=== PATIENT | male | born 1940 | race Hispanic/Latino ===

== ENCOUNTER 2018-12-11 09:19 | Inpatient (IN) | payer OTHER ==
--- OUTSIDE RECORDS SUMMARY | 2018-12-11 09:21 | XMS REPORT ---
:1940 Author Organization [facility] Address [address] [place] [address] [address]. [address] [place] [address] Care Team Providers Name Role Phone Unavailable Unavailable Unavailable Problems This patient has no known problems. Allergies, Adverse Reactions, Alerts This patient has no known allergies or adverse reactions. Medications This patient has no known medications.
[2018-12-11 10:03] LABS: Urine Glucose NEGATIVE (NEG); Urine Specific Gravity 1.015 (1.005-1.030)
[2018-12-11] MEDS ORDERED: NA CHLORIDE 0.9% 500 ML ONE (10:03)
[2018-12-11 10:04] LABS: Urine Blood NEGATIVE (NEG); Urine Protein NEGATIVE (NEG)
[2018-12-11 10:11] LABS: Urine Bacteria <20 /HPF (NONE SEEN); Urine Culture Reflex Order NOT NEEDED; Urine RBC <5 /HPF (NONE SEEN)
[2018-12-11 10:25] LABS: Absolute Lymphocytes (CBC) 1.2 K/uL (0.7-4.9); Basophils % 0.7 % (0-1.3); Hematocrit 34.3 % (39.6-49.0); Lymphocytes % 27.8 % (15.3-44.8); MPV 8.8 fL (7.6-11.3); Monocytes % 9.2 % (3.3-12.3); RBC Red Blood Cell Count 4.01 M/uL (4.33-5.43)
[2018-12-11 10:36] LABS: BUN Blood Urea Nitrogen 10 mg/dL (7-18); Bicarbonate 27 mmol/L (21-32); Glucose Level 87 mg/dL (74-106); Sodium Level 124 mmol/L (136-145)
[2018-12-11] MEDS ORDERED: ONDANSETRON 4 MG/2 ML VIAL ONE (10:39)
--- NOTE | 2018-12-11 10:48 | RAD REPORT ---
EXAM DESCRIPTION: CT - Stone Protocol - 12/11/2018 10:12 am CLINICAL HISTORY: Abdominal pain. Dysuria COMPARISON: 2015 TECHNIQUE: Computed axial tomography of the abdomen pelvis was obtained without oral or IV contrast. Lack of IV and oral contrast limits evaluation of solid organs, bowel, and vessels. Coronal reformat madi images were obtained and reviewed. All CT scans are performed using dose optimization technique as appropriate and may include automated exposure control or mA/KV adjustment according to patient size. FINDINGS: Several small hepatic cysts Spleen, pancreas and adrenals appear grossly normal Multiple, bilateral cortical and parapelvic renal cysts. Hydronephrosis is not present. A renal calcu jacy is not seen. Moderate stranding within the left perirenal fat Large left inguinal hernia contains a significant portion of the bladder. Several bladder calculi are present. Bladder wall is thickened with stranding in the adjacent fat. Small to moderate right inguinal hernia contains fat No evidence of diverticulitis The prostate gland is moderately to markedly enlarged Complex ventral hernia within the mid abdomen contains portions of the transverse colon. Small umbili denzel hernia contains fat IMPRESSION: Moderate stranding within the left perirenal fat probably indicating renal infection or inflammation Left inguinal hernia containing large portion of the bladder. Thickening of the bladder wall with str anding in the adjacent fat probably indicating a combination of bladder outlet obstruction and inflam mation/infection Complex ventral hernia containing transverse colon Bladder calculi
[2018-12-11] MEDS ORDERED: CEFTRIAXONE/SWI 1gm 1 GM/10 ML SYR ONE (11:46)
--- NOTE | 2018-12-11 12:02 | ER ---
Nurse's Notes [facility] Name: Venu Coy Age: 78 yrs Sex: Male : 1940 Arrival Date: 12/11/2018 Time: 09:22 Bed 17 Private MD: Diagnosis: Urinary tract infection, site not specified;Pyelonephritis;Bilateral inguinal hernia, without obstruction or gangrene;Failure of outpatient therapy for UTI Presentation: 12/11 09:38 Presenting complaint: urinary frequency and fatigue x 3 weeks. Pt was seen at [facility] a week ago and diagnosed with UTI and dehydration and told to follow up. Pt has been unable to follow up as PCP is out of the office and symptoms have not improved. Transition of care: patient was not received from another setting of care. Onset of symptoms is unknown. Risk Assessment: Do you want to hurt yourself or someone else? Patient reports no desire to harm self or others. Initial Sepsis Screen: Does the patient meet any 2 criteria? No. Patient's initial sepsis screen is negative. Does the patient have a suspected source of infection? No. Patient's initial sepsis screen is negative. Care prior to arrival: None. 09:38 Method Of Arrival: Wheelchair 09:38 Acuity: PAIGE 3 Historical: - Allergies: 09:40 No Known Allergies; ss - Home Meds: 13:22 nitrofurantoin macrocrystal 100 mg Oral cap 1 cap twice a day [Active]; em - PMHx: 13:22 Asthma; em - PSHx: 13:22 Hernia repair; em - Immunization history:: Adult Immunizations up to date. - Social history:: Smoking status: Patient/guardian denies using tobacco. - Ebola Screening: : Patient denies exposure to infectious person Patient denies travel to an Ebola-affected area in the 21 days before illness onset. - Family history:: not pertinent. - Hospitalizations: : No recent hospitalization is reported. Screenin:00 Nutritional screening: No deficits noted. Tuberculosis screening: No symptoms or risk em factors identified. Fall Risk IV access (20 points). Ambulatory Aid- Crutches/Cane/Walker (15 pts). Gait- Total Carter Fall Scale indicates Low Risk Score (25-44 pts). 10:21 Abuse screen: Denies threats or abuse. Denies injuries from another. ss Assessment: 10:00 General: Appears in no apparent distress. uncomfortable, well groomed, well developed, em well nourished, Behavior is calm, cooperative, Denies fever. Pain: Complains of pain in pelvis. Neuro: Level of Consciousness is awake, alert, obeys commands, Oriented to person, place, time, situation, Reports weakness Denies dizziness. Cardiovascular: Capillary refill < 3 seconds is brisk Patient's skin is warm and dry. Respiratory: Airway is patent Respiratory effort is even, unlabored, Respiratory pattern is regular, symmetrical. GI: Reports nausea, vomiting, Patient currently denies abdominal pain, diarrhea. : Reports burning with urination, urinary frequency. Derm: Skin is intact, is thin, Skin is pink, warm \T\ dry. Musculoskeletal: Range of motion: intact in all extremities. 10:05 Reassessment: The previous assessment is accurate, call light remains within reach. ss 10:15 Reassessment: wheeled to CT via wheelchair. em 11:11 Reassessment: Patient appears in no apparent distress at this time. Patient and/or em family updated on plan of care and expected duration. Pain level reassessed. Patient is alert, oriented x 3, equal unlabored respirations, skin warm/dry/pink. 12:25 Reassessment: Patient appears in no apparent distress at this time. Patient and/or em family updated on plan of care and expected duration. Pain level reassessed. Patient is alert, oriented x 3, equal unlabored respirations, skin warm/dry/pink. Patient denies pain at this time. Patient states symptoms have improved. Vital Signs: 09:40 BP 134 / 86; Pulse 54; Resp 18; Temp 97.6(TE); Pulse Ox 99% on R/A; Weight 77.11 kg; ss Height 5 ft. 6 in. (167.64 cm); Pain 0/10; 10:47 BP 129 / 72; Pulse 51; Resp 18; Pulse Ox 97% on R/A; em 11:30 BP 110 / 70; Pulse 49; Resp 18; Pulse Ox 97% on R/A; em 12:46 BP 137 / 80; Pulse 54; Resp 16; Pulse Ox 98% on R/A; Pain 0/10; em 14:00 BP 131 / 82; Pulse 52; Resp 14; Pulse Ox 99% on R/A; em 15:00 BP 118 / 70; Pulse 53; Resp 18; Temp 98.0(O); Pulse Ox 99% on R/A; Pain 0/10; em 09:40 Body Mass Index 27.44 (77.11 kg, 167.64 cm) ED Course: 09:22 Patient arrived in ED. as 09:30 Osvaldo Palafox LVN is Primary Nurse. em 09:35 Solis Schulte MD is Attending Physician. rn 09:39 Triage completed. ss 09:40 Arm band placed on right wrist. ss 09:56 Urine collected: clean catch specimen, clear. ms 10:00 Patient has correct armband on for positive identification. Bed in low position. Call em light in reach. Side rails up X2. Adult w/ patient. Pulse ox on. NIBP on. 10:00 Inserted saline lock: 22 gauge in right forearm, using aseptic technique. Blood em collected. 10:00 Initial lab(s) drawn, by me, sent to lab. First set of blood cultures drawn by me. em 10:15 CT Stone Protocol In Process Unspecified. EDMS 12:01 Ilia Bruce DO is Hospitalizing Provider. rn 14:57 No provider procedures requiring assistance completed. Patient admitted, IV remains in em place. Administered Medications: 10:00 Drug: NS 0.9% 500 ml Route: IV; Rate: bolus; Site: right forearm; ss 10:50 Follow up: IV Status: Completed infusion; IV Intake: 500ml em 10:27 Drug: Zofran 4 mg Route: IVP; Site: right forearm; ss 10:50 Follow up: Response: No adverse reaction; Nausea is decreased em 12:35 Drug: Rocephin - (cefTRIAXone) 1 grams Route: IVPB; Infused Over: 30 mins; Site: right ss antecubital; 13:18 Follow up: Response: No adverse reaction; IV Status: Completed infusion; IV Intake: 10mlem Intake: 10:50 IV: 500ml; Total: 500ml. em 13:18 IV: 10ml; Total: 510ml. em Outcome: 12:01 Decision to Hospitalize by Provider. rn 14:57 Admitted to Med/surg accompanied by tech, family with patient, via wheelchair, room em 429, with chart, Report called to [facility] Dumont 14:57 Condition: good 14:57 Instructed on the need for admit, Demonstrated understanding of instructions. 15:01 Patient left the ED. em Signatures: Dispatcher [employer] Osvaldo Zheng, PASSENGER COACH DRIVER PASSENGER COACH DRIVER Sary Ríos Maria ms Nieto, Roman, MD MD rn Yanira Curry RN RN ss
--- NOTE | 2018-12-11 12:03 | EDPHYS ---
Physician Documentation [facility] Name: Venu Coy Age: 78 yrs Sex: Male : 1940 Arrival Date: 12/11/2018 Time: 09:22 Bed 17 Private MD: ED Physician Solis Schulte HPI: 12/11 11:16 This 78 yrs old Male presents to ER via Wheelchair with complaints of Urinary rn Frequency, Weakness. 11:16 The patient presents with urinary symptoms, urinary frequency. Onset: The rn symptoms/episode began/occurred 2 week(s) ago. Modifying factors: The symptoms are alleviated by nothing, the symptoms are aggravated by urinating. Associated signs and symptoms: Pertinent positives: dysuria, nausea, vomiting, Pertinent negatives: fever, hematuria. Severity of symptoms: At their worst the symptoms were moderate, in the emergency department the symptoms are unchanged. The patient has not experienced similar symptoms in the past. The patient has been recently seen by a physician:. Reports 2 weeks of increased urinary frequency, and dysuria, seen at [facility] 1 week ago and given abx for UTI, states not better. Also having nausea and vomiting. No fever. Taking macrobid.. Historical: - Allergies: 09:40 No Known Allergies; ss - Home Meds: 13:22 nitrofurantoin macrocrystal 100 mg Oral cap 1 cap twice a day [Active]; em - PMHx: 13:22 Asthma; em - PSHx: 13:22 Hernia repair; em - Immunization history:: Adult Immunizations up to date. - Social history:: Smoking status: Patient/guardian denies using tobacco. - Ebola Screening: : Patient denies exposure to infectious person Patient denies travel to an Ebola-affected area in the 21 days before illness onset. - Family history:: not pertinent. - Hospitalizations: : No recent hospitalization is reported. ROS: 11:40 Constitutional: Negative for fever, chills, and weight loss, Eyes: Negative for injury, rn pain, redness, and discharge, Neck: Negative for injury, pain, and swelling, Cardiovascular: Negative for chest pain, palpitations, and edema, Respiratory: Negative for shortness of breath, cough, wheezing, and pleuritic chest pain, Abdomen/GI: Negative for diarrhea, and constipation, : Negative for injury, bleeding, discharge, + left scrotal swelling MS/Extremity: Negative for injury and deformity, Skin: Negative for injury, rash, and discoloration, Neuro: Negative for headache, numbness, tingling, and seizure. Exam: 11:40 Constitutional: This is a well developed, well nourished patient who is awake, alert, rn and in no acute distress. Head/Face: Normocephalic, atraumatic. ENT: MMM Cardiovascular: Regular rate and rhythm, no murmur Respiratory: Lungs have equal breath sounds bilaterally, clear to auscultation Abdomen/GI: soft, + moderate ventral hernia that is reducible Male : + large left scrotal swelling MS/ Extremity: Pulses equal, no cyanosis. Neurovascular intact. Full, normal range of motion. Equal circumference. Neuro: Awake and alert, GCS 15, oriented to person, place, time, and situation. Cranial nerves II-XII grossly intact. Motor strength 5/5 in all extremities. Sensory grossly intact. Cerebellar exam normal. Normal gait. Vital Signs: 09:40 BP 134 / 86; Pulse 54; Resp 18; Temp 97.6(TE); Pulse Ox 99% on R/A; Weight 77.11 kg; ss Height 5 ft. 6 in. (167.64 cm); Pain 0/10; 10:47 BP 129 / 72; Pulse 51; Resp 18; Pulse Ox 97% on R/A; em 11:30 BP 110 / 70; Pulse 49; Resp 18; Pulse Ox 97% on R/A; em 12:46 BP 137 / 80; Pulse 54; Resp 16; Pulse Ox 98% on R/A; Pain 0/10; em 14:00 BP 131 / 82; Pulse 52; Resp 14; Pulse Ox 99% on R/A; em 15:00 BP 118 / 70; Pulse 53; Resp 18; Temp 98.0(O); Pulse Ox 99% on R/A; Pain 0/10; em 09:40 Body Mass Index 27.44 (77.11 kg, 167.64 cm) ss MDM: 09:36 Patient medically screened. rn 11:53 Differential diagnosis: UTI. Data reviewed: vital signs, nurses notes, lab test rn result(s), radiologic studies. Counseling: I had a detailed discussion with the patient and/or guardian regarding: the historical points, exam findings, and any diagnostic results supporting the discharge/admit diagnosis, lab results, radiology results, the need for further work-up and treatment in the hospital. ED course: Pt with failure of outpt therapy, worsening UTI with signs of early pyelo. + longstanding left scrotal hernia with portion of bladder. Hernia has not been reducible since mid 2015, denies pain or acute changes. Has urinated twice here in ER, so unlikely bladder outlet obstruction and no hydro. Will admit for IV abx and gen surg consult for hernia repair, which may be outpt. . 12:00 ED course: Attempted reduction of inguinal hernia, unsuccessful, tolerated well and no rn tenderness or complaint. Manipulation did not lead to urination.. 12:12 ED course: No change in hernia, and ct 3 years ago also shows portion of bladder in rn hernia without appreciable change. Contacted Dr. Bruce for admission.. 12/11 09:44 Order name: CBC with Diff; Complete Time: 10:40 12/11 09:44 Order name: Basic Metabolic Panel; Complete Time: 10:40 12/11 09:44 Order name: Urine Culture rn 12/11 09:44 Order name: Urine Microscopic Only; Complete Time: 10:40 12/11 09:44 Order name: Procalcitonin; Complete Time: 11:29 12/11 09:44 Order name: Lactate; Complete Time: 11:11 12/11 09:44 Order name: IV Start; Complete Time: 09:55 12/11 09:44 Order name: Urine Dipstick-Ancillary (obtain specimen); Complete Time: 09:54 12/11 09:44 Order name: Blood Culture Adult (2) rn 12/11 09:45 Order name: CT Stone Protocol; Complete Time: 11:11 12/11 09:55 Order name: Urine Dipstick--Ancillary (enter results); Complete Time: 10:40 ss Administered Medications: 10:00 Drug: NS 0.9% 500 ml Route: IV; Rate: bolus; Site: right forearm; ss 10:50 Follow up: IV Status: Completed infusion; IV Intake: 500ml em 10:27 Drug: Zofran 4 mg Route: IVP; Site: right forearm; ss 10:50 Follow up: Response: No adverse reaction; Nausea is decreased em 12:35 Drug: Rocephin - (cefTRIAXone) 1 grams Route: IVPB; Infused Over: 30 mins; Site: right ss antecubital; 13:18 Follow up: Response: No adverse reaction; IV Status: Completed infusion; IV Intake: 10mlem Disposition: 12/11/18 12:01 Hospitalization ordered by Ilia Bruce for Inpatient Admission. Preliminary diagnosis are Urinary tract infection, site not specified, Pyelonephritis, Bilateral inguinal hernia, without obstruction or gangrene, Failure of outpatient therapy for UTI. - Bed requested for Telemetry/MedSurg (Inpatient). - Status is Inpatient Admission. em - Condition is Stable. - Problem is an ongoing problem. - Symptoms are unchanged. UTI on Admission? Yes Signatures: Dispatcher [employer] EDOsvaldo Hutchison, BUSINESS SERVICES ANALYST BUSINESS SERVICES ANALYST Solis Armstrong MD MD rn Smirch, Shelby, RN RN ss Botello, Elizabeth eb Corrections: (The following items were deleted from the chart) 13:52 12:01 Hospitalization Ordered by Ilia Bruce DO for Inpatient Admission. Preliminary eb diagnosis is Urinary tract infection, site not specified; Pyelonephritis; Bilateral inguinal hernia, without obstruction or gangrene; Failure of outpatient therapy for UTI. Bed requested for Telemetry/MedSurg (Inpatient). Status is Inpatient Admission. Condition is Stable. Problem is an ongoing problem. Symptoms are unchanged. UTI on Admission? Yes. rn 15:01 13:52 12/11/2018 12:01 Hospitalization Ordered by Ilia Bruce DO for Inpatient em Admission. Preliminary diagnosis is Urinary tract infection, site not specified; Pyelonephritis; Bilateral inguinal hernia, without obstruction or gangrene; Failure of outpatient therapy for UTI. Bed requested for Telemetry/MedSurg (Inpatient). Status is Inpatient Admission. Condition is Stable. Problem is an ongoing problem. Symptoms are unchanged. UTI on Admission? Yes. eb
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
[2018-12-11] MEDS ORDERED: ACETAMINOPHEN 500 MG TAB PO PRN (15:05)
[2018-12-11] MEDS: IPRATROPIUM BROM 0.5MG/2.5ML NEB PRN (15:30)
[2018-12-11] MEDS: ALBUTEROL 2.5 MG/3 ML NEB SOL NEB PRN (15:30)
[2018-12-11] MEDS: NA CHLORIDE 0.9% 1,000 ML IV SCH (16:12)
[2018-12-11] MEDS: ENOXAPARIN 40 MG/0.4 ML SQ SCH (16:13)
[2018-12-11] MEDS ORDERED: PNEUMOCOCCAL VACCINE 0.5 ML IMVAC ONE (17:00)
[2018-12-11 18:10] LABS: Urine Appearance CLEAR; Urine Bilirubin NEGATIVE (NEG); Urine Blood NEGATIVE (NEG); Urine Color YELLOW; Urine Glucose NEGATIVE (NEG); Urine Protein NEGATIVE (NEG); Urine Urobilinogen 0.2 mg/dL (0.2-1.0)
[2018-12-11 19:12] LABS: Urine Microscopic Reflex ORDER UMIC
[2018-12-11 19:30] LABS: BUN Blood Urea Nitrogen 9 mg/dL (7-18); Bicarbonate 29 mmol/L (21-32); Glucose Level 116 mg/dL (74-106); Potassium 3.6 mmol/L (3.5-5.1); Sodium Level 123 mmol/L (136-145)
[2018-12-11 19:35] LABS: Urine Bacteria <20 /HPF (NONE SEEN); Urine Culture Reflex Order NOT NEEDED; Urine RBC NONE SEEN /HPF (NONE SEEN)
[2018-12-11] MEDS: TAMSULOSIN 0.4 MG SR CAP PO SCH (21:35)
[2018-12-12 05:54] LABS: Absolute Lymphocytes (CBC) 0.9 K/uL (0.7-4.9); Basophils % 0.9 % (0-1.3); Eosinophils % 4.1 % (0-4.4); Hematocrit 32.4 % (39.6-49.0); Lymphocytes % 26.9 % (15.3-44.8); MPV 8.2 fL (7.6-11.3); Monocytes % 9.2 % (3.3-12.3); RBC Red Blood Cell Count 3.79 M/uL (4.33-5.43)
[2018-12-12 06:06] LABS: BUN Blood Urea Nitrogen 8 mg/dL (7-18); Bicarbonate 28 mmol/L (21-32); Glucose Level 80 mg/dL (74-106); Magnesium 1.7 mg/dL (1.8-2.4); Potassium 3.9 mmol/L (3.5-5.1); Sodium Level 123 mmol/L (136-145)
[2018-12-12] MEDS ORDERED: MAGNESIUM SULFATE 1 gm IVPB 1 GM/100 ML BAG IV ONE (06:16)
[2018-12-12] MEDS ORDERED: POTASSIUM 25 MEQ EFFERV TAB PO ONE (06:17)
--- NOTE | 2018-12-12 08:27 | P.PN ---
Subjective Date of Service: 12/12/18 Primary Care Provider: Dr. Beth Chief Complaint: Fatigue, dysuria Subjective: Doing well (Do well at this time. No complaints noted.) Physical Examination - Vital Signs Temperature: 97.5 F Blood Pressure: 100/56 Pulse: 57 Respirations: 16 Pulse Ox (%): 97 - Physical Exam General: Alert, In no apparent distress, Oriented x3, Cooperative HEENT: Atraumatic Neck: Supple Respiratory: Clear to auscultation bilaterally, Normal air movement Cardiovascular: Normal pulses, Regular rate/rhythm Gastrointestinal: Normal bowel sounds, Soft and benign, Non-distended, No tenderness, No masses, No rebound, No guarding, Other (Ventral hernia soft. Left inguinal hernia noted. No pain noted.) Musculoskeletal: No erythema, No tenderness, No warmth Integumentary: No tenderness/swelling, No erythema, No warmth, No cyanosis Neurological: Normal speech, Normal strength at 5/5 x4 extr, Normal tone, Normal affect - Studies Laboratory Data (last 24 hrs) 12/11/18 10:00: Sodium 124 L, Potassium 4.0, BUN 10, Creatinine 0.78, Glucose 87 12/11/18 10:00: WBC 4.3, Hgb 11.8 L, Hct 34.3 L, Plt Count 263 Medications List Reviewed: Yes Assessment & Plan Discharge Plan: Home Plan to discharge in: 48 Hours Physician Review Additional Text: Impression: Failed outpatient UTI likely now with left pyelonephritis, bladder calculi Hyponatremia like dehydration 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 Will try to obtain urine culture results from [facility]. So far he urine culture shows no growth. Await blood culture results. Continue IV Rocephin. Case discussed with surgery yesterday concerning complex ventral hernia and chronic left inguinal hernia. No plan for intervention. Hernias will need to be addressed as an outpatient. Patient with hyponatremia. Will order serum/urine osmolalities and spot urine sodium. Will consult Nephrology to further evaluate and treat. Patient has been getting low-dose IV normal saline as dehydration was suspected. Await for further recommendation. Case discussed with Urology yesterday as well. Patient will need follow up with urology as outpatient to further address his condition. Likely discharge in the next 24-48 hr awaiting urine culture result and correction of sodium. I will turn the service over to Dr. Greenwood tomorrow. I will go over the plan of care with her. Hyponatremia likely dehydration: Continue IV fluids. Will check spot urine sodium and serum/urine osmolalities. Will consult Nephrology to further evaluate and treat. Chronic left inguinal hernia: Case discussed with surgery yesterday. No intervention needed at this time. No heavy lifting, pushing or pulling. Hernia will need to be further evaluated as an outpatient. Chronic ventral complex ventral hernia: As above. Follow up with surgery as an outpatient to consider surgery in the future BPH: Continue Flomax. Patient will need to see urology as an outpatient to further address. Time Spent Managing Pts Care (In Minutes): 55
[2018-12-12] MEDS: NA CHLORIDE 0.9% 1,000 ML IV SCH (10:48)
[2018-12-12] MEDS: CEFTRIAXONE/SWI 1gm 1 GM/10 ML SYR IV SCH (10:49)
[2018-12-12] MEDS: ENOXAPARIN 40 MG/0.4 ML SQ SCH (17:05)
[2018-12-12] MEDS: HYDROCODONE/APAP 7.5/325 MG TAB PO PRN (19:44)
[2018-12-12] MEDS: TAMSULOSIN 0.4 MG SR CAP PO SCH (22:10)
[2018-12-13 06:12] LABS: Absolute Lymphocytes (CBC) 1.1 K/uL (0.7-4.9); Basophils % 0.6 % (0-1.3); Eosinophils % 4.2 % (0-4.4); Hematocrit 29.6 % (39.6-49.0); Lymphocytes % 35.8 % (15.3-44.8); MPV 8.6 fL (7.6-11.3); Monocytes % 13.2 % (3.3-12.3); RBC Red Blood Cell Count 3.46 M/uL (4.33-5.43)
[2018-12-13] MEDS: NA CHLORIDE 0.9% 1,000 ML IV SCH ×2 (06:19→23:00)
[2018-12-13 06:20] LABS: BUN Blood Urea Nitrogen 9 mg/dL (7-18); Bicarbonate 26 mmol/L (21-32); Glucose Level 82 mg/dL (74-106); Magnesium 1.8 mg/dL (1.8-2.4); Sodium Level 123 mmol/L (136-145)
[2018-12-13] MEDS: ALBUTEROL 2.5 MG/3 ML NEB SOL NEB PRN (06:35)
[2018-12-13] MEDS: IPRATROPIUM BROM 0.5MG/2.5ML NEB PRN (06:35)
[2018-12-13] MEDS: ONDANSETRON 4 MG/2 ML VIAL IV PRN ×2 (07:47→12:02)
[2018-12-13] MEDS: HYDROCODONE/APAP 7.5/325 MG TAB PO PRN ×2 (07:51→16:55)
[2018-12-13] MEDS: CEFTRIAXONE/SWI 1gm 1 GM/10 ML SYR IV SCH (07:54)
[2018-12-13] MEDS ORDERED: MAGNESIUM SULFATE 1 gm IVPB 1 GM/100 ML BAG IV ONE (09:00)
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
--- NOTE | 2018-12-13 12:29 | P.PN ---
Subjective Date of Service: 12/13/18 Primary Care Provider: Dr. Beth Chief Complaint: Fatigue, dysuria Patient seen and evaluated at bedside with RN. Chart reviewed. Case discussed with nephrology. Patient this morning does complain of having some nausea and vomiting. No other complaints to offer overnight as well. Review of Systems 10-point ROS is otherwise unremarkable Physical Examination - Vital Signs Temperature: 96.9 F Blood Pressure: 111/59 Pulse: 59 Respirations: 16 Pulse Ox (%): 95 - Physical Exam General: Alert, In no apparent distress HEENT: Atraumatic, PERRLA, EOMI Neck: Supple, JVD not distended Respiratory: Clear to auscultation bilaterally, Normal air movement Cardiovascular: Regular rate/rhythm, Normal S1 S2 Gastrointestinal: Normal bowel sounds, No tenderness Musculoskeletal: No tenderness Integumentary: No rashes Neurological: Normal speech, Normal tone, Normal affect Lymphatics: No axilla or inguinal lymphadenopathy - Studies Microbiology Data (last 24 hrs): 12/11/18 09:50 Clean Catch Urine [place] Count - Final <10,000 CFU/ML. 12/11/18 09:50 Clean Catch Urine - Final No growth. Medications List Reviewed: Yes Assessment And Plan - Current Problems (Diagnosis) (1) UTI (urinary tract infection) Onset Date: 05/02/16 Current Visit: No Status: Acute Plan: Failed outpatient therapy UTI likely now with left pyelonephritis, bladder calculi -currently on IV Rocephin -urine culture negative thus far -blood culture pending at this time -will monitor closely and switched over to oral antibiotics once culture results -doing well overall at this time -outpatient follow up with urology for bladder calculi after discussing the case with urology Qualifiers: Urinary tract infection type: acute cystitis Hematuria presence: without hematuria Qualified Code(s): N30.00 - Acute cystitis without hematuria (2) Hyponatremia Current Visit: Yes Status: Acute Plan: Patient with sodium level 123 most likely secondary to dehydration -nephrology consulted. Appreciated recommendations at the -IV fluids along with sodium tablets ordered at this time (3) Ventral hernia Current Visit: Yes Status: Chronic Plan: Ventral hernia which is chronic in nature complex -general surgery consulted. Appreciated recommendations at this time -outpatient followup to address the complex ventral hernia Qualifiers: Obstruction and gangrene presence: without obstruction or gangrene Qualified Code(s): K43.9 - Ventral hernia without obstruction or gangrene (4) BPH (benign prostatic hyperplasia) Current Visit: Yes Status: Chronic Plan: Patient follow up with urology as recommended by urology Qualifiers: Lower urinary tract symptom presence: symptoms present Lower urinary tract symptom detail: urinary frequency Qualified Code(s): N40.1 - Benign prostatic hyperplasia with lower urinary tract symptoms; R35.0 - Frequency of micturition - Plan Pending clinical improvement at this time. Continue with sodium tabs and IV fluids. Will recheck sodium level tomorrow if improvement patient can be discharged at that time. Discharge Plan: Home Plan to discharge in: 48 Hours - Code Status/Comfort Care Code Status Assessed: Yes Critical Care: No
[2018-12-13] MEDS: ENOXAPARIN 40 MG/0.4 ML SQ SCH (16:56)
[2018-12-13] MEDS ORDERED: SODIUM CHLORIDE 1 GM TAB PO SCH (17:00)
[2018-12-13] MEDS: TRAMADOL HCL 50 MG TAB PO PRN (18:39)
[2018-12-13] MEDS: TAMSULOSIN 0.4 MG SR CAP PO SCH (20:17)
--- NOTE | 2018-12-13 21:15 | PN ---
Date of Progress Note: 12/13/2018 Diagnoses: Ventral hernia and also inguinal hernia. Subjective: The patient is doing well. No distress. Tolerating diet. Objective: Chest: Clear. Abdomen: Soft and depressible. No guarding or rebound. Plan: The patient was fully explained, also the fully explained yesterday the plan, today all t he family members are present, we explained to them that when this infection is resolved, since he is a patient of [facility] in [place], to return back to the [facility] to look for possibiliti es of fixing the hernia at least the inguinal region which will allow the bladder to come through. R ight now, he does not have peritonitis, and he does not have any bowel obstruction, but he does under stand he has part of the large bowel going through the ventral region. Apparently, he had his hernia looked at before by [place] and they even have done surgery on him, so the family wanted to taking back there to fix the hernia, and I agree with that. FABIOLA/BRANDON Voice ID: [id number] Report ID: [id number]
[2018-12-13 22:35] LABS: BUN Blood Urea Nitrogen 10 mg/dL (7-18); Bicarbonate 29 mmol/L (21-32); Glucose Level 95 mg/dL (74-106); Phosphorus 3.4 mg/dL (2.5-4.9); Potassium 3.9 mmol/L (3.5-5.1); Sodium Level 124 mmol/L (136-145); Uric Acid 2.9 mg/dL (3.5-7.2)
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
[2018-12-14] MEDS: TRAMADOL HCL 50 MG TAB PO PRN (03:27)
[2018-12-14 07:17] LABS: Absolute Lymphocytes (CBC) 0.8 K/uL (0.7-4.9); Basophils % 0.7 % (0-1.3); Eosinophils % 5.1 % (0-4.4); Hematocrit 33.5 % (39.6-49.0); Lymphocytes % 29.9 % (15.3-44.8); MPV 8.2 fL (7.6-11.3); Monocytes % 10.8 % (3.3-12.3); RBC Red Blood Cell Count 3.89 M/uL (4.33-5.43)
[2018-12-14 07:35] LABS: BUN Blood Urea Nitrogen 9 mg/dL (7-18); Bicarbonate 31 mmol/L (21-32); Glucose Level 85 mg/dL (74-106); Magnesium 2.1 mg/dL (1.8-2.4); Potassium 4.2 mmol/L (3.5-5.1); Sodium Level 126 mmol/L (136-145)
[2018-12-14] MEDS: SODIUM CHLORIDE 1 GM TAB PO SCH ×4 (08:32→20:02)
[2018-12-14] MEDS: CEFTRIAXONE/SWI 1gm 1 GM/10 ML SYR IV SCH (08:32)
[2018-12-14] MEDS: ONDANSETRON 4 MG/2 ML VIAL IV PRN ×2 (08:32→13:51)
[2018-12-14 08:40] LABS: Blood Morphology Comment NOT SEEN (NOT SEEN); Platelet Estimate ADEQ; Urine White Blood Cell Casts OK
--- NOTE | 2018-12-14 12:08 | RAD REPORT ---
EXAM DESCRIPTION: RAD - Abdomen W Erect - 12/14/2018 11:30 am CLINICAL HISTORY: Abdominal pain, nausea and vomiting COMPARISON: CT study December 11 TECHNIQUE: Supine and upright views of the abdomen were obtained. FINDINGS: Moderate stool volume is seen in a nondilated colon. No dilated small bowel loops. No free air or pneumatosis. Patient has a known supraumbilical ventral hernia containing transverse colon. N o evidence for an acute component based on plain film. Dense prostate calcifications are present. Pat ient has a known large left inguinal hernia containing much of the urinary bladder. Bladder stones ar e present within the herniated portion of the bladder based on the CT study. Lumbar spine degenerative changes are present. No new calcifications seen. IMPRESSION: No evidence for bowel obstruction. No free air, pneumatosis or other acute finding.
--- NOTE | 2018-12-14 12:19 | P.PN ---
Subjective Date of Service: 12/14/18 Primary Care Provider: Dr. Beth Chief Complaint: Fatigue, dysuria Patient seen and evaluated at bedside with RN. Chart reviewed. Case discussed with nephrology. Patient this morning still complains of having some nausea and vomiting unable to keep anything down. Has not been able to ambulate as well. Review of Systems 10-point ROS is otherwise unremarkable Physical Examination - Vital Signs Temperature: 97.2 F Blood Pressure: 110/65 Pulse: 54 Respirations: 18 Pulse Ox (%): 98 - Physical Exam General: Alert, In no apparent distress HEENT: Atraumatic, PERRLA, EOMI Neck: Supple, JVD not distended Respiratory: Clear to auscultation bilaterally, Normal air movement Cardiovascular: Regular rate/rhythm, Normal S1 S2 Gastrointestinal: Normal bowel sounds, No tenderness Musculoskeletal: No tenderness Integumentary: No rashes Neurological: Normal speech, Normal tone, Normal affect Lymphatics: No axilla or inguinal lymphadenopathy - Studies Microbiology Data (last 24 hrs): 12/11/18 09:50 Clean Catch Urine [place] Count - Final <10,000 CFU/ML. 12/11/18 09:50 Clean Catch Urine - Final No growth. Medications List Reviewed: Yes Assessment And Plan - Current Problems (Diagnosis) (1) Pyelonephritis Current Visit: Yes Status: Acute Plan: Possible pyelonephritis on abdominal CT initially now with nausea vomiting persistent -currently on IV antibiotics will continue that here in the hospital -will get urology consulted at this time. -continue to monitor patient closely (2) UTI (urinary tract infection) Onset Date: 05/02/16 Current Visit: No Status: Acute Plan: Failed outpatient therapy UTI likely now with left pyelonephritis, bladder calculi -currently on IV Rocephin -urine culture negative thus far -blood culture pending at this time -will monitor closely and switched over to oral antibiotics once culture results -outpatient follow up with urology for bladder calculi after discussing the case with urology Qualifiers: Urinary tract infection type: acute cystitis Hematuria presence: without hematuria Qualified Code(s): N30.00 - Acute cystitis without hematuria (3) Hyponatremia Current Visit: Yes Status: Acute Plan: Patient with sodium level 123 initially most likely secondary to dehydration -nephrology consulted. Appreciated recommendations -NA 126 today, improving slowly -IV fluids along with sodium tablets ordered at this time (4) Ventral hernia Current Visit: Yes Status: Chronic Plan: Ventral hernia which is chronic in nature complex -general surgery consulted. Appreciated recommendations at this time -outpatient followup to address the complex ventral hernia Qualifiers: Obstruction and gangrene presence: without obstruction or gangrene Qualified Code(s): K43.9 - Ventral hernia without obstruction or gangrene (5) BPH (benign prostatic hyperplasia) Current Visit: Yes Status: Chronic Plan: Stable -outpt f.u with Urology as reccs by urology Qualifiers: Lower urinary tract symptom presence: symptoms present Lower urinary tract symptom detail: urinary frequency Qualified Code(s): N40.1 - Benign prostatic hyperplasia with lower urinary tract symptoms; R35.0 - Frequency of micturition - Plan Pending clinical improvement at this time. Discharge Plan: Home Plan to discharge in: Greater than 2 days - Code Status/Comfort Care Code Status Assessed: Yes Critical Care: No
[2018-12-14] MEDS ORDERED: LACTULOSE 20 GM/30 ML UCUP PO ONE (13:37)
[2018-12-14] MEDS: NA CHLORIDE 0.9% 1,000 ML IV SCH (13:51)
[2018-12-14] MEDS: HYDROCODONE/APAP 7.5/325 MG TAB PO PRN (14:00)
[2018-12-14] MEDS: ENOXAPARIN 40 MG/0.4 ML SQ SCH (16:08)
[2018-12-14] MEDS: PANTOPRAZOLE 40MG TABLET PO SCH (16:08)
--- NOTE | 2018-12-14 16:39 | RAD REPORT ---
EXAM DESCRIPTION: CT - Abdomen Pelvis Wo Contrast - 12/14/2018 4:20 pm CLINICAL HISTORY: Abdominal pain, flank pain, left-sided pyelonephritis COMPARISON: December 11 CT imaging ; contrast CT imaging April 2016 TECHNIQUE: Axial [address] imaging of the abdomen and pelvis was performed without IV contrast. No IV contrast was given because of allergy, abnormal renal function, patient refusal or physician re quest. Oral contrast was given. All CT scans are performed using dose optimization technique as appropriate and may include automated exposure control or mA/KV adjustment according to patient size. FINDINGS: No suspicious findings in the lung bases. Several small round low-density areas are present in the liver most likely incidental cysts. These ar e similar to the contrast study from 2016. Spleen and pancreas show no suspicious findings. Gallbladd er is only partially filled. Gallstones can be occult on CT imaging. No biliary tree dilatation. Bilateral cortical cysts and parapelvic cysts are present. Function cannot be assessed in the absence of contrast. Pyelonephritis cannot be confirmed without contrast. However, the left perinephric stra nding would suggest acute left-sided pyelonephritis. Stranding pattern is similar to comparison. No a kenna in the kidney or perinephric soft tissues. No hydronephrosis. No obstructing or nonobstructing re nal or ureteral calculi. No significant adrenal finding. Isodense renal masses and pyelonephritis ca nnot be excluded in the absence of IV contrast. Bladder calculi are again identified. Patient has a large left inguinal hernia that contains approxim ately 50% of the urinary bladder. Prostate calcifications are also present. Bladder interiano are mildly prominent and a component of cystitis is not excluded. No gastric wall thickening or mass. No dilated small bowel loop or acute small bowel finding. Left-si ded diverticulosis is present. Patient's supraumbilical ventral hernia containing transverse colon carpenter s not change from comparison. No acute component the hernia. No free air or free fluid. No pneumatosi s. No mass or bulky lymphadenopathy. No suspicious bony findings. IMPRESSION: Left-sided perinephric stranding, presumably due to pyelonephritis, has not change from December 11. No abscess, free air or other complicating factor. Urinary bladder interiano are mildly prominent and a cystitis component is not excluded. The patient has a large left inguinal hernia is again noted containing approximately 50% of the urinary bladder. Large ventral hernia containing transverse colon has no acute component or significant change from co mparison. Full assessment is limited is the absence of IV contrast.
[2018-12-14] MEDS: TAMSULOSIN 0.4 MG SR CAP PO SCH (20:02)
[2018-12-14] MEDS ORDERED: BISACODYL E.C. 5 MG TAB PO ONE (20:29)
[2018-12-14 21:14] LABS: BUN Blood Urea Nitrogen 7 mg/dL (7-18); Bicarbonate 30 mmol/L (21-32); Glucose Level 94 mg/dL (74-106); Potassium 4.1 mmol/L (3.5-5.1); Sodium Level 128 mmol/L (136-145)
--- NOTE | 2018-12-15 01:04 | PN ---
Date of Progress Note: 12/14/2018 Chief Complaint: Hyponatremia. Hypo-osmolal, moderately hyponatremia was found when the patient came to the hospital. The patient w as started on IV normal saline and sodium level has not improved significantly. Since yesterday, sod ium chloride tablets were started and sodium level improved from 123 to 126 over last 24 hours. BUN is 10 and creatinine 0.78. The patient was found to have urinary tract infection and CT scan of the abdomen and pelvis without contrast showed moderate stranding as well as complex ventral hernia conta ining transverse colon without obstruction. The patient is consulted by urologist for urinary bladde r calculus. CT scan was done today. The patient was complaining of flank pain, left-sided pyelonephritis was vinh luated with CT scan and there is no abscess formation. Pyelonephritis cannot be confirmed without co ntrast. Although patient did not receive contrast, left perinephric stranding would be suggestive of left-sided pyelonephritis. There is no hydronephrosis. The bladder calculi again identified as wel l as prostate calcifications were present. Review of Systems: The patient is complaining of some nausea and vomiting, p.o. intake is improving somewhat. Physical Examination: Lungs: Clear to auscultation bilaterally. Heart: S1, S2. Abdomen: Soft, benign. Extremities: No edema. Laboratory Data: Sodium 126, potassium 4.2, chloride 92, CO2 of 31, BUN 9, creatinine 0.72, glucose 85, cortisol level 1.28, TSH 1.4, uric acid 2.9, calcium 8.6, phosphorus 3.4. Impression And Plan: 1.Hyponatremia, hypo-osmolal. The patient is started on sodium chloride tablets. Continue IV normal saline. Evaluate sodium level. A.m. cortisol level is below normal ranges. The plan is to start hy drocortisone tablet 30 mg per day and monitor electrolytes closely. 2.Urinary tract infection. Continue antibiotics. The patient is evaluated by urologist for bladder calculus. 3.Hypertension. Blood pressure is controlled. Monitor blood pressure closely. 4.The plan is to avoid diuretic in view of hyponatremia. The patient cannot take nonsteroidal anti- inflammatory medication. EB/MODL Voice ID: [id number] Report ID: [id number]
[2018-12-15] MEDS: NA CHLORIDE 0.9% 1,000 ML IV SCH ×3 (01:40→16:11)
[2018-12-15] MEDS: CEFTRIAXONE/SWI 1gm 1 GM/10 ML SYR IV SCH (07:57)
[2018-12-15] MEDS: HYDROCODONE/APAP 7.5/325 MG TAB PO PRN (08:05)
[2018-12-15] MEDS: PANTOPRAZOLE 40MG TABLET PO SCH ×2 (08:06→16:11)
[2018-12-15] MEDS: HYDROCORTISONE 10 MG TAB PO SCH (09:30)
--- NOTE | 2018-12-15 11:55 | RAD REPORT ---
EXAM DESCRIPTION: RAD - Esophagram Only - 12/15/2018 11:36 am CLINICAL HISTORY: Nausea, vomiting COMPARISON: None. FINDINGS: An esophagram was performed and shows normal bolus formation and normal initiation of swal lowing. Primary peristalsis is normal. There is minimal pooling in the valleculae and piriform sinuse s. No evidence for aspiration or laryngeal penetration. Patient had a moderately prominent cricophary ngeus muscle causing extrinsic impression on the cervical esophagus. There is minimal extrinsic compr ession from endplate spurring. No intrinsic esophageal mass or stricture. GE junction was unremarkabl e. Fluoro time was 48 seconds. There were 3 fluoroscopic screen shots retained. Patient underwent 7 cine loop acquisitions. IMPRESSION: Esophagram study shows no intrinsic stricture or mass. No suspicious esophageal finding noted.
--- NOTE | 2018-12-15 12:29 | P.PN ---
Subjective Date of Service: 12/15/18 Primary Care Provider: Dr. Beth Chief Complaint: Fatigue, dysuria Patient seen and evaluated at bedside with RN. Chart reviewed. Case discussed with nephrology. Patient this morning states his N/V is getting much better now. No more vomiting is AM. Now Ambulating Review of Systems 10-point ROS is otherwise unremarkable Physical Examination - Vital Signs Temperature: 98.0 F Blood Pressure: 126/66 Pulse: 69 Respirations: 18 Pulse Ox (%): 97 - Physical Exam General: Alert, In no apparent distress HEENT: Atraumatic, PERRLA, EOMI Neck: Supple, JVD not distended Respiratory: Clear to auscultation bilaterally, Normal air movement Cardiovascular: Regular rate/rhythm, Normal S1 S2 Gastrointestinal: Normal bowel sounds, No tenderness Musculoskeletal: No tenderness Integumentary: No rashes Neurological: Normal speech, Normal tone, Normal affect Lymphatics: No axilla or inguinal lymphadenopathy - Studies Medications List Reviewed: Yes Assessment And Plan - Current Problems (Diagnosis) (1) Pyelonephritis Current Visit: Yes Status: Acute Plan: Possible pyelonephritis on abdominal CT initially now with nausea vomiting persistent -currently on IV antibiotics will continue that here in the hospital -Urology is not available at this time -Urine culture with No growth, However ABD CT with Stranding still, pt may need Abx on dc even with Negative Culture (2) UTI (urinary tract infection) Onset Date: 05/02/16 Current Visit: No Status: Acute Plan: Failed outpatient therapy UTI likely now with left pyelonephritis, bladder calculi -currently on IV Rocephin -urine culture negative thus far -blood culture pending at this time -will monitor closely and switched over to oral antibiotics once culture results -Urology not available at this time, but will f.u with Pt outpt for Bladder Calculi and Inguinal Hernia with Bladder Qualifiers: Urinary tract infection type: acute cystitis Hematuria presence: without hematuria Qualified Code(s): N30.00 - Acute cystitis without hematuria (3) Hyponatremia Current Visit: Yes Status: Acute Plan: Patient with sodium level 123 initially most likely secondary to dehydration -nephrology consulted. Appreciated recommendations -NA 128 today, improving slowly -IV fluids along with sodium tablets ordered at this time (4) Ventral hernia Current Visit: Yes Status: Chronic Plan: Ventral hernia which is chronic in nature complex -general surgery consulted. Appreciated recommendations at this time -outpatient followup to address the complex ventral hernia Qualifiers: Obstruction and gangrene presence: without obstruction or gangrene Qualified Code(s): K43.9 - Ventral hernia without obstruction or gangrene (5) BPH (benign prostatic hyperplasia) Current Visit: Yes Status: Chronic Plan: Stable -outpt f.u with Urology Qualifiers: Lower urinary tract symptom presence: symptoms present Lower urinary tract symptom detail: urinary frequency Qualified Code(s): N40.1 - Benign prostatic hyperplasia with lower urinary tract symptoms; R35.0 - Frequency of micturition - Plan Pending clinical improvement at this time. Discharge Plan: Home Plan to discharge in: Greater than 2 days - Code Status/Comfort Care Code Status Assessed: Yes Critical Care: No
--- NOTE | 2018-12-15 13:05 | P.PN ---
Subjective Date of Service: 12/15/18 Primary Care Provider: Dr. Beth Chief Complaint: Fatigue, dysuria Subjective: Improving Today feels netter Na improved to 128 cont IVF and salt tablet Physical Examination - Vital Signs Temperature: 98.0 F Blood Pressure: 126/66 Pulse: 69 Respirations: 18 Pulse Ox (%): 97 - Physical Exam General: Alert, Oriented x3 HEENT: Atraumatic Neck: Supple, JVD not distended, No Thyromegaly Respiratory: Clear to auscultation bilaterally, Normal air movement Cardiovascular: No edema, Regular rate/rhythm, Normal S1 S2, No gallops, No rubs , No murmurs Gastrointestinal: Normal bowel sounds, Soft and benign, No ascites, Other (Abd hernia ) Musculoskeletal: No swelling - Studies Medications List Reviewed: Yes Assessment And Plan Physician Review Additional Text: Hypoosmolar-Hyponatremia, hypo-osmolal. improving depletional + hypocortisolism Cont IVF and hydrocortisone encourage po intake Urinary tract infection. Cont ABx HTN controlled
[2018-12-15] MEDS: ENOXAPARIN 40 MG/0.4 ML SQ SCH (16:11)
[2018-12-15 17:27] VITALS: BMI 29.1
[2018-12-15] MEDS: TAMSULOSIN 0.4 MG SR CAP PO SCH (20:11)
[2018-12-16] MEDS: NA CHLORIDE 0.9% 1,000 ML IV SCH (04:18)
[2018-12-16] MEDS: PANTOPRAZOLE 40MG TABLET PO SCH (08:12)
[2018-12-16] MEDS: CEFTRIAXONE/SWI 1gm 1 GM/10 ML SYR IV SCH (08:13)
[2018-12-16] MEDS: HYDROCORTISONE 10 MG TAB PO SCH (08:13)
[2018-12-16 09:19] VITALS: BP 123/63; TEMP 97.8
[2018-12-16 10:18] LABS: ALT/SGPT 39 U/L (12-78); AST/SGOT 42 U/L (15-37); Albumin 2.8 g/dL (3.4-5.0); Alkaline Phosphatase 54 U/L (45-117); BUN Blood Urea Nitrogen 7 mg/dL (7-18); Bicarbonate 29 mmol/L (21-32); Bilirubin Total 0.2 mg/dL (0.2-1.0); Glucose Level 114 mg/dL (74-106); Potassium 3.6 mmol/L (3.5-5.1); Protein, Total 6.1 g/dL (6.4-8.2); Sodium Level 140 mmol/L (136-145)
[2018-12-16 10:30] VITALS: O2SAT 93
[2018-12-16] MEDS ORDERED: PNEUMOCOCCAL VACCINE 0.5 ML IMVAC ONE (11:00)
--- NOTE | 2018-12-16 11:33 | P.DS ---
Admission Date: 12/11/18 Discharge Date: 12/16/18 Primary Care Provider: Dr. Beth Disposition: ROUTINE DISCHARGE Discharge Condition: GOOD Reason for Admission: Fatigue, dysuria Consultations: Urology, surgery, nephrology - Problems (1) Pyelonephritis Current Visit: Yes Status: Resolved (2) UTI (urinary tract infection) Onset Date: 05/02/16 Current Visit: No Status: Resolved Qualifiers: Urinary tract infection type: acute cystitis Hematuria presence: without hematuria Qualified Code(s): N30.00 - Acute cystitis without hematuria (3) Hyponatremia Current Visit: Yes Status: Resolved (4) Ventral hernia Current Visit: Yes Status: Chronic Qualifiers: Obstruction and gangrene presence: without obstruction or gangrene Qualified Code(s): K43.9 - Ventral hernia without obstruction or gangrene (5) BPH (benign prostatic hyperplasia) Current Visit: Yes Status: Chronic Qualifiers: Lower urinary tract symptom presence: symptoms present Lower urinary tract symptom detail: urinary frequency Qualified Code(s): N40.1 - Benign prostatic hyperplasia with lower urinary tract symptoms; R35.0 - Frequency of micturition Brief History of Present Illness: 78-year-old male with history of BPH presented to the emergency room with increased fatigue and dysuria. Family and patient report that the patient was seen last week at [facility] ER for dysuria and polyuria. Patient found to have UTI. Patient was sent home with Macrobid. Patient continued to have increasing dysuria, polyuria and weakness. Patient came to the ER for further evaluation. Patient reports fever , chills, nausea, vomiting, or severe abdominal pain. Patient with history of complex ventral hernia and left inguinal hernia. In the ER patient evaluated. Blood pressure stable. White count 4.3, hemoglobin 11.8. Lactic acid within normal range. Pro calcitonin negative. Urinalysis showed no bacteria. Sodium 124, potassium 4.0, BUN of 10, creatinine 0.78 with a GFR of greater than 90. Glucose 87. CT scan showed moderate stranding within the left cole renal fat likely indicating pyelonephritis. Left inguinal hernia containing large portion of bladder. Inflammation noted with bladder calculi present. Complex ventral hernia containing transverse colon without obstruction noted. Patient was stabilized in the emergency room. Patient was admitted for further treatment due to failed outpatient therapy. When I saw the patient ER, he appeared comfortable. No significant abdominal pain noted. Hospital Course: Overall during the hospital stay patient remained stable Patient was initially admitted to the hospital for a outpatient therapy urinary tract infection with possible pyelonephritis on abdominal CT. Patient was started on IV antibiotics. Blood culture and urine cultures were collected while here in the hospital. Patient's urine culture and blood cultures were negative for any growth thus hers antibiotics was switched over to oral and patient had marked improvement in his symptoms. While here in the hospital likely secondary to dehydration versus urinary tract infection. Patient was kept on IV fluids along with salt tablets that were started by nephrology. Patient's sodium level did improve while here in the hospital as well. Patient had no symptoms secondary to hyponatremia while here in the hospital. While here in the hospital patient also had abdominal CT of the abdomen done which revealed the patient having a ventral hernia which had well lobe indeed however was not obstructed for did not have any gangrene to it. Patient was also found to have a 1 all hernia with 50% bladder in our. General surgery was consulted who recommended no surgical procedure at this time as patient's bowels is not obstructed or there is no gangrene. Patient will be followed up outpatient with general surgery. Urology was also contacted regarding inguinal hernia with bladder content. Urology recommended the patient should be treated with antibiotics and can have outpatient followup for his inguinal hernia with bladder content. Once patient was able to ambulate was doing well overall here in the hospital he was then discharged home under stable condition. Patient was able to tolerate his diet as well. Patient was given a prescription of Levaquin to be taken for his urinary tract infection and was asked to follow up with primary care provider along with urology, surgery, nephrology. Patient's family mentioned that he has appointment at [facility] for all further needs. Vital Signs/Physical Exam: Temp Pulse Resp BP Pulse Ox 97.8 F 69 15 123/63 69 L 12/16/18 08:00 12/16/18 08:00 12/16/18 08:00 12/16/18 08:00 12/16/18 08:00 General: Alert, In no apparent distress HEENT: Atraumatic, PERRLA, EOMI Neck: Supple, JVD not distended Respiratory: Clear to auscultation bilaterally, Normal air movement Cardiovascular: Regular rate/rhythm, Normal S1 S2 Gastrointestinal: Normal bowel sounds, No tenderness Musculoskeletal: No tenderness Integumentary: No rashes Neurological: Normal speech, Normal tone, Normal affect Lymphatics: No axilla or inguinal lymphadenopathy Laboratory Data at Discharge: WBC 2.7 K/uL (4.3-10.9) L D 12/14/18 07:00 Hgb 11.6 g/dL (13.6-17.9) L 12/14/18 07:00 Hct 33.5 % (39.6-49.0) L 12/14/18 07:00 Plt Count 240 K/uL (152-406) 12/14/18 07:00 Sodium 140 mmol/L (136-145) 12/16/18 09:38 Potassium 3.6 mmol/L (3.5-5.1) 12/16/18 09:38 BUN 7 mg/dL (7-18) 12/16/18 09:38 Creatinine 0.80 mg/dL (0.55-1.3) 12/16/18 09:38 Glucose 114 mg/dL (74-106) H 12/16/18 09:38 Uric Acid Cancelled 12/13/18 Unknown Phosphorus 3.4 mg/dL (2.5-4.9) 12/13/18 21:52 Magnesium 2.1 mg/dL (1.8-2.4) 12/14/18 07:00 Total Bilirubin 0.2 mg/dL (0.2-1.0) 12/16/18 09:38 AST 42 U/L (15-37) H 12/16/18 09:38 ALT 39 U/L (12-78) 12/16/18 09:38 Alkaline Phosphatase 54 U/L (45-117) 12/16/18 09:38 Home Medications: Albuterol Sulfate [Proair Hfa] 1 inhaler IH DAILY 12/11/18 Lactobacillus Acidophilus [Acidophilus] 1 each PO BID 12/11/18 Tamsulosin [Flomax*] 1 cap PO DAILY 12/11/18 Zafirlukast 20 mg PO BID 6AM 6PM 12/11/18 levoFLOXacin [Levaquin] 500 mg PO DAILY #7 tab 12/16/18 New Medications: levoFLOXacin [Levaquin] 500 mg PO DAILY #7 tab Diet: Regular Activity: Ad brandee Followup: Balbir Young MD [ACTIVE - CAN ADMIT] - 1 Week (executive services administrator (kidney doctor) ) Alex Brian MD [ACTIVE - CAN ADMIT] - 1 Week (urologist (urinary tract doctor) ) Adelso Sarkar MD [ACTIVE - CAN ADMIT] - 1 Week (surgeon )
== END 2018-12-16 11:25 | disposition home or self-care (01) | DRG 690 ==
LOC: ER 09:19 → ERHOLD 12:48 → 4TH 14:50
PROVIDERS: ADMIT Family Medicine; ATTEND Family Medicine
DX: N12 Tubulo-interstitial nephritis, not specified as acute or chronic (principal); E87.1 Hypo-osmolality and hyponatremia; N30.00 Acute cystitis without hematuria; N21.0 Calculus in bladder; E86.0 Dehydration; K40.90 Unilateral inguinal hernia, without obstruction or gangrene, not specified as recurrent; K43.9 Ventral hernia without obstruction or gangrene; N40.1 Benign prostatic hyperplasia with lower urinary tract symptoms; R35.0 Frequency of micturition; I10 Essential (primary) hypertension; J45.20 Mild intermittent asthma, uncomplicated; Z23 Encounter for immunization
CPT/HCPCS: 36415; 74019; 74176; 74220; 76377; 80048; 80053; 81003; 81015; 82533; 83605; 83735; 83930; 83935; 84100; 84145; 84300; 84443; 84550; 85025; 87040; 87086; 87088; 90471; 90670; 94640; 96361; 96365; 96375; 99285; J0696; J1650; J2405; J3475; J7030

== ENCOUNTER 2019-03-07 20:21 | Emergency (ER) | payer OTHER ==
[2019-03-07 21:55] LABS: Urine Blood NEGATIVE (NEG); Urine Glucose NEGATIVE (NEG); Urine Protein NEGATIVE (NEG); Urine Specific Gravity 1.025 (1.005-1.030); Urine pH 5.5 (5.0-7.0)
[2019-03-07] MEDS ORDERED: MEPERIDINE HCL 25 MG/0.5 ML ONE (22:39)
[2019-03-07] MEDS ORDERED: CIPROFLOXACIN 400mg IV 400 MG/200 ML BAG IV ONE (22:40)
--- NOTE | 2019-03-07 22:46 | ER ---
Nurse's Notes [facility] Name: Venu Coy Age: 79 yrs Sex: Male : 1940 Arrival Date: 03/07/2019 Time: 20:25 Bed 28 Private MD: Diagnosis: Epididymo-orchitis Presentation: 03/07 20:32 Presenting complaint: Daughter reports. Pt has hernia on testicles couple months ago on ca1 the L side. Now the R testicle is swollen and painful. Pain started last night. Denies N/V/D and fever. Transition of care: patient was not received from another setting of care. Onset of symptoms was March 06, 2019. Risk Assessment: Do you want to hurt yourself or someone else? Patient reports no desire to harm self or others. Initial Sepsis Screen: Does the patient meet any 2 criteria? No. Patient's initial sepsis screen is negative. Does the patient have a suspected source of infection? No. Patient's initial sepsis screen is negative. Care prior to arrival: None. 20:32 Method Of Arrival: Wheelchair ca1 20:32 Acuity: PAIGE 3 ca1 Triage Assessment: 20:37 General: Appears in no apparent distress. uncomfortable, Behavior is calm, cooperative, ca1 appropriate for age. Pain:. Neuro: Level of Consciousness is awake, alert, obeys commands, Oriented to person, place, time, situation. Respiratory: Airway is patent Respiratory effort is even, unlabored, Respiratory pattern is regular, symmetrical. Historical: - Allergies: 20:35 No Known Allergies; ca1 - PMHx: 20:35 Asthma; Hernia; ca1 - PSHx: 20:35 Hernia repair; ca1 - Immunization history:: Adult Immunizations up to date. - Social history:: Smoking status: Patient/guardian denies using tobacco. - Ebola Screening: : Patient negative for fever greater than or equal to 101.5 degrees Fahrenheit, and additional compatible Ebola Virus Disease symptoms Patient denies exposure to infectious person Patient denies travel to an Ebola-affected area in the 21 days before illness onset No symptoms or risks identified at this time. - Family history:: not pertinent. - Hospitalizations: : No recent hospitalization is reported. Screenin:17 Abuse screen: Denies threats or abuse. Denies injuries from another. Nutritional wh screening: No deficits noted. Tuberculosis screening: No symptoms or risk factors identified. Fall Risk None identified. Assessment: 22:13 General: Appears in no apparent distress. Behavior is calm, cooperative, appropriate wh for age. Pain: Complains of pain in TEsticular Pain does not radiate. Pain currently is 5 out of 10 on a pain scale. Quality of pain is described as aching. Neuro: Level of Consciousness is awake, alert, obeys commands. Cardiovascular: Capillary refill < 3 seconds. Respiratory: Airway is patent Respiratory effort is even, unlabored, Respiratory pattern is regular, symmetrical. GI: Abdomen is flat, non-distended, Abd is soft and non tender X 4 quads. : Reports pain scrotum. EENT: No signs and/or symptoms were reported regarding the EENT system. Derm: No signs and/or symptoms reported regarding the dermatologic system. Musculoskeletal: Circulation, motion, and sensation intact. 23:35 Reassessment: Patient appears in no apparent distress at this time. No changes from ca1 previously documented assessment. Patient and/or family updated on plan of care and expected duration. Pain level reassessed. Patient is alert, oriented x 3, equal unlabored respirations, skin warm/dry/pink. Vital Signs: 20:35 BP 117 / 71; Pulse 60; Resp 18 S; Temp 98.5; Pulse Ox 100% on R/A; Weight 84.82 kg (R); ca1 Height 5 ft. 4 in. (162.56 cm) (R); Pain 7/10; 23:30 BP 112 / 60; Pulse 60; Resp 18; Pulse Ox 97% on R/A; ca1 20:35 Body Mass Index 32.10 (84.82 kg, 162.56 cm) ca1 ED Course: 20:25 Patient arrived in ED. cf2 20:34 Triage completed. ca1 20:35 Arm band placed on. ca1 21:10 Glenn Schmidt is Primary Nurse. wh 21:12 Solis Schulte MD is Attending Physician. rn 21:57 Scrotum Testicles In Process Unspecified. EDMS 22:17 Patient has correct armband on for positive identification. Placed in gown. Bed in low wh position. Call light in reach. Side rails up X 1. Pulse ox on. NIBP on. 22:45 Alex Brian MD is Referral Physician. rn 23:56 No provider procedures requiring assistance completed. IV discontinued, intact, ca1 bleeding controlled, No redness/swelling at site. Administered Medications: 22:50 Drug: Cipro 400 mg Volume: 200 ml; Route: IVPB; Infused Over: 60 mins; Site: left antecubital; 23:58 Follow up: Response: No adverse reaction; IV Status: Completed infusion ca1 22:50 Drug: Demerol 25 mg {Note: RASS 0.} Route: IVP; Site: left antecubital; 23:59 Follow up: Response: No adverse reaction; Pain is decreased ca1 Outcome: 22:45 Discharge ordered by MD. rn 23:56 Discharged to home ambulatory, with family. ca1 23:56 Condition: good 23:56 Discharge instructions given to patient, family, Instructed on discharge instructions, follow up and referral plans. no drinking with medication, no driving heavy equipment, medication usage, POC Epididymitis and Orchitis Demonstrated understanding of instructions, follow-up care, medications, POC Prescriptions given X 2. 23:59 Patient left the ED. ca1 Signatures: Dispatcher [employer] EDMS Solis Schulte MD MD rn [place], [facility] Josefina Tubbs RN RN ca1 Ursula Ybarra cf2 Corrections: (The following items were deleted from the chart) 22:57 22:50 Demerol 25 mg IVP in right antecubital [facility]
--- NOTE | 2019-03-07 22:47 | EDPHYS ---
Physician Documentation [facility] Name: Venu Coy Age: 79 yrs Sex: Male : 1940 Arrival Date: 03/07/2019 Time: 20:25 Bed 28 Private MD: ED Physician Solis Schulte HPI: 03/07 21:27 This 79 yrs old Male presents to ER via Wheelchair with complaints of rn Testicular Pain. 21:27 The patient presents with scrotal pain, of the right side, with swelling. Onset: The rn symptoms/episode began/occurred yesterday. Modifying factors: The symptoms are alleviated by nothing, the symptoms are aggravated by movement, pressure. Severity of symptoms: At their worst the symptoms were moderate, in the emergency department the symptoms are unchanged. The patient has not experienced similar symptoms in the past. The patient has not recently seen a physician. Reports has known left inguinal hernia, today came for right testicular pain and subjective swelling, began yesterday, able to urinate, no fever, no vomiting/diarrhea. Having bowel movements and passing gas. No abd pain. No flank pain. No hematuria. . Historical: - Allergies: 20:35 No Known Allergies; ca1 - PMHx: 20:35 Asthma; Hernia; ca1 - PSHx: 20:35 Hernia repair; ca1 - Immunization history:: Adult Immunizations up to date. - Social history:: Smoking status: Patient/guardian denies using tobacco. - Ebola Screening: : Patient negative for fever greater than or equal to 101.5 degrees Fahrenheit, and additional compatible Ebola Virus Disease symptoms Patient denies exposure to infectious person Patient denies travel to an Ebola-affected area in the 21 days before illness onset No symptoms or risks identified at this time. - Family history:: not pertinent. - Hospitalizations: : No recent hospitalization is reported. ROS: 21:27 Constitutional: Negative for fever, chills, and weight loss, Eyes: Negative for injury, rn pain, redness, and discharge, Neck: Negative for injury, pain, and swelling, Cardiovascular: Negative for chest pain, palpitations, and edema, Respiratory: Negative for shortness of breath, cough, wheezing, and pleuritic chest pain, Abdomen/GI: Negative for abdominal pain, nausea, vomiting, diarrhea, and constipation, Back: Negative for injury and pain, : + right testicular pain and swelling MS/Extremity: Negative for injury and deformity, Neuro: Negative for headache, weakness, numbness, tingling, and seizure. Exam: 21:27 Constitutional: This is a well developed, well nourished patient who is awake, alert, rn and in no acute distress. Head/Face: Normocephalic, atraumatic. ENT: MMM Cardiovascular: Regular rate and rhythm. No pulse deficits. Respiratory: No increased work of breathing, no retractions or nasal flaring. Abdomen/GI: soft, non-tender, no rebound Male : + left inguinal hernia that extends into scrotum, non-tender and no discoloration. + right testicular tenderness. MS/ Extremity: Pulses equal, no cyanosis. Neurovascular intact. Full, normal range of motion. Equal circumference. Vital Signs: 20:35 BP 117 / 71; Pulse 60; Resp 18 S; Temp 98.5; Pulse Ox 100% on R/A; Weight 84.82 kg (R); ca1 Height 5 ft. 4 in. (162.56 cm) (R); Pain 7/10; 23:30 BP 112 / 60; Pulse 60; Resp 18; Pulse Ox 97% on R/A; ca1 20:35 Body Mass Index 32.10 (84.82 kg, 162.56 cm) ca1 MDM: 21:12 Patient medically screened. rn 22:43 Differential diagnosis: UTI, epididymo-orchitis. Data reviewed: vital signs, nurses rn notes, lab test result(s), radiologic studies, ultrasound, and as a result, I will discharge patient. Counseling: I had a detailed discussion with the patient and/or guardian regarding: the historical points, exam findings, and any diagnostic results supporting the discharge/admit diagnosis, lab results, radiology results, the need for outpatient follow up, to return to the emergency department if symptoms worsen or persist or if there are any questions or concerns that arise at home. Special discussion: I discussed with the patient/guardian in detail that at this point there is no indication for admission to the hospital. It is understood, however, that if the symptoms persist or worsen the patient needs to return immediately for re-evaluation. Based on the history and exam findings, there is no indication for further emergent testing or inpatient evaluation. I discussed with the patient/guardian the need to see the primary care provider for further evaluation of the symptoms. I discussed with the patient/guardian the need to see the urologist for further evaluation of the symptoms. ED course: Pt with +UTI and likely epididymo-orchitis on U/S, good blood flow bilateral testicles. Will dc home with abx. IV abx given here, stable vitals. Pain improved. . 03/07 21:25 Order name: Urine Microscopic Only rn 03/07 21:44 Order name: Urine Dipstick--Ancillary (enter results); Complete Time: 22:21 em1 03/07 21:25 Order name: US Scrotum Testicles rn 03/07 23:05 Order name: Urine Culture EDMS 03/07 21:25 Order name: Urine Dipstick-Ancillary (obtain specimen); Complete Time: 21:41 rn Administered Medications: 22:50 Drug: Cipro 400 mg Volume: 200 ml; Route: IVPB; Infused Over: 60 mins; Site: left antecubital; 23:58 Follow up: Response: No adverse reaction; IV Status: Completed infusion ca1 22:50 Drug: Demerol 25 mg {Note: RASS 0.} Route: IVP; Site: left antecubital; 23:59 Follow up: Response: No adverse reaction; Pain is decreased ca1 Disposition: 03/07/19 22:45 Discharged to Home. Impression: Epididymo-orchitis. - Condition is Stable. - Discharge Instructions: Epididymitis, Orchitis. - Prescriptions for Cipro 500 mg Oral Tablet - take 1 tablet by ORAL route every 12 hours for 14 days; 28 tablet. Tylenol- Codeine #3 300-30 mg Oral Tablet - take 1 tablet by ORAL route every 6 hours As needed; 20 tablet. - Medication Reconciliation Form, Thank You Letter, Antibiotic Education, Prescription Opioid Use form. - Follow up: Alex Brian MD; When: 2 - 3 days; Reason: Recheck today's complaints, Re-evaluation by your physician. - Problem is new. - Symptoms have improved. Signatures: Dispatcher [employer] EDMS Solis Schulte MD MD rn [place], [place], Josefina RN RN ca1 Corrections: (The following items were deleted from the chart) 23:59 22:45 03/07/2019 22:45 Discharged to Home. Impression: Epididymo-orchitis. Condition is ca1 Stable. Forms are Medication Reconciliation Form, Thank You Letter, Antibiotic Education, Prescription Opioid Use. Follow up: Alex Brian; When: 2 - 3 days; Reason: Recheck today's complaints, Re-evaluation by your physician. Problem is new. Symptoms have improved. rn
[2019-03-07 23:02] LABS: Urine Bacteria 20-50 /HPF (NONE SEEN); Urine Culture Reflex Order REFLEXED; Urine RBC <5 /HPF (NONE SEEN)
[2019-03-08 01:42] VITALS: TEMP 98.5
[2019-03-08 01:43] VITALS: BP 112/60; O2SAT 97
--- NOTE | 2019-03-08 08:35 | RAD REPORT ---
EXAM DESCRIPTION: US - Scrotum Testicles - 03/07/2019 9:55 pm CLINICAL HISTORY: Right-sided scrotal pain. Preliminary findings provided at the time of the study. COMPARISON: None. FINDINGS: No intratesticular mass lesion identified. Bilateral testicular tissue is homogeneous in e chogenicity. Right-sided scrotal wall thickening is seen. Vascularity of the right testicle is increa sed slightly relative to the left. No suspicion for torsion. Right epididymis is slightly hyperemic a s well when compared to the left. Small epididymal cysts are present. Small to moderate right-sided h ydrocele present. IMPRESSION: Scrotal wall thickening is present consistent with the soft tissue infectious/ inflammat ory process. No testicular mass lesions seen. Doppler evaluation supports right-sided epididymo-orchitis
== END 2019-03-07 23:59 | disposition home or self-care (01) ==
LOC: ER 20:21
DX: N45.3 Epididymo-orchitis (principal)
CPT/HCPCS: 87088; 87086; 76870; J2175; J0744; 81003; 81015; 96365; 96375; 99284

== ENCOUNTER 2019-07-10 16:58 | Emergency (ER) | payer OTHER ==
--- OUTSIDE RECORDS SUMMARY | 2019-07-10 17:00 | XMS REPORT ---
:1940 [facility] Address [address] Barker [address] [place] [id number] Care Team Providers Name Role Phone Unavailable Unavailable Unavailable Problems This patient has no known problems. Allergies, Adverse Reactions, Alerts This patient has no known allergies or adverse reactions. Medications This patient has no known medications.
[2019-07-10] MEDS ORDERED: NA CHLORIDE 0.9% 500 ML ONE (18:25)
[2019-07-10] MEDS ORDERED: ALBUTEROL 2.5 MG/3 ML NEB SOL ONE (18:29)
[2019-07-10 18:58] LABS: Absolute Lymphocytes (CBC) 0.9 K/uL (0.7-4.9); Basophils % 0.8 % (0-1.3); Hematocrit 29.2 % (39.6-49.0); Lymphocytes % 21.2 % (15.3-44.8); MPV 8.7 fL (7.6-11.3); RBC Red Blood Cell Count 3.33 M/uL (4.33-5.43)
[2019-07-10 19:32] LABS: ALT/SGPT 44 U/L (12-78); AST/SGOT 57 U/L (15-37); Albumin 3.2 g/dL (3.4-5.0); Alkaline Phosphatase 61 U/L (45-117); BUN Blood Urea Nitrogen 10 mg/dL (7-18); Bicarbonate 26 mmol/L (21-32); Bilirubin Direct 0.1 mg/dL (0-0.2); Bilirubin Total 0.4 mg/dL (0.2-1.0); Glucose Level 90 mg/dL (74-106); Lipase 211 U/L (73-393); Potassium 3.8 mmol/L (3.5-5.1); Protein, Total 6.6 g/dL (6.4-8.2)
[2019-07-10 19:38] LABS: Sodium Level 118 mmol/L (136-145)
[2019-07-10] MEDS ORDERED: NA CHLORIDE 0.9% 1,000 ML ONE (20:18)
--- NOTE | 2019-07-10 20:31 | RAD REPORT ---
EXAM DESCRIPTION: CT - Abdomen Pelvis W Contrast - 07/10/2019 7:55 pm CLINICAL HISTORY: Abdominal pain vomiting COMPARISON: December 2018 TECHNIQUE: Computed axial tomography of the abdomen pelvis was obtained. 100 cc Isovue-300 was admin istered intravenously. Oral contrast was not requested which limits evaluation of bowel. All CT scans are performed using dose optimization technique as appropriate and may include automated exposure control or mA/KV adjustment according to patient size. FINDINGS: Small hepatic cysts. The spleen, pancreas and adrenals are unremarkable Parapelvic renal cysts and cortical renal cysts are seen. Postsurgical changes of a ventral/umbilical hernia repair. 7 centimeter fluid collection is present w ithin the anterior subcutaneous to the right of midline at the level of the ventral hernia repair. Bilateral inguinal hernias contain fat. Air is present within the anterior subcutaneous fat bilateral ly at the mid right pelvis and the level of the hips bilaterally extending inferiorly. A fluid contai emi abscess is not noted. Several bladder calculi are present. There is stranding within the fat anterior to the bladder. The p rostate gland is moderately to markedly enlarged. IMPRESSION: 7 centimeter fluid collection within the anterior subcutaneous fat to the right of midli ne within the mid to lower abdomen above the umbilicus may represent a hematoma. Air within the anterior subcutaneous fat of the pelvis extending below the hips presumably related to the recent inguinal hernia repair. If the patient's symptoms do not improve then followup CT would b e recommended Bladder calculi. Prostatic hypertrophy Stranding anterior to the bladder. Given that the left inguinal hernia containied bladder this could be the sequela of the surgery. Again, if the patient's symptoms do not improve then this can be monit ored on a CT scan with contrast administered into the bladder
--- NOTE | 2019-07-10 20:33 | RAD REPORT ---
EXAM DESCRIPTION: Kaleb Single View07/10/2019 6:24 pm CLINICAL HISTORY: sob COMPARISON: 2016 FINDINGS: The lungs appear clear of acute infiltrate. The heart is normal size IMPRESSION: No acute abnormalities displayed
--- NOTE | 2019-07-10 20:42 | ER ---
Nurse's Notes [facility] Name: Venu Coy Age: 79 yrs Sex: Male : 1940 Arrival Date: 07/10/2019 Time: 17:01 Bed 19 Private MD: Diagnosis: Hyponatremia;Nausea and vomiting;Diarrhea, unspecified;Urinary tract infection, site not specified Presentation: 07/10 17:35 Presenting complaint: daughter reports that on 06/29 he had a hernia repair surgery. ss After he went home he began having burning with urination, but was told that it was okay, just irritation from the catheter. Since then, he has been having N/V/D, decreased appetite and feeling very weak.". Transition of care: patient was not received from another setting of care. Onset of symptoms was July 05, 2019. Risk Assessment: Do you want to hurt yourself or someone else? Patient reports no desire to harm self or others. Initial Sepsis Screen: Does the patient meet any 2 criteria? No. Patient's initial sepsis screen is negative. Does the patient have a suspected source of infection? Yes: Dysuria/Frequency/Urgency/UTI. Care prior to arrival: None. 17:35 Method Of Arrival: Ambulatory ss 17:35 Acuity: PAIGE 3 ss Historical: - Allergies: 17:39 No Known Allergies; ss - PMHx: 17:39 Asthma; ss - PSHx: 17:39 Hernia repair; ss - Immunization history:: Adult Immunizations up to date. - Coronavirus screen:: The patient has NOT traveled to [place], [place], or [place] in the past 14 days. Proceed with normal triage process as indicated. - Social history:: Smoking status: Patient denies any tobacco usage or history of. - Ebola Screening: : Patient denies exposure to infectious person Patient denies travel to an Ebola-affected area in the 21 days before illness onset. Screenin:33 Abuse screen: Denies threats or abuse. Denies injuries from another. Nutritional ph screening: No deficits noted. Tuberculosis screening: No symptoms or risk factors identified. Fall Risk None identified. Assessment: 18:34 General: Appears in no apparent distress. comfortable, well groomed, Behavior is calm, ph cooperative, appropriate for age. Pain: Denies pain. Neuro: Level of Consciousness is awake, alert, obeys commands, Oriented to person, place, time, situation. Cardiovascular: Capillary refill < 3 seconds in bilateral fingers Patient's skin is warm and dry. Respiratory: Airway is patent Respiratory effort is even, unlabored, Respiratory pattern is regular, symmetrical. GI: Abdomen is round non-distended, Reports diarrhea, nausea, vomiting, Patient currently denies abdominal pain. : Reports burning with urination. Derm: Skin is intact, is healthy with good turgor, Skin is pink, warm \\T\\ dry. Musculoskeletal: Circulation, motion, and sensation intact. Range of motion: intact in all extremities. 19:22 Reassessment: Patient appears in no apparent distress at this time. Patient and/or family updated on plan of care and expected duration. Pain level reassessed. Patient is alert, oriented x 3, equal unlabored respirations, skin warm/dry/pink. 20:30 Reassessment: Patient appears in no apparent distress at this time. No changes from previously documented assessment. Patient and/or family updated on plan of care and expected duration. Pain level reassessed. Patient is alert, oriented x 3, equal unlabored respirations, skin warm/dry/pink. Provider at bedside explaining POC need for admission. 22:00 Reassessment: Patient appears in no apparent distress at this time. No changes from previously documented assessment. Patient and/or family updated on plan of care and expected duration. Pain level reassessed. Patient is alert, oriented x 3, equal unlabored respirations, skin warm/dry/pink. report given to Tosha Orr RN. 23:23 Reassessment: Patient appears in no apparent distress at this time. No changes from previously documented assessment. Patient and/or family updated on plan of care and expected duration. Pain level reassessed. Patient is alert, oriented x 3, equal unlabored respirations, skin warm/dry/pink. report given to [facility]. Vital Signs: 17:39 BP 120 / 74; Pulse 58; Resp 20; Temp 97.6(TE); Pulse Ox 98% on R/A; Weight 83.01 kg; ss Height 5 ft. 6 in. (167.64 cm); Pain 0/10; 19:22 BP 123 / 73; Pulse 58; Resp 18; Pulse Ox 98% on R/A; wh 20:44 BP 131 / 74; Pulse 56; Resp 18; Pulse Ox 99% on R/A; wh 22:15 BP 118 / 70; Pulse 59; Resp 18; Pulse Ox 100% on R/A; wh 23:22 BP 143 / 75; Pulse 58; Resp 18; Pulse Ox 99% on R/A; wh 17:39 Body Mass Index 29.54 (83.01 kg, 167.64 cm) ED Course: 17:01 Patient arrived in ED. as 17:38 Triage completed. ss 17:39 Arm band placed on left wrist. ss 17:43 Goldie Marte, RN is Primary Nurse. ph 17:44 Marcus Pacheco BLADE CHANGER is PHCP. pm1 17:44 Dagoberto Lazaro MD is Attending Physician. pm1 18:10 Radiology exam delayed due to lab results not completed at this time. (BUN/Creatinine). bq 18:24 Chest Single View XRAY In Process Unspecified. EDMS 18:33 Patient has correct armband on for positive identification. Placed in gown. Bed in low ph position. Call light in reach. Side rails up X 1. Pulse ox on. NIBP on. Door closed. Noise minimized. Warm blanket given. Pillow given. Head of bed elevated. 18:37 Missed attempt(s): 20 gauge in right antecubital area. Bleeding controlled, band aid ph applied, catheter tip intact. Missed attempt(s): 22 gauge in right forearm. Bleeding controlled, band aid applied, catheter tip intact. 18:38 No provider procedures requiring assistance completed. ph 18:52 Radiology exam delayed due to lab results not completed at this time. (BUN/Creatinine). mw3 19:56 CT Abd/Pelvis - IV Contrast Only In Process Unspecified. EDMS 20:40 Geri Cagle MD is Hospitalizing Provider. pm1 23:24 Patient transferred, IV remains in place. wh Administered Medications: 18:32 Drug: Albuterol 2.5 mg Route: Inhalation; ph 18:54 Drug: NS 0.9% 500 ml Route: IV; Rate: bolus; Site: right forearm; ph 20:55 Follow up: Response: No adverse reaction; IV Status: Completed infusion wh 19:49 CANCELLED (Duplicate Order): NS 0.9% 1000 ml IV at 125 ml/hr continuous pm1 20:18 Drug: NS 0.9% 1000 ml Route: IV; Rate: 125 ml/hr; Site: right forearm; 20:55 Follow up: Response: No adverse reaction; IV Status: Infusion continued upon admission 23:23 Follow up: Response: No adverse reaction; IV Status: IV converted to saline lock 20:59 Drug: Rocephin 1 grams Route: IV; Rate: calculated rate; Site: right forearm; 23:23 Follow up: Response: No adverse reaction; IV Status: Completed infusion Outcome: 20:41 Decision to Hospitalize by Provider. pm1 21:07 ER care complete, transfer ordered by MD. pm1 23:24 Transferred by ground EMS to [facility], Transfer form completed. X-rays sent w/ patient. Note: Report given to Tosha Orr RN and [facility] 23:24 Condition: stable 23:24 Instructed on the need for transfer. 23:25 Patient left the ED. Signatures: Dispatcher [employer] EDMS Lien Whittaker Amelia as Smirch, Shelby, RN RN Goldie Marte RN RN ph Marcus Pacheco, JOSE DAVID BLADE CHANGER pm1 Glenn Schmidt Tabitha Calvillo mw3
--- NOTE | 2019-07-10 20:42 | EDPHYS ---
Physician Documentation [facility] Name: Venu Coy Age: 79 yrs Sex: Male : 1940 Arrival Date: 07/10/2019 Time: 17:01 Bed 19 Private MD: ED Physician Dagoberto Lazaro HPI: 07/10 17:57 This 79 yrs old Male presents to ER via Ambulatory with complaints of pm1 Nausea/Vomiting/Diarrhea. 17:57 The patient presents to the emergency department with nausea, vomiting, with each meal pm1 for the past 5 days, diarrhea, 4-5 times per day for the last 5 days. Onset: The symptoms/episode began/occurred 5 day(s) ago. Possible causes: unknown. The symptoms are aggravated by food , The symptoms are alleviated by nothing. Associated signs and symptoms: Pertinent positives: burning with urination that has improved, told that it was irritation from the sanchez catheter that was in place, Pertinent negatives: abdominal pain. Severity of symptoms: in the emergency department the symptoms are unchanged. Patient with ventral hernia and left inguinal hernia repair on 06/29/2019 followed up three days later and had drain from right side removed and Sanchez removed. Had some burning at tip of penis that has improved. For the past 5 days nausea and vomiting with each meal and 4-5 times of diarrhea daily. Patient without any abdominal pain or fevers. Patient with history of asthma. Reports mild asthma at the moment. Historical: - Allergies: 17:39 No Known Allergies; ss - PMHx: 17:39 Asthma; ss - PSHx: 17:39 Hernia repair; ss - Immunization history:: Adult Immunizations up to date. - Coronavirus screen:: The patient has NOT traveled to [place], [place], or [place] in the past 14 days. Proceed with normal triage process as indicated. - Social history:: Smoking status: Patient denies any tobacco usage or history of. - Ebola Screening: : Patient denies exposure to infectious person Patient denies travel to an Ebola-affected area in the 21 days before illness onset. ROS: 17:59 Constitutional: Negative for fever, chills, and weight loss, Eyes: Negative for injury, pm1 pain, redness, and discharge, ENT: Negative for injury, pain, and discharge, Neck: Negative for injury, pain, and swelling, Cardiovascular: Negative for chest pain, palpitations, and edema. 17:59 Back: Negative for injury and pain. 17:59 MS/Extremity: Negative for injury and deformity, Skin: Negative for injury, rash, and discoloration. 17:59 Respiratory: Positive for shortness of breath, wheezing, Negative for cough, sputum production. 17:59 Abdomen/GI: Positive for nausea, vomiting, and diarrhea, Negative for abdominal pain, constipation. 17:59 : Positive for burning with urination, Negative for testicular pain 17:59 Neuro: Positive for weakness, Negative for altered mental status, numbness, tingling. Exam: 17:59 Constitutional: This is a well developed, well nourished patient who is awake, alert, pm1 and in no acute distress. Head/Face: Normocephalic, atraumatic. Neck: Trachea midline, no thyromegaly or masses palpated, and no cervical lymphadenopathy. Supple, full range of motion without nuchal rigidity, or vertebral point tenderness. No Meningismus. Chest/axilla: Normal chest wall appearance and motion. Nontender with no deformity. No lesions are appreciated. Cardiovascular: Regular rate and rhythm with a normal S1 and S2. No gallops, murmurs, or rubs. Normal PMI, no JVD. No pulse deficits. 17:59 Back: No spinal tenderness. No costovertebral tenderness. Full range of motion. Skin: Warm, dry with normal turgor. Normal color with no rashes, no lesions, and no evidence of cellulitis. MS/ Extremity: Pulses equal, no cyanosis. Neurovascular intact. Full, normal range of motion. 17:59 Respiratory: the patient does not display signs of respiratory distress, Respirations: normal, Breath sounds: wheezing: expiratory is heard diffusely. 17:59 Abdomen/GI: Inspection: obese incisional sites without dehiscence, surrounding cellulitis or discharge, Bowel sounds: normal, Palpation: abdomen is soft and non-tender. 17:59 Neuro: Orientation: is normal, Motor: is normal, moves all fours, Sensation: is normal, no obvious gross deficits. Vital Signs: 17:39 BP 120 / 74; Pulse 58; Resp 20; Temp 97.6(TE); Pulse Ox 98% on R/A; Weight 83.01 kg; ss Height 5 ft. 6 in. (167.64 cm); Pain 0/10; 19:22 BP 123 / 73; Pulse 58; Resp 18; Pulse Ox 98% on R/A; wh 20:44 BP 131 / 74; Pulse 56; Resp 18; Pulse Ox 99% on R/A; wh 22:15 BP 118 / 70; Pulse 59; Resp 18; Pulse Ox 100% on R/A; wh 23:22 BP 143 / 75; Pulse 58; Resp 18; Pulse Ox 99% on R/A; wh 17:39 Body Mass Index 29.54 (83.01 kg, 167.64 cm) ss MDM: 17:52 Patient medically screened. pm1 20:39 Data reviewed: vital signs. Data interpreted: Pulse oximetry: on room air is 98 %. pm1 Interpretation: normal. Counseling: I had a detailed discussion with the patient and/or guardian regarding: the historical points, exam findings, and any diagnostic results supporting the discharge/admit diagnosis, lab results, radiology results, the need for further work-up and treatment in the hospital. 20:50 Physician consultation: Geri Cagle MD regarding admission, patient's condition, after pm1 a discussion of the case, a recommendation for transfer for higher level of care is made, [facility] is uncomfortable with recent surgery and CT result showing 7 centimeter fluid collection within the anterior subcutaneous to the right of midline at the level of the ventral hernia repair. 22:24 Physician consultation: Hospitalist [facility] Dr. Caputo was contacted at 10:04, regarding pm1 regarding transfer, patient's condition, and will see patient. 07/10 17:57 Order name: Basic Metabolic Panel pm1 07/10 17:57 Order name: CBC with Diff; Complete Time: 19:36 pm07/10 17:57 Order name: Creatinine for Radiology; Complete Time: 19:36 pm1 07/10 17:57 Order name: Hepatic Function; Complete Time: 19:46 pm07/10 17:57 Order name: Lipase; Complete Time: 19:46 pm1 07/10 17:57 Order name: Urine Microscopic Only; Complete Time: 21:08 pm1 07/10 17:57 Order name: CT Abd/Pelvis - IV Contrast Only; Complete Time: 20:34 pm1 07/10 17:57 Order name: Chest Single View XRAY; Complete Time: 20:36 pm1 07/10 17:58 Order name: Basic Metabolic Panel; Complete Time: 19:46 EDAZ 07/10 20:31 Order name: Urine Dipstick--Ancillary (enter results); Complete Time: 20:48 em1 07/10 17:57 Order name: IV Saline Lock; Complete Time: 18:39 pm1 07/10 17:57 Order name: Labs collected and sent; Complete Time: 18:39 pm1 07/10 17:57 Order name: Urine Dipstick-Ancillary (obtain specimen); Complete Time: 20:19 pm1 Administered Medications: 18:32 Drug: Albuterol 2.5 mg Route: Inhalation; ph 18:54 Drug: NS 0.9% 500 ml Route: IV; Rate: bolus; Site: right forearm; ph 20:55 Follow up: Response: No adverse reaction; IV Status: Completed infusion 19:49 CANCELLED (Duplicate Order): NS 0.9% 1000 ml IV at 125 ml/hr continuous pm1 20:18 Drug: NS 0.9% 1000 ml Route: IV; Rate: 125 ml/hr; Site: right forearm; wh 20:55 Follow up: Response: No adverse reaction; IV Status: Infusion continued upon admission 23:23 Follow up: Response: No adverse reaction; IV Status: IV converted to saline lock 20:59 Drug: Rocephin 1 grams Route: IV; Rate: calculated rate; Site: right forearm; 23:23 Follow up: Response: No adverse reaction; IV Status: Completed infusion Disposition: 07/11 09:59 Co-signature as Attending Physician, Dagoberto Lazaro MD I agree with the assessment and [facility] plan of care. Disposition: 07/10/19 21:07 Transfer ordered to [facility]-System. Diagnosis are Hyponatremia, Nausea and vomiting, Diarrhea, unspecified, Urinary tract infection, site not specified. - Reason for transfer: Higher level of care. - Accepting physician is [facility]. Dr. Caputo. - Condition is Stable. - Problem is new. - Symptoms have improved. Signatures: Dispatcher [employer] [facility] Dagoberto Lazaro MD MD [facility] Yanira Curry RN RN Goldie Marte RN RN Marcus Pacheco, [employer] pm1 Glenn Schmidt Corrections: (The following items were deleted from the chart) 07/10 19:49 19:49 NS 0.9% 1000 ml IV at 125 ml/hr continuous ordered. pm1 pm1 20:41 20:41 Hospitalization Ordered by Geri Cagle MD for Inpatient Admission. Preliminary pm1 diagnosis is Hyponatremia; Nausea and vomiting; Diarrhea, unspecified. Bed requested for Telemetry/MedSurg (Inpatient). Status is Inpatient Admission. Condition is Stable. Problem is new. Symptoms have improved. UTI on Admission? No. pm1 20:41 20:41 07/10/2019 20:41 Hospitalization Ordered by Geri Cagle MD for Inpatient pm1 Admission. Preliminary diagnosis is Hyponatremia; Nausea and vomiting; Diarrhea, unspecified. Bed requested for Telemetry/MedSurg (Inpatient). Status is Inpatient Admission. Condition is Stable. Problem is new. Symptoms have improved. UTI on Admission? Yes. pm1 21:05 20:41 07/10/2019 20:41 Hospitalization Ordered by Geri Cagle MD for Inpatient pm1 Admission. Preliminary diagnosis is Hyponatremia; Nausea and vomiting; Diarrhea, unspecified; Urinary tract infection, site not specified. Bed requested for Telemetry/MedSurg (Inpatient). Status is Inpatient Admission. Condition is Stable. Problem is new. Symptoms have improved. UTI on Admission? Yes. pm1 22:24 21:07 07/10/2019 21:07 Transfer ordered to [facility]. Diagnosis is Hyponatremia; pm1 Nausea and vomiting; Diarrhea, unspecified; Urinary tract infection, site not specified. Reason for transfer: Higher level of care. Accepting physician is [facility]. Condition is Stable. Problem is new. Symptoms have improved. pm1 23:25 22:24 07/10/2019 21:07 Transfer ordered to [facility]System. Diagnosis is Hyponatremia; wh Nausea and vomiting; Diarrhea, unspecified; Urinary tract infection, site not specified. Reason for transfer: Higher level of care. Accepting physician is [facility]. Dr. Caputo. Condition is Stable. Problem is new. Symptoms have improved. pm1
[2019-07-10 20:47] LABS: Urine Blood NEGATIVE (NEG); Urine Glucose NEGATIVE (NEG); Urine Protein NEGATIVE (NEG); Urine Specific Gravity 1.015 (1.005-1.030)
[2019-07-10 20:53] LABS: Urine Bacteria NONE SEEN /HPF (NONE SEEN); Urine Culture Reflex Order NOT NEEDED; Urine RBC NONE SEEN /HPF (NONE SEEN)
[2019-07-10] MEDS ORDERED: CEFTRIAXONE/SWI 1gm 1 GM/10 ML SYR ONE (21:00)
[2019-07-10 23:30] VITALS: TEMP 97.6
[2019-07-10 23:35] VITALS: BP 143/75; O2SAT 99
== END 2019-07-10 23:25 | disposition short-term general hospital (02) ==
LOC: ER 16:58
DX: E87.1 Hypo-osmolality and hyponatremia (principal); N39.0 Urinary tract infection, site not specified; R19.7 Diarrhea, unspecified
CPT/HCPCS: 96365; 96361; 85025; 80048; 36415; 80076; 83690; 74177; 71045; 99285; 96366; Q9967; J0696; J7040; J7030; 81003; 81015

== ENCOUNTER 2019-07-25 11:38 | Inpatient (IN) | payer OTHER ==
--- OUTSIDE RECORDS SUMMARY | 2019-07-25 11:41 | XMS REPORT ---
:1940 [facility] Address [address] [place] [id number] Care Team Providers Name Role Phone Unavailable Unavailable Unavailable Problems This patient has no known problems. Allergies, Adverse Reactions, Alerts This patient has no known allergies or adverse reactions. Medications This patient has no known medications.
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
[2019-07-25] MEDS ORDERED: NA CHLORIDE 0.9% 0 ML ONE (12:26)
[2019-07-25] MEDS ORDERED: CEFTRIAXONE/SWI 1gm 0 GM/0 ML SYR ONE (12:26)
[2019-07-25] MEDS ORDERED: CEFTRIAXONE/SWI 1gm 1 GM/10 ML SYR ONE (12:38)
[2019-07-25] MEDS ORDERED: NA CHLORIDE 0.9% 2,000 ML ONE (12:38)
[2019-07-25 13:08] LABS: Basophils % 0.7 % (0-1.3); Hematocrit 30.1 % (39.6-49.0); Lymphocytes % 15.8 % (15.3-44.8); MPV 8.7 fL (7.6-11.3); RBC Red Blood Cell Count 3.53 M/uL (4.33-5.43)
[2019-07-25 13:11] LABS: Protime INR 1.04
[2019-07-25 13:23] LABS: ALT/SGPT 16 U/L (12-78); AST/SGOT 22 U/L (15-37); Albumin 3.6 g/dL (3.4-5.0); Alkaline Phosphatase 68 U/L (45-117); Amylase Level 58 U/L (25-115); BUN Blood Urea Nitrogen 13 mg/dL (7-18); Bicarbonate 25 mmol/L (21-32); Bilirubin Direct 0.2 mg/dL (0-0.2); Bilirubin Total 0.6 mg/dL (0.2-1.0); CKMB Creatine Kinase MB < 1.0 ng/mL (0.3-3.6); Creatine Phosphokinase 77 U/L (39-308); Glucose Level 80 mg/dL (74-106); Lipase 186 U/L (73-393); Potassium 4.6 mmol/L (3.5-5.1); Protein, Total 7.4 g/dL (6.4-8.2); Troponin (Emerg Dept Use Only) < 0.02 ng/mL (0.0-0.045)
[2019-07-25 13:25] LABS: Sodium Level 116 mmol/L (136-145)
--- NOTE | 2019-07-25 14:00 | RAD REPORT ---
EXAM DESCRIPTION: Kaleb Single View07/25/2019 1:52 pm CLINICAL HISTORY: Congestion COMPARISON: June 2019 and 2013 FINDINGS: Small nodule left upper lobe unchanged likely a granuloma The lungs appear clear of acute infiltrate. The heart is normal size IMPRESSION: No acute abnormalities displayed
--- NOTE | 2019-07-25 14:21 | RAD REPORT ---
EXAM DESCRIPTION: CT - Abdomen Pelvis W Contrast - 07/25/2019 2:00 pm CLINICAL HISTORY: Abdominal pain COMPARISON: June 2019 TECHNIQUE: Computed axial tomography of the abdomen pelvis was obtained. 100 cc Isovue-300 was admin istered intravenously. Oral contrast was not requested which limits evaluation of bowel. All CT scans are performed using dose optimization technique as appropriate and may include automated exposure control or mA/KV adjustment according to patient size. FINDINGS: A small hiatal hernia Small hepatic cysts Parapelvic renal cysts and cortical cysts The spleen, pancreas and adrenals appear unremarkable There is no evidence of diverticulitis. 5.5 centimeter fluid collection within the anterior subcutaneous fat to the right of midline in the p eriumbilical region has decreased in size Bilateral inguinal hernias contain fat Prostate gland is moderately enlarged. Bladder calculi are seen IMPRESSION: A 5.5 centimeter fluid collection within the anterior subcutaneous fat to the right of m idline periumbilical region has decreased in size presumably represents a hematoma.
[2019-07-25] MEDS ORDERED: NA CHLORIDE 0.9% 1,000 ML ONE ×2 (14:41→17:23)
[2019-07-25 15:05] LABS: Urine Blood NEGATIVE (NEG); Urine Glucose NEGATIVE (NEG); Urine Protein NEGATIVE (NEG); Urine Specific Gravity 1.015 (1.005-1.030)
--- NOTE | 2019-07-25 15:17 | ER ---
Nurse's Notes [facility] Name: Venu Coy Age: 79 yrs Sex: Male : 1940 Arrival Date: 07/25/2019 Time: 11:40 Bed 5 Private MD: Diagnosis: Dehydration;Hypo-osmolality and hyponatremia Presentation: 07/25 12:12 Presenting complaint: Child states: has been feeling very weak since having hernia iw surgery a month ago, also has been c/o bad pain in right shoulder/arm and has swelling in left hand since this morning, has not been sleeping or eating normally. Transition of care: patient was not received from another setting of care. Onset of symptoms was June 2019. Risk Assessment: Do you want to hurt yourself or someone else? Patient reports no desire to harm self or others. Initial Sepsis Screen: Does the patient meet any 2 criteria? Systolic BP < 90 mmHg. Does the patient have a suspected source of infection? No. Patient's initial sepsis screen is negative. Care prior to arrival: None. 12:12 Method Of Arrival: Wheelchair iw 12:12 Acuity: PAIGE 2 iw 12:28 Initial Sepsis Screen: Does the patient meet any 2 criteria? Does the patient have a sg suspected source of infection? Yes: Other: currently on abx treatment. Historical: - Allergies: 12:13 No Known Allergies; iw - Home Meds: 18:11 Flomax Oral [Active]; em 18:12 zafirlukast oral oral [Active]; Zofran Oral [Active]; Macrobid Oral [Active]; em - PMHx: 12:13 Asthma; Hernia; iw - PSHx: 12:13 Hernia repair; iw - Immunization history:: Adult Immunizations unknown. - Social history:: Patient/guardian denies using alcohol, street drugs, The patient lives with family, Smoking status: unknown. - Coronavirus screen:: The patient has NOT traveled to [place], [place], or [place] in the past 14 days. The patient has NOT had contact with known/suspected case of Coronavirus? Proceed with normal triage procedures. - Family history:: not pertinent. - Ebola Screening: : Patient negative for fever greater than or equal to 101.5 degrees Fahrenheit, and additional compatible Ebola Virus Disease symptoms Patient denies exposure to infectious person Patient denies travel to an Ebola-affected area in the 21 days before illness onset No symptoms or risks identified at this time. Screenin:20 Abuse screen: Denies threats or abuse. Nutritional screening: No deficits noted. em Tuberculosis screening: No symptoms or risk factors identified. Fall Risk None identified. Fall in past 12 months (25 points). Assessment: 12:20 General: Appears in no apparent distress. uncomfortable, ill, Behavior is cooperative, em drowsy, Reports chills for 2-3 days, fatigue for 2-3 days. Pain: Complains of pain in right arm Pain currently is 9 out of 10 on a pain scale. Pain began 1 day ago. Neuro: Level of Consciousness is awake, alert, obeys commands, Oriented to person, place, time, situation, Appropriate for age. Cardiovascular: Denies shortness of breath, Capillary refill < 3 seconds Patient's skin is warm and dry. Rhythm is sinus rhythm. Respiratory: Airway is patent Respiratory effort is even, unlabored, Respiratory pattern is regular, symmetrical. GI: Patient currently denies nausea, vomiting. Derm: Skin is intact, is healthy with good turgor, Skin is pink, warm \\T\\ dry. Musculoskeletal: Capillary refill < 3 seconds, Range of motion: intact in all extremities. 13:30 Reassessment: Patient appears in no apparent distress at this time. Patient and/or em family updated on plan of care and expected duration. Pain level reassessed. Patient is alert, oriented x 3, equal unlabored respirations, skin warm/dry/pink. 14:37 Reassessment: Critical value for sodium-116 and Chloride of [address] saha,. mg2 15:01 Reassessment: Patient appears in no apparent distress at this time. reports pain in em right shoulder, provider notified. 16:16 Reassessment: Patient appears in no apparent distress at this time. Patient and/or em family updated on plan of care and expected duration. Pain level reassessed. Patient is alert, oriented x 3, equal unlabored respirations, skin warm/dry/pink. rates pain "little bit better," Dr. Yoon at bedside Patient states feeling better. 17:15 Reassessment: BP 97/60, HR 54, provider notified of BP, received verbal order to em administer 1 L NS. 17:58 Reassessment: dinner tray delivered. em 18:18 Reassessment: report given to PARISH Mccoy, request head CT prior to coming to ER, em provider notified. 18:30 Reassessment: pt soiled brief, applied new brief, changed linen. em 19:39 Reassessment: Patient appears in no apparent distress at this time. No changes from jd3 previously documented assessment. Patient and/or family updated on plan of care and expected duration. Pain level reassessed. Patient states feeling better. Vital Signs: 12:13 BP 83 / 52; Pulse 57; Resp 20 S; Temp 97.9; Pulse Ox 98% on R/A; Weight 78.93 kg; iw Height 5 ft. 6 in. (167.64 cm); Pain 9/10; 12:21 BP 115 / 60; Pulse 61; Resp 18; Pulse Ox 99% on R/A; em 13:00 BP 114 / 70; Pulse 65; Resp 18; Pulse Ox 99% on R/A; em 14:00 BP 118 / 66; Pulse 55; Resp 16 S; Pulse Ox 100% on R/A; jl7 15:03 BP 103 / 82; Pulse 73; Resp 17 S; Pulse Ox 100% on R/A; jl7 16:18 BP 106 / 71; Pulse 65; Resp 18; Pulse Ox 97% on R/A; em 17:15 BP 97 / 60; Pulse 54; Resp 18; Pulse Ox 99% on R/A; em 17:30 BP 100 / 61; Pulse 53; Resp 18; Pulse Ox 99% on R/A; em 18:00 BP 98 / 78; Pulse 58; Resp 16; Pulse Ox 99% on R/A; em 19:37 BP 101 / 50; Pulse 55; Resp 17 S; Pulse Ox 100% on R/A; jd3 12:13 Body Mass Index 28.08 (78.93 kg, 167.64 cm) iw ED Course: 11:40 Patient arrived in ED. rg4 12:13 Triage completed. iw 12:13 Arm band placed on. iw 12:16 Libertad Saha MD is Attending Physician. ma2 12:20 Eyad Martinez RN is Primary Nurse. jl7 12:20 Patient has correct armband on for positive identification. Placed in gown. Bed in low em position. Call light in reach. Side rails up X2. Adult w/ patient. liaison planner on. Pulse ox on. NIBP on. 12:23 Osvaldo Palafox, RN is Primary Nurse. em 12:40 Accessed midline Clean \\T\\ dry. Good blood return. Flushes easily. 18 G 10 CM POWER GLIDE.rv 15:08 Maria L Yoon MD is Hospitalizing Provider. ma2 19:39 No provider procedures requiring assistance completed. Patient admitted, IV remains in jd3 place. 19:57 EKG done, by ED staff, reviewed by Libertad Saha MD. mt Administered Medications: 12:55 Drug: NS 0.9% (30 ml/kg) 30 ml/kg Route: IV; Rate: bolus; Site: right upper arm; em 17:30 Follow up: IV Status: Completed infusion; IV Intake: 3000ml ; administered 3,000 mL per em MD order 12:57 Drug: Rocephin 1 grams Route: IV; Rate: calculated rate; Site: right upper arm; em 13:00 Follow up: Response: No adverse reaction; IV Status: Completed infusion; IV Intake: 10mlem 15:20 Drug: Tylenol 500 mg Route: PO; em 16:18 Follow up: Response: No adverse reaction; Marked relief of symptoms; Pain is decreased em 17:25 Drug: NS 0.9% 1000 ml Route: IV; Rate: 1 bolus; Site: right upper arm; em 18:29 Follow up: IV Status: Completed infusion; IV Intake: 1000ml em Point of Care Testing: Blood Glucose: 12:50 Blood Glucose: 90 mg/dL; em Ranges: Intake: 13:00 IV: 10ml; Total: 10ml. em 17:30 IV: 3000ml; Total: 3010ml. em 18:29 IV: 1000ml; Total: 4010ml. em Outcome: 15:11 Decision to Hospitalize by Provider. ma2 19:39 Admitted to ICU accompanied by nurse, via stretcher, room 6, on monitor, with chart, jd3 Report called to bedside report to be given. 19:39 Condition: stable 19:39 Instructed on the need for admit. 20:04 Patient left the ED. jd3 Signatures: Bhargav Baron RN RN Osvaldo Palafox, RN PARISH Francoise Velásquez RN RN Rhonda Gonzalez rg4 Eyad Martinez, RN RN jl7 Regina Romero mt, Jonathon RN RN jd3 Libertad Saha MD MD ma2 Alberto Cordon, RN RN mg2 Jarrod Ralph RN RN rv Corrections: (The following items were deleted from the chart) 12:25 12:12 Initial Sepsis Screen: Does the patient meet any 2 criteria? Systolic BP < 90 iw mmHg. Does the patient have a suspected source of infection? No. Patient's initial sepsis screen is negative. iw 17:31 15:32 IV Status: Completed infusion; IV Intake: 3000ml em em
--- NOTE | 2019-07-25 15:17 | EDPHYS ---
Physician Documentation [facility] Name: Venu Coy Age: 79 yrs Sex: Male : 1940 Arrival Date: 07/25/2019 Time: 11:40 Bed 5 Private MD: ED Physician Libertad Saha HPI: 07/25 14:52 This 79 yrs old Male presents to ER via Wheelchair with complaints of Weakness.ma2 14:52 Onset: The symptoms/episode began/occurred gradually, 4 day(s) ago. Associated signs ma2 and symptoms: Pertinent positives: Pertinent negatives: dizziness, headache, paresthesias, seizure, double vision, loss of vision. Severity of symptoms: At their worst the symptoms were moderate in the emergency department the symptoms are unchanged. Current symptoms: Currently, the patient is not experiencing any symptoms. The patient has not experienced similar symptoms in the past. s/p hernia repair and discharged home last week, has poor po intake . Historical: - Allergies: 12:13 No Known Allergies; iw - Home Meds: 18:11 Flomax Oral [Active]; em 18:12 zafirlukast oral oral [Active]; Zofran Oral [Active]; Macrobid Oral [Active]; em - PMHx: 12:13 Asthma; Hernia; iw - PSHx: 12:13 Hernia repair; iw - Immunization history:: Adult Immunizations unknown. - Social history:: Patient/guardian denies using alcohol, street drugs, The patient lives with family, Smoking status: unknown. - Coronavirus screen:: The patient has NOT traveled to [place], [place], or [place] in the past 14 days. The patient has NOT had contact with known/suspected case of Coronavirus? Proceed with normal triage procedures. - Family history:: not pertinent. - Ebola Screening: : Patient negative for fever greater than or equal to 101.5 degrees Fahrenheit, and additional compatible Ebola Virus Disease symptoms Patient denies exposure to infectious person Patient denies travel to an Ebola-affected area in the 21 days before illness onset No symptoms or risks identified at this time. ROS: 14:52 Constitutional: Negative for fever, chills, and weight loss. ma2 14:52 All other systems are negative. Exam: 14:52 Constitutional: This is a well developed, well nourished patient who is awake, alert, ma2 and in no acute distress. Head/Face: Normocephalic, atraumatic. Eyes: Pupils equal round and reactive to light, extra-ocular motions intact. Lids and lashes normal. Conjunctiva and sclera are non-icteric and not injected. Cornea within normal limits. Periorbital areas with no swelling, redness, or edema. ENT: Nares patent. No nasal discharge, no septal abnormalities noted. Tympanic membranes are normal and external auditory canals are clear. Oropharynx with no redness, swelling, or masses, exudates, or evidence of obstruction, uvula midline. Mucous membranes moist. Neck: Trachea midline, no thyromegaly or masses palpated, and no cervical lymphadenopathy. Supple, full range of motion without nuchal rigidity, or vertebral point tenderness. No Meningismus. Chest/axilla: Normal chest wall appearance and motion. Nontender with no deformity. No lesions are appreciated. Cardiovascular: Regular rate and rhythm with a normal S1 and S2. No gallops, murmurs, or rubs. Normal PMI, no JVD. No pulse deficits. Respiratory: Lungs have equal breath sounds bilaterally, clear to auscultation and percussion. No rales, rhonchi or wheezes noted. No increased work of breathing, no retractions or nasal flaring. Abdomen/GI: Soft, non-tender, with normal bowel sounds. No distension or tympany. No guarding or rebound. No evidence of tenderness throughout. MS/ Extremity: Pulses equal, no cyanosis. Neurovascular intact. Full, normal range of motion. Neuro: Awake and alert, GCS 15, oriented to person, place, time, and situation. Cranial nerves II-XII grossly intact. Motor strength 5/5 in all extremities. Sensory grossly intact. Cerebellar exam normal. Normal gait. Vital Signs: 12:13 BP 83 / 52; Pulse 57; Resp 20 S; Temp 97.9; Pulse Ox 98% on R/A; Weight 78.93 kg; iw Height 5 ft. 6 in. (167.64 cm); Pain 9/10; 12:21 BP 115 / 60; Pulse 61; Resp 18; Pulse Ox 99% on R/A; em 13:00 BP 114 / 70; Pulse 65; Resp 18; Pulse Ox 99% on R/A; em 14:00 BP 118 / 66; Pulse 55; Resp 16 S; Pulse Ox 100% on R/A; jl7 15:03 BP 103 / 82; Pulse 73; Resp 17 S; Pulse Ox 100% on R/A; jl7 16:18 BP 106 / 71; Pulse 65; Resp 18; Pulse Ox 97% on R/A; em 17:15 BP 97 / 60; Pulse 54; Resp 18; Pulse Ox 99% on R/A; em 17:30 BP 100 / 61; Pulse 53; Resp 18; Pulse Ox 99% on R/A; em 18:00 BP 98 / 78; Pulse 58; Resp 16; Pulse Ox 99% on R/A; em 19:37 BP 101 / 50; Pulse 55; Resp 17 S; Pulse Ox 100% on R/A; jd3 12:13 Body Mass Index 28.08 (78.93 kg, 167.64 cm) iw MDM: 12:16 Patient medically screened. de2 15:11 Data reviewed: vital signs, nurses notes, EMS record. Counseling: I had a detailed [facility] discussion with the patient and/or guardian regarding: the historical points, exam findings, and any diagnostic results supporting the discharge/admit diagnosis, the presence of at least one elevated blood pressure reading (>120/80) during this emergency department visit, the need for further work-up and treatment in the hospital. Response to treatment: the patient's symptoms have markedly improved after treatment. 07/25 12:17 Order name: Amylase, Serum de2 07/25 12:17 Order name: Basic Metabolic Panel de2 07/25 12:17 Order name: Blood Culture Adult (2) de2 07/25 12:17 Order name: CBC with Diff de2 07/25 12:17 Order name: Ckmb de2 07/25 12:17 Order name: CPK de2 07/25 12:17 Order name: Lactate de2 07/25 12:17 Order name: LFT's de2 07/25 12:17 Order name: Lipase de2 07/25 12:17 Order name: Procalcitonin de2 07/25 12:17 Order name: Protime (+inr) de2 07/25 12:17 Order name: Ptt, Activated de2 07/25 12:17 Order name: Troponin (emerg Dept Use Only) de2 07/25 12:17 Order name: Urine Microscopic Only de2 07/25 12:17 Order name: Flu de2 07/25 13:12 Order name: Glucose, Ancillary Testing; Complete Time: 13:19 EDMS 07/25 13:13 Order name: CBC with Automated Diff; Complete Time: 13:19 EDMS 07/25 13:13 Order name: Protime (+INR); Complete Time: 13:19 EDMS 07/25 13:13 Order name: PTT, Activated Partial Thromb; Complete Time: 13:19 EDMS 07/25 13:18 Order name: Lactate; Complete Time: 13:19 EDMS 07/25 13:29 Order name: Basic Metabolic Panel; Complete Time: 14:11 EDMS 07/25 13:29 Order name: Liver (Hepatic) Function; Complete Time: 14:11 EDMS 07/25 13:29 Order name: Creatine Phosphokinase; Complete Time: 14:11 EDMS 07/25 13:29 Order name: CKMB Creatine Kinase MB; Complete Time: 14:11 EDMS 07/25 13:29 Order name: Troponin (Emerg Dept Use Only); Complete Time: 14:11 EDMS 07/25 13:29 Order name: Amylase Level; Complete Time: 14:11 EDMS 07/25 13:29 Order name: Lipase; Complete Time: 14:11 EDMS 07/25 13:31 Order name: Procalcitonin; Complete Time: 14:11 EDMS 07/25 13:57 Order name: Influenza Screen (A ; Complete Time: 14:11 EDMS 07/25 14:16 Order name: Urine Dipstick--Ancillary (enter results) 07/25 12:17 Order name: Chest Single View XRAY [facility] 07/25 12:17 Order name: Accucheck; Complete Time: 13:08 de2 07/25 12:17 Order name: Cardiac monitoring; Complete Time: 12:29 de2 07/25 12:17 Order name: EKG - Nurse/Tech; Complete Time: 13:08 de2 07/25 12:17 Order name: IV Saline Lock - Large Bore; Complete Time: 12:29 de2 07/25 12:17 Order name: Labs collected and sent; Complete Time: 12:29 de2 07/25 12:17 Order name: O2 Per Protocol; Complete Time: 12:29 [facility] 07/25 12:17 Order name: O2 Sat Monitoring; Complete Time: 12:29 de2 07/25 13:20 Order name: CT Abd/Pelvis - IV Contrast Only de2 07/25 14:14 Order name: RAD; Complete Time: 14:20 EDMS 07/25 14:20 Order name: Shoulder Right (2 View) XRAY de2 07/25 14:45 Order name: CT; Complete Time: 14:46 EDMS 07/25 15:07 Order name: Urine Dipstick-Ancillary; Complete Time: 18:21 EDMS 07/25 15:45 Order name: Blood Culture EDMS 07/25 15:45 Order name: Influenza Screen (A EDMS 07/25 15:54 Order name: RAD; Complete Time: 18:21 EDMS 07/25 16:02 Order name: Urine Microscopic Only; Complete Time: 18:21 EDMS 07/25 18:22 Order name: CT Head Brain wo Cont de2 07/25 19:39 Order name: Thyroid Stimulating Hormone EDNY 07/25 19:45 Order name: CT EDMS Administered Medications: 12:55 Drug: NS 0.9% (30 ml/kg) 30 ml/kg Route: IV; Rate: bolus; Site: right upper arm; em 17:30 Follow up: IV Status: Completed infusion; IV Intake: 3000ml ; administered 3,000 mL per em MD order 12:57 Drug: Rocephin 1 grams Route: IV; Rate: calculated rate; Site: right upper arm; em 13:00 Follow up: Response: No adverse reaction; IV Status: Completed infusion; IV Intake: 10mlem 15:20 Drug: Tylenol 500 mg Route: PO; em 16:18 Follow up: Response: No adverse reaction; Marked relief of symptoms; Pain is decreased em 17:25 Drug: NS 0.9% 1000 ml Route: IV; Rate: 1 bolus; Site: right upper arm; em 18:29 Follow up: IV Status: Completed infusion; IV Intake: 1000ml em Point of Care Testing: Blood Glucose: 12:50 Blood Glucose: 90 mg/dL; em Ranges: Critical Glucose Levels:Adult <50 mg/dl or >400 mg/dl <40 mg/dl or >180 mg/dl Disposition: 07/25/19 15:11 Hospitalization ordered by Maria L Yoon for Inpatient Admission. Preliminary diagnosis are Dehydration, Hypo-osmolality and hyponatremia. - Bed requested for Intensive Care Unit. - Status is Inpatient Admission. jd3 - Condition is Stable. - Problem is new. - Symptoms are unchanged. Signatures: Dispatcher [employer] EDMS Sadie Krueger Osvaldo Arevalo, RN RN Francoise Torres RN RN iw Roszak, Josh, STEPHON PA jr8 Sami Sarmiento RN RN jd3 Libertad Saha MD MD ma2 Corrections: (The following items were deleted from the chart) 18:01 15:11 Hospitalization Ordered by Maria L Yoon MD for Inpatient Admission. Preliminary bd diagnosis is Dehydration; Hypo-osmolality and hyponatremia. Bed requested for Intensive Care Unit. Status is Inpatient Admission. Condition is Stable. Problem is new. Symptoms are unchanged. ma2 20:04 18:01 07/25/2019 15:11 Hospitalization Ordered by Maria L Yoon MD for Inpatient Admission. jd3 Preliminary diagnosis is Dehydration; Hypo-osmolality and hyponatremia. Bed requested for Intensive Care Unit. Status is Inpatient Admission. Condition is Stable. Problem is new. Symptoms are unchanged. bd
[2019-07-25] MEDS ORDERED: ACETAMINOPHEN 500 MG TAB ONE (15:21)
--- NOTE | 2019-07-25 15:44 | RAD REPORT ---
EXAM DESCRIPTION: Shoulder Right 2 View - 07/25/2019 3:11 pm CLINICAL HISTORY: PAIN COMPARISON: No comparisons TECHNIQUE: Internal and external rotation views of the right shoulder were obtained. FINDINGS: There is no fracture or dislocation. No AC joint separation or spurring. Acromial humeral joint space is narrowed slightly. No abnormal soft tissue calcifications. No acute or suspicious fin dings. IMPRESSION: Minimal degenerative change at the shoulder joint. No acute findings seen.
[2019-07-25 16:01] LABS: Urine Bacteria <20 /HPF (NONE SEEN); Urine Culture Reflex Order NOT NEEDED; Urine RBC NONE SEEN /HPF (NONE SEEN)
[2019-07-25] MEDS ORDERED: ALPRAZOLAM 0.25 MG TABLET PO PRN (17:11)
[2019-07-25] MEDS ORDERED: MAGNESIUM HYDROXIDE 8% 30 ML PO PRN (17:11)
[2019-07-25] MEDS ORDERED: ONDANSETRON 4 MG/2 ML VIAL IV PRN (17:11)
--- NOTE | 2019-07-25 19:36 | RAD REPORT ---
EXAM DESCRIPTION: CT - Head Brain Wo Cont - 07/25/2019 7:11 pm CLINICAL HISTORY: weakness COMPARISON: No comparisonsChest Single View dated 07/25/2019none TECHNIQUE: Axial 5 mm thick images of the head were obtained without IV contrast. All CT scans are performed using dose optimization technique as appropriate and may include automated exposure control or mA/KV adjustment according to patient size. FINDINGS: No intracranial hemorrhage, edema or shift of midline structures. No acute cortical based infarction. Patient has a mild symmetric bifrontal atrophy pattern. Mild chronic ischemic changes are present. Ventricles are normal. Patient has an enlarged sella turcica with increased soft tissue michelle ng the superior margin extending into the [place]. No comparison available. Ventricle s are normal. Mastoid air cells and visualized portions of the paranasal sinuses are clear. No acute bony findings. IMPRESSION: No acute intracranial finding. Patient has asymmetric mild bifrontal atrophy pattern. Suspected sella mass. This is not acutely significant but warrants follow-up outpatient contrast MRI pituitary protocol study.
[2019-07-25] MEDS: ALBUTEROL 2.5 MG/3 ML NEB SOL NEB PRN (20:35)
[2019-07-25 21:02] VITALS: BMI 31.8
[2019-07-25] MEDS: NA CHLORIDE 0.9% 1,000 ML IV SCH (21:14)
[2019-07-25] MEDS ORDERED: CLINDAMYCIN 600MG/D5W 1,200 MG/100 ML BAG IV ONE (21:19)
[2019-07-25] MEDS: CLINDAMYCIN INJ 600 MG in NA CHLORIDE 0.9% 50 ML IV SCH (21:21)
[2019-07-25 22:18] LABS: BUN Blood Urea Nitrogen 9 mg/dL (7-18); Bicarbonate 23 mmol/L (21-32); Glucose Level 95 mg/dL (74-106); Potassium 4.4 mmol/L (3.5-5.1); Sodium Level 124 mmol/L (136-145)
[2019-07-25] MEDS: ACETAMINOPHEN 500 MG TAB PO PRN (23:55)
[2019-07-26] MEDS: CLINDAMYCIN INJ 600 MG in NA CHLORIDE 0.9% 50 ML IV SCH ×3 (00:57→16:05)
[2019-07-26] MEDS: ALBUTEROL 2.5 MG/3 ML NEB SOL NEB PRN ×4 (02:08→18:55)
--- NOTE | 2019-07-26 02:23 | HP ---
Date of Admission: 07/25/2019 Chief Complaint: Generalized weakness. History Of Present Illness: This patient is a 79-year-old gentleman who presented for generalized weakness. He is a poor historian and thus the information is from the ED physician and his daughter. This patient has a history of BPH, abdominal hernia, hyponatremia, and UTI. This patient underwent abdominal hernia 1 month ago at [facility]. He was sent to the rehab after that. However, there was some drainage from surgical wound and he was admitted to [facility] for wound infection. Wound was drained. He was treated with IV antibiotics. He was then discharged. This patient has been feeling weak since the last week. He also experienced lethargy. Daughter reported patient fell twice at home without loss of consciousness. He did not eat and sleep well. Patient had some mild nausea and vomiting. No reported fever. No shortness of breath or chest pain. This daughter brought him to the emergency room due to worsening weakness. In the ED, vitals are stable. WBC 6.1, hemoglobin 10.6. He was noted to have hyponatremia with sodium 116, chloride 83 , creatinine 0.74. Liver enzymes within normal range. Chest x-ray unremarkable. Abdomen CT was ordered, which demonstrated 5.5 cm fluid collection suggesting hematoma. He was admitted for further management. Past Medical History: 1. BPH. 2. Abdominal hernia, status post repair. 3. Surgical wound infection. 4. Hyponatremia. 5. UTI. Home Medications: Please see home medication list. Review of Systems: Patient experienced weakness, fall, nausea, vomiting. Otherwise, 11-point system review unremarkable. Allergies: NO KNOWN ALLERGIES. Social History: No alcohol abuse. Patient has been living at home with family. Family History: Noncontributory. Physical Examination: General: Patient appears to be tired and weak. He is awake and alert and oriented. HEENT: PERRLA. EOMI. Normocephalic, atraumatic. Neck: Supple. No JVD. Chest: Clear to auscultation. No respiratory distress. No wheezing. Heart: Normal S1, S2. Regular rhythm and rate. Abdomen: Soft. Mild tenderness. Surgical wound and dressing. There is one mass palpable around the surgical wound. No redness. Lower Extremities: No edema. No cyanosis. Neuro: Patient awake, alert, oriented x3. Nonfocal. Skin: No rashes or eczema. Laboratory Data: WBC 6.1, hemoglobin 10.6, platelet 252. Sodium 116, potassium 4.6, chloride 83, BUN 13, creatinine 0.74. Liver enzyme within normal range. Procalcitonin 0.09. Urine unremarkable. Assessment/plan: This patient is 79-year-old male who presented for weakness. He was admitted to the hospital recently for hernia repair and subsequently wound infection. He did not eat well. His sodium 116, likely due to poor oral intake. We started IV normal saline. We will closely monitor sodium level. 1. Hyponatremia. Sodium 116. This is due to poor oral intake. We started the normal saline 100 cc/hour. There is no mental status change. 2. Generalized weakness. This is likely multifactorial including hyponatremia , recent surgery and surgical infection. PT was ordered. We will consult case briefer for possible placement vs. home health. 3. Possible abdominal wall hematoma. Patient underwent surgical hernia recently. Abdominal CT suggesting hematoma. His WBC normal. There is no fever. Procalcitonin normal. We will closely monitor. I started IV clindamycin empirically 4. Frequent fall. This is likely due to weakness. CT head was ordered. 5. Asthma. This is stable. No wheezing. We will monitor. QT/MODL Voice ID: [id number] MTDD
[2019-07-26] MEDS: NA CHLORIDE 0.9% 1,000 ML IV SCH ×3 (04:00→15:50)
[2019-07-26 05:36] LABS: Absolute Lymphocytes (CBC) 0.7 K/uL (0.7-4.9); Basophils % 1.2 % (0-1.3); Hematocrit 29.9 % (39.6-49.0); Lymphocytes % 23.2 % (15.3-44.8); MPV 9.4 fL (7.6-11.3); RBC Red Blood Cell Count 3.47 M/uL (4.33-5.43)
[2019-07-26 05:45] LABS: ALT/SGPT 16 U/L (12-78); AST/SGOT 21 U/L (15-37); Albumin 2.8 g/dL (3.4-5.0); Alkaline Phosphatase 53 U/L (45-117); BUN Blood Urea Nitrogen 8 mg/dL (7-18); Bicarbonate 23 mmol/L (21-32); Bilirubin Total 0.4 mg/dL (0.2-1.0); Glucose Level 71 mg/dL (74-106); Magnesium 1.7 mg/dL (1.8-2.4); Phosphorus 2.8 mg/dL (2.5-4.9); Potassium 4.2 mmol/L (3.5-5.1); Protein, Total 6.1 g/dL (6.4-8.2); Sodium Level 125 mmol/L (136-145)
[2019-07-26] MEDS ORDERED: MAGNESIUM SULFATE 1 gm IVPB 1 GM/100 ML BAG IV ONE (05:58)
--- NOTE | 2019-07-26 08:47 | EKG ---
Test Date: 2019-07-25 Test Time: 19:53:33 Freight Coordinator: JOSE MEASUREMENT RESULTS: Intervals: Rate: 56 IA: 224 QRSD: 108 QT: 418 QTc: 403 [place]: P: 61 IA: 224 QRS: -62 T: 41 INTERPRETIVE STATEMENTS: Sinus bradycardia with 1st degree AV block Left anterior fascicular block Abnormal ECG Compared to ECG 05/01/2016 10:02:24 First degree AV block now present Left anterior fascicular block now present Sinus rhythm no longer present Left posterior fascicular block no longer present Electronically Signed On 07-26-19 08:46:21 [employer]OND BUTLER by Shalom Cox
[2019-07-26] MEDS: MONTELUKAST 10 MG TAB PO SCH (09:22)
[2019-07-26] MEDS: TAMSULOSIN 0.4 MG SR CAP PO SCH (09:22)
--- NOTE | 2019-07-26 14:01 | P.PN ---
Subjective Date of Service: 07/26/19 Subjective: No new changes, Doing well Review of Systems General: Weakness Eyes: Unremarkable ENT: Unremarkable Respiratory: Unremarkable Cardiovascular: Unremarkable Gastrointestinal: Unremarkable Musculoskeletal: Unremarkable Integumentary: Unremarkable Physical Examination - Vital Signs Temperature: 97 F Blood Pressure: 134/60 Pulse: 61 Respirations: 15 Pulse Ox (%): 98 - Physical Exam General: Alert, In no apparent distress, Oriented x3 HEENT: Atraumatic, Normocephalic, PERRLA, Mucous membr. moist/pink, EOMI Neck: Supple, 2+ carotid pulse no bruit, JVD not distended, No Thyromegaly Respiratory: Clear to auscultation bilaterally, Normal air movement Cardiovascular: No edema, Normal pulses, Regular rate/rhythm, Normal S1 S2, No rubs, No murmurs Gastrointestinal: Normal bowel sounds, Soft and benign, Non-distended Musculoskeletal: No clubbing, No swelling, No contractures, No erythema, No tenderness, No warmth Integumentary: No rashes, No breakdown, No significant lesion Neurological: Normal speech, Normal strength at 5/5 x4 extr, Normal tone, Sensation intact, Cranial nerves 3-12 intact - Studies Laboratory Data (last 24 hrs) 07/25/19 12:17: PT Cancelled, INR Cancelled, APTT Cancelled 07/25/19 12:17: WBC Cancelled, Hgb Cancelled, Hct Cancelled, Plt Count Cancelled 07/25/19 12:17: Sodium Cancelled, Potassium Cancelled, BUN Cancelled, Creatinine Cancelled, Glucose Cancelled, Total Bilirubin Cancelled, AST Cancelled, ALT Cancelled, Alkaline Phosphatase Cancelled, Amylase Cancelled, Lipase Cancelled Microbiology Data (last 24 hrs): 07/25/19 12:53 Nasopharnyx Influenza Type A Antigen Screen - Final 07/25/19 12:53 Nasopharnyx Influenza Type B Antigen Screen - Final Assessment And Plan - Current Problems (Diagnosis) (1) Weakness Current Visit: Yes Status: Acute (2) BPH (benign prostatic hyperplasia) Current Visit: No Status: Chronic Qualifiers: Lower urinary tract symptom presence: symptoms present Lower urinary tract symptom detail: urinary frequency Qualified Code(s): N40.1 - Benign prostatic hyperplasia with lower urinary tract symptoms; R35.0 - Frequency of micturition (3) Hyponatremia Current Visit: No Status: Resolved - Plan Assessment/plan: This patient is 79-year-old male who presented for weakness. He was admitted to the hospital recently for hernia repair and subsequently wound infection. He did not eat well. His sodium 116, likely due to poor oral intake. We started IV normal saline. His sodium level is 125 mL. He is feeling much better. 1. Hyponatremia. Sodium 116. This is due to poor oral intake. We started the normal saline 100 cc/hour. Now Na 125. No mental status change. 2. Generalized weakness. This is likely multifactorial including hyponatremia , recent surgery and surgical infection. PT was ordered. This is improving. We will consult gearcase assembler for possible placement vs. home health. 3. Possible abdominal wall hematoma. Patient underwent surgical hernia recently. Abdominal CT suggesting hematoma. His WBC normal. There is no fever. Procalcitonin normal. On IV clindamycin empirically 4. Frequent fall. This is likely due to weakness. CT head was ordered. 5. Asthma. This is stable. No wheezing. We will monitor. 6. Abnormal CT head finding. CT head demonstrated possible sellar mass vs. soft tissue. No headache. No vision change. Per MRI was ordered for details. Discharge Plan: Home Plan to discharge in: 48 Hours Critical Care: No
[2019-07-26] MEDS: ACETAMINOPHEN 500 MG TAB PO PRN (17:14)
[2019-07-27] MEDS: NA CHLORIDE 0.9% 1,000 ML IV SCH ×2 (00:11→10:00)
[2019-07-27] MEDS: CLINDAMYCIN INJ 600 MG in NA CHLORIDE 0.9% 50 ML IV SCH ×2 (00:26→08:09)
[2019-07-27 04:23] LABS: Magnesium 1.8 mg/dL (1.8-2.4)
[2019-07-27] MEDS ORDERED: MAGNESIUM SULFATE 1 gm IVPB 1 GM/100 ML BAG IV ONE (04:38)
[2019-07-27 06:12] LABS: BUN Blood Urea Nitrogen 8 mg/dL (7-18); Bicarbonate 25 mmol/L (21-32); Glucose Level 90 mg/dL (74-106); Potassium 4.1 mmol/L (3.5-5.1); Sodium Level 133 mmol/L (136-145)
[2019-07-27 07:38] VITALS: O2SAT 94
[2019-07-27] MEDS: MONTELUKAST 10 MG TAB PO SCH (08:09)
[2019-07-27] MEDS: TAMSULOSIN 0.4 MG SR CAP PO SCH (08:09)
--- NOTE | 2019-07-27 08:54 | RAD REPORT ---
EXAM DESCRIPTION: MRI - Brain Wo Cont - 07/26/2019 9:34 pm CLINICAL HISTORY: possible sella mass per CT COMPARISON: Head Brain Wo Cont dated 07/25/2019 TECHNIQUE: Sagittal T1-weighted images were obtained along with axial PD, heavily T2-weighted and T2 -FLAIR images. Axial DWI and ADC mapping sequences were also obtained along with coronal heavily T2-w eighted images. FINDINGS: A 2.2 centimeter rounded mass is present filling and enlarging the sella turcica. The mass extends into the supra sella space elevating the optic chiasm. The mass shows homogeneous hyperinten se signal on T1 weighted imaging with homogeneous hyperintense T2/IR signal. The mass shows decreasin g signal on diffusion-weighted imaging with the final sequence hypointense to brain parenchyma. Xavi s hyperintense on ADC mapping. Pituitary stalk is not clearly identified but may be deviated to the r ight. There does appear to be pituitary tissue along the floor of the sella turcica. Enhancement of t he mass or surrounding tissue cannot be assessed on this noncontrast study. Normal flow voids are see n in the vasculature adjacent to the mass. Calcifications along the lateral margins of the mass are b elieved to be vascular calcifications. There are no brain parenchymal infarction changes. No hemorrhage, mass or edema involving the brain p arenchyma. Ventricles are normal. Patient has little if any atrophy for age and no chronic ischemic c hange. [place]-matter/white matter junction is preserved. Signal voids are seen as a normal finding in t he major intracranial vessels. No globe or orbital content abnormality. Mastoid air cells and paranasal sinuses are clear. IMPRESSION: A 2.2 centimeter rounded mass shows hyperintense T1/T2/IR signal filling and enlarging t he sella turcica and extending into the supra sella space displacing the optic chiasm superiorly. No infarction changes are present. No other acute or significant intracranial finding. 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 Cystic craniopharyngioma would b e a differential consideration. Arachnoid cyst is a lesser consideration. An atypical epidermoid cyst is possible but unlikely. If the patient has any remote CT or MR studies of the brain, those could be submitted for comparison. If tolerable by the patient, having contrast MRI images may help exclude any enhancing solid mass com ponent along the periphery. Long-term significance is doubtful. This can be monitored for enlargement with follow-up imaging in 6 -12 months.
[2019-07-27] MEDS: ALBUTEROL 2.5 MG/3 ML NEB SOL NEB PRN ×2 (09:55)
[2019-07-27 12:15] VITALS: BP 95/57; TEMP 97.5
--- NOTE | 2019-07-28 01:34 | DS ---
Date of Discharge: 07/27/2019 Hospital Course: This patient is a 79-year-old gentleman who presented for generalized weakness. He has a history of BPH, hyponatremia, and abdominal hernia. The patient was admitted to [facility] for hernia repair 1 month ago. He experienced drainage from surgical wound and readmitted to [facility] for surgical infection. He was treated with IV antibiotics. The patient has been feeling weak since discharge. This was associated with some lethargy. He fell twice at home. In the ED, WBC 6.1, hemoglobin 10.6. The patient was noted to have severe hyponatremia with sodium 116, chloride 83. Abdomen CT demonstrated 5.5 cm fluid collection suggesting hematoma. There is no redness or swelling around the surgical wound. The patient was admitted and treated with IV normal saline. We gave IV clindamycin for possible surgical infection. His sodium has been greatly improved, now it is 133. Patient is feeling much better. He can ambulate and he is eating very well. There is no redness or fever suggesting infection. IV clindamycin was discontinued. CT head was performed, suspecting mass at the sellar area. Brain MRI was then ordered. MRI demonstrated 2.2 cm round mass at sellar area, showing hypertense and enlarged sella turcica. The patient does not have headache or vision change. This is accidental finding. It has a cystic character. I discussed the situation in details with the family. There is urgent need to be transferred. He can follow up with neurosurgeon at outpatient for treatment opinions. His daughter and other family members understood very well and agreed with our plans. He will see his PCP for referring to neurosurgeon. Instructed him to call ED if having headache or vision changes. Physical Examination: General: Patient is awake and alert, in no acute distress. HEENT: PERRLA. EOMI. Atraumatic. Neck: Supple. No JVD. Chest: Clear to auscultation. No respiratory distress. Abdomen: Soft, nontender. Surgical wound appears to be healing well. Bowel sounds present. Extremities: No edema. No cyanosis. Neuro: Patient is awake, alert, in no acute distress. Nonfocal. There is no sign of intracranial high-pressure. Skin: No rashes or eczema. Laboratory Data: WBC 3, hemoglobin 10.3, platelet 193. Sodium 133, potassium 4.1, creatinine 0.55, magnesium 1.8. Admit Diagnoses: 1. Hyponatremia. 2. Generalized weakness. 3. Abdominal wall hematoma. 4. Asthma. 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 Discharge Instructions: 1. Please follow PCP in 1 week. Need to be referred to the neurosurgeon for sellar mass. 2. Please follow general surgeon at [facility]. 3. Please call emergency room if having headache or other concerns. Discharge Medications: Please see home medication list. Discharge Activity: As tolerated. Discharge Diet: Regular diet. I spent at least 30 minutes to discharge patient including reviewing the chart, explanation, prescription, and discharge summary. QT/MODL Voice ID: [id number] Report ID: [id number] KARLA
== END 2019-07-27 12:36 | disposition home health service (06) | DRG 920 ==
LOC: ER 11:38 → ERHOLD 17:12 → 3RD-ICU 19:40 → 4TH 07-26 15:00
PROVIDERS: ADMIT Internal Medicine; ATTEND Internal Medicine
DX: L76.32 Postprocedural hematoma of skin and subcutaneous tissue following other procedure (principal); E87.1 Hypo-osmolality and hyponatremia; J45.909 Unspecified asthma, uncomplicated; N40.1 Benign prostatic hyperplasia with lower urinary tract symptoms; R35.0 Frequency of micturition; R22.0 Localized swelling, mass and lump, head; Z91.81 History of falling
CPT/HCPCS: 36415; 70450; 70551; 71045; 74177; 80048; 80053; 80076; 81003; 81015; 82150; 82550; 82553; 82947; 83605; 83690; 83735; 84100; 84145; 84443; 84484; 85025; 85610; 85730; 87040; 87804; 93005; 96361; 96365; 96366; 96375; 97116; 97161; 97530; 99285; J0696; J3475; J7030; Q9967

== ENCOUNTER 2019-08-31 15:32 | Inpatient (IN) | payer OTHER ==
--- OUTSIDE RECORDS SUMMARY | 2019-08-31 15:34 | XMS REPORT ---
:1940 [facility] Address [address] [place] [address] Care Team Providers Name Role Phone Unavailable Unavailable Unavailable Problems This patient has no known problems. Allergies, Adverse Reactions, Alerts This patient has no known allergies or adverse reactions. Medications This patient has no known medications.
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
--- OUTSIDE RECORDS SUMMARY | 2019-08-31 15:39 | XMS REPORT | Summary of Care ---
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 Organization Address City/State/Zipcode Phone Number [facility] CLIA: [id number], [address] [place], [place] [address] [phone] [facility] CBC WITH DIFFERENTIAL (07/01/2019 5:49 AM HYDRO ELECTRIC STATION OPERATOR) WBC 4.01 (L) 4.20 - 10.70 [facility] 10*3/L SERVICES RBC 3.24 (L) 4.26 - 5.52 [facility] 10*6/L SERVICES HGB 9.9 (L) 12.2 - 16.4 [facility] g/dL SERVICES HCT 29.8 (L) 38.4 - 49.3 % [facility] MCV 92.0 81.7 - 95.6 fL [facility] MCH 30.6 26.1 - 32.7 pg [facility] MCHC 33.2 31.2 - 35.0 [facility] g/dL SERVICES RDW-SD 46.7 38.5 - 51.6 fL [facility] RDW-CV 13.9 12.1 - 15.4 % [facility] PLT 144 (L) 150 - 328 [facility] 10*3/L SERVICES MPV 12.3 9.8 - 13.0 fL [facility] NRBC/100 WBC 0.0 0.0 - 10.0 /100 [facility] WBCs SERVICES NRBC x10^3 <0.01 10*3/L [facility] GRAN MAT (NEUT) % 72.9 % [facility] IMM GRAN % 0.20 % [facility] LYMPH % 17.0 % [facility] MONO % 7.5 % [facility] EOS % 2.2 % [facility] BASO % 0.2 % [facility] GRAN MAT x10^3(ANC) 2.92 1.99 - 6.95 [facility] 10*3/uL SERVICES IMM GRAN x10^3 <0.03 0.00 - 0.06 [facility] 10*3/uL SERVICES LYMPH x10^3 0.68 (L) 1.09 - 3.23 [facility] 10*3/uL SERVICES MONO x10^3 0.30 (L) 0.36 - 1.02 [facility] 10*3/uL SERVICES EOS x10^3 0.09 0.06 - 0.53 [facility] 10*3/uL SERVICES BASO x10^3 <0.03 0.01 - 0.09 [facility] 10*3/uL SERVICES Specimen Blood - VENOUS Performing Organization Address City/[facility]/Zipcode Phone Number [facility] CLIA: [id number], [address] [place] [address] [phone] [facility] AC PANEL 20 + LACTIC ACID (06/30/2019 10:18 AM HYDRO ELECTRIC STATION OPERATOR) PH 7.39 7.35 - 7.45 [facility] PCO2 37 35 - 45 mmHg [facility] PO2 83 80 - 100 mmHg [facility] HCO3 22 22 - 26 mEq/L [facility] SERVICES BE -2.4 -3.0 - 3.0 mEq/L [facility] SERVICES THB 15.0 13.5 - 18.0 g/dL [facility] %O2HB 95.6 94.0 - 99.0 % [facility] SERVICES %COHB ART 0.5 0.0 - 1.5 % [facility] %METHB ART 0.1 (L) 0.4 - 1.5 % [facility] SERVICES VOL%O2 ART 20.2 15.0 - 23.0 % [facility] SERVICES NA 136 135 - 145 mmol/L [facility] SERVICES K+ 3.9 3.5 - 5.0 mmol/L [facility] AC CA IONZ 4.80 4.50 - 5.30 mg/dL [facility] SERVICES GLUCOSE 85 70 - 110 mg/dL [facility] SERVICES LACTIC ACID 1.01 0.50 - 2.20 mmol/L [facility] Specimen Blood - ARTERIAL Performing Organization Address City/[facility]/Zipcode Phone Number [facility] CLIA: [id number], [address] [place] [address] [phone] [facility] XR CHEST 1 VW (06/30/2019 7:03 AM HYDRO ELECTRIC STATION OPERATOR) Specimen Impressions Performed At PACS/VR/DOSE Interval improvement of subcutaneous emphysema of the left neck base and bilateral axilla. Suspected minimal pneumomediastinum versus artifact, recommend follow-up. Left mid/lower lung ill-defined horizontal opacity, may represent atelectasis, given patient's history of recent surgery. Preliminary Report Dictated by Resident: Lesley Biggs MD., have reviewed this study and agree with the above report. Narrative Performed At PROCEDURE: XR CHEST 1 VW PACS/VR/DOSE CLINICAL INDICATION: hx asthma, intra-op ventilation issues COMPARISON: Chest x-ray 06/29/2019 FINDINGS: Interval improvement of extensive subcutaneous emphysema in the left neck base and bilateral axilla. Subtle linear lucencies outlining the aortic knob. There is an ill-defined horizontal opacity in the left mid/lower lung may represent subsegmental atelectasis. No pleural effusion or pneumothorax is seen. The heart is normal in size. No acute bony abnormality. Procedure Note [facility], Radiant Results Inft User - 06/30/2019 9:27 AM HYDRO ELECTRIC STATION OPERATOR PROCEDURE: XR CHEST 1 VW CLINICAL INDICATION: hx asthma, intra-op ventilation issues COMPARISON: Chest x-ray 06/29/2019 FINDINGS: Interval improvement of extensive subcutaneous emphysema in the left neck base and bilateral axilla. Subtle linear lucencies outlining the aortic knob. There is an ill-defined horizontal opacity in the left mid/lower lung may represent subsegmental atelectasis. No pleural effusion or pneumothorax is seen. The heart is normal in size. No acute bony abnormality. IMPRESSION Interval improvement of subcutaneous emphysema of the left neck base and bilateral axilla. Suspected minimal pneumomediastinum versus artifact, recommend follow-up. Left mid/lower lung ill-defined horizontal opacity, may represent atelectasis, given patient's history of recent surgery. Preliminary Report Dictated by Resident: Lesley Biggs MD., have reviewed this study and agree with the above report. Performing Organization Address City/State/Zipcode Phone Number PACS/VR/DOSE CBC WITH DIFFERENTIAL (06/30/2019 4:10 AM HYDRO ELECTRIC STATION OPERATOR) WBC 3.63 (L) 4.20 - 10.70 [facility] 10*3/L SERVICES RBC 3.18 (L) 4.26 - 5.52 [facility] 10*6/L SERVICES HGB 9.5 (L) 12.2 - 16.4 [facility] g/dL SERVICES HCT 29.8 (L) 38.4 - 49.3 % [facility] MCV 93.7 81.7 - 95.6 fL [facility] MCH 29.9 26.1 - 32.7 pg [facility] MCHC 31.9 31.2 - 35.0 [facility] g/dL SERVICES RDW-SD 46.6 38.5 - 51.6 fL [facility] SERVICES RDW-CV 13.5 12.1 - 15.4 % [facility] SERVICES PLT 120 (L) 150 - 328 [facility] 10*3/L SERVICES MPV 11.5 9.8 - 13.0 fL [facility] SERVICES NRBC/100 WBC 0.0 0.0 - 10.0 /100 [facility] WBCs SERVICES NRBC x10^3 <0.01 10*3/L [facility] GRAN MAT (NEUT) % 71.2 % [facility] IMM GRAN % 0.30 % [facility] LYMPH % 17.1 % [facility] MONO % 8.0 % [facility] EOS % 2.8 % [facility] BASO % 0.6 % [facility] GRAN MAT x10^3(ANC) 2.59 1.99 - 6.95 [facility] 10*3/uL SERVICES IMM GRAN x10^3 <0.03 0.00 - 0.06 [facility] 10*3/uL SERVICES LYMPH x10^3 0.62 (L) 1.09 - 3.23 [facility] 10*3/uL SERVICES MONO x10^3 0.29 (L) 0.36 - 1.02 [facility] 10*3/uL SERVICES EOS x10^3 0.10 0.06 - 0.53 [facility] 10*3/uL SERVICES BASO x10^3 <0.03 0.01 - 0.09 [facility] 10*3/uL SERVICES Specimen Blood - ARTERIAL Performing Organization Address City/State/Zipcode Phone Number [facility] CLIA: [id number], [address] [place] [phone] [facility] Basic Metabolic Panel (NA, K, CL, CO2, GLUCOSE, BUN, CREATININE, CA) (2019 4:10 AM HYDRO ELECTRIC STATION OPERATOR) NA 139 135 - 145 mmol/L [facility] K 4.0 3.5 - 5.0 mmol/L [facility] CL 107 98 - 108 mmol/L [facility] SERVICES CO2 TOTAL 24 23 - 31 mmol/L [facility] SERVICES AGAP 8 2 - 16 [facility] BUN 9 7 - 23 mg/dL [facility] SERVICES GLUCOSE 100 70 - 110 mg/dL [facility] SERVICES CREATININE 0.69 0.60 - 1.25 [facility] mg/dL SERVICES CALCIUM 8.6 8.6 - 10.6 mg/dL [facility] SERVICES eGFR Calculation 110.6 mL/min/1.73m2 [facility] (Non-) SERVICES eGFR Calculation 134.1 mL/min/1.73m2 [facility] () SERVICES Specimen Blood - ARTERIAL Narrative Performed At Association of Glomerular Filtration Rate (GFR) and Staging [facility] of Kidney Disease* + [...] tests). Performing Organization Address City/State/Zipcode Phone Number [facility] CLIA: [id number], [address] [place] [address] [phone] [facility] AC PANEL 20 + LACTIC ACID (06/29/2019 10:55 PM HYDRO ELECTRIC STATION OPERATOR) [facility] Signature PH 7.37 7.35 - 7.45 [facility] PCO2 40 35 - 45 mmHg [facility] PO2 136 (H) 80 - 100 mmHg [facility] HCO3 23 22 - 26 mEq/L [facility] BE -2.3 -3.0 - 3.0 mEq/L [facility] THB 9.9 (L) 13.5 - 18.0 g/dL [facility] SERVICES %O2HB 97.8 94.0 - 99.0 % [facility] %COHB ART 0.2 0.0 - 1.5 % [facility] %METHB ART 0.1 (L) 0.4 - 1.5 % [facility] SERVICES VOL%O2 ART 13.9 (L) 15.0 - 23.0 % [facility] NA 137 135 - 145 mmol/L [facility] K+ 3.8 3.5 - 5.0 mmol/L [facility] AC CA IONZ 4.70 4.50 - 5.30 mg/dL [facility] SERVICES GLUCOSE 95 70 - 110 mg/dL [facility] SERVICES LACTIC ACID 1.69 0.50 - 2.20 mmol/L [facility] SERVICES Specimen Blood - ARTERIAL Performing Organization Address City/State/Zipcode Phone Number [facility] CLIA: [id number], [address] [place] [address] [facility] CBC WITH DIFFERENTIAL (06/29/2019 6:37 PM HYDRO ELECTRIC STATION OPERATOR) WBC 7.97 4.20 - 10.70 [facility] 10*3/L SERVICES RBC 3.06 (L) 4.26 - 5.52 [facility] 10*6/L SERVICES HGB 9.1 (L) 12.2 - 16.4 [facility] g/dL SERVICES HCT 28.8 (L) 38.4 - 49.3 % [facility] SERVICES MCV 94.1 81.7 - 95.6 fL [facility] SERVICES MCH 29.7 26.1 - 32.7 pg [facility] SERVICES MCHC 31.6 31.2 - 35.0 [facility] g/dL SERVICES RDW-SD 47.5 38.5 - 51.6 fL [facility] SERVICES RDW-CV 13.8 12.1 - 15.4 % [facility] SERVICES PLT 132 (L) 150 - 328 [facility] 10*3/L SERVICES MPV 11.4 9.8 - 13.0 fL [facility] SERVICES NRBC/100 WBC 0.0 0.0 - 10.0 /100 [facility] WBCs SERVICES NRBC x10^3 <0.01 10*3/L [facility] SERVICES GRAN MAT (NEUT) % 85.6 % [facility] SERVICES IMM GRAN % 0.30 % [facility] LYMPH % 7.7 % [facility] MONO % 5.3 % [facility] EOS % 0.8 % [facility] BASO % 0.3 % [facility] SERVICES GRAN MAT x10^3(ANC) 6.84 1.99 - 6.95 [facility] 10*3/uL SERVICES IMM GRAN x10^3 <0.03 0.00 - 0.06 [facility] 10*3/uL SERVICES LYMPH x10^3 0.61 (L) 1.09 - 3.23 [facility] 10*3/uL SERVICES MONO x10^3 0.42 0.36 - 1.02 [facility] 10*3/uL SERVICES EOS x10^3 0.06 0.06 - 0.53 [facility] 10*3/uL SERVICES BASO x10^3 <0.03 0.01 - 0.09 [facility] 10*3/uL SERVICES Specimen Blood - LINE, ARTERIAL Performing Organization Address City/State/Zipcode Phone Number [facility] CLIA: [id number], [address] [place] [address] [phone] [facility] BASIC METABOLIC PANEL (NA, K, CL, CO2, GLUCOSE, BUN, CREATININE, CA) (2019 6:37 PM HYDRO ELECTRIC STATION OPERATOR) NA 139 135 - 145 [facility] mmol/L SERVICES K 4.0 3.5 - 5.0 [facility] mmol/L SERVICES CL 109 (H) 98 - 108 mmol/L [facility] SERVICES CO2 TOTAL 22 (L) 23 - 31 mmol/L [facility] SERVICES AGAP 8 2 - 16 [facility] SERVICES BUN 10 7 - 23 mg/dL [facility] SERVICES GLUCOSE 109 70 - 110 mg/dL [facility] SERVICES CREATININE 0.80 0.60 - 1.25 [facility] mg/dL SERVICES CALCIUM 8.4 (L) 8.6 - 10.6 [facility] mg/dL SERVICES eGFR Calculation 93.3 mL/min/1.73m2 [facility] (Non- SERVICES Albanian) eGFR Calculation 113.0 mL/min/1.73m2 [facility] () SERVICES Specimen Blood - LINE, ARTERIAL Narrative Performed At [facility] of Glomerular Filtration Rate (GFR) and Staging [facility] SERVICES of Kidney Disease* + [...] tests). Performing Organization Address City/State/Zipcode Phone Number [facility] CLIA: [id number], [address] [place] [address] [facility] MRSA / MSSA Screen by PCR, Nares (06/29/2019 6:37 PM HYDRO ELECTRIC STATION OPERATOR) MRSA Screen by PCR, Negative Negative [facility] Nares SERVICES MSSA Screen by PCR, Negative Negative [facility] Nares SERVICES MRSA/MSSA Positive? No No [facility] SERVICES Specimen Swab - NARES, BOTH SIDES Performing Organization Address [facility] Phone Number [facility] CLIA: [id number], [address] [place] [phone] [facility] AC PANEL 20 + LACTIC ACID (06/29/2019 6:08 PM HYDRO ELECTRIC STATION OPERATOR) PH 7.33 (L) 7.35 - 7.45 [facility] PCO2 42 35 - 45 mmHg [facility] PO2 113 (H) 80 - 100 mmHg [facility] HCO3 22 22 - 26 mEq/L [facility] BE -4.2 (L) -3.0 - 3.0 mEq/L [facility] THB 10.3 (L) 13.5 - 18.0 g/dL [facility] %O2HB 97.1 94.0 - 99.0 % [facility] %COHB ART 0.2 0.0 - 1.5 % [facility] %METHB ART 0.2 (L) 0.4 - 1.5 % [facility] SERVICES VOL%O2 ART 14.3 (L) 15.0 - 23.0 % [facility] NA 137 135 - 145 mmol/L [facility] K+ 3.9 3.5 - 5.0 mmol/L [facility] AC CA IONZ 4.70 4.50 - 5.30 mg/dL [facility] SERVICES GLUCOSE 95 70 - 110 mg/dL [facility] SERVICES LACTIC ACID 1.51 0.50 - 2.20 mmol/L [facility] SERVICES Specimen Blood - ARTERIAL Performing Organization Address City/State/Zipcode Phone Number [facility] CLIA: [id number], [address] [place] [address] [facility] Chest 1 view (06/29/2019 6:06 PM HYDRO ELECTRIC STATION OPERATOR) Specimen Impressions Performed At PACS/VR/DOSE Interval development of soft tissue air in the chest and lower neck, mostly on the left. Findings are suspicious for barotrauma. Narrative Performed At EXAM: XR CHEST 1 VW PACS/VR/DOSE COMPARISON: 12/08/2018 chest radiograph HISTORY: Difficult ventilation during surgery FINDINGS: Lines/Tubes: Cardiac leads overlie the chest. Lungs/pleura: The lungs are clear. No pleural effusion identified. No pneumothorax is seen on the right. The left lung is somewhat obscured by striated lucent and opaque lines related to gas along the pectoralis musculature. Heart/Mediastinum: The cardiac silhouette is normal in size. Atherosclerotic calcification is noted in the aortic arch. Marked subcutaneous/soft tissue air is present, greater in the left body wall. A significant amount of air is also seen in the soft tissues of the lower neck and left axilla. Procedure Note [facility], Radiant Results Inft User - 06/30/2019 12:10 AM HYDRO ELECTRIC STATION OPERATOR EXAM: XR CHEST 1 VW COMPARISON: 12/08/2018 chest radiograph HISTORY: Difficult ventilation during surgery FINDINGS: Lines/Tubes: Cardiac leads overlie the chest. Lungs/pleura: The lungs are clear. No pleural effusion identified. No pneumothorax is seen on the right. The left lung is somewhat obscured by striated lucent and opaque lines related to gas along the pectoralis musculature. Heart/Mediastinum: The cardiac silhouette is normal in size. Atherosclerotic calcification is noted in the aortic arch. Marked subcutaneous/soft tissue air is present, greater in the left body wall. A significant amount of air is also seen in the soft tissues of the lower neck and left axilla. IMPRESSION Interval development of soft tissue air in the chest and lower neck, mostly on the left. Findings are suspicious for barotrauma. Performing Organization Address City/State/[facility] Phone Number PACS/VR/DOSE ABORH CONFIRMATION (06/29/2019 7:58 AM HYDRO ELECTRIC STATION OPERATOR) ABO & RH O Positive LAB Comment: Performed at [facility] Laboratory Services - [facility] Blood [place] [address] Toll Free: [phone] CLIA No. [id number] Specimen Performing Organization Address [facility] [place] BLD LAB Type and Screen - ONCE Routine (06/29/2019 6:40 AM HYDRO ELECTRIC STATION OPERATOR) IAT Negative LAB Comment: Performed at [facility] Laboratory Services - [facility] Blood [place] [address] Toll Free: [phone] CLIA No. [id number] ABO & RH O POSITIVE LAB Comment: Performed at [facility] Laboratory Services - [facility] Blood [place] [address] Toll Free: [phone] CLIA No. [id number] Specimen VENOUS Performing Organization Address [facility] [place] Phone Number D LAB documented in this encounter Visit Diagnoses Diagnosis Incisional hernia, incarcerated - Primary Incisional hernia with obstruction Incarcerated inguinal hernia Inguinal hernia with obstruction, without mention of gangrene, unilateral or unspecified, (not specified as recurrent) Moderate persistent asthma without complication Unspecified asthma Incisional hernia Incisional hernia without mention of obstruction or gangrene documented in this encounter Administered Medications Medication Order MAR Action Action Date Dose Rate Site acetaminophen (TYLENOL) tablet Given 07/01/2019 11:58 AM HYDRO ELECTRIC STATION OPERATOR 650 mg 650 mg 650 mg, Oral, Q6H, First dose on Thu07/01/19 at 1200, Until Discontinued, Routine albuterol (VENTOLIN) inhaler 2 Puff 2 Puff, Inhalation, Q4HPRN, Starting Thu06/29/19 at 1923, Until Discontinued, Routine, Wheezing, Shortness of Breath bupivacaine (preserv free) (SENSORCAINE MPF) Given 06/29/2019 5:30 PM HYDRO ELECTRIC STATION OPERATOR 10 mL 0.25 % (2.5 mg/mL) injection PRN, Starting Thu06/29/19 at 1730, Until Discontinued, Routine, Intra-op heparin (porcine) Given 07/02/2019 6:25 AM 5,000 Units Abdominal Tissue injection 5,000 Units HYDRO ELECTRIC STATION OPERATOR 5,000 Units, Subcutaneous, Q8H, First dose on Thu06/29/19 at 2200, Until Discontinued, Routine Given 07/01/2019 9:10 PM HYDRO ELECTRIC STATION OPERATOR 5,000 Units Abdominal Tissue Given 07/01/2019 2:03 PM HYDRO ELECTRIC STATION OPERATOR 5,000 Units Abdomen-SC ibuprofen (IBU) tablet 600 mg 600 mg, Oral, Q6H, First dose on Thu07/01/19 at 1500, Until Discontinued, Routine ipratropium-albuterol (DUONEB) 0.5 mg-3 mg(2.5 Given 07/02/2019 11:16 AM HYDRO ELECTRIC STATION OPERATOR 3 mL mg base)/3 mL nebulizer solution 3 mL 3 mL, Inhalation, QID, First dose on Thu06/30/19 at 1200, Until Discontinued, Routine Given 07/02/2019 7:24 AM HYDRO ELECTRIC STATION OPERATOR 3 mL Given 07/01/2019 7:47 PM HYDRO ELECTRIC STATION OPERATOR 3 mL lactated ringers IV infusion 1,000 Rate Change 07/02/2019 8:30 AM HYDRO ELECTRIC STATION OPERATOR 20 mL/hr mL at 20 mL/hr, 1,000 mL, Intravenous, CONTINUOUS, Starting 07/02/19 at 0830, Until Discontinued, Routine methocarbamol (ROBAXIN) tablet 500 mg Given 07/02/2019 7:42 AM HYDRO ELECTRIC STATION OPERATOR 500 mg 500 mg, Oral, QID, First dose on Thu06/29/19 at 2000, Until Discontinued, Routine Given 07/01/2019 7:39 PM HYDRO ELECTRIC STATION OPERATOR 500 mg Given 07/01/2019 4:48 PM HYDRO ELECTRIC STATION OPERATOR 500 mg ondansetron (ZOFRAN (PF)) injection 4 mg Given 06/29/2019 5:35 PM HYDRO ELECTRIC STATION OPERATOR 4 mg 4 mg, Slow IV Push, Q6HPRN, Starting Thu06/29/19 at 1734, Until Discontinued, Routine, Nausea and Vomiting (N/V) pantoprazole (PROTONIX) EC tablet 40 mg Given 07/02/2019 7:42 AM HYDRO ELECTRIC STATION OPERATOR 40 mg 40 mg, Oral, DAILY, First dose on Thu06/30/19 at 0900, Until Discontinued, Routine, Indication for use: None of the above Given 07/01/2019 7:50 AM HYDRO ELECTRIC STATION OPERATOR 40 mg Given 06/30/2019 8:57 AM HYDRO ELECTRIC STATION OPERATOR 40 mg tamsulosin (FLOMAX) capsule 0.4 mg Given 07/02/2019 7:42 AM HYDRO ELECTRIC STATION OPERATOR 0.4 mg 0.4 mg, Oral, DAILY, First dose on Thu06/30/19 at 0900, Until Discontinued, Routine Given 07/01/2019 7:50 AM HYDRO ELECTRIC STATION OPERATOR 0.4 mg Given 06/30/2019 8:57 AM HYDRO ELECTRIC STATION OPERATOR 0.4 mg Medication Order MAR Action Action Date Dose Rate Site acetaminophen ADULT (OFIRMEV) Given 06/30/2019 3:06 PM HYDRO ELECTRIC STATION OPERATOR 1,000 mg injection 1,000 mg 1,000 mg, IV Infusion, Administer over 15 Minutes, Q8H, 3 doses, First dose on Thu06/29/19 at 2200, Last dose on Thu06/30/19 at 1400, Routine, Indication: Perioperative Patient Given 06/30/2019 6:09 AM HYDRO ELECTRIC STATION OPERATOR 1,000 mg Given 06/29/2019 10:29 PM HYDRO ELECTRIC STATION OPERATOR 1,000 mg ertapenem (INVANZ) 1,000 mg in NaCl 0.9% Given 06/30/2019 8:56 AM HYDRO ELECTRIC STATION OPERATOR 1, 000 mg (NS) 50 mL MINI-BAG 1,000 mg, IV Piggyback, Q24H ABX, 1 dose, First dose on Thu06/30/19 at 0900, 50 mL, Reason for Anti-Infective: Surgical Prophylaxis, Surgical Prophylaxis: Genitourinary, Duration of therapy: within 24 hours of surgery, Restricted use approved by: KAYDEN LOWRY, [id number], ADULT ID ibuprofen (IBU) tablet 600 mg Given 07/01/2019 11:58 AM HYDRO ELECTRIC STATION OPERATOR 600 mg 600 mg, Oral, Q6H, First dose on Thu07/01/19 at 1200, Until Discontinued, Routine lactated ringers IV infusion New Bag 06/29/2019 5:59 PM HYDRO ELECTRIC STATION OPERATOR 1,000 mL 42 mL /hr 1,000 mL at 42 mL/hr, 1,000 mL, IV Infusion, CONTINUOUS, Starting Thu06/29/19 at 1745, Until Thu06/29/19 at 2102, Routine lactated ringers IV infusion New Bag 06/30/2019 2:59 PM HYDRO ELECTRIC STATION OPERATOR 1,000 mL 100 mL/hr 1,000 mL at 100 mL/hr, 1,000 mL, IV Infusion, CONTINUOUS, Starting Thu06/29/19 at 2115, Until Thu07/01/19 at 0750, Routine New Bag 06/29/2019 9:15 PM HYDRO ELECTRIC STATION OPERATOR 1,000 mL 100 mL/hr lactated ringers IV infusion New Bag 07/01/2019 3:17 PM HYDRO ELECTRIC STATION OPERATOR 1,000 mL 75 mL /hr 1,000 mL at 75 mL/hr, 1,000 mL, Intravenous, CONTINUOUS, Starting Thu07/01/19 at 1615, Until Thu07/01/19 at 1722, Routine lactated ringers IV infusion New Bag 07/02/2019 2:00 AM HYDRO ELECTRIC STATION OPERATOR 1,000 mL 100 mL/hr 1,000 mL at 100 mL/hr, 1,000 mL, Intravenous, CONTINUOUS, Starting Thu07/01/19 at 1730, Until 07/02/19 at 0816, Routine Rate Change 07/01/2019 5:35 PM HYDRO ELECTRIC STATION OPERATOR 100 mL/hr lactated ringers IV infusion 500 New Bag 07/01/2019 2:06 PM HYDRO ELECTRIC STATION OPERATOR 500 mL 999 mL/hr mL at 999 mL/hr, 500 mL, Intravenous, ONCE, 1 dose, Thu07/01/19 at 1345, Routine lactated ringers IV infusion 500 New Bag 07/01/2019 7:40 PM HYDRO ELECTRIC STATION OPERATOR 500 mL 999 mL/hr mL at 999 mL/hr, 500 mL, Intravenous, ONCE, 1 dose, Thu07/01/19 at 2015, Routine morpHINE 30 mg/30 mL (fixed dose) DIVER'S TENDER New Bag 06/29/2019 6:05 PM HYDRO ELECTRIC STATION OPERATOR 30 mg injection documented in this encounter Additional Health Concerns Infection Noted Time Resolved Time Contact - ESBL 02/07/2019 11:58 AM CDT documented as of this encounter Insurance Payer Benefit Plan / Subscriber ID Effective Dates Phone Address Type Group MEDICARE MEDICARE PART xxxxxxxxxxx 2005-Torie [phone] [address] Medicare A & B t 2 [id number] [place] [phone] [facility] MEDICAID OF xxxxxxxxx 2016-Prese [phone] [address] Medicaid [place] nt [address] [id number] [place] [address] documented as of this encounter
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
--- OUTSIDE RECORDS SUMMARY | 2019-08-31 15:45 | XMS REPORT | Summary of Care ---
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 [id number] Ethicon Ref#[id number] - Sna MESH Abdomen Ethicon 04/14/2024 [id number] / Implanted: Qty: 1 on 06/29/2019 by Silverio Collier MD at [facility] NA / [id number] Description:Ventral hernia repair Progrip Laparoscopic Self-Fixating Mesh, 15cm X 10cm, Covidien - Sna MESH Abdomen COVIDIEN 12/12/2021 [id number] / Implanted: Qty: 1 on 06/29/2019 by Silverio Collier MD at [facility] NA / [id number] Description:Inguinal hernia mesh documented as of this encounter Procedures Procedure Name Priority Date/Time Associated Comments Diagnosis BASIC METABOLIC PANEL MARI 08/25/2019 7:23 Results for (NA, K, CL, CO2, PM CDT this procedure GLUCOSE, BUN, are in the CREATININE, [place]) results section. CYSTOLITHOTRIPSY Level 5 08/25/2019 12:34 Bladder stones (greater than 5 PM CDT BPH with days) obstruction/lowe r urinary tract symptoms TRANSURETHRAL PROSTATE Level 5 08/25/2019 12:34 Bladder stones RESECTION (greater than 5 PM CDT BPH with days) obstruction/lowe r urinary tract symptoms HB ABO GROUPING Routine 08/25/2019 9:35 Results for AM CDT this procedure are in the results section. CONSENT/REFUSAL FOR Routine 08/25/2019 8:26 DIAGNOSIS AND TREATMENT AM CDT ASSIGNMENT OF BENEFITS Routine 08/25/2019 8:25 AM CDT DISCLOSURE AND CONSENT, Routine 08/12/2019 12:01 MEDICAL AND SURGICAL AM ACCOUNT SERVICES COORDINATOR PROCEDURES DISCLOSURE AND CONSENT, Routine 08/12/2019 12:01 MEDICAL AND SURGICAL AM ACCOUNT SERVICES COORDINATOR PROCEDURES documented in this encounter Results BASIC METABOLIC PANEL (NA, K, CL, CO2, GLUCOSE, BUN, CREATININE, CA) (2019 7:23 PM CDT) NA 136 135 - 145 [facility] mmol/L SERVICES K 3.9 3.5 - 5.0 [facility] mmol/L SERVICES CL 103 98 - 108 mmol/L [facility] SERVICES CO2 TOTAL 25 23 - 31 mmol/L [facility] SERVICES AGAP 8 2 - 16 [facility] BUN 13 7 - 23 mg/dL [facility] GLUCOSE 119 (H) 70 - 110 mg/dL [facility] CREATININE 0.86 0.60 - 1.25 [facility] mg/dL SERVICES CALCIUM 9.2 8.6 - 10.6 [facility] mg/dL SERVICES eGFR Calculation 85.8 mL/min/1.73m2 [facility] (Non- SERVICES Mauritian) eGFR Calculation 104.0 mL/min/1.73m2 [facility] () SERVICES Specimen Blood - ARM, LEFT Narrative Performed At Association of Glomerular Filtration Rate (GFR) and Staging [facility] of Kidney Disease* [...] tests). Performing Organization Address City/State/Zipcode Phone Number [facility] CLIA: [id number], [address] [place] [address] [facility] Type and Screen - ONCE Routine (08/25/2019 9:35 AM CDT) ABO & RH O POSITIVE LAB Comment: Performed at [facility] Services - [facility] Blood [place] [address] Toll Free: [phone] CLIA No. [id number] IAT Negative LAB Comment: Performed at [facility] Services - [facility] Blood [place] [address] Toll Free: [phone] CLIA No. [id number] Specimen VENOUS Performing Organization Address City/State/Zipcode Phone Number D LAB documented in this encounter Visit Diagnoses Diagnosis BPH with obstruction/lower urinary tract symptoms - Primary Hypertrophy of prostate with urinary obstruction and other lower urinary tract symptoms (LUTS) Incisional hernia, incarcerated Incisional hernia with obstruction Bladder stones Other calculus in bladder documented in this encounter Administered Medications Medication Order MAR Action Action Date Dose Rate Site acetaminophen (TYLENOL) tablet Given 08/26/2019 11:48 PM CDT 650 mg 650 mg 650 mg, Oral, Q6H ABX, First dose on Alisha 08/25/19 at 1745, Until Discontinued, Routine Given 08/26/2019 6:34 PM CDT 650 mg Given 08/26/2019 1:09 PM CDT 650 mg alum-mag hydroxide-simeth (MAALOX PLUS / Given 08/27/2019 9:36 AM CDT 30 mL MAG-AL PLUS) 200-200-20 mg/5 mL suspension 30 mL 30 mL, Oral, Q6HPRN, Starting 08/27/19 at 0748, Until Discontinued, Routine, Indigestion docusate (COLACE) capsule 100 mg Given 08/27/2019 9:30 AM CDT 100 mg 100 mg, Oral, Q12H, First dose on Alisha 08/25/19 at 2000, Until Discontinued, Routine Given 08/26/2019 9:59 AM CDT 100 mg Given 08/25/2019 7:58 PM CDT 100 mg ibuprofen (IBU) tablet 600 mg Given 08/26/2019 4:25 AM CDT 600 mg 600 mg, Oral, Q8HPRN, Starting Alisha 08/25/19 at 1521, Until Discontinued, Routine, Pain (scale 4-6) piperacillin-tazobactam (ZOSYN) 3.375 g in Given 08/26/2019 9:00 PM CDT 3.375 g NaCl 0.9% (NS) 100 mL MINI-BAG 3.375 g, IV Piggyback, Q6H ABX, First dose on Thu08/25/19 at 1730, Until Discontinued, 100 mL, Reason for Anti-Infective: Surgical Prophylaxis, Surgical Prophylaxis: Other (see Comments), Duration of therapy: within 24 hours of surgery Given 08/26/2019 1:10 PM CDT 3.375 g Given 08/26/2019 4:17 AM CDT 3.375 g sennosides (SENOKOT) tablet 8.6 mg Given 08/27/2019 9:30 AM CDT 8.6 mg 8.6 mg, Oral, DAILY, First dose on Thu08/26/19 at 0900, Until Discontinued, Routine Given 08/26/2019 9:59 AM CDT 8.6 mg tamsulosin (FLOMAX) capsule 0.4 mg Given 08/27/2019 9:30 AM CDT 0.4 mg 0.4 mg, Oral, DAILY, First dose on Thu08/26/19 at 0900, Until Discontinued, Routine Given 08/26/2019 9:59 AM CDT 0.4 mg Medication Order MAR Action Action Date Dose Rate Site ondansetron (ZOFRAN (PF)) injection Given 08/27/2019 1:45 AM CDT 4 mg 4 mg 4 mg, Slow IV Push, PRN, 1 dose, Starting Alisha 08/25/19 at 1516, Until 08/27/19 at 0145, Routine, Nausea and Vomiting (N/V), PACU documented in this encounter Additional Health Concerns Infection Noted Time Resolved Time Contact - ESBL 02/07/2019 11:58 AM CDT documented as of this encounter Insurance Payer Benefit Plan / Subscriber ID Effective Dates Phone Address Type Group MEDICARE MEDICARE PART xxxxxxxxxxx 2005-Presjustin [phone] [address] Medicare A & B t 2 [id number] [place] [id number] [facility] MEDICAID OF xxxxxxxxx 2016-Presdebbie [phone] [facility] 0 [id number] [place] [address] documented as of this encounter
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
[2019-08-31] MEDS ORDERED: ONDANSETRON 4 MG/2 ML VIAL ONE (16:04)
[2019-08-31] MEDS ORDERED: NA CHLORIDE 0.9% 500 ML ONE ×2 (16:04→16:51)
[2019-08-31 16:35] LABS: Absolute Lymphocytes (CBC) 1.1 K/uL (0.7-4.9); Basophils % 0.5 % (0-1.3); Hematocrit 30.3 % (39.6-49.0); Lymphocytes % 29.6 % (15.3-44.8); MPV 10.1 fL (7.6-11.3); RBC Red Blood Cell Count 3.56 M/uL (4.33-5.43)
[2019-08-31 16:36] LABS: Albumin 3.4 g/dL (3.4-5.0); Bilirubin Direct 0.1 mg/dL (0-0.2); Bilirubin Total 0.3 mg/dL (0.2-1.0); Magnesium 1.8 mg/dL (1.8-2.4); Potassium 3.6 mmol/L (3.5-5.1); Protein, Total 7.2 g/dL (6.4-8.2); Troponin (Emerg Dept Use Only) 0.03 ng/mL (0.0-0.045)
[2019-08-31] MEDS ORDERED: ACETAMINOPHEN 325 MG TABLET ONE (16:41)
--- NOTE | 2019-08-31 16:43 | RAD REPORT ---
EXAM DESCRIPTION: RAD - Chest Single View - 08/31/2019 4:08 pm CLINICAL HISTORY: MALAISE, fatigue, asthma, shortness of breath COMPARISON: AP chest July 25 TECHNIQUE: AP portable chest image was obtained 08/31/2019 4:08 pm . FINDINGS: Lungs are clear. Heart and vasculature are normal. No measurable pleural effusion and no p neumothorax. No acute bony abnormality seen. No acute aortic findings suspected. Lung markings match comparison. Left hemidiaphragm elevation again noted. IMPRESSION: No acute cardiopulmonary process. No significant change from comparison.
[2019-08-31 17:41] LABS: Urine Bacteria <20 /HPF (NONE SEEN); Urine Culture Reflex Order REFLEXED; Urine Mucus 1+ /HPF (NONE SEEN); Urine RBC >50 /HPF (NONE SEEN)
[2019-08-31 17:47] LABS: Urine Blood 3+ (NEG); Urine Glucose NEGATIVE (NEG); Urine Protein 2+ (NEG); Urine Specific Gravity 1.015 (1.005-1.030)
--- NOTE | 2019-08-31 19:04 | RAD REPORT ---
EXAM DESCRIPTION: CT - Stone Protocol - 08/31/2019 6:33 pm CLINICAL HISTORY: HEMATURIA COMPARISON: Abdomen Pelvis W Contrast dated 07/25/2019; Abdomen Pelvis W Contrast dated 07/10/2019 ; Abdomen Pelvis Wo Contrast dated 12/14/2018; Stone Protocol dated 12/11/2018Abdomen Pelvis W Contr ast dated 07/25/2019; Abdomen Pelvis W Contrast dated 07/10/2019; Abdomen Pelvis Wo Contrast dated 12/14/2018; Stone Protocol dated 12/11/2018; Abdomen Pelvis W Contrast dated 04/20/2016 TECHNIQUE: Axial 5 mm thick images were obtained without oral or IV contrast. The [id number] span s the entirety of the system including uppermost abdomen and lung bases. All CT scans are performed using dose optimization technique as appropriate and may include automated exposure control or mA/KV adjustment according to patient size. FINDINGS: No hydroureter is present. Patient has large cystic masses filling the each renal hilum. T hese have been present on numerous prior examinations are not clearly different. These are suspected to be large parapelvic cysts with no hydronephrosis present. Renal function cannot be assessed. Prior studies did not extend into a delay phase which would allow distinguishing parapelvic cysts from dil ated collecting system. Exophytic cyst lateral right mid kidney has not changed. No obstructing calcu li. No suspicious renal masses. Isodense masses and pyelonephritis are not excluded on a stone protoc ol CT scan. Urinary bladder wall is thickened with stranding in the adjacent fat. A few small adjacen t lymph nodes are present. This is similar to the July 25 study. Air is present within the lumen. This is probably from catheterization rather than gas-forming organism. Enterovesical fistula not miller spected. No significant adrenal finding. Imaged portions of the liver, spleen and pancreas show no suspicious findings on non-contrast imaging . No gallbladder or biliary tree abnormality identified. No suspicious bowel findings. Mild diverticulosis without diverticulitis. No mass or bulky lymphadenopathy. Fat filled bilateral inguinal hernias are present similar to compar jose c. No free air, free fluid or inflammatory stranding. Disc and bony degenerative changes are present. Vascular calcifications are present. Lung base imaging shows no acute infiltrate. Small subpleural nodules 7 mm on the right and 5 mm on t he left are present. Prior imaging does not clearly imaged the same region to establish stability. IMPRESSION: No obstructing calculus identified. Cystic masses filling each renal hilum believed to b e parapelvic cysts in a pattern matching prior imaging studies. Abnormal urinary bladder. Wall is thickened and irregular. Air is present in the lumen. The air is pr obably from catheterization but needs correlation with any procedure. Cystitis is a primary considera tion. Isodense masses and pyelonephritis are not excluded on stone protocol technique.
[2019-08-31 20:09] LABS: BUN Blood Urea Nitrogen 9 mg/dL (7-18); Bicarbonate 25 mmol/L (21-32); Glucose Level 87 mg/dL (74-106); Potassium 3.9 mmol/L (3.5-5.1)
[2019-08-31 20:10] LABS: Sodium Level 118 mmol/L (136-145)
--- NOTE | 2019-08-31 20:14 | EDPHYS ---
Physician Documentation [facility] Name: Venu Coy Age: 79 yrs Sex: Male : 1940 Arrival Date: 08/31/2019 Time: 15:34 Bed 28 Private MD: ED Physician Dagoberto Lazaro HPI: 08/30 15:57 This 79 yrs old Male presents to ER via Ambulatory with complaints of Blood la1 Pressure Problem. 15:57 The patient presents to the emergency department with nausea, that is moderate. Onset: la1 The symptoms/episode began/occurred today. Possible causes: unknown. The symptoms are aggravated by nothing. The symptoms are alleviated by nothing. Associated signs and symptoms: The patient has no apparent associated signs or symptoms. Severity of symptoms: At their worst the symptoms were moderate. The patient has not experienced similar symptoms in the past. pt reports that he has had recent sx for kidney stones, reports today he is feeling malaise, nausea, vomiting.. Historical: - Allergies: 15:51 No Known Allergies; ss - PMHx: 16:39 Asthma; Hernia; ll1 - PSHx: 16:39 Hernia repair; ll1 - Immunization history:: Adult Immunizations up to date. - Social history:: Smoking status: Patient denies any tobacco usage or history of. ROS: 15:58 Constitutional: Negative for fever, chills, and weight loss, + for malaise la1 15:58 ENT: Negative for injury, pain, and discharge, Neck: Negative for injury, pain, and swelling, Cardiovascular: Negative for chest pain, palpitations, and edema, Respiratory: Negative for shortness of breath, cough, wheezing, and pleuritic chest pain. 15:58 Back: Negative for injury and pain, : Negative for injury, bleeding, discharge, and swelling, MS/Extremity: Negative for injury and deformity, Skin: Negative for injury, rash, and discoloration, Neuro: Negative for headache, weakness, numbness, tingling, and seizure. 15:58 Abdomen/GI: Positive for nausea, vomiting. Exam: 16:21 Constitutional: This is a well developed, well nourished patient who is awake, alert, la1 and in no acute distress. Head/Face: Normocephalic, atraumatic. Eyes: Pupils equal round and reactive to light, extra-ocular motions intact. ENT: Mucous membranes moist. Neck: Trachea midline,Supple, full range of motion without nuchal rigidity, or vertebral point tenderness. No Meningismus. Chest/axilla: Normal chest wall appearance and motion. Cardiovascular: Regular rate and rhythm with a normal S1 and S2. No gallops, murmurs, or rubs. Normal PMI, no JVD. No pulse deficits. Respiratory: Lungs have equal breath sounds bilaterally, clear to auscultation Abdomen/GI: Soft, non-tender, with normal bowel sounds. No distension or tympany. No guarding or rebound. No evidence of tenderness throughout. Skin: Warm, dry with normal turgor. Normal color with no rashes, no lesions, and no evidence of cellulitis. MS/ Extremity: Pulses equal, no cyanosis. Neurovascular intact. Vital Signs: 15:48 BP 114 / 76; Pulse 51; Resp 16; Temp 97.4(TE); Pulse Ox 99% on R/A; Weight 80.74 kg; ss Height 5 ft. 3 in. (160.02 cm); Pain 5/10; 16:10 BP 124 / 66; Pulse 53; Resp 18; Pulse Ox 100% ; ll1 16:40 BP 120 / 72; Pulse 50; Resp 18; Pulse Ox 100% ; Pain 4/10; ll1 17:11 BP 125 / 72; Pulse 54; Resp 18; Temp 99; ll1 18:11 BP 137 / 71; Pulse 50; Resp 18; Pulse Ox 100% ; ll1 19:48 BP 132 / 75; Pulse 50; Resp 18; Pulse Ox 98% ; ll1 21:24 BP 121 / 68; Pulse 53; Resp 18; Temp 98.2; Pulse Ox 100% ; Pain 4/10; ll1 15:48 Body Mass Index 31.53 (80.74 kg, 160.02 cm) ss MDM: 15:42 Patient medically screened. la1 19:19 Physician consultation: Balbir Young MD was called at 19:20, was contacted at 19:20, la1 regarding consult, would like further tests performed. 19:20 Physician consultation: Favian Berkowitz MD was called at 19:20, was contacted at 19:20, la1 regarding admission, to the telemetry unit. would like further tests performed, basic blood tests. 19:20 ED course: discussed case with Dr. Montoya and Dr. Preciado. Both would like repeat la1 BMP after the fluids. will call them back after results are back.. 20:11 Data reviewed: vital signs, nurses notes, lab test result(s), EKG, radiologic studies, la1 I have discussed the patient's presentation/case with the attending Emergency Department Physician; and as a result, I will admit patient. Data interpreted: Pulse oximetry: on room air is 98 %. Counseling: I had a detailed discussion with the patient and/or guardian regarding: the historical points, exam findings, and any diagnostic results supporting the discharge/admit diagnosis, lab results, the need for further work-up and treatment in the hospital. 08/30 15:56 Order name: Basic Metabolic Panel; Complete Time: 16:44 la08/30 15:56 Order name: CBC with Diff; Complete Time: 16:48 la08/30 15:56 Order name: LFT's; Complete Time: 16:44 08/30 15:56 Order name: Magnesium; Complete Time: 16:44 08/30 15:56 Order name: NT PRO-BNP; Complete Time: 16:44 la08/30 15:56 Order name: PT-INR; Complete Time: 16:46 08/30 15:56 Order name: Troponin (emerg Dept Use Only); Complete Time: 16:44 08/30 15:56 Order name: Blood Culture Adult (2) la08/30 15:56 Order name: Lactate; Complete Time: 16:44 08/30 15:56 Order name: Procalcitonin; Complete Time: 17:19 la08/30 17:20 Order name: UA MICROSCOPIC; Complete Time: 17:43 la08/30 17:43 Order name: Urine Culture EDIL 08/30 17:47 Order name: Urine Dipstick-Ancillary; Complete Time: 17:58 EDIL 08/30 15:56 Order name: XRAY Chest (1 view); Complete Time: 16:48 la08/30 18:00 Order name: CT Stone Protocol; Complete Time: 19:12 la08/30 18:33 Order name: Urine Sodium Random; Complete Time: 19:15 la08/30 18:33 Order name: Urine Potassium Random; Complete Time: 19:15 la1 08/30 18:33 Order name: Uric Acid; Complete Time: 18:57 la08/30 19:16 Order name: BMP la 08/30 20:39 Order name: Sodium Level EDIL 08/30 20:39 Order name: Osmolality, Serum EDIL 08/30 20:39 Order name: Osmolality, Urine EDIL 08/30 20:39 Order name: Thyroid Stimulating Hormone EDIL 08/30 20:39 Order name: CBC with Automated Diff EDMS 08/30 20:39 Order name: CBC with Automated Diff EDMS 08/30 20:39 Order name: Comprehensive Metabolic Panel EDIL 08/30 20:39 Order name: Comprehensive Metabolic Panel [facility] 08/30 20:39 Order name: Sodium Level [facility] 08/30 15:56 Order name: EKG; Complete Time: 15:57 de08/30 15:56 Order name: Cardiac monitoring; Complete Time: 15:58 [facility] 08/30 15:56 Order name: EKG - Nurse/Tech; Complete Time: 15:58 de08/30 15:56 Order name: IV Saline Lock; Complete Time: 15:57 la08/30 15:56 Order name: Labs collected and sent; Complete Time: 15:58 de08/30 15:56 Order name: O2 Per Protocol; Complete Time: 15:57 08/30 15:56 Order name: O2 Sat Monitoring; Complete Time: 15:57 de08/30 20:39 Order name: CONS Pharmacy Consult [facility] 08/30 20:39 Order name: CONS Physician Consult [facility] 08/30 20:39 Order name: Regular [facility] 08/30 21:03 Order name: Physical Therapy Consult [facility] Administered Medications: 16:09 Drug: Zofran (Ondansetron) 4 mg Route: IVP; Site: left antecubital; 1 16:29 Follow up: Response: No adverse reaction; Nausea is decreased; RASS: Alert and Calm (0) ll1 16:10 Drug: NS 0.9% 500 ml Route: IV; Rate: bolus; Site: left antecubital; 1 16:42 Follow up: IV Status: Completed infusion; IV Intake: 500ml 1 16:42 Drug: Tylenol 650 mg Route: PO; ll1 19:50 Follow up: Response: No adverse reaction ll1 16:50 Drug: NS 0.9% 1000 ml Route: IV; Rate: 125 ml/hr; Site: left antecubital; ll1 21:34 Follow up: Response: No adverse reaction; RASS: Alert and Calm (0); IV Status: Infusion ll1 continued upon admission Disposition: 08/31 07:23 Co-signature as Attending Physician, Dagoberto Lazaro MD I agree with the assessment and kdr plan of care. Disposition: 08/31/19 20:13 Hospitalization ordered by Favian Berkowitz for Observation. Preliminary diagnosis are Volume depletion, Hypo-osmolality and hyponatremia. - Bed requested for Telemetry/MedSurg (observation). - Status is Observation. ll1 - Condition is Stable. - Problem is new. - Symptoms have improved. Signatures: Dispatcher [employer] EDIL Dagoberto Lazaro MD MD [facility] Yanira Curry RN RN ss David Funes, AVAYA ENGINEER-C AVAYA ENGINEER-Cla1 Mike Sierra RN RN jaAllie Mooney RN RN ll1 Corrections: (The following items were deleted from the chart) 08/30 16:39 15:51 PMHx: Asthma; ll1 16:39 15:51 PMHx: Hernia; ll1 16:39 15:51 PSHx: Hernia repair; ll1 17:22 17:19 UA MICROSCOPIC+U.LAB.BRZ ordered. [facility] EDIL 17:25 15:56 Urine Dipstick-Ancillary ordered. la1 ll1 20:47 20:13 Hospitalization Ordered by Favian Berkowitz MD for Observation. Preliminary ja1 diagnosis is Volume depletion; Hypo-osmolality and hyponatremia. Bed requested for Telemetry/MedSurg (observation). Status is Observation. Condition is Stable. Problem is new. Symptoms have improved. la1 21:49 20:47 08/31/2019 20:13 Hospitalization Ordered by Favian Berkowitz MD for Observation. ll1 Preliminary diagnosis is Volume depletion; Hypo-osmolality and hyponatremia. Bed requested for Telemetry/MedSurg (observation). Status is Observation. Condition is Stable. Problem is new. Symptoms have improved. ja1
--- NOTE | 2019-08-31 20:14 | ER ---
Nurse's Notes [facility] Name: Venu Coy Age: 79 yrs Sex: Male : 1940 Arrival Date: 08/31/2019 Time: 15:34 Bed 28 Private MD: Diagnosis: Volume depletion;Hypo-osmolality and hyponatremia Presentation: 08/30 15:48 Chief complaint: Patient's son or daughter states: fatigue, N/V and headache x 3 days. ss Daughter states that patient recently had kidney stones removed and every time he leaves the hospital this happens and it's his sodium that is low. Coronavirus screen: The patient has NOT traveled to a country currently being monitored by the CDC within the last 14 days. Proceed with normal triage procedures. Ebola Screen: Patient denies exposure to infectious person. Patient denies travel to an Ebola-affected area in the 21 days before illness onset. Initial Sepsis Screen: Does the patient meet any 2 criteria? No. Patient's initial sepsis screen is negative. Does the patient have a suspected source of infection? No. Patient's initial sepsis screen is negative. Risk Assessment: Do you want to hurt yourself or someone else? Patient reports no desire to harm self or others. 15:48 Method Of Arrival: Ambulatory ss 15:48 Acuity: PAIGE 3 ss 16:11 Onset of symptoms was August 28, 2019. ll1 Historical: - Allergies: 15:51 No Known Allergies; ss - PMHx: 16:39 Asthma; Hernia; ll1 - PSHx: 16:39 Hernia repair; ll1 - Immunization history:: Adult Immunizations up to date. - Social history:: Smoking status: Patient denies any tobacco usage or history of. Screenin:11 Abuse screen: Denies threats or abuse. Nutritional screening: No deficits noted. ll1 Tuberculosis screening: No symptoms or risk factors identified. Fall Risk IV access (20 points). Ambulatory Aid- None/Bed Rest/Nurse Assist (0 pts). Gait- Weak (10 pts.). Mental Status- Overestimates/Forgets Limitations (15 pts.). Total Carter Fall Scale indicates High Risk Score (45 or more points). Fall prevention measures have been instituted. Side Rails Up X 2 Placed Close to Nursing Station Frequent Obs/Assessments Occuring Family Present and informed to notify staff if the need to leave the bedside As available patient and family educated on Fall Prevention Program and Strategies. Assessment: 16:12 General: Appears in no apparent distress. Behavior is calm, cooperative. Pain: Denies ll1 pain. Neuro: No deficits noted. Cardiovascular: No deficits noted. Respiratory: No deficits noted. GI: Abdomen is flat, Bowel sounds present X 4 quads. Abd is soft and non tender X 4 quads. Parent/caregiver reports the patient having intolerance of food, intolerance of fluids, nausea, vomiting. : No deficits noted. Parent/caregiver report the patient having recent surgery for bladder stones 1.5 months ago. 17:11 Reassessment: No changes from previously documented assessment. Patient and/or family ll1 updated on plan of care and expected duration. Pain level reassessed. Patient is alert, oriented x 3, equal unlabored respirations, skin warm/dry/pink. Vital Signs: 15:48 BP 114 / 76; Pulse 51; Resp 16; Temp 97.4(TE); Pulse Ox 99% on R/A; Weight 80.74 kg; ss Height 5 ft. 3 in. (160.02 cm); Pain 5/10; 16:10 BP 124 / 66; Pulse 53; Resp 18; Pulse Ox 100% ; ll1 16:40 BP 120 / 72; Pulse 50; Resp 18; Pulse Ox 100% ; Pain 4/10; ll1 17:11 BP 125 / 72; Pulse 54; Resp 18; Temp 99; ll1 18:11 BP 137 / 71; Pulse 50; Resp 18; Pulse Ox 100% ; ll1 19:48 BP 132 / 75; Pulse 50; Resp 18; Pulse Ox 98% ; ll1 21:24 BP 121 / 68; Pulse 53; Resp 18; Temp 98.2; Pulse Ox 100% ; Pain 4/10; ll1 15:48 Body Mass Index 31.53 (80.74 kg, 160.02 cm) ED Course: 15:34 Patient arrived in ED. mr 15:42 David [facility]unes [facility]-C [facility]. la1 15:42 Dagoberto Lazaro MD is Attending Physician. la1 15:44 Allie Pérez RN is Primary Nurse. ll1 15:50 Triage completed. ss 15:51 Arm band placed on right wrist. ss 16:00 Inserted saline lock: 20 gauge in left antecubital area, using aseptic technique. Blood ll1 collected. 16:03 EKG done, by ED staff, reviewed by David JOHNSON. ca1 16:07 XRAY Chest (1 view) In Process Unspecified. EDMS 16:11 Patient has correct armband on for positive identification. Bed in low position. Call ll1 light in reach. Side rails up X2. Adult w/ patient. cardiac monitor on. Pulse ox on. NIBP on. 18:34 CT Stone Protocol In Process Unspecified. EDMS 20:13 Favian Berkowitz MD is Hospitalizing Provider. la1 21:33 Patient admitted, IV remains in place. intact. ll1 21:33 No provider procedures requiring assistance completed. ll1 Administered Medications: 16:09 Drug: Zofran (Ondansetron) 4 mg Route: IVP; Site: left antecubital; ll1 16:29 Follow up: Response: No adverse reaction; Nausea is decreased; RASS: Alert and Calm (0) ll1 16:10 Drug: NS 0.9% 500 ml Route: IV; Rate: bolus; Site: left antecubital; ll1 16:42 Follow up: IV Status: Completed infusion; IV Intake: 500ml ll1 16:42 Drug: Tylenol 650 mg Route: PO; ll1 19:50 Follow up: Response: No adverse reaction ll1 16:50 Drug: NS 0.9% 1000 ml Route: IV; Rate: 125 ml/hr; Site: left antecubital; ll1 21:34 Follow up: Response: No adverse reaction; RASS: Alert and Calm (0); IV Status: Infusion ll1 continued upon admission Intake: 16:42 IV: 500ml; Total: 500ml. ll1 Outcome: 20:13 Decision to Hospitalize by Provider. la1 21:25 Admitted to Med/surg accompanied by tech, via stretcher, room 213. ll1 21:25 Condition: stable 21:25 Instructed on the need for admit. 21:49 Patient left the ED. ll1 Signatures: Dispatcher [employer] EDGA Lindsey ShahidYanira RN RN ss Attema, Lee, FNP-C WHIPPER BEATER-Cla1 Josefina Tubbs RN RN ca1 Allie Pérez RN RN ll1 Corrections: (The following items were deleted from the chart) 16:39 15:51 PMHx: Asthma; ll1 16:39 15:51 PMHx: Hernia; ll1 16: 15:51 PSHx: Hernia repair; ll1
[2019-08-31] MEDS ORDERED: ONDANSETRON 4 MG/2 ML VIAL IV PRN (20:35)
[2019-08-31] MEDS ORDERED: MORPHINE 2 MG/ML SYR IV PRN (20:35)
[2019-08-31] MEDS ORDERED: HYDRALAZINE HCL 20 MG/ML VIAL IV PRN (20:38)
[2019-08-31] MEDS ORDERED: LORAZEPAM 0.5 MG TABLET PO PRN (20:38)
[2019-08-31] MEDS ORDERED: CEFTRIAXONE 1 GM/NS 50 ML 1 GM/50 ML BAG IV SCH (20:38)
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
[2019-08-31] MEDS: SODIUM CHLORIDE 1 GM TAB PO SCH (22:45)
[2019-08-31] MEDS: FAMOTIDINE 20 MG/2 ML VIAL IV SCH (22:46)
[2019-08-31] MEDS: NA CHLORIDE 0.9% 1,000 ML IV SCH (22:46)
[2019-08-31] MEDS: CEFTRIAXONE/SWI 1gm 1 GM/10 ML SYR IV SCH (22:56)
[2019-08-31 23:22] LABS: Thyroid Stimulating Hormone 1.45 uIU/mL (0.360-3.740)
[2019-09-01 01:19] VITALS: BMI 30.9
[2019-09-01 06:05] LABS: Absolute Lymphocytes (CBC) 0.9 K/uL (0.7-4.9); Basophils % 0.7 % (0-1.3); Hematocrit 26.8 % (39.6-49.0); Lymphocytes % 30.6 % (15.3-44.8); MPV 9.8 fL (7.6-11.3); RBC Red Blood Cell Count 3.19 M/uL (4.33-5.43)
[2019-09-01 06:16] LABS: ALT/SGPT 11 U/L (12-78); AST/SGOT 16 U/L (15-37); Albumin 3.1 g/dL (3.4-5.0); Alkaline Phosphatase 57 U/L (45-117); BUN Blood Urea Nitrogen 7 mg/dL (7-18); Bicarbonate 24 mmol/L (21-32); Bilirubin Total 0.3 mg/dL (0.2-1.0); Glucose Level 76 mg/dL (74-106); Potassium 3.7 mmol/L (3.5-5.1); Protein, Total 6.6 g/dL (6.4-8.2); Sodium Level 120 mmol/L (136-145)
--- NOTE | 2019-09-01 06:27 | EKG ---
Test Date: 2019-08-31 Test Time: 15:58:05 Automatic Grinding Machine Operator: MANUEL MEASUREMENT RESULTS: Intervals: Rate: 53 HI: 230 QRSD: 104 QT: 448 QTc: 420 [place]: P: 48 HI: 230 QRS: -68 T: 2 INTERPRETIVE STATEMENTS: Sinus bradycardia with 1st degree AV block Incomplete right bundle branch block Left anterior fascicular block Nonspecific ST abnormality Abnormal ECG Compared to ECG 07/25/2019 19:53:33 Incomplete right bundle-branch block now present ST (T wave) deviation now present Electronically Signed On 09-01-19 06:26:36 CDT by Angel Blanca
[2019-09-01] MEDS: NA CHLORIDE 0.9% 1,000 ML IV SCH (06:55)
[2019-09-01] MEDS: FAMOTIDINE 20 MG/2 ML VIAL IV SCH ×2 (08:33→20:41)
[2019-09-01] MEDS: SODIUM CHLORIDE 1 GM TAB PO SCH ×3 (08:33→16:00)
[2019-09-01] MEDS ORDERED: POTASSIUM 25 MEQ EFFERV TAB PO ONE (11:53)
--- NOTE | 2019-09-01 13:09 | CON ---
Date of Consultation: 09/01/2019 Reason For Consultation: Hyponatremia. History Of Present Illness: This is a pleasant 79-year-old gentleman, all the information has been o btained with the help of a support technician, Ms Garza. Patient has significant past medical history of tianna gn prostate hypertrophy, bronchial asthma, recurrent hyponatremia. Patient was in his regular state of health because of altered mental status. Primary workup show hyponatremia with sodium down to 117 . The patient apparently been taking ibuprofen as outpatient 2 to 3 tablets a day for the last 1 wee k. Patient denied taking any diuretic even though that he is not remembering his medication. Upon p resentation as I mentioned, sodium was 127. Patient was given IV fluids. Sodium gradually raised to 120 over 10 hour period. Primary workup show uric acid is 2.2 and urine electrolytes, sodium of 45. The patient mentions that he has some nausea and vomiting. Past Medical History: 1.Hypertension. 2.Benign prostate hypertrophy. 3.Bronchial asthma. Home Medications: Include albuterol, Flomax, and Advair. Past Surgical History: Abdominal surgery, hernia repair. Family History: Positive for cancer. Social History: Denies smoking, denies drinking, denies drugs abuse. Review of Systems: Head and Neck: No red eye. No ear pain. GI: Has nausea and vomiting. Has diarrhea. : No polyuria. No dysuria. No hematuria. Stereo Equipment Installer: Not applicable. Respiratory: No shortness of breath. Cardiovascular: No chest pain. Endocrine: No polydipsia. Skin: No rash. Neuro: Has altered mental status. Musculoskeletal: Generalized fatigue. Physical Examination: Vital Signs: When I saw the patient, patient lying in bed. Blood pressure 132/58, pulse of 55, afeb rile. Patient had good urine output. Chest: Clear to auscultation. Heart: S1, S2. Regular. Abdomen: Soft nontender. Extremities: No edema. Neuro: No focal. Laboratory Data: Urinalysis, specific gravity of 1.015. Rbc more than 50, wbc 20. Chemistry: Sodi um 120, potassium 3.7, bicarb 24, BUN 7, creatinine 0.7, uric acid 2.2. Cortisol level of 3. TSH 1. 4. WBC 2.8, H and H 9.2/26.8, platelets of 157. Current Medications: The patient on salt tablets 2 g b.i.d., IV fluids. Flomax and ceftriaxone. Assessment And Plan: 1.Hyponatremia secondary to SIADH. Supportive with urine electrolytes and superimposed with nonster oidal use, still low. I going to go ahead and discontinue IV fluids. Continue on the salt tablet an d start the patient on the Lasix and we will monitor the patient closely. Given the presence of low cortisol, adrenal insufficiency needs to be ruled out. I am going to go ahead and send for cortisol stimulation test. 2.Hypokalemia. We will supplement. 3.Benign prostate hypertrophy. Continue current treatment. 4.Urinary tract infection. Continue ceftriaxone. We will follow up cultures. SOFI Voice ID: [id number] Report ID: [id number]
--- NOTE | 2019-09-01 15:04 | PN ---
Date of Progress Note: 09/01/2019 Subjective: Patient is seen and examined. Chart reviewed and case discussed with RN and Dr. Tali corrales. Patient denies any fever, cough, shortness of breath, and feeling okay. Medications: List reviewed. Physical Examination: Vital Signs: Temperature 97.6, heart rate 55, blood pressure 132/58, respirations 15, O2 of 97% on r oom air. General: Awake, alert, oriented x3. Elderly male, obese, BMI 31. CV: S1, S2. Regular rate and rhythm. Peripheral pulses present. Respiratory: Moving air well bilaterally. No wheezing. Gastrointestinal: Abdomen is soft, nontender, nondistended. Positive bowel sounds. Extremities: No clubbing, cyanosis, or edema. Neurologic: Nonfocal. Code Status: Full. Laboratory Data: Sodium 120, potassium 3.7, chloride 89, CO2 of 24, BUN 7, creatinine 0.79, calcium 8.3, albumin 3.1. WBC 2.8, H and H 9.2 and 26.8, platelets 157. Urine culture, no growth to date. Blood cultures still pending. CT scan of the abdomen shows no obstructing calculus identified. Cyst ic mass is filling each renal hilum believed to be parapelvic cyst in a pattern mention prior imaging . Abnormal urinary bladder wall is thickened and irregular. Air is present in the lumen. Probably from catheterization, cystitis is primary consideration. Isodense masses and pyelonephritis not excl uded. He does have some subpleural nodule 7 mm on the right and 5 mm on the left. Unable to establi sh stability from prior imaging as it is not clearly imaged. Assessment And Plan: A 79-year-old male with: 1.Generalized weakness secondary to hyponatremia. 2.Hyponatremia likely secondary to SIADH, low uric acid, urine sodium is high. Appreciate Nephrolog y input. We will continue with IV fluids and salt tablets. We will replace slowly as to avoid centr al pontine myelinolysis. 3.Pyelonephritis, resolved. CT scan reviewed. Patient has multiple cysts which are stable from pre vious. 4.Benign prostatic hypertrophy. We will continue with home medications. 5.Obesity, BMI 31. 6.Acute cystitis with hematuria. Patient had recent transurethral resection of the prostate. Add R ocephin. We will avoid nitrofurantoin, which is his home dose. 7.Intermittent asthma, stable. Continue albuterol as needed. Continue his home allergy medication. 8.Deep venous thrombosis prophylaxis with Lovenox. 9.Disposition. Likely discharge home in the next 24 to 48 hours depending on clinical improvement a nd sodium levels. /BRANDON Voice ID: [id number] Report ID: [id number]
[2019-09-01 22:08] LABS: BUN Blood Urea Nitrogen 8 mg/dL (7-18); Bicarbonate 23 mmol/L (21-32); Glucose Level 109 mg/dL (74-106); Potassium 3.8 mmol/L (3.5-5.1); Sodium Level 123 mmol/L (136-145)
[2019-09-01 22:47] LABS: Urine Appearance CLOUDY; Urine Bilirubin NEGATIVE (NEG); Urine Blood 3+ (NEG); Urine Color RED; Urine Glucose NEGATIVE (NEG); Urine Protein 1+ (NEG); Urine Urobilinogen 0.2 mg/dL (0.2-1.0)
[2019-09-01 22:59] LABS: Urine Microscopic Reflex ORDER UMIC
[2019-09-01] MEDS: CEFTRIAXONE/SWI 1gm 1 GM/10 ML SYR IV SCH (23:26)
[2019-09-01 23:33] LABS: Urine Bacteria <20 /HPF (NONE SEEN); Urine Culture Reflex Order NOT NEEDED; Urine RBC >50 /HPF (NONE SEEN)
[2019-09-02 06:28] LABS: Absolute Lymphocytes (CBC) 1.1 K/uL (0.7-4.9); Basophils % 1.1 % (0-1.3); Hematocrit 29.7 % (39.6-49.0); Lymphocytes % 35.1 % (15.3-44.8); MPV 9.6 fL (7.6-11.3)
[2019-09-02 06:57] LABS: Albumin 3.3 g/dL (3.4-5.0); Phosphorus 3.4 mg/dL (2.5-4.9); Potassium 4.1 mmol/L (3.5-5.1)
[2019-09-02] MEDS ORDERED: COSYNTROPIN 0.25 MG VIAL IV ONE (08:00)
[2019-09-02] MEDS ORDERED: SODIUM CHLORIDE 0.9% 10ML INJ IV ONE (08:00)
[2019-09-02] MEDS: FAMOTIDINE 20 MG/2 ML VIAL IV SCH ×2 (09:00→21:00)
[2019-09-02] MEDS ORDERED: TRAMADOL HCL 50 MG TAB PO PRN (09:21)
[2019-09-02] MEDS: SODIUM CHLORIDE 1 GM TAB PO SCH ×3 (09:40→16:45)
[2019-09-02] MEDS: TAMSULOSIN 0.4 MG SR CAP PO SCH (09:40)
[2019-09-02] MEDS: MONTELUKAST 10 MG TAB PO SCH (09:40)
[2019-09-02] MEDS: FUROSEMIDE 20 MG TABLET PO SCH (09:40)
--- NOTE | 2019-09-02 11:34 | P.PN ---
Subjective Date of Service: 09/02/19 Chief Complaint: Nausea, vomiting and low sodium pt admitted with nausea , vomiting , and AMS sodium 118 on admission improved on salt tablets low uric acid and cortisol level Today no change in clinical status will increase salt tablet will add ensure F/U cosyntropin test results Physical exam general: Awake and alert , NAD ,obese Neck; Supple, No elevated JVD hear: RRR, normal S1,2 no murmur or rub Chest: CTAB, no rlaes or wheezes Abdomen: Soft , Nt Extremities No edema or ulcer Assessment And Plan: hypoosmolar Hyponatremia due to SIADH vs adrenal insufficiemncy low uric acid , high urine osmol and sodium will increase salt tabelts fluid restriction f/u cosyntropin BPH cont home meds UTI cont abx COPD cont inhalers Physical Examination - Vital Signs Temperature: 97.2 F Blood Pressure: 128/64 Pulse: 58 Respirations: 18 Pulse Ox (%): 99 - Studies Microbiology Data (last 24 hrs): 08/31/19 17:20 Clean Catch Urine Leonore Count - Final 08/31/19 17:20 Clean Catch Urine - Final No growth. Assessment And Plan Physician Review: Patient Assessed, Agree with Above Assessment and Plan
--- NOTE | 2019-09-02 12:26 | PN ---
Date of Progress Note: 09/02/2019 Subjective: Patient seen and examined. Chart reviewed and case discussed with Dr. Morales. Arnold laurent is somewhat more confused today. at the bedside. No acute events overnight. Medications: List reviewed. Physical Examination: Vital Signs: Temperature 97.2, heart rate 58, blood pressure 128/64, respirations 18, O2 99% on room air. General: Awake, alert, confused, elderly male, ill-appearing, obese. CV: S1, S2. Regular rate and rhythm. Peripheral pulses present. Respiratory: Moving air well bilaterally. No wheezing or stridor. No use of accessory muscles. Gastrointestinal: Abdomen is soft, nontender, nondistended. Positive bowel sounds. Extremities: No clubbing, cyanosis, or edema. Laboratory Data: WBC 3, H and H 10.1 and 29.7, platelets 187, neutrophils 45%. Sodium 125, potassiu m 4.1, chloride 93, CO2 of 25, BUN 8, creatinine 0.84, glucose 78, calcium 8.9, phosphorus 3.4, album in 3.3. Cortisol from yesterday was 3. Cosyntropin test is pending. Blood cultures and urine cultu res show no growth to date. Assessment: A 79-year-old male with: 1.Generalized weakness secondary to hyponatremia. 2.Acute hyponatremia secondary to SIADH or possible adrenal insufficiency. Continue with salt table ts. Sodium is improved, currently at 125; however, patient is somewhat more confused, could be relat ed to . We will continue to monitor. Appreciate Nephrology input. Cortisol stim test is pending. 3.Pyelonephritis, resolved. Patient has multiple cysts, stable from previous imaging. 4.Benign prostatic hypertrophy. Continue home medications. 5.Obesity, body mass index 31. 6.Acute cystitis with hematuria, recent transurethral resection of the prostate. We will continue w ith Rocephin. Cultures show no growth to date. We will finish off minimal 3 days of IV antibiotics. 7.Intermittent asthma, stable. Continue albuterol as needed. 8.Deep venous thrombosis prophylaxis with Lovenox. Plan: Likely discharge in the 24 hours depending on clinical response and improvement in his sodium levels. SA/MODL Voice ID: [id number] Report ID: [id number]
[2019-09-02] MEDS: ENSURE ENLIVE 237 ML CAN PO SCH (21:00)
[2019-09-02] MEDS: CEFTRIAXONE/SWI 1gm 1 GM/10 ML SYR IV SCH (22:18)
[2019-09-03 02:48] VITALS: O2SAT 96
[2019-09-03 06:29] LABS: Basophils % 0.9 % (0-1.3); Hematocrit 27.6 % (39.6-49.0); Lymphocytes % 30.7 % (15.3-44.8); MPV 9.8 fL (7.6-11.3); RBC Red Blood Cell Count 3.24 M/uL (4.33-5.43)
[2019-09-03 06:33] LABS: Albumin 3.1 g/dL (3.4-5.0); Phosphorus 3.9 mg/dL (2.5-4.9); Potassium 4.1 mmol/L (3.5-5.1)
[2019-09-03 08:08] LABS: Blood Morphology Comment NOT SEEN (NOT SEEN); Platelet Estimate ADEQ
[2019-09-03] MEDS: ENSURE ENLIVE 237 ML CAN PO SCH ×2 (09:00→20:39)
[2019-09-03] MEDS: FAMOTIDINE 20 MG/2 ML VIAL IV SCH ×2 (09:00→20:39)
[2019-09-03] MEDS: FUROSEMIDE 20 MG TABLET PO SCH (09:13)
[2019-09-03] MEDS: TAMSULOSIN 0.4 MG SR CAP PO SCH (09:14)
[2019-09-03] MEDS: SODIUM CHLORIDE 1 GM TAB PO SCH ×3 (09:14→17:10)
[2019-09-03] MEDS: MONTELUKAST 10 MG TAB PO SCH (09:15)
[2019-09-03] MEDS: HYDROCORTISONE 10 MG TAB PO SCH (15:51)
--- NOTE | 2019-09-03 17:15 | PN ---
Date of Progress Note: 09/03/2019 Subjective: Patient seen and examined. Chart reviewed and case discussed with RN and Dr. Barker. The patient is doing better. Confusion is resolved. at the bedside. Treatment plan explained. All questions answered. Medications: List reviewed. Physical Examination: Vital Signs: Temperature 98.3, heart rate 61, blood pressure 101/56, respirations 18, O2 96% on room air. General: Awake, alert, oriented x3, not in any acute distress. CV: S1, S2. No murmurs. Respiratory: Moving air well bilaterally. Abdomen: Soft, nontender, nondistended. Positive bowel sounds. Extremities: No clubbing, cyanosis, or edema. Neuro: Nonfocal. Laboratory Data: Sodium 128, potassium 4.1, chloride 97, CO2 24, BUN 10, creatinine 0.86, glucose 89, calcium 8.8, phosphorus 3.9, albumin 3.1. WBC 3.3 , H and H 9.5 and 27.6, platelets 202, neutrophils 47.5. Blood cultures and urine cultures show no growth. Assessment: 79-year-old male with: 1. Hyponatremia secondary to syndrome of inappropriate antidiuretic hormone secretion and possible adrenal insufficiency. Cosyntropin test did come back positive. We will start on hydrocortisone [address] Rosado's input. We will continue salt tablets. Continue to monitor levels. 2. Generalized weakness secondary to hyponatremia, improving. We will continue with physical therapy. 3. Acute cystitis with hematuria, with recent transurethral resection of prostate. We will continue with intravenous antibiotics. Cultures are negative. We will discontinue antibiotics treatment after completion and cultures negative. 4. Renal cyst, stable from previous imaging. 5. BPH. Start on Flomax. 6. Obesity, BMI 31. 7. Deep venous thrombosis prophylaxis with Lovenox. Plan: We will start on hydrocortisone and likely DC in the 24 hours depending on clinical response. SA/MODL Voice ID: [id number] Report ID: [id number] KARLA
[2019-09-03] MEDS: CEFTRIAXONE/SWI 1gm 1 GM/10 ML SYR IV SCH (23:08)
--- NOTE | 2019-09-04 01:09 | PN ---
Date of Progress Note: 09/03/2019 Chief Complaint: Hyponatremia, hypo-osmolar. History Of Present Illness: Patient presented to the hospital because of nausea , vomiting, and altered mental status. On admission, sodium level was 118. Sodium level gradually improved on salt tablets. Low uric acid, low cortisol level was found and patient underwent cortisol stimulation test, which showed low baseline cortisol level, improving with cosyntropin administration. Review of Systems: Denies PND and orthopnea. Physical Examination: Lungs: Clear to auscultation bilaterally. Heart: S1, S2. Abdomen: Soft, benign. Extremities: No edema. Laboratory Data: Hemoglobin 9.5, WBC 3.3, platelet count 202,000. Chemistry showed sodium 125, potassium 4.1, chloride 93, CO2 of 25, BUN 10, creatinine 0.86, calcium 8.8, phosphorus 3.9. Impression And Plan: 1. Hyponatremia hypo-osmolar. Patient was found to have low cortisol level and he was started on hydrocortisone. Plan is to monitor electrolytes and adjust treatment accordingly. Patient was started on sodium chloride tablets to treat hyponatremia. 2. Low uric acid was found and may have SIADH, although the cortisol level indicated that there is some element of adrenal insufficiency. Plan is to continue p.o. fluid restriction. 3. Urinary tract infection. Continue antibiotics. 4. Chronic obstructive pulmonary disease. Continue inhalers. JOSE/BRANDON Voice ID: [id number] Report ID: [id number] MTDPhil
[2019-09-04 05:58] LABS: Basophils % 0.7 % (0-1.3); Hematocrit 28.7 % (39.6-49.0); Lymphocytes % 27.2 % (15.3-44.8); MPV 9.5 fL (7.6-11.3); RBC Red Blood Cell Count 3.33 M/uL (4.33-5.43)
[2019-09-04 06:14] LABS: Albumin 3.1 g/dL (3.4-5.0); Phosphorus 3.6 mg/dL (2.5-4.9); Potassium 4.1 mmol/L (3.5-5.1)
[2019-09-04] MEDS: ENSURE ENLIVE 237 ML CAN PO SCH (09:31)
[2019-09-04] MEDS: HYDROCORTISONE 10 MG TAB PO SCH (09:33)
[2019-09-04] MEDS: MONTELUKAST 10 MG TAB PO SCH (09:33)
[2019-09-04] MEDS: TAMSULOSIN 0.4 MG SR CAP PO SCH (09:35)
[2019-09-04] MEDS: FUROSEMIDE 20 MG TABLET PO SCH (09:35)
[2019-09-04] MEDS: FAMOTIDINE 20 MG/2 ML VIAL IV SCH (09:36)
[2019-09-04 09:38] VITALS: BP 119/56
[2019-09-04 10:18] VITALS: TEMP 97.3
--- NOTE | 2019-09-04 12:19 | DS ---
Consultants: 1. Dr. Morales. 2. Dr. Rosado, Nephrology. Admitting Diagnoses: 1. Recurrent hyponatremia. 2. Generalized weakness. 3. Pyelonephritis. 4. BPH. Discharge Diagnoses: 1. Generalized weakness secondary to hyponatremia, resolved. 2. Hyponatremia, recurrent, likely due to adrenal insufficiency, improved. Continue on hydrocortisone and salt tablet. 3. Pyelonephritis, resolved. 4. Renal cyst, stable from previous imaging. Patient's parapelvic cyst are similar to prior imaging studies. 5. BPH. Continue Flomax. 6. Obesity, BMI 31. 7. Acute cystitis with hematuria with recent transurethral resection of the prostate. 8. Cultures negative. Hospital Course: Patient is a 79-year-old male with past medical history of asthma, chronic hyponatremia who was recently hospitalized for low sodium, BPH, comes in with recent TURP, was on chronic antibiotics for the last 2 weeks on nitrofurantoin, developed nausea, vomiting, and comes in with low sodium. Patient's sodium was 117. He was started on IV fluids. He was also having weakness. This was thought to be secondary to SIADH versus possibly renal insufficiency. CT scan of the abdomen was done, which showed possible cystitis , thickened irregular wall. Also showed nonobstructing calculus. Cystic mass is filling each renal hilum, believed to be parapelvic cyst in a pattern matching previous imaging. Patient's overall did well, did have some confusion. Nephrology was consulted. Patient was started on salt tablets. His sodium was gradually corrected to avoid central pontine myelinolysis. Patient does have some leukopenia. He likely need to follow up with Hematology as an outpatient for that workup; however, he was not neutropenic at any time. Patient's cultures did not show any growth. He was put on empiric antibiotics for his UTI. Repeat culture did not show any white blood cells <20 bacteria. Did have some bleeding, which is due to his recent TURP. Blood cultures were also negative. Patient's cosyntropin test was positive and patient likely has renal insufficiency, therefore he was started on Solu-Cortef and then switched over to hydrocortisone. He will need to be on hydrocortisone and to have repeat BMP in 2 to 3 days. Follow up with primary care physician in 1 week. Follow up with division toll wire chief, Dr. Rosado in 1 week. Return to ER for worsening condition. Diet: Heart healthy. Activity: As tolerated. Medications: As per medication reconciliation list. Patient can continue his nitrofurantoin. Physical Examination: General: Awake, alert, oriented x3. No acute distress. CV: S1, S2. Respiratory: Moving air well bilaterally. Abdomen: Soft, nontender, nondistended. Positive bowel sounds. Extremities: No clubbing, cyanosis, or edema. Neurologic: Nonfocal. SA/MODL Voice ID: [id number] Report ID: [id number] MTDD
--- NOTE | 2019-09-04 22:37 | PN ---
Date of Progress Note: 09/04/2019 Chief Complaint: Hyponatremia, hypo-osmolar. History Of Present Illness: Patient presented to the hospital because of nausea , vomiting, altered mental status. On admission, sodium level was 118 and was started on sodium chloride tablets. Patient had low uric acid, low cortisol level was found and patient underwent cortisol stimulation test, which showed baseline cortisol level improving with cosyntropin administration. Patient is started on hydrocortisone in view of adrenal insufficiency and is on hydrocortisone 30 mg daily. Hyponatremia hypo-osmolar state is improving and sodium level has stabilized. Patient was taken off sodium chloride tablets. Review of Systems: Denies chest pain, palpitation. Physical Examination: Lungs: Clear to auscultation bilaterally. Heart: S1, S2. Abdomen: Soft, benign. Extremities: Minimal edema. Assessment And Plan: 1. Hyponatremia hypo-osmolar and sodium level is improving gradually. Monitor renal function. Patient will have electrolyte panel and renal function panel done outpatient and he will follow up with Nephrology. 2. Patient was taken off sodium chloride tablet. Patient currently is on hydrocortisone for adrenal insufficiency. Hypotensive episode has resolved. 3. Obstructive pulmonary disease. Continue inhaler. I spent total 36 min incluidng 25 min to coordinate care plan. JOSE/BRANDON Voice ID: [id number] Report ID: [id number] KARLA
== END 2019-09-04 12:07 | disposition home or self-care (01) | DRG 644 ==
LOC: ER 15:32 → 2ND 21:34
PROVIDERS: ADMIT Internal Medicine; ATTEND Family Medicine
DX: E22.2 Syndrome of inappropriate secretion of antidiuretic hormone (principal); E27.40 Unspecified adrenocortical insufficiency; N12 Tubulo-interstitial nephritis, not specified as acute or chronic; N30.01 Acute cystitis with hematuria; N99.820 Postprocedural hemorrhage of a genitourinary system organ or structure following a genitourinary system procedure; N40.1 Benign prostatic hyperplasia with lower urinary tract symptoms; E86.9 Volume depletion, unspecified; Z90.79 Acquired absence of other genital organ(s); Z03.818 Encounter for observation for suspected exposure to other biological agents ruled out; E66.9 Obesity, unspecified; Z68.31 Body mass index [BMI] 31.0-31.9, adult; Z79.899 Other long term (current) drug therapy; I10 Essential (primary) hypertension; N20.0 Calculus of kidney; E87.6 Hypokalemia; J45.20 Mild intermittent asthma, uncomplicated; J44.9 Chronic obstructive pulmonary disease, unspecified; N28.1 Cyst of kidney, acquired; D72.819 Decreased white blood cell count, unspecified; Y84.8 Other medical procedures as the cause of abnormal reaction of the patient, or of later complication, without mention of misadventure at the time of the procedure; N28.9 Disorder of kidney and ureter, unspecified; R41.0 Disorientation, unspecified
CPT/HCPCS: 36415; 71045; 74176; 76377; 80048; 80053; 80069; 80076; 81003; 81015; 82024; 82533; 83605; 83735; 83880; 83930; 83935; 84132; 84145; 84295; 84300; 84443; 84484; 84550; 85025; 85610; 87040; 87086; 87088; 93005; 96361; 96374; 97116; 97161; 97530; 99285; J0696; J0834; J2405; J7030; J7040

== ENCOUNTER 2020-04-28 13:40 | Emergency (ER) | payer OTHER ==
--- OUTSIDE RECORDS SUMMARY | 2020-04-28 13:46 | XMS REPORT | Continuity of Care Document ---
:1940 Author Organization [facility] t Address [address] [address] Care Team Providers Name Role Phone Mami Shani DO Attending Clinician Doctor Unassigned, Name Attending Clinician Unavailable Stanley Beth MD Attending Clinician Dayne JAMES Attending Clinician Problems This patient has no known problems. Allergies, Adverse Reactions, Alerts This patient has no known allergies or adverse reactions. Medications This patient has no known medications. Procedures This patient has no known procedures. Encounters Start End Encounter Admission Attending Care Care Encounter Source Date/Time Date/Time Type Type Clinicians Facility Department ID 2020-04-23 2020-04-23 [facility] [id number] 11:00:00 23:59:00 Encounter Mami Vaughn [id number] [place] [id number] [place] [id number] 2020-04-23 2020-04-23 Orders Doctor MCKEON [id number] 00:00:00 00:00:00 Only Unassigned, RAMON [id number] [place] [id number] 2020-04-21 2020-04-21 [facility] [id number] 00:00:00 00:00:00 [facility] [id number] [place] [id number] [facility] [phone] [place] [address] [address] 2020-04-20 2020-04-20 [facility] [id number] 00:00:00 00:00:00 [facility] [id number] [place] [id number] Profess[facility] [phone] [place] [address] [address] 2020-04-19 2020-04-19 Telephone [facility] [id number] 00:00:00 00:00:00 [facility] [id number] CLINICS [id number] 2020-04-16 2020-04-16 Telephone [facility] [id number] 00:00:00 00:00:00 [facility] [id number] [place] [id number] Profess[facility] [phone] [place] [address] [address] 2020-04-11 2020-04-13 Office DayneSHIVA [id number] 13:44:32 13:44:54 Visit [facility] [id number] CLINICS [id number] Results This patient has no known results.
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
[2020-04-28] MEDS ORDERED: NA CHLORIDE 0.9% 500 ML ONE (14:43)
--- NOTE | 2020-04-28 14:45 | RAD REPORT ---
EXAM DESCRIPTION: Kaleb Single View04/28/2020 2:35 pm CLINICAL HISTORY: Chest pain/weakness COMPARISON: August 2019 FINDINGS: The lungs appear clear of acute infiltrate. The heart is normal size IMPRESSION: No acute abnormalities displayed
[2020-04-28 14:53] LABS: Basophils % 1.5 % (0-1.3); Hematocrit 31.2 % (39.6-49.0); Lymphocytes % 23.1 % (15.3-44.8); Protime INR 1.07; RBC Red Blood Cell Count 3.66 M/uL (4.33-5.43)
[2020-04-28 15:09] LABS: Bilirubin Direct 0.1 mg/dL (0-0.2); Bilirubin Total 0.4 mg/dL (0.2-1.0); Magnesium 1.7 mg/dL (1.8-2.4); Potassium 3.8 mmol/L (3.5-5.1); Protein, Total 6.5 g/dL (6.4-8.2); Troponin (Emerg Dept Use Only) 0.02 ng/mL (0.0-0.045)
[2020-04-28] MEDS ORDERED: IPRATROPIUM BROM 0.5MG/2.5ML ONE (15:18)
[2020-04-28] MEDS ORDERED: ALBUTEROL 2.5 MG/3 ML NEB SOL ONE (15:19)
[2020-04-28] MEDS ORDERED: predniSONE 20 MG TAB ONE (15:19)
[2020-04-28] MEDS ORDERED: MAGNESIUM SULFATE 1 gm IVPB 1 GM/100 ML BAG IV ONE (16:04)
[2020-04-28 16:11] LABS: Urine Blood NEGATIVE (NEG); Urine Glucose NEGATIVE (NEG); Urine Protein NEGATIVE (NEG); Urine pH 7.5 (5.0-7.0)
[2020-04-28 16:39] LABS: Urine Bacteria <20 /HPF (NONE SEEN); Urine Culture Reflex Order NOT NEEDED; Urine RBC <5 /HPF (NONE SEEN)
--- NOTE | 2020-04-28 16:51 | ER ---
Nurse's Notes [facility] Name: Venu Coy Age: 80 yrs Sex: Male : 1940 Arrival Date: 04/28/2020 Time: 13:41 Bed 20 Private MD: Diagnosis: Insomnia, unspecified;Asthma;Strain of muscle, fascia and tendon at neck level Presentation: 04/28 13:45 Chief complaint: Patient's son or daughter states: pt started throwing up last week, ah hes having neck pain x2 years, and hes using his asthma medications more often. Ebola Screen: No symptoms or risks identified at this time. 13:45 Method Of Arrival: Wheelchair 14:20 Risk Assessment: Do you want to hurt yourself or someone else? Patient reports no ah desire to harm self or others. Onset of symptoms is unknown. 14:20 Acuity: PAIGE 3 14:20 Coronavirus screen: At this time, the client does not indicate any symptoms associated ah with coronavirus-19. Initial Sepsis Screen: Does the patient meet any 2 criteria? No. Patient's initial sepsis screen is negative. Does the patient have a suspected source of infection? No. Patient's initial sepsis screen is negative. Historical: - Allergies: 15:28 No Known Allergies; - PMHx: 15:28 Asthma; Hernia; - PSHx: 15:28 Hernia repair; - Immunization history:: Pneumococcal vaccine is not up to date, Flu vaccine is not up to date. - Social history:: Smoking status: Patient denies any tobacco usage or history of. Screenin:00 Abuse screen: Denies threats or abuse. Nutritional screening: No deficits noted. Tuberculosis screening: No symptoms or risk factors identified. Fall Risk None identified. Assessment: 15:24 General: Appears uncomfortable, Behavior is calm, cooperative, appropriate for age. Pain: Denies pain. Neuro: Level of Consciousness is awake, alert, obeys commands, Oriented to person, place, time, situation, Appropriate for age Medical Biller Coder are. Cardiovascular: Heart tones S1 S2 present. Respiratory: Airway is patent Respiratory effort is even, unlabored, Respiratory pattern is regular, Breath sounds are coarse Breath sounds with rhonchi bilaterally. GI: No signs and/or symptoms were reported involving the gastrointestinal system. GI: No signs and/or symptoms were reported involving the gastrointestinal system. Parent/caregiver reports the patient having vomiting, since a week or more. : No signs and/or symptoms were reported regarding the genitourinary system. Derm: No signs and/or symptoms reported regarding the dermatologic system. Skin is intact, is healthy with good turgor, Skin is dry. 15:45 Reassessment: Patient is alert, oriented x 3, equal unlabored respirations, skin ah warm/dry/pink. Pt tolerated medications well. neb treatment currently going. 16:45 Reassessment: Patient and/or family updated on plan of care and expected duration. Pain ah level reassessed. Patient is alert, oriented x 3, equal unlabored respirations, skin warm/dry/pink. No distress noted at this time. Family at bedside. 17:20 Reassessment: Discharge instructions given. Educated on prescriptions. Pt and family ah voiced understanding. Vital Signs: 14:20 BP 129 / 73; Pulse 67; Resp 19; Pulse Ox 98% ; Weight 83.01 kg; Pain 0/10; ah 16:12 BP 115 / 51; Pulse 91; Resp 17; Pulse Ox 100% ; ah 17:00 BP 105 / 58; Pulse 93; Resp 17; Pulse Ox 96% ; ah ED Course: 13:41 Patient arrived in ED. as 14:04 Marcus Pacheco NP is PHCP. pm1 14:04 Solis Schulte MD is Attending Physician. pm1 14:13 Julia Cox, RN is Primary Nurse. ah 14:35 XRAY Chest (1 view) In Process Unspecified. EDMS 14:40 Inserted saline lock: 20 gauge in right antecubital area, using aseptic technique. dh4 Blood collected. 15:24 Triage completed. ah 16:00 Patient has correct armband on for positive identification. Placed in gown. Bed in low ah position. Call light in reach. Side rails up X2. Adult w/ patient. panel monitor on. Pulse ox on. NIBP on. 17:20 No provider procedures requiring assistance completed. IV discontinued, intact, ah bleeding controlled, No redness/swelling at site. Pressure dressing applied. Administered Medications: 14:20 Drug: NS 0.9% 500 ml Route: IV; Rate: bolus; Site: right antecubital; ah 15:13 Drug: Albuterol 2.5 mg Route: Inhalation; 15:13 Drug: AtroVENT Aerosol 0.5 mg Route: Inhalation; 15:13 Drug: predniSONE 60 mg Route: PO; 15:55 Drug: Magnesium Sulfate 1 grams Route: IVPB; Infused Over: 1 hrs; Site: right antecubital; Outcome: 16:50 Discharge ordered by . pm1 17:30 Discharged to home ambulatory. 17:30 Condition: good 17:30 Discharge instructions given to patient, Instructed on discharge instructions, follow up and referral plans. medication usage, Demonstrated understanding of instructions, follow-up care, medications, Prescriptions given X 2. 17:33 Patient left the ED. Signatures: Dispatcher [employer] Sary Sheridan Patrick, NP ROOFING TECHNICIAN pm1 Julia Cox RN RN Terrence Ward 4
--- NOTE | 2020-04-28 16:51 | EDPHYS ---
Physician Documentation [facility] Name: Venu Coy Age: 80 yrs Sex: Male : 1940 Arrival Date: 04/28/2020 Time: 13:41 Bed 20 Private MD: ED Physician Solis Schulte HPI: 04/28 14:16 This 80 yrs old Male presents to ER via Wheelchair with complaints of Neck pm1 Pain, >24Hrs Old, Decreased Appetite, Nausea. 14:16 The patient or guardian complains of pain, that is chronic. The symptoms are located on pm1 the left trapezius and right trapezius. Onset: The symptoms/episode began/occurred many months. Context: The neck injury/problem resulted from from unknown cause. 14:16 Associated signs and symptoms: Pertinent positives: occasional nausea. No current pm1 nausea. Insomnia. Increased use of his inhaler for the past 3 days, Pertinent negatives: numbness, tingling. The pain does not radiate. Modifying factors: The symptoms are alleviated by nothing. the symptoms are aggravated by nothing. The patient has experienced a previous episode, approximately 1 months ago, and the symptoms today are exactly the same, dehydration and was admitted for 4 days. Historical: - Allergies: 15:28 No Known Allergies; ah - PMHx: 15:28 Asthma; Hernia; ah - PSHx: 15:28 Hernia repair; ah - Immunization history:: Pneumococcal vaccine is not up to date, Flu vaccine is not up to date. - Social history:: Smoking status: Patient denies any tobacco usage or history of. ROS: 14:16 Cardiovascular: Negative for chest pain, palpitations, and edema, Respiratory: Negative pm1 for shortness of breath, cough, wheezing, and pleuritic chest pain. 14:16 Back: Negative for injury and pain, MS/Extremity: Negative for injury and deformity, Skin: Negative for injury, rash, and discoloration. 14:16 : Negative for injury, bleeding, discharge, and swelling. 14:16 Constitutional: Positive for poor PO intake, Negative for body aches, fever. 14:16 Neck: Positive for pain with movement, pain at rest, of the right trapezius and left trapezius. 14:16 Abdomen/GI: Positive for nausea, Negative for abdominal pain, vomiting, diarrhea. 14:16 Psych: Positive for insomnia. 14:16 All other systems are negative. Exam: 14:16 Constitutional: This is a well developed, well nourished patient who is awake, alert, pm1 and in no acute distress. Head/Face: Normocephalic, atraumatic. 14:16 Back: No spinal tenderness. No costovertebral tenderness. Full range of motion. Skin: Warm, dry with normal turgor. Normal color with no rashes, no lesions, and no evidence of cellulitis. MS/ Extremity: Pulses equal, no cyanosis. Neurovascular intact. Full, normal range of motion. 14:16 Neck: External neck: tenderness, that is mild, of the left trapezius and right trapezius, C-spine: vertebral tenderness, is not appreciated. 14:16 Cardiovascular: Exam negative for acute changes, Rate: normal, Rhythm: regular, Pulses: no pulse deficits are appreciated. 14:16 Respiratory: Exam negative for acute changes, respiratory distress, Breath sounds: wheezing: expiratory is heard diffusely. 14:16 Neuro: Exam negative for acute changes, Orientation: is normal, Mentation: is normal, Motor: is normal, moves all fours. Vital Signs: 14:20 BP 129 / 73; Pulse 67; Resp 19; Pulse Ox 98% ; Weight 83.01 kg; Pain 0/10; ah 16:12 BP 115 / 51; Pulse 91; Resp 17; Pulse Ox 100% ; ah 17:00 BP 105 / 58; Pulse 93; Resp 17; Pulse Ox 96% ; ah MDM: 14:04 Patient medically screened. pm1 16:48 Data reviewed: vital signs. Data interpreted: Pulse oximetry: on room air is 98 %. pm1 Interpretation: normal. Counseling: I had a detailed discussion with the patient and/or guardian regarding: the historical points, exam findings, and any diagnostic results supporting the discharge/admit diagnosis, lab results, radiology results, the need for outpatient follow up, a family practitioner, to return to the emergency department if symptoms worsen or persist or if there are any questions or concerns that arise at home. 04/28 14:13 Order name: Basic Metabolic Panel; Complete Time: 15:40 pm1 04/28 14:13 Order name: CBC with Diff; Complete Time: 14:55 pm1 04/28 14: Order name: LFT's; Complete Time: 15:40 pm1 04/28 14:13 Order name: Magnesium; Complete Time: 15:40 pm1 04/28 14:13 Order name: NT PRO-BNP; Complete Time: 15:40 pm1 04/28 14:13 Order name: PT-INR; Complete Time: 14:55 pm1 04/28 14:13 Order name: Troponin (emerg Dept Use Only); Complete Time: 15:40 pm1 04/28 14:13 Order name: XRAY Chest (1 view); Complete Time: 14:55 pm1 04/28 14:13 Order name: Urine Microscopic Only; Complete Time: 16:48 pm1 04/28 16:05 Order name: Urine Dipstick--Ancillary (enter results); Complete Time: 16:48 mt 04/28 14:13 Order name: EKG; Complete Time: 14:14 pm1 04/28 14:13 Order name: Cardiac monitoring; Complete Time: 14:32 pm1 04/28 14:13 Order name: EKG - Nurse/Tech; Complete Time: 14:29 pm1 04/28 14:13 Order name: IV Saline Lock; Complete Time: 14:41 pm1 04/28 14:13 Order name: Labs collected and sent; Complete Time: 14:41 pm1 04/28 14:13 Order name: O2 Per Protocol; Complete Time: 15:03 pm1 04/28 14:13 Order name: O2 Sat Monitoring; Complete Time: 15:03 pm1 04/28 14:13 Order name: Urine Dipstick-Ancillary (obtain specimen); Complete Time: 16:03 pm1 Administered Medications: 14:20 Drug: NS 0.9% 500 ml Route: IV; Rate: bolus; Site: right antecubital; 15:13 Drug: Albuterol 2.5 mg Route: Inhalation; 15:13 Drug: AtroVENT Aerosol 0.5 mg Route: Inhalation; 15:13 Drug: predniSONE 60 mg Route: PO; 15:55 Drug: Magnesium Sulfate 1 grams Route: IVPB; Infused Over: 1 hrs; Site: right ah antecubital; Disposition: 17:35 Co-signature as Attending Physician, Solis Schulte MD. rn Disposition: 04/28/20 16:50 Discharged to Home. Impression: Asthma, Insomnia, unspecified, Strain of muscle, fascia and tendon at neck level. - Condition is Stable. - Discharge Instructions: Asthma, Adult, Insomnia, Muscle Strain. - Prescriptions for Medrol (Ko) 4 mg Oral Tablets, Dose Pack - take 1 tablet by ORAL route as directed - follow package instructions; 1 packet. Zofran ODT 4 mg Oral tablet,disintegrating - place 1 tablet by TRANSLINGUAL route every 8 hours As needed; 12 tablet. - Medication Reconciliation Form, Thank You Letter, Antibiotic Education, Prescription Opioid Use form. - Follow up: Emergency Department; When: As needed; Reason: Worsening of condition. Follow up: Private Physician; When: 2 - 3 days; Reason: Recheck today's complaints, Continuance of care, Re-evaluation by your physician. - Problem is new. - Symptoms have improved. Signatures: Dispatcher [employer] EDMS Solis Schulte MD MD rn Marinas, Patrick, POWER AND RECOVERY SUPERINTENDENT POWER AND RECOVERY SUPERINTENDENT pm1 Julia Cox RN RN ah Corrections: (The following items were deleted from the chart) 17:33 16:50 04/28/2020 16:50 Discharged to Home. Impression: AsthmaInsomnia, unspecified; ah Strain of muscle, fascia and tendon at neck level. Condition is Stable. Forms are Medication Reconciliation Form, Thank You Letter, Antibiotic Education, Prescription Opioid Use. Follow up: Emergency Department; When: As needed; Reason: Worsening of condition. Follow up: Private Physician; When: 2 - 3 days; Reason: Recheck today's complaints, Continuance of care, Re-evaluation by your physician. Problem is new. Symptoms have improved. pm1
[2020-04-28 18:52] VITALS: BP 105/58; O2SAT 96
--- NOTE | 2020-04-29 07:42 | EKG ---
Test Date: 2020-04-28 Test Time: 14:24:12 Spinner Operator: ZUNILDA MEASUREMENT RESULTS: Intervals: Rate: 67 MS: 194 QRSD: 98 QT: 404 QTc: 426 [place]: P: 61 MS: 194 QRS: -59 T: 35 INTERPRETIVE STATEMENTS: Normal sinus rhythm Left anterior fascicular block Abnormal ECG Compared to ECG 08/31/2019 15:58:05 Sinus bradycardia no longer present First degree AV block no longer present Incomplete right bundle-branch block no longer present ST (T wave) deviation no longer present Electronically Signed On 04-29-20 07:40:35 BREAKER UNIT ASSEMBLER by Angel Blanca
== END 2020-04-28 17:33 | disposition home or self-care (01) ==
LOC: ER 13:40
DX: S16.1XXA Strain of muscle, fascia and tendon at neck level, initial encounter (principal); G47.00 Insomnia, unspecified; J45.909 Unspecified asthma, uncomplicated
CPT/HCPCS: 93005; 85025; 80048; 36415; 83735; 85610; 80076; 84484; 83880; 71045; 96374; 99285; J3475; J7040; 81003; 81015; J7512

== ENCOUNTER 2020-07-12 09:18 | Observation (INO) | payer OTHER ==
--- OUTSIDE RECORDS SUMMARY | 2020-07-12 09:28 | XMS REPORT | Continuity of Care Document ---
:1940 Author Organization [facility] t Address [address] [place] [address] Care Team Providers Name Role Phone Adi Beth MD Attending Clinician Problems This patient has no known problems. Allergies, Adverse Reactions, Alerts This patient has no known allergies or adverse reactions. Medications This patient has no known medications. Procedures This patient has no known procedures. Encounters Start End Encounter Admission Attending Care Care Encounter Source Date/Time Date/Time Type Type Clinicians Facility Department ID 2020-07-03 2020-07-03 Telephone MATT Beth [id number] 00:00:00 00:00:00 [facility] [id number] [facility] [id number] Professio [phone] [address] [address] 2020-06-29 2020-06-29 Refill Kirit PAKEON [id number] 00:00:00 00:00:00 [facility] [id number] [facility] [id number] Professio [phone] [address] [phone] 2020-06-04 2020-06-04 Office Kirit [facility] [id number] 13:05:36 13:20:36 Visit [facility] [id number] Stanley Kendall [id number] Professio [phone] [place] [address] [address] Results This patient has no known results.
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
--- OUTSIDE RECORDS SUMMARY | 2020-07-12 09:32 | XMS REPORT | Summary of Care ---
:1940 Author Organization [facility] Address [address] [place] [address] Care Team Providers Name Role Phone Stanley Beth MD Primary Care Provider Rody Pritchard DO Rac Specialist Reason for Visit Reason Comments Rx Concern/Question Encounter Details Date Type Department Care Team Description 05/28/2020 Telephone [facility] Abdulaziz Jose Concern/Question [facility] [address] [place] [address], Suite [facility] 100 100 [place], [place] [address] [place] [phone] Allergies No Known Allergiesdocumented as [...] Added automatically from request for fercho danette [id number] Bladder stones 07/14/2019 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 Diarrhea, unspecified type 06/17/2018 Overview: Added automatically from request for fercho danette [id number] Change in bowel habits 06/17/2018 Overview: Added automatically from request for fercho danette [id number] Loss of weight 06/17/2018 Overview: Added automatically from request for fercho danette [id number] Asthma 08/26/2017 Urinary frequency 03/02/2013 Urinary incontinence 03/02/2013 Overview: ICD10 Diagnosis Term Press Pipe Inspector Utility BPH (benign prostatic hyperplasia) 03/02/2013 Atopic dermatitis and related condition 03/01/2013 Overview: ICD10 Diagnosis Term Press Pipe Inspector Utility Hx of hernia repair 03/01/2013 [...] Added automatically from request for fercho samaniego [id number] Incarcerated inguinal hernia 04/26/2019 08/01/2019 Overview: Added automatically from request for fercho samaniego [id number] Irreducible left inguinal hernia 03/29/2019 020 Recurrent [...] with No / Unsure 05/21/2020 12:38 PM IMPROVEMENT DIRECTOR someone who was confirmed or suspected to have Coronavirus / COVID-19? documented as of this encounter Last Filed Vital Signs Not on filedocumented in this encounter Miscellaneous Notes Telephone Encounter - Abdulaziz Griffin II, MD - 05/29/2020 10:48 AM IMPROVEMENT DIRECTOR Please verify quantity elephone Encounter - Tavo Parker LVN - 05/29/2020 8:43 AM CSTRouting to provider elephone Encounter - Grace Vitale - 05/28/2020 10:26 AM CSTVenu Coy is a 80 year old male [facility] calling requesting verification on quantity for ipratropium albuterol, and sodium chloride. Patient seen in hospital. [facility] [address] [place] [address] [address] [address] documented in this encounter Plan of Treatment Date Type Specialty Care Team Description 06/04/2020 Office Visit Family Medicine Adi Beth MD [address] [place] [address] [phone] 10/03/2020 Production Recorder Visit Phlebotomy Rosa, Ralf Lab Main 10/10/2020 Office Visit Nephrology Acosta Oscar MD [address] [place] [address] [phone] Health Maintenance Due Date Last [...] of this encounter Implants Implanted Type Area Information Strategist Device Shelf Model / Identifier Expiration Date Ser ial / Lot Prolene Soft Polypylene Mesh [id number] Ethicon Ref#[id number] - Sna MESH Abdomen Ethicon 04/14/2024 [id number] / Implanted: Qty: 1 on 06/29/2019 by Silverio Collier MD at [facility] NA / [id number] Description:Ventral hernia repair Progrip Laparoscopic Self-Fixating Mesh, 15cm X 10cm, Covidi en - Sna MESH Abdomen COVIDIEN 12/12/2021 [id number] / Implanted: Qty: 1 on 06/29/2019 by Silverio Collier MD at [facility] NA / [id number] Description:Inguinal hernia mesh documented as of this encounter Results Not on filedocumented in this encounter Additional Health Concerns Infection Onset Date Last Indicated Resolved Time Contact - ESBL 02/07/2019 02/07/2019 documented as of this encounter Insurance Payer Benefit Plan / Subscriber ID Effective Phone Address T ype Group Dates [facility] [id number] 2019-Pres Medica re HEALTHCARE - HEALTHCARE ent Adv HM O MANAGED DUAL COMPLETE MEDICARE HMO [facility] MEDICAID OF [id number] 2016-Pre [phone] [address] Medi caid [place] sent [phone] [place] [address] documented as of this encounter
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
--- OUTSIDE RECORDS SUMMARY | 2020-07-12 09:33 | XMS REPORT | Summary of Care ---
:1940 Author Organization [facility] Address [address] [place] [address] Care Team Providers Name Role Phone Stanley Beth MD Primary Care Provider Rody Pritchard DO Women'S Ministry Director Reason for Visit Reason Comments Rx Concern/Question Encounter Details Date Type Department Care Team Description 05/28/2020 Telephone [facility] Abdulaziz Jose Con[facility] [address] [place] [address], Suite [facility] 100 100 [place], [place] [id number] [place] [phone] Allergies No Known Allergiesdocumented as [...] Added automatically from request for fercho danette [id number] Bladder stones 07/14/2019 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 Diarrhea, unspecified type 06/17/2018 Overview: Added automatically from request for fercho danette [id number] Change in bowel habits 06/17/2018 Overview: Added automatically from request for fercho danette [id number] Loss of weight 06/17/2018 Overview: Added automatically from request for fercho danette [id number] Asthma 08/26/2017 Urinary frequency 03/02/2013 Urinary incontinence 03/02/2013 Overview: ICD10 Diagnosis Term Automobile Body Repair Supervisor Utility BPH (benign prostatic hyperplasia) 03/02/2013 Atopic dermatitis and related condition 03/01/2013 Overview: ICD10 Diagnosis Term Automobile Body Repair Supervisor Utility Hx of hernia repair 03/01/2013 [...] Added automatically from request for fercho samaniego [id number] Incarcerated inguinal hernia 04/26/2019 08/01/2019 Overview: Added automatically from request for fercho samaniego [id number] Irreducible left inguinal hernia 03/29/2019 020 Recurrent [...] with No / Unsure 05/21/2020 12:38 PM NAPHTHALENE OPERATOR someone who was confirmed or suspected to have Coronavirus / COVID-19? documented as of this encounter Last Filed Vital Signs Not on filedocumented in this encounter Miscellaneous Notes Telephone Encounter - Tavo Parker LVN - 05/29/2020 11:41 AM NAPHTHALENE OPERATOR Clarification given to NILO Chavis. THALENE OPERATOR Telephone Encounter - Manasa Finley MD - 05/29/2020 10:52 AM CST10 vials ipratropium nebulizer solution 10 vials hypersal nebulizer solution Please notify pharmacy Manasa Finley MD Department Of Family Medicine, PGY-2 elephone Encounter - Abdulaziz Griffin II, MD - 05/29/2020 10:48 AM CSTPlease verify quantity elephone Encounter - Tavo Parker LVN - 05/29/2020 8:43 AM NAPHTHALENE OPERATOR Routing to provider elephone Encounter - Grace Vitale - 05/28/2020 10:26 AM CSTSixtjosy Coy is a 80 year old male [facility] pharmacy calling requesting verification on quantity for ipratropium albuterol, and sodium chloride. Patient seen in hospital. [facility] [address] [place] [address] documented in this encounter Plan of Treatment Date Type Specialty Care Team Description 06/04/2020 Office Visit Family Medicine Adi Beth MD [address] [place] [address] [phone] 10/03/2020 Professor Of Apologetics Visit Phlebotomy [facility] Main 10/10/2020 Office Visit Nephrology Acosta Oscar MD [address] [place] [address] [phone] Health Maintenance Due Date Last [...] of this encounter Implants Implanted Type Area Brake Machine Operator Device Shelf Model / Identifier Expiration Date Ser ial / Lot Prolene Soft Polypylene Mesh [id number] Ethicon Ref#[id number] - Sna MESH Abdomen Ethicon 04/14/2024 [id number] / Implanted: Qty: 1 on 06/29/2019 by Silverio Collier MD at [facility] NA / [id number] Description:Ventral hernia repair Progrip Laparoscopic Self-Fixating Mesh, 15cm X 10cm, Covidi en - Sna MESH Abdomen COVIDIEN 12/12/2021 [id number] / Implanted: Qty: 1 on 06/29/2019 by Silverio Collier MD at [facility] NA / [id number] Description:Inguinal hernia mesh documented as of this encounter Results Not on filedocumented in this encounter Additional Health Concerns Infection Onset Date Last Indicated Resolved Time Contact - ESBL 02/07/2019 02/07/2019 documented as of this encounter Insurance Payer Benefit Plan / Subscriber ID Effective Phone Address T e Group Dates [facility] [id number] 2019-Pres Medica re HEALTHCARE - HEALTHCARE ent Adv HM O MANAGED DUAL COMPLETE MEDICARE HMO [facility] MEDICAID OF [id number] 2016-Pre [phone] [address] Medi caid [place] sent [phone] [place] [address] documented as of this encounter
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
--- OUTSIDE RECORDS SUMMARY | 2020-07-12 09:35 | XMS REPORT | Summary of Care ---
:1940 Author Organization [facility] Address [address] [place] [address] Care Team Providers Name Role Phone Stanley Beth MD Primary Care Provider Rody Pritcahrd DO Viner Operator Reason for Visit Reason Comments Follow-up Hospital follow up (Routine) Status Reason Specialty Diagnoses / Referred By Referred To Procedures Contact Contact Closed Family Medicine Diagnoses Sepsis secondary to UTI Abdulaziz Griffin James Procedures Discharge Follow-up: PCP BRODERICK BETH; 3-5 Days MD Stanley Joshi II, MD [address] [place] [phone] Phone: Encounter Details Date Type Department Care Team Description 06/04/2020 Office Visit [facility] Family Broderick Beth Acute c ystitis without hematuria (Primary Dx); Medicine - Johana Angel MD Sepsis secondary to UTI; [address] [place] [address] Moderate persistent asthma without [place] [phone] Allergies No Known Allergiesdocumented as of this encounter (statuses as of 06/04/2020) Medications Medication Sig Dispensed Refills Start Date End Date Status VENTOLIN HFA 90 INHALE 2 PUFFS 18 g 0 12/14/2019 Active mcg/actuation BY MOUTH EVERY inhalerIndication 6 HOURS s: Moderate NEEDED FOR persistent asthma WHEEZING OR without SHORTNESS OF complication BREATH TAMSULOSIN 0.4 mg Take 1 capsule 90 capsule 0 03/19/2020 Active 24 hr by mouth once capsuleIndication daily s: Benign prostatic hyperplasia, unspecified whether lower urinary tract symptoms present albuterol 2.5 mg Inhale 3 mL 300 mL 0 05/28/2020 Active /3 mL (0.083 %) every 4 (four) nebulizer hours as solutionIndicatio needed for ns: Mild Wheezing or intermittent Shortness of asthma without Breath. complication ipratropium 0.02 Inhale 2.5 mL 10 Vial 1 05/28/2020 Active % nebulizer every 4 (four) solutionIndicatio hours as ns: Sepsis needed for secondary to UTI Wheezing or Shortness of Breath. sodium chloride Inhale 4 mL 10 Vial 1 05/29/2020 A ctive 7% nebulizer daily. solutionIndicatio ns: Sepsis secondary to UTI zafirlukast 20 mg TAKE 1 TABLET 180 tablet 3 06/04/2020 Active tabletIndications BY MOUTH TWICE : Moderate DAILY BEFORE persistent asthma BREAKFAST AND without BEFORE SUPPER complication ZAFIRLUKAST 20 mg TAKE 1 TABLET 180 tablet 0 04/06/2020 Discontinued tabletIndications BY MOUTH TWICE 0 (Reorder) : Moderate DAILY BEFORE persistent asthma BREAKFAST AND without BEFORE SUPPER complication documented as of this encounter (statuses as of 06/04/2020) Active Problems Problem Noted Date Sepsis secondary to UTI 05/28/2020 Chronic anemia 05/28/2020 Acute cystitis without hematuria 05/22/2020 BPH with obstruction/lower urinary tract symptoms 07/17 Overview: Added automatically from request for fercho samaniego [id number] Bladder stones 07/14/2019 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 Diarrhea, unspecified type 06/17/2018 Overview: Added automatically from request for fercho samaniego [id number] Change in bowel habits 06/17/2018 Overview: Added automatically from request for fercho samaniego [id number] Loss of weight 06/17/2018 Overview: Added automatically from request for fercho samaniego [id number] Asthma 08/26/2017 Urinary frequency 03/02/2013 Urinary incontinence 03/02/2013 Overview: ICD10 Diagnosis Term Betting Clerk Utility BPH (benign prostatic hyperplasia) 03/02/2013 Atopic dermatitis and related condition 03/01/2013 Overview: ICD10 Diagnosis Term Betting Clerk Utility Hx of hernia repair 03/01/2013 [...] Added automatically from request for fercho samaniego [id number] Incarcerated inguinal hernia 04/26/2019 08/01/2019 Overview: Added automatically from request for fercho samaniego [id number] Irreducible left inguinal hernia 03/29/2019 020 Recurrent [...] with No / Unsure 05/21/2020 12:38 PM MILLROOM SUPERVISOR someone who was confirmed or suspected to have Coronavirus / COVID-19? documented as of this encounter Last Filed Vital Signs Vital Sign Reading Time Taken Comments Blood Pressure 122/67 06/04/2020 1:20 PM MILLROOM SUPERVISOR Pulse 58 06/04/2020 1:20 PM MILLROOM SUPERVISOR Temperature - - Respiratory Rate - - Oxygen Saturation - - Inhaled Oxygen Concentration - - Weight 77.6 kg (171 lb) 06/04/2020 1:20 PM MILLROOM SUPERVISOR Height - - Body Mass Index 31.28 05/21/2020 9:45 PM MILLROOM SUPERVISOR documented in this encounter Progress Notes Broderick Beth MD - 06/04/2020 1:15 PM CST Transitional Care Management: [id number] Visit 06/04/2020 Venu Coy is a 80 year old male that was admitted on 05/21/[address] He was discharged on 05/30/20 with [...] N/A 06/24/2018 Surgeon: Moe Salazar DO; Location: [facility] OR Location CYSTOLITHOTRIPSY N/A 08/25/2019 Surgeon: Brennan Medina MD; Location: [facility] OR Location EXPLORATORY LAPAROTOMY HERNIA REPAIR LAPAROSCOPIC ROBOTIC ASSISTED INGUINAL HERNIORRHAPHY Left 06/29/2019 Surgeon: Silverio Collier MD; Location: [facility] LAPAROSCOPIC ROBOTIC ASSISTED VENTRAL HERNIORRHAPHY N/A 06/29/2019 Surgeon: Silverio Collier MD; Location: [facility] Location TRANSURETHRAL PROSTATE RESECTION N/A 08/25/2019 Surgeon: Brennan Medina MD; Location: [facility] OR [facility] Social History Socioeconomic History Marital [...] file Gets together: Not on file Attends nondenominational service: Not on file Active member of [...] Last update: Updated by: TRANSITION OF CARE TCM Active 05/31/2020 06/01/2020 3:07 PM Amada Marie RN Comments: ROOM SUPERVISOR documented in this encounter Miscellaneous Notes Addendum Note - Broderick Beth MD - 06/04/2020 1:15 PM MILLROOM SUPERVISOR Addended by: BRODERICK BETH MD on: 06/04/2020 01:40 PM Modules accepted: Orders ROOM SUPERVISOR documented in this encounter Plan of Treatment Date Type Specialty Care Team Description 10/03/2020 Creative Specialist Visit Phlebotomy [facility] Main 10/10/2020 Office Visit Nephrology Acosta Oscar MD [address] [place] [address] [phone] Health Maintenance Due Date Last Done [...] of this encounter Implants Implanted Type Area Chief Cruiser Device Shelf Model / Identifier Expiration Date Ser ial / Lot Prolene Soft Polypylene Mesh [id number] Ethicon Ref#[id number] - Sna MESH Abdomen Ethicon 04/14/2024 [id number] / Implanted: Qty: 1 on 06/29/2019 by Silverio Collier MD at [facility] NA / [id number] Description:Ventral hernia repair Progrip Laparoscopic Self-Fixating Mesh, 15cm X 10cm, Covidi en - Sna MESH Abdomen COVIDIEN 12/12/2021 [id number] / Implanted: Qty: 1 on 06/29/2019 by Silverio Collier MD at [facility] / [id number] Description:Inguinal hernia mesh documented as of this encounter Results Not on filedocumented in this encounter Visit Diagnoses Diagnosis Acute cystitis without hematuria - Prima ry Acute cystitis Sepsis secondary to UTI Urinary tract infection, site not specif ied Moderate persistent asthma without compl ication Unspecified asthma documented in this encounter Additional Health Concerns Infection Onset Date Last Indicated Resolved Time Contact - ESBL 02/07/2019 02/07/2019 documented as of this encounter Insurance Payer Benefit Plan / Subscriber ID Effective Phone Address T e Group [facility] [id number] 2019-Pres Medica re HEALTHCARE - HEALTHCARE ent Adv HM O MANAGED DUAL COMPLETE MEDICARE HMO [facility] MEDICAID OF [id number] 2016-Pre [phone] [address] [facility] sent [phone] [place] [address] (Home) [place] [address] documented as of this encounter
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
--- OUTSIDE RECORDS SUMMARY | 2020-07-12 09:35 | XMS REPORT | Summary of Care ---
:1940 Author Organization [facility] Address [address] [place] [id number] Care Team Providers Name Role Phone Stanley Mills MD Primary Care Provider Rody Pritchard DO Beef Splitter Reason for Referral (Routine) Status Reason Specialty Diagnoses / Referred By Referred To Procedures Contact Contact Closed Family Medicine Diagnoses Hypotension, unspecified hypotension type Sepsis secondary to UTI Abdulaziz Griffin James Procedures Discharge Follow-up: PCP BRODERICK MILLS; 1 Week MD Stanley Joshi II, MD [address] [phone] Phone: Radiology Services (Routine) Status Reason Specialty Diagnoses / Referred By Referred To Procedures Contact Contact New Request Diagnostic Diagnoses Colonization with drug-resistant bacteria Abdulaziz Griffin Radiology Procedures XR CHEST 1 VW MD Adele Joshi II [address] [address] (Routine) Status Reason Specialty Diagnoses / Referred By Referred To Procedures Contact Contact New Request Family Medicine Diagnoses Sepsis secondary to UTI Abdulaziz Griffin James Procedures Discharge Follow-up: PCP BRODERICK MILLS; 3-5 Days MD Stanley Joshi II, MD [address] [facility] [address] [place], [place] Mena MCCRACKEN X [phone] Phone: Fax: Radiology Services (Routine) Status Reason Specialty Diagnoses / Referred By Referred To Procedures Contact Contact New Request Diagnostic Diagnoses Hypotension, unspecified hypotension type Dyan Nolasco MD Radiology Procedures US RETROPERITONEAL LIMITED US RENAL WITH DOPPLER [address] [place] [address] MRI/CAT Scan (STAT) Status Reason Specialty Diagnoses / Referred By Referred To Procedures Contact Contact New Request Diagnostic Diagnoses Other specified hypotension Ibikunle, Radiology Procedures CT CHEST PULMONARY ANGIOGRAM Folusho F, PARKING LOT ATTENDANT [address] [place] [place] [phone] Radiology Services (STAT) Status Reason Specialty Diagnoses / Referred By Referred To Procedures Contact Contact New Request Diagnostic Diagnoses Fever in adult Ibikunle, Radiology Procedures XR SHOULDER 2+ VW RIGHT Folusho F, PARKING LOT ATTENDANT [address] [place] [address] Radiology Services (STAT) Status Reason Specialty Diagnoses / Referred By Referred To Procedures Contact Contact New Request Diagnostic Diagnoses Fever in adult Ibikunle, Radiology Procedures XR CHEST 1 VW Folusho F, PARKING LOT ATTENDANT [address] [place] [phone] Reason for Visit Reason Comments Shoulder Pain Auth/Cert Status Reason Specialty Diagnoses / Referred By Referred To Procedures Contact Contact Emergency Medicine Diagnoses SHOULDER PAIN [facility] Emergency Dept [address] [place] [address] Fax: Encounter Details Date Type Department Care Team Description 05/21/2020 - Hospital Medicine (TONIA 10A) IbCristy perales, PARKING LOT ATTENDANT [address] [place] [phone] Sepsis secondary to 05/30/2020 Encounter [facility] Bryce Dodge MD [address] [id number] [place], [place] [address] UTI [place], [place] Jules Rodriguez MD [address] [place] [address] [place], [place] [id number] Abdulaziz Griffin II, MD 6710 [facility] 100 [place], [place] [id number] [phone] Allergies No Known Allergiesdocumented as of this encounter (statuses as of 05/30/2020) Medications Medication Sig Dispensed Refills Start End Date Status Date VENTOLIN HFA 90 INHALE 2 PUFFS 18 g 0 Active mcg/actuation BY MOUTH EVERY 0 inhalerIndications: 6 HOURS Moderate persistent NEEDED FOR asthma without WHEEZING OR complication SHORTNESS OF BREATH TAMSULOSIN 0.4 mg Take 1 capsule 90 capsule 0 Active 24 hr by mouth once 0 capsuleIndications: daily Benign prostatic hyperplasia, unspecified whether lower urinary tract symptoms present ZAFIRLUKAST 20 mg TAKE 1 TABLET 180 tablet 0 Active tabletIndications: BY MOUTH TWICE 0 Moderate persistent DAILY BEFORE asthma without BREAKFAST AND complication BEFORE SUPPER albuterol 2.5 mg /3 Inhale 3 mL 300 mL 0 Active mL (0.083 %) every 4 (four) 0 nebulizer hours as solutionIndications needed for : Mild intermittent Wheezing or asthma without Shortness of complication Breath. ipratropium 0.02 % Inhale 2.5 mL 10 Vial 1 Active nebulizer every 4 (four) 0 solutionIndications hours as : Sepsis secondary needed for to UTI Wheezing or Shortness of Breath. sodium chloride 7% Inhale 4 mL 10 Vial 1 Active nebulizer daily. 0 solutionIndications : Sepsis secondary to UTI traZODone 100 mg Take 1 tablet 30 tablet 5 05/21/20 Discontinued tabletIndications: by mouth at 9 20 Other insomnia bedtime as needed for Insomnia. methocarbamol 500 Take 1 tablet 30 tablet 0 05/21/20 Discontinued mg by mouth every 0 20 tabletIndications: 6 (six) hours Incisional hernia, as needed incarcerated (Muscle pain). ondansetron 4 mg Take 1 tablet 45 tablet 0 05/21/20 Discontinued tabletIndications: by mouth every 0 20 Complicated UTI 8 (eight) (urinary tract hours as infection) needed for Nausea and Vomiting (N/V). acetaminophen 325 Take 2 tablets 30 tablet 0 0 Discontinued mg by mouth every 0 20 tabletIndications: 6 (six) hours. Incisional hernia, incarcerated Nitrofurantoin&Nit. Take 1 capsule 10 capsule 0 01/01 Discontinued Macrocryst 100 mg by mouth 2 0 20 capsuleIndications: (two) times BPH with daily. obstruction/lower urinary tract symptoms ibuprofen 600 mg Take 1 tablet 30 tablet 0 05/21/20 Discontinued tabletIndications: by mouth every 0 20 Incisional hernia, 8 (eight) incarcerated hours as needed for Pain (scale 4-6). docusate 100 mg Take 1 capsule 30 capsule 0 05/21/20 Discontinued capsuleIndications: by mouth 0 20 Incisional hernia, daily. incarcerated ondansetron (ZOFRAN Take 1 tablet 20 tablet 0 Discontinued ODT) 4 mg by mouth every 0 20 disintegrating 8 (eight) tabletIndications: hours as Nausea needed for Nausea and Vomiting (N/V). doxycycline 100 mg Take 1 tablet 14 tablet 0 0 Discontinued EC by mouth 2 0 20 tabletIndications: (two) times Dysuria daily. gabapentin 300 mg Take 1 capsule 30 capsule 5 Discontinued capsuleIndications: by mouth at 0 20 Neuropathy bedtime. amoxicillin-pot Take 1 tablet 14 tablet 0 05/21/20 Discontinued clavulanate 500 mg by mouth 2 0 20 (AUGMENTIN) 500-125 (two) times mg tablet daily. ALBUTEROL 2.5 mg /3 USE 3 ML IN 300 mL 0 05/28/20 Discontinued mL (0.083 %) NEBULIZER 0 20 (Reorde r) nebulizer EVERY 4 HOURS solutionIndications NEEDED FOR : Mild intermittent WHEEZING OR asthma without SHORTNESS OF complication BREATH cefdinir 300 mg Take 1 capsule 14 capsule 0 05/28/20 Discontinued capsuleIndications: by mouth 2 0 20 Acute UTI (two) times daily for 7 days. traMADoL 50 mg Take 1 tablet 20 tablet 0 05/28/20 D iscontinued tabletIndications: by mouth every 0 20 acute pain 6 (six) hours as needed for Pain (scale 7-10). Indications: acute pain documented as of this encounter (statuses as of 05/30/2020) Active Problems Problem Noted Date Sepsis secondary to UTI 05/28/2020 Chronic anemia 05/28/2020 Acute cystitis without hematuria 05/22/2020 BPH with obstruction/lower urinary tract symptoms 07/17 Overview: Added automatically from request for fercho danette [id number] Bladder stones 07/14/2019 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 Diarrhea, unspecified type 06/17/2018 Overview: Added automatically from request for fercho danette [id number] Change in bowel habits 06/17/2018 Overview: Added automatically from request for fercho danette [id number] Loss of weight 06/17/2018 Overview: Added automatically from request for fercho danette [id number] Asthma 08/26/2017 Urinary frequency 03/02/2013 Urinary incontinence 03/02/2013 Overview: ICD10 Diagnosis Term Dental [employer] Technology Teacher Utility BPH (benign prostatic hyperplasia) 03/02/2013 Atopic dermatitis and related condition 03/01/2013 Overview: ICD10 Diagnosis Term Dental Laboratory Technology Teacher Utility Hx of hernia repair 03/01/2013 [...] Added automatically from request for fercho danette [id number] Incarcerated inguinal hernia 04/26/2019 08/01/2019 Overview: Added automatically from request for fercho samaniego [id number] Irreducible left inguinal hernia 03/29/2019 020 Recurrent [...] with No / Unsure 05/21/2020 12:38 PM BILL COLLECTOR someone who was confirmed or suspected to have Coronavirus / COVID-19? documented as of this encounter Last Filed Vital Signs Vital Sign Reading Time Taken Comments Blood Pressure 93/55 05/30/2020 11:00 AM BILL COLLECTOR Pulse 71 05/30/2020 11:48 AM BILL COLLECTOR Temperature 37.1 C (98.7 F) 05/30/2020 11:00 AM BILL COLLECTOR Respiratory Rate 18 05/30/2020 11:48 AM BILL COLLECTOR Oxygen Saturation 100% 05/30/2020 11:48 AM BILL COLLECTOR Inhaled Oxygen Concentration - - Weight 81.8 kg (180 lb 6.4 oz) 05/30/2020 4:38 AM BILL COLLECTOR bedscale Height 157.5 cm (5' 2") 05/21/2020 9:45 PM BILL COLLECTOR Body Mass Index 33 05/21/2020 9:45 PM BILL COLLECTOR documented in this encounter Discharge Instructions AttachmentsThe following attachments cannot be sent through Care Everywhere. Urinary Tract Infections (UTIs), Understanding (Thai)Urinary Tract Infections in Men (Thai)Albuterol; Ipratropium inhalation aerosol (Thai)documented in this encounter Progress Notes Bill Wisdom MSW - 05/30/2020 10:08 AM BILL COLLECTOR Care Management Discharge Disposition Note (DCDN) -2-1 Interventions: Disease specific education;Intensive medication reconciliation/management;Teachback;Clear discharge plan;Follow-up phone calls -2-1 Providers: Legal Manager/Art Professor;Nurse -2-1 Patient Capacity Improvements: Avoidance of adverse events/readmission Discharge Plan for ongoing care and services: IV Infusion Therapy;Home Health () Patient Choice completed for referred services: Yes Discussed with patient/patients family involved in decision making: Patient or family caregiver understands, and agrees with discharge plan Patient's family or support contact: Lillian Coles [phone] Discharge Plan: IV Infusion Therapy;Home Health () Receiving facility was provided the following clinical documentation at discharge- CM Facesheet, Consult notes, Labs, Progress Notes, MAR: Home Health location: [facility], [address] [place], [place] () [phone] (F) [phone] Discharge location(s): Home [facility] location: [facility], [address] [place], [place] () [phone] (F) [phone] Infusion Therapy location: [facility], [address], [address] (Ph) [phone] (F) [phone] Infusion Therapy Medication ordered by Physician: Ertapenem Community resources/referrals made or provided to patient: No Resources/Referrals: Mental Status: Alert & Oriented to Person,Place & Time Psychosocial issues and/or concerns resulting in patient being a high risk for re-admission: Manage ADL indepentdly: Yes Living Arrangement: Home Other living arrangement: Address of living arrangement: [address] [place] [address] Funding Resources: Medicare Replacement Has patient been referred to [facility]? Nursing informed of discharge plan: No CHP referral sent? No CM medication request completed (if appropriate): N/A PCP: Yes Broderick Mills Transportation: Private Vehicle Prior authorization obtained for ambulance: Authorization number: CPT code: Discharge Medications Will the patient be able to obtain his medications? Yes Does the patient have transportation to to obtain the prescription medications? Yes CM Medication Request completed (if appropriate): Yes Name of RN informed: Expected discharge date: 05/30/2020 Time: after IV dose. Likely between 1400 and 1500. Additional Information: Avoidable days entered due to miscommunication between infusion company [facility] agencies. DAMIAN/AGUSTINA Name & Contact number: RICCO Carvalho Ph. [phone] The following information has been provided to the facility noted above: reason for the patient discharge or transfer; patients physical and psychosocial status; summary of care, treatment, servicesprovided to patient; and the patient progress toward goals. Nadine Lincoln OT - 05/30/2020 8:53 AM CSTOccupational Therapy Note: 05/30/2020 Per conversation with KAVITA Albarran who has been working with this patient: Mr. Lange has met all OT goals and no longer needs skilled occupational therapy services. OT signing off. Thank you, IMELDA Dumont, MOT Bill Gillis MSW - 05/30/2020 8:41 AM CSTUpdates on setting up patient with home health: 0830: Myrna Everett texted and informed Agustina that [facility] declined due to staffing. [facility] who states their auth dept has not yet reviewed the referral. Agustina sent out mass referral to [facility], [facility], [facility], [facility], and [facility]. Awaiting responses. 0940: Demetra from [facility] called and states Pt is accepted. They will admit Pt at his home tomorrow when he gets his dose. Pt will get his first dose today prior to discharge per FamilyMedicine team. Agustina informed Myrna with [facility] that Pt is accepted by [facility]. Agustina called Pt's daughter Lillian and left a voicemail detailing discharge info. Lillian Coles: [phone] Myrna with [facility]: [phone] [facility]: [phone] contact is Demetra Wisdom LCSW Art Professor [facility] [phone] signed by Bill Wisdom MSW at 05/30/2020 10:06 AM Vic Yang MD - 05/30/2020 7:00 AM CST FAMILY MEDICINE NIGHT FLOAT NOTE Date and Time: 05/30/2020 10:06 Patient ID: Venu Lange is a 80 year old male admitted on 05/21/2020 Primary Problem: Sepsis secondary to UTI Subjective: Pt has no complaints overnight. Denies fever, chills, chest pain, palpitation, n/v/d, abdominal pain Overnight Events: - NAEO - VSS Objective: Temp: [35.9 C (96.6 F)-37.4 C (99.3 F)] Pulse: [60-79] Resp: [16-20] BP: (102-129)/(51-70) MAP (mmHg): [65-82] Intake/Output Summary (Last 24 hours) at 05/30/2020 1006 Last data filed at 05/30/2020 0700 Gross per 24 hour Intake 200 ml Output 850 ml Net -650 ml Assessment and Plan for the Next 12 Hours: - F/u on outpatient home health service for finalization of antibiotics prior to discharge - Monitor vitals - Continue management per day team. - All else: continue management per day team. Disposition: pending home health finalization Vic Horton MD (PGY-2) Family Medicine COLLECTOR Bill Wisdom MSW - 05/29/2020 4:55 PM CSTSocial Work Note Sw contacted Myrna with [facility] who states she is still trying to find a home health agency to accept Pt today. She states she is working on [facility], [facility], and [facility]. Sw spoke with family in room to provide update stating we have not yet found a home health agency. Pt's daughter reports she is reluctant to take Pt home at night due to driving safety. Agustina apologized for the delay and offered services of a wheelchair van in the event that Pt is accepted later this evening. After discussion, Pt's daughter is agreeable to this. Agustina placed wheelchair van on standby with [facility] [phone] and provided Maura LUGO with voucher. Agustina contacted all three home health agencies, [facility], [facility], and [facility]. Of the three, allof them report they have not received a referral and only [facility] says they serve [place]. Sw sent order and referral to [facility]. Awaiting acceptance, though likely not today. Agustina informed Myrna who states that referrals were sent to those agencies and that she received 8 denials so far today and yesterday. Marcin Wisdom LCSW Art Professor [facility] [phone] signed by Bill Wisdom MSW at 05/29/2020 5:08 PM CSTDaManasa quarles MD - 05/29/2020 4:48 PM CST Family Medicine Progress Note Date of service: 05/29/2020 Date of admission: 05/21/2020 12:38 PM Reason for admission: Hypotension Subjective: Venu Lange is a 80 year old male with PMHx ofhas a past medical history ofasthma,BPH, hx of ESBL e coli UTI, and tobacco use who presented withurosepsis. Overnight no acute events. Denies cp, dyspnea, dysuria, hematuria, abdominal pain, n/v. Important events in past 24 hours include: PICC line placed Medications: Current Facility-Administered Medications Medication Dose Route Frequency Last Rate Last Admin KCL (KLOR-CON M20) tablet 40 mEq 40 mEq Oral DAILY 40 mEq at 05/29/20 0846 NaCl 0.9% (NS) injection 10 mL 10 mL Slow IV Push PRN guaiFENesin 100 mg/5 mL solution 100 mg 100 mg Oral Q4H 100 mg at 05/29/20 0846 ipratropium-albuteroL (DUONEB) 0.5 mg-3 mg(2.5 mg base)/3 mL nebulizer solution 3 mL 3 mL Inhalation QID 3 mL at 05/29/20 1544 sodium chloride 7% (HYPER-LILA) nebulizer solution 4 mL 4 mL Inhalation DAILY 4 mL at acetaminophen (TYLENOL) tablet 650 mg 650 mg Oral Q6HPRN 650 mg at 05/24/20 1525 heparin (porcine) injection 5,000 Units 5,000 Units Subcutaneous Q12H 5,000 Units at 05/29/200847 meropenem (MERREM) 500 mg in NaCl 0.9% (NS) 100 mL MINI-BAG 500 mg IV Piggyback Q6H ABX 500 mg at 05/29/20 1357 tamsulosin (FLOMAX) capsule 0.4 mg 0.4 mg Oral DAILY 0.4 mg at 05/29/20 0846 zafirlukast (ACCOLATE) tablet 20 mg 20 mg Oral BIDAC 20 mg at 05/29/20 0846 Allergies: No Known Allergies ROS: General: (-) fever, (-) chills Head: (-) RAE Cardiac: (-) CP Respiratory: (-) SOB, (-) cough GI: (-) nausea, (-) vomiting, (-) diarrhea, (-) constipation, (-) abdm pain Vitals: Temp: [36.7 C (98.1 F)-36.9 C (98.5 F)] Pulse: [50-68] Resp: [16-18] BP: (108-175)/(58-76) MAP (mmHg): [70-100] BP 118/70 (BP Location: Left arm, Patient Position: Supine) | Pulse 62 | Temp 36.9 C (98.5 F) (Oral) | Resp 18 | Ht 1.575 m (5' 2") | Wt 81.4 kg (179 lb 8 oz) | SpO2 92% | BMI 32.83 kg/m Intake/Output Summary (Last 24 hours) at 05/29/2020 1648 Last data filed at 05/29/2020 0813 Gross per 24 hour Intake Output 1265 ml Net -1265 ml Physical Exam Constitutional: He is oriented to person, place, and time. He appears well- developed and well-nourished. No distress. HENT: Head: Normocephalic and atraumatic. Eyes: Pupils are equal, round, and reactive to light. Conjunctivae and EOM are normal. Neck: Normal range of motion. Neck supple. Cardiovascular: Normal rate, regular rhythm and normal heart sounds. Pulmonary/Chest: Effort normal and breath sounds normal. No respiratory distress. He has no wheezes. Abdominal: Soft. Bowel sounds are normal. He exhibits no distension. There is no abdominal tenderness. Musculoskeletal: Normal range of motion. General: No edema. Neurological: He is alert and oriented to person, place, and time. Skin: Skin is warm and dry. He is not diaphoretic. Labs and Radiology: Reviewed. Pertinent labs: CBC Recent Labs 05/23/2044405/24/20 0513 05/27/20 0536 WBC 4.92 4.44 3.91* RBC 3.51* 3.13* 3.43* PLT 189 206 279 HGB 10.0* 8.9* 10.0* HCT 30.3* 27.2* 29.3* BMP Recent Labs 05/23/2044405/24/2013 05/27/20 0536 NA 135 139 139 K 4.1 3.7 3.1* CA 8.8 8.6 8.4* CL 106 109* 106 BUN 10 11 15 CREAT 0.77 0.70 0.58* GLU 129* 116* 114* TCO2 22* 24 28 Radiology Xr Chest 1 Vw Result Date: 05/28/2020 Impression: The tip of the right upper extremity PICC line is at the cavoatrial junction. Assessment and Plan Venu Lange is a 80 year old male, admitted for: Sepsis with SOFA 2/2 UTI, OTHER-E. 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 Discussed case with ID, given less likely prostate involvement but with poor susceptibility options for po abx, recommend 14 day total therapy of carbapenem (EOT 06/04/20), recommend PICC and ertapenem. Pending home IV therapy setup. - continue meropenem - c/w home tamsulosin -F/u care mgmtprior auth foroutpatient IV therapy- ertapenem 1g daily, EOT 06/04/20 - SQH - Flomax 0.4mg daily - Cardiac diet - likely discharge today if able to set up home IV Mild Intermittent Asthma exacerbation Acute Hypoxic respiratory failure requiring supplemental O2 Stable pulmonary nodules on CTPE Stable, on room air - duonebs QIDPRN - IS - c/w home zafirlukast - guafenesin 100mg q4h - hyper-lila daily Hypotension from sepsis, resolved Hypertensive - d/c fluids Hyponatremia Adrenal insufficiency? hyponatremia resolved, stable and low concern for adrenal crisis; able to follow-up with PCP to discuss possible endocrine referral. - can consider abdominal imaging and follow-up with Endocrinology on discharge Hypokalemia Stable - KCL 40 mEq daily Chronic anemia, other type-with unspecified etiology Stable. - outpatient workup, suggest f/u Urology and consider colonoscopy Disposition: Pending home health setup Lines:PICC Fluids:None Antibiotics:meropenem DVT prophylaxis:SQH Stress ulcer prophylaxis:not indicated Diet:Cardiac Prior Living:Home Prior Mobility:Full Code Status:Full Patient case was reviewed and discussed with Abdulaziz Griffin MD. Manasa Finley MD Department Of Family Medicine, PGY-2 HOSPITAL COURSE: Patient is an 80 year-old male admitted to the MICU initially for acute hypoxic respiratory failure and acute cystitis 2/2 ESBL with hemodynamic instability. He was stabilized with aggressive fluid resuscitation and NC supplemental O2 and started on empiric Merrem for ESBL. He was transferred to the floor where he was weaned from NC O2 and continued on Merrem treatments for duration of hospital stay with repeat blood and urine cultures negative for growth.Patient will require 14 days total IV abx,pending home health for discharge. COLLECTOR Associated attestation - Abdulaziz Griffin II, MD - 05/29/2020 5:17 PM CSTI personally examined the patient on 05/29/2020 and agree with 's resident note as written. I actively participated in the decision-making process. Please see the resident's note for additional details. Abdulaziz Griffin MD; Translator [facility] MedicineAbe, Chuck San, PT - 05/29/2020 4:02 PM BILL COLLECTOR 05/29/2020 4:03 PM Physical therapy note: Attempted to see the patient however patient declined PT stating that he is going home. Patient and family with no concerns. PT signing off at this time. Patient with no stairs per family and has walker at home. Thank you. Chuck Nick,PT, DPT uVerna rojo OTA - 05/29/2020 12:30 PM CSTOCCUPATIONAL THERAPY NOTE: Discharge Recommendations: Therapy Needs and Potential:- Patient would benefit from continued skilled occupational therapy services to address:Decline in basic activities of daily living and Decline in instrumental activities of daily living - Patient demonstrates good potential to improve and meet therapy goals with further skilled occupational therapy services. - Patient appears motivated to improve their B/IADLs and return to their previous level of function. - Patient demonstrates ability to tolerate at least 30-60 minutes of active participation in occupational therapy. - Patient able to follow commands: 1-stepYes, Multi-stepYes, InconsistenciesYes Challenges to Home Transition:- Requires physical assistance for BADLS - Requires physical assistance for IADLS Equipment Recommendations:Bedside commode and Shower chair Precautions: WB: NA General: PPE Utilized: Gloves, Gown and Surgical mask, Contact and Fall Bracing: N/A S: Patient agreeable to participate in occupational therapy. PAIN Patient did not report pain this session. O: Patient found semireclining in bed. Patient seen this date for the following: ADL Training Grooming: Modified independent standing at sink with RW UB Dressing: Modified independent LB Dressing: Modified independent Toilet Transfer: Modified independent using RW to ambulate into and out bathroom Toileting Hygiene: Modified independent. Patient educated about the following adaptive equipment: Bedside commode, Shower chair . Patient educated about fall prevention and safety awareness. Patient educated about the following: Adaptive equipment , ADL training, Fall prevention, Generalstrengthening and Safety awareness. KAVITA observed and analyzed patient's body mechanics thru out session, especially during transitional movements and ADL mobility and offered recommendations to improve techniques to reduce patient's fall risk and increase patient's overall safety during ADLs. Therapeutic Exercise/Procedure Patient seen for Towel/dowel and General strengthening : Patient performed Trunk flexion/extension/rotation, Shoulder flexion/extension, Shoulder abduction/adduction and Elbow flexion/extension, Patient completed 2 sets of 10 reps, Patient required tactile and/or verbal cueing to perform exercises with correct technique Patient/caregiver returns demonstration x 10 repetitions as follows: Tactile and verbal cues provided for correct technique. Patient/caregiver verbalized understanding to all discussed. Patient left sitting upright in bedside chair with call wade in reach. Resting comfortably with all needs met. A: Patient exhibited Good participation in therapy and responded well to treatment this session. Patient has made good progress in all areas of skilled OT and has met and/or exceeded all OT goals as established on eval. P: WALLS will consult with supervising OTR and recommend discharging patient from OT services due to meeting and/or exceeding all goals. KAVITA Thacker Supervising OTR: Nadine Patel Total Timed Treatment Codes: 40 Min Total Treatment Time: 40 Min Bill Gillis MSW - 05/29/2020 8:19 AM CSTSw sent documentation and x-ray for PICC line to [facility] and yuryd Myrna for confirmation. Pt ready to discharge home with family after IV Abx and home health is setup. Marcin Wisdmo LCSW Art Professor [facility] [phone] signed by Bill Wisdom MSW at 05/29/2020 8:21 AM Vic Yang MD - 05/29/2020 4:30 AM CST FAMILY MEDICINE NIGHT FLOAT NOTE Date and Time: 05/29/2020 04:30 Patient ID: Venu Lange is a 80 year old male admitted on 05/21/2020 Primary Problem: Sepsis secondary to UTI Subjective: Pt has no complaints overnight. Denies fever, chills, chest pain, palpitation, n/v/d, abdominal pain Overnight Events: -S/P PICC line placement. Chest X-RAY done - NAEO - VSS Objective: Temp: [36.4 C (97.6 F)-37 C (98.6 F)] Pulse: [44-64] Resp: [18-20] BP: (106-147)/(53-69) MAP (mmHg): [65-85] Intake/Output Summary (Last 24 hours) at 05/29/2020 0430 Last data filed at 05/28/20202005 Gross per 24 hour Intake 200 ml Output 930 ml Net -730 ml Assessment and Plan for the Next 12 Hours: - F/u on outpatient home health service for finalization of antibiotics prior to discharge - f/u on X-RAY final read for PICC line access - Monitor vitals - Continue management per day team. - All else: continue management per day team. Disposition: pending home health finalization Vic Horton MD (PGY-2) Family Medicine COLLECTOR Abdulaziz Toro MD - 05/28/2020 6:08 PM CSTThough PICC line was able to be placed tonight, outpatient home health service will need finalization of antibiotics prior to discharge. Will plan for discharge in AM. Confirmatory CXR placed. Abdulaziz Toro MD 05/28/2020 6:23 PM Chuck Kaufman PT - 05/28/2020 4:05 PM BILL COLLECTOR Physical Therapy Progress Note: Discharge Recommendations: Therapy Needs and Potential: Patient would benefit from continued physical therapy services to address: decreased endurance Patient demonstrates good potential to improve and meet therapy goals with further physical therapy services. Patient appears motivated to improve their functional mobility and return to their previous levelof function. Challenges to Home Transition: increased risk of falls Equipment recommendations: rolling walker Rolling Walker or Rollator: I certify that Venu Lange is under my care and that I had a [id number] encounter with this patient on: 05/28/20 . The primary reason for the durable medical equipment: weakness. I am recommending and certify that, based on my findings, the following is medically necessary durable medical equipment: Rolling walker . Patient has a mobility limitation that significantly impairs his/her ability to participate in one or more mobility-related activities of daily living (MRADL) in the home and the patient is able to safely use the walker and the functional mobility deficit can be sufficiently resolved with use of a walker. Height: Ht Readings from Last 1 Encounters: 05/21/20 5' 2" (1.575 m) Weight: Wt Readings from Last 1 Encounters: 05/25/20 179 lb 8 oz (81.4 kg) Duration of need: Other: weakness resolves. PAIN: denies pain PRECAUTIONS: Weight Bearing Precaution: NA General Precautions: PPE used:Gloves, Gown and Surgical mask, General, Fall, Contact isolation, IV Bracing/Cast present or required:N/A S: Patient agreeable to working with PT. O: Patient met Semi reclined in bed. Patient seen for the following: Bed mobility: Supine-sit: Modified independent with head of the bed elevated. Patient needed extra time to complete task Transfers: Sit to stand: CGA using Rolling Walker Stand to sit: CGA using Rolling Walker Gait: Assisted patient with ambulation as follows: 200 feet using Rolling Walker and CGA. Patient withflexed posture. Step through gait pattern need verbal cues to keep the walker close by. Therapeutic exercise: instructed patient in the following: ankle pumps, long arc quads, seated marching 10 x each After session, patient Up in chair and call wade provided. A: Patient tolerated session well. Patient progressing toward goals #1, #2, #3, #4. P: PT will - progress with therapy to increase strength, endurance and balance . Total Timed Tx Codes in Minutes: 23 Min Total Treatment Time in Minutes: 23 Min Chuck Nick PT, DPT Bill Gillis MSW - 05/28/2020 11:16 AM CSTSocial Work Note Agustina spoke with Pt's daughter about Pt's need for home IV Abx. Explained referral and setup process with daughter who is in agreement with any infusion and Home health agency that can take them. Agustina sent order to [facility] and confirmed receipt with Myrna [phone]. Authorization is required for Pt's insurance. Unknown how long this process will take. Agustina will update Family Medicine team and Pt's daughter upon acceptance. Pt's daughter states she or her sister can transport Pt home when this is finalized. Lillian Coles: [phone] Marcin Wisdom LCSW Art Professor [facility] [phone] Venu Lange [id number] RE: Care Management Patient Choice Notification Your doctor has recommended that you have post-hospital care services at discharge. You can choose the provider you want, regardless of its relationship with [facility]. We will contact any of the agencieswithin the [facility] network, or any other agency upon your request. Based on where you live and agency service areas, a list was generated from: Your insurance company's in-network provider list Disclosure: [facility] owns or is affiliated with the following facilities/agencies: [facility] (penitentiary and rehabilitation) If you are being referred to a home health agency or penitentiary facility, you will also be given a [facility] Beneficiary Notification Letter ([id number] Profile Supplement) informing you about [facility]'s preferred partners. 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 [facility] has given me a list of providers in the area available to me and/or my authorized construction representative. My choice(s) are listed below: ? HH: Any in network provider that serves [place] Your signature on this form indicates that you have been given the following information: ? I have been advised of my right to choose the providers I wish ? If penitentiary facilities, long-term acute care hospitals, personal care homes, or home healthagencies were recommended, I was given a list of facilities/agencies in my geographic area that deliver these services or ? I have pre-selected or am an established client with a facility/agency and choose to initiate/continue services verbal from daughter 05/28/20 Patient/Guardian/Responsible Republican Signature Date Manasa Lizama MD - 05/28/2020 6:40 AM CST Family Medicine Progress Note Date of service: 05/28/2020 Date of admission: 05/21/2020 12:38 PM Reason for admission: Hypotension Subjective: Venu Lange is a 80 year old male with PMHx ofhas a past medical history ofasthma,BPH, hx of ESBL e coli UTI, and tobacco use who presented withurosepsis. Overnight no acute events. Reports poor sleep due to increased urination. Denies cp, dyspnea, abdominal pain, dysuria, hematuria. Patient requests home IV therapy plan be discussed with his daughter, Lillian at [phone]. Medications: Current Facility-Administered Medications Medication Dose Route Frequency Last Rate Last Admin KCL (POTASSIUM CHLORIDE) 40 mEq in NaCl 0.9% (NS) piggyback 40 mEq IV Piggyback ONCE KCL (KLOR-CON M20) tablet 40 mEq 40 mEq Oral DAILY 40 mEq at 05/27/20 0813 NaCl 0.9% (NS) injection 10 mL 10 mL Slow IV Push PRN guaiFENesin 100 mg/5 mL solution 100 mg 100 mg Oral Q4H 100 mg at 05/28/20 0619 ipratropium-albuteroL (DUONEB) 0.5 mg-3 mg(2.5 mg base)/3 mL nebulizer solution 3 mL 3 mL Inhalation QID 3 mL at 05/28/20 0742 sodium chloride 7% (HYPER-LILA) nebulizer solution 4 mL 4 mL Inhalation DAILY 4 mL at 05/28/200802 acetaminophen (TYLENOL) tablet 650 mg 650 mg Oral Q6HPRN 650 mg at 05/24/20 1525 heparin (porcine) injection 5,000 Units 5,000 Units Subcutaneous Q12H 5,000 Units at 05/27/202043 meropenem (MERREM) 500 mg in NaCl 0.9% (NS) 100 mL MINI-BAG 500 mg IV Piggyback Q6H ABX 500 mg at 05/28/20 0619 tamsulosin (FLOMAX) capsule 0.4 mg 0.4 mg Oral DAILY 0.4 mg at 05/27/20 0813 zafirlukast (ACCOLATE) tablet 20 mg 20 mg Oral BIDAC 20 mg at 05/27/20 1710 Allergies: No Known Allergies ROS: General: (-) fever, (-) chills Head: (-) RAE Cardiac: (-) CP Respiratory: (-) SOB, (-) cough GI: (-) nausea, (-) vomiting, (-) diarrhea, (-) constipation, (-) abdm pain Vitals: Temp: [36.4 C (97.5 F)-36.8 C (98.3 F)] Pulse: [50-82] Resp: [18] BP: (143-158)/(66-83) MAP (mmHg): [79-102] BP (!) 158/83 (BP Location: Right arm) | Pulse 82 | Temp 36.4 C (97.5 F) (Oral) | Resp 18 | Ht 1.575 m (5' 2") | Wt 81.4 kg (179 lb 8 oz) | SpO2 97% | BMI 32.83 kg/m Intake/Output Summary (Last 24 hours) at 05/28/2020 0833 Last data filed at 05/27/2020 1100 Gross per 24 hour Intake Output 200 ml Net -200 ml Physical Exam Constitutional: He is oriented to person, place, and time. He appears well- developed and well-nourished. No distress. HENT: Head: Normocephalic and atraumatic. Eyes: Pupils are equal, round, and reactive to light. Conjunctivae and EOM are normal. Neck: Normal range of motion. Neck supple. Cardiovascular: Normal rate, regular rhythm and normal heart sounds. Pulmonary/Chest: Effort normal and breath sounds normal. No respiratory distress. He has no wheezes. Abdominal: Soft. Bowel sounds are normal. He exhibits no distension. There is no abdominal tenderness. Musculoskeletal: Normal range of motion. General: No edema. Neurological: He is alert and oriented to person, place, and time. Skin: Skin is warm and dry. He is not diaphoretic. Labs and Radiology: Reviewed. Pertinent labs: CBC Recent Labs 05/23/2044405/24/2051205/27/20 0536 WBC 4.92 4.44 3.91* RBC 3.51* 3.13* 3.43* PLT 189 206 279 HGB 10.0* 8.9* 10.0* HCT 30.3* 27.2* 29.3* BMP Recent Labs 05/23/2044405/24/2013 05/27/20 0536 NA 135 139 139 K 4.1 3.7 3.1* CA 8.8 8.6 8.4* CL 106 109* 106 BUN 10 11 15 CREAT 0.77 0.70 0.58* GLU 129* 116* 114* TCO2 22* 24 28 Assessment and Plan Venu Lange is a 80 year old male, admitted for: Sepsis with SOFA 2/2 UTI, OTHER-E. 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 Discussed case with ID, given less likely prostate involvement but with poor susceptibility options for po abx, recommend 14 day total therapy of carbapenem (EOT 06/04/20), recommend PICC and ertapenem. - continue meropenem - c/w home tamsulosin - PICC line - F/u care mgmt prior auth for outpatient IV therapy- ertapenem 1g daily, EOT 06/04/20 - SQH - Flomax 0.4mg daily - Cardiac diet - likely discharge today if able to set up home IV Mild Intermittent Asthma exacerbation Acute Hypoxic respiratory failure requiring supplemental O2 Stable pulmonary nodules on CTPE Stable, on room air - duonebs QIDPRN - IS - c/w home zafirlukast - guafenesin 100mg q4h - hyper-lila daily Hypotension from sepsis, resolved Hypertensive - d/c fluids Hyponatremia Adrenal insufficiency? hyponatremia resolved, stable and low concern for adrenal crisis; able to follow-up with PCP to discuss possible endocrine referral. - can consider abdominal imaging and follow-up with Endocrinology on discharge Hypokalemia Stable - KCL 40 mEq daily Chronic anemia, other type-with unspecified etiology Stable. - outpatient workup, suggest f/u Urology and consider colonoscopy Disposition: Pending prior auth for outpatient abx Lines: PIV Fluids: None Antibiotics: meropenem DVT prophylaxis: SQH Stress ulcer prophylaxis: not indicated Diet: Cardiac Prior Living: Home Prior Mobility: Full Code Status: Full Patient case was reviewed and discussed with Abdulaziz Griffin MD. Manasa Finley MD Department Of Family Medicine, PGY-2 HOSPITAL COURSE: Patient is an 80 year-old male admitted to the MICU initially for acute hypoxic respiratory failure and acute cystitis 2/2 ESBL with hemodynamic instability. He was stabilized with aggressive fluid resuscitation and NC supplemental O2 and started on empiric Merrem for ESBL. He was transferred to the floor where he was weaned from NC O2 and continued on Merrem treatments for duration of hospital stay with repeat blood and urine cultures negative for growth.Patient will require 14 days total IV abx,pending prior auth approval prior to discharge. COLLECTOR Associated attestation - Abdulaziz Griffin II, MD - 05/29/2020 4:10 PM CSTI personally examined the patient on 05/28/2020 and agree with 's resident note as written. I actively participated in the decision-making process. Please see the resident's note for additional details. Abdulaziz Griffin MD; Translator [facility] Hospital[facility] MD - 05/28/2020 6:32 AM CST FAMILY MEDICINE NIGHT FLOAT NOTE Date and Time: 05/28/2020 06:32 Patient ID: Venu Lange is a 80 year old male admitted on 05/21/2020 Primary Problem: Acute cystitis without hematuria Subjective: Pt has no complaints overnight. Denies fever, chills, chest pain, palpitation, n/v/d, abdominal pain Overnight Events: - NAEO - VSS Objective: Temp: [36.4 C (97.5 F)-36.8 C (98.3 F)] Pulse: [50-52] Resp: [18-19] BP: (143-158)/(66-83) MAP (mmHg): [79-102] Intake/Output Summary (Last 24 hours) at 05/28/2020 0632 Last data filed at 05/27/2020 1100 Gross per 24 hour Intake Output 600 ml Net -600 ml Assessment and Plan for the Next 12 Hours: -f/u CM for prior auth -f/u ID rec: Carbapenem IV for 14 days - Monitor vitals - Continue management per day team. - All else: continue management per day team. Disposition: Pending case management Vic Horton MD (PGY-2) Family Medicine COLLECTOR Vic Horton MD - 05/27/2020 6:31 AM CST FAMILY MEDICINE NIGHT FLOAT NOTE Date and Time: 05/27/2020 06:31 Patient ID: Venu Lange is a 80 year old male admitted on 05/21/2020 Primary Problem: Acute cystitis without hematuria Subjective: Pt has no complaints overnight. Overnight Events: - Ferritin 125 and B12 711 - CM pending prior auth for patient home infusion Objective: Temp: [36.8 C (98.2 F)-37.1 C (98.7 F)] Pulse: [50-93] Resp: [12-20] BP: (134-155)/(60-78) MAP (mmHg): [82-93] Intake/Output Summary (Last 24 hours) at 05/27/2020 0631 Last data filed at 05/27/2020 0515 Gross per 24 hour Intake 1000 ml Output 2530 ml Net -1530 ml Assessment and Plan for the Next 12 Hours: - f/u PICC line - IV abx per ID rec: Carbapenem for 14 days - last dose of cortef today - CM : f/u on prior auth on Thursday for home infusion - Monitor vitals - Continue management per day team. - All else: continue management per day team. Disposition: pending PICC line and home infusion for IV abx Vic Horton MD (PGY-2) Family Medicine COLLECTOR Manasa Finley MD - 05/27/2020 6:30 AM CST Family Medicine Progress Note Date of service: 05/27/2020 Date of admission: 05/21/2020 12:38 PM Reason for admission: Hypotension Subjective: Venu Lange is a 80 year old male with PMHx ofhas a past medical history of asthma, BPH, hx of ESBL e coli UTI, and tobacco use who presented with urosepsis. Overnight no acute events. Patient is comfortable. Denies cp, dyspnea, abdominal pain, dysuria, hematuria, fever, chills. Medications: Current Facility-Administered Medications Medication Dose Route Frequency Last Rate Last Admin KCL (KLOR-CON M20) tablet 40 mEq 40 mEq Oral DAILY KCL (POTASSIUM CHLORIDE) 40 mEq in NaCl 0.9% (NS) piggyback 40 mEq IV Piggyback ONCE NaCl 0.9% (NS) injection 10 mL 10 mL Slow IV Push PRN guaiFENesin 100 mg/5 mL solution 100 mg 100 mg Oral Q4H 100 mg at 05/27/20 0553 ipratropium-albuteroL (DUONEB) 0.5 mg-3 mg(2.5 mg base)/3 mL nebulizer solution 3 mL 3 mL Inhalation QID 3 mL at 05/27/20 0652 sodium chloride 7% (HYPER-LILA) nebulizer solution 4 mL 4 mL Inhalation DAILY Stopped at 05/27/20 0900 hydrocortisone sod succ (CORTEF) 50 mg in NaCl 0.9% (NS) piggyback 50 mg IV Piggyback Q8H 50 mg at 05/27/20 0553 NaCl 0.9% (NS) IV infusion 1,000 mL 1,000 mL IV Infusion CONTINUOUS 100 mL/hr at 05/26/20 1815 1,000 mL at 05/26/20 1815 acetaminophen (TYLENOL) tablet 650 mg 650 mg Oral Q6HPRN 650 mg at 05/24/20 1525 heparin (porcine) injection 5,000 Units 5,000 Units Subcutaneous Q12H 5,000 Units at 214 meropenem (MERREM) 500 mg in NaCl 0.9% (NS) 100 mL MINI-BAG 500 mg IV Piggyback Q6H ABX 500 mg at 05/27/20 0554 tamsulosin (FLOMAX) capsule 0.4 mg 0.4 mg Oral DAILY 0.4 mg at 05/26/20 0803 zafirlukast (ACCOLATE) tablet 20 mg 20 mg Oral BIDAC 20 mg at 05/26/20 1605 Allergies: No Known Allergies ROS: Review of Systems General: (-) fever, (-) chills Head: (-) RAE Cardiac: (-) CP Respiratory: (-) SOB, (-) cough GI: (-) nausea, (-) vomiting, (-) diarrhea, (-) constipation, (-) abdm pain Vitals: Temp: [36.8 C (98.2 F)-37.1 C (98.7 F)] Pulse: [50-93] Resp: [12-20] BP: (134-155)/(60-78) MAP (mmHg): [82-93] BP (!) 140/78 (BP Location: Left arm, Patient Position: Supine) | Pulse 50 | Temp 37 C (98.6 F) (Oral) | Resp 18 | Ht 1.575 m (5' 2") | Wt 81.4 kg (179 lb 8 oz) | SpO2 97% | BMI 32.83 kg/m Intake/Output Summary (Last 24 hours) at 05/27/2020 0732 Last data filed at 05/27/2020 0515 Gross per 24 hour Intake 1000 ml Output 2530 ml Net -1530 ml Physical Exam Constitutional: He is oriented to person, place, and time. He appears well- developed and well-nourished. No distress. HENT: Head: Normocephalic and atraumatic. Eyes: Pupils are equal, round, and reactive to light. Conjunctivae and EOM are normal. Neck: Normal range of motion. Neck supple. Cardiovascular: Normal rate, regular rhythm and normal heart sounds. Pulmonary/Chest: Effort normal and breath sounds normal. No respiratory distress. He has no wheezes. Abdominal: Soft. Bowel sounds are normal. He exhibits no distension. There is no abdominal tenderness. Musculoskeletal: Normal range of motion. General: No edema. Neurological: He is alert and oriented to person, place, and time. Skin: Skin is warm and dry. He is not diaphoretic. Labs and Radiology: Reviewed. Pertinent labs: CBC Recent Labs 05/23/2044405/24/2051205/27/20535 WBC 4.92 4.44 3.91* RBC 3.51* 3.13* 3.43* PLT 189 206 279 HGB 10.0* 8.9* 10.0* HCT 30.3* 27.2* 29.3* BMP Recent Labs 05/23/2044405/24/2051205/27/20535 NA 135 139 139 K 4.1 3.7 3.1* CA 8.8 8.6 8.4* CL 106 109* 106 BUN 10 11 15 CREAT 0.77 0.70 0.58* GLU 129* 116* 114* TCO2 22* 24 28 05/24/2020 05:13 FOLATE SER 8.1 VIT B12 711 FERRITIN 125.0 05/24/2020 05:13 IRON 94 Assessment and Plan Venu Lange is a 80 year old male, admitted for: Sepsis with SOFA 2/2 UTI, OTHER-E. 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 Patient currently hemodynamically stable. Will advise patient to follow-up with urology outpatient to discuss possible reevaluation of BPH and possible reasons for recurrent UTI. Discussed case with ID, given less likely prostate involvement but with poor susceptibility options for po abx, recommend 14 day total therapy of carbapenem (EOT 06/04/20), recommend PICC and ertapenem. - continue meropenem - c/w home tamsulosin - PICC line - F/u care mgmt prior auth for outpatient IV therapy - likely discharge tomorrow Mild Intermittent Asthma exacerbation Acute Hypoxic respiratory failure requiring supplemental O2 Stable pulmonary nodules on CTPE Respiratory exambenigntoday,now stable on room air, will continue prednisone burst - duonebs QIDPRN - IS Q30min -Discontinue stress dose steroids - c/w home zafirlukast Hypotension from sepsis, resolved Hemodynamically stable as of right now, will continue to monitor. - follow-up VS Hyponatremia Adrenal insufficiency? hyponatremia resolved, hypotension resolved; currently stable and low concern for adrenal crisis; able to follow-up with PCP to discuss possible endocrine referral. - Discontinuecortef 50 - can consider abdominal imaging and follow-up with Endocrinology on discharge - BMP Chronic anemia, other type-with unspecified etiology His Hgb have gently downtrended since admission given copious lab draws during initial few hospital days, but looking back this has been a chronic issue. He has denied GI or urologic blood loss. MCV WNL which suggests this is not due to Iron deficiency. Will recommend follow-up with PCP for discussionof colonoscopy and work-up out patient. Iron studies wnl. Disposition: Discharge tomorrow pending prior auth for outpatient abx Lines: PIV Fluids: NS 100cc/hr Antibiotics: meropenem DVT prophylaxis: SQH Stress ulcer prophylaxis: not indicated Diet: Cardiac Prior Living: Home Prior Mobility: Full Code Status: Full Patient case was reviewed and discussed with Scar Cyr MD. Manasa Finley MD Department Of Family Medicine, PGY-2 HOSPITAL COURSE: Patient is an 80 year-old male admitted to the MICU initially for acute hypoxic respiratory failure and acute cystitis 2/2 ESBL with hemodynamic instability. He was stabilized with aggressive fluid resuscitation and NC supplemental O2 and started on empiric Merrem for ESBL. He was transferred to the floor where he was weaned from NC O2 and continued on Merrem treatments for duration of hospital stay with repeat blood and urine cultures negative for growth. Patient will require 14 days total IV abx, pending prior auth approval prior to discharge. COLLECTOR Associated attestation - Scar Cyr MD - 05/29/2020 8:12 AM CSTI personally examined the patient on 05/27/[address] Frost's resident note as written. I actively participated in the decision-making process. Please see the resident's note for additional details.Lenny Vaughn, RN - 05/26/2020 2:26 PM CSTWeekend Nuclear Plant Instrument Technician's note: 05/26/2020 2:27 PM Call received from team requesting we look into home infusion for the patient, ID recs obtained. Call placed to [facility] ( , ) went unanswered. Call to [facility], [facility] ph [phone] f [phone] made, spoke with Myrna who stated they would need prior auth which could be obtained on Thursday . STACIA Sharma, RN Weekend Nuclear Plant Instrument Technician Available only on Thursday, Thursday and Thursday. [facility] Care Management [email or web address]) [email or web address]) COLLECTOR Vic Horton MD - 05/26/2020 7:07 AM CST FAMILY MEDICINE NIGHT FLOAT NOTE Date and Time: 05/26/2020 07:07 Patient ID: Venu Lange is a 80 year old male admitted on 05/21/2020 Primary Problem: Acute cystitis without hematuria Subjective: Pt has no complaints overnight. Overnight Events: - Bradycardic to 50s . Asymptomatic - NAEO Objective: Temp: [36.4 C (97.6 F)-36.9 C (98.5 F)] Pulse: [50-61] Resp: [18] BP: (127-189)/(59-81) MAP (mmHg): [80-109] Intake/Output Summary (Last 24 hours) at 05/26/2020 0707 Last data filed at 05/26/2020 0525 Gross per 24 hour Intake 300 ml Output 2350 ml Net -2050 ml Assessment and Plan for the Next 12 Hours: - Consider switch to PO antibiotics today - Monitor vitals - All else: continue management per day team. Disposition: Likely today Vic Horton MD (PGY-2) Family Medicine Manasa Milner MD - 05/26/2020 6:25 AM CST Family Medicine Progress Note Date of service: 05/26/2020 Date of admission: 05/21/2020 12:38 PM Reason for admission: hypotension Subjective: Venu Lange is a 80 year old male with PMHx of has a past medical history of asthma, BPH, hx of ESBL e coli UTI, and tobacco use who presented with urosepsis. Overnight no acute concerns, patient would like to go home. Denies fever, chills, cp, dyspnea, abdominal pain, hematuria, dysuria. Important events in past 24 hours include: - bradycardia, stable, aysmptomatic Medications: Current Facility-Administered Medications Medication Dose Route Frequency Last Rate Last Admin guaiFENesin 100 mg/5 mL solution 100 mg 100 mg Oral Q4H 100 mg at 05/26/20 0520 ipratropium-albuteroL (DUONEB) 0.5 mg-3 mg(2.5 mg base)/3 mL nebulizer solution 3 mL 3 mL Inhalation QID 3 mL at 05/25/20 1931 sodium chloride 7% (HYPER-LILA) nebulizer solution 4 mL 4 mL Inhalation DAILY 4 mL at 05/25/200732 hydrocortisone sod succ (CORTEF) 50 mg in NaCl 0.9% (NS) piggyback 50 mg IV Piggyback Q8H 50 mg at 05/26/20 0520 NaCl 0.9% (NS) IV infusion 1,000 mL 1,000 mL IV Infusion CONTINUOUS 100 mL/hr at 05/25/201 1,000 mL at 05/25/20 2121 acetaminophen (TYLENOL) tablet 650 mg 650 mg Oral Q6HPRN 650 mg at 05/24/20 1525 heparin (porcine) injection 5,000 Units 5,000 Units Subcutaneous Q12H 5,000 Units at 05/25/202014 meropenem (MERREM) 500 mg in NaCl 0.9% (NS) 100 mL MINI-BAG 500 mg IV Piggyback Q6H ABX 500 mg at 05/26/20 0120 tamsulosin (FLOMAX) capsule 0.4 mg 0.4 mg Oral DAILY 0.4 mg at 05/25/20 1020 zafirlukast (ACCOLATE) tablet 20 mg 20 mg Oral BIDAC 20 mg at 05/25/20 1653 Allergies: No Known Allergies ROS: Review of Systems General: (-) fever, (-) chills Head: (-) RAE Cardiac: (-) CP Respiratory: (-) SOB, (-) cough GI: (-) nausea, (-) vomiting, (-) diarrhea, (-) constipation, (-) abdm pain Vitals: Temp: [36.4 C (97.6 F)-36.9 C (98.5 F)] Pulse: [50-61] Resp: [18] BP: (127-189)/(59-81) MAP (mmHg): [80-109] BP (!) 148/75 | Pulse 50 | Temp 36.9 C (98.5 F) (Oral) | Resp 18 | Ht 1.575 m (5' 2") | Wt 81.4 kg (179 lb 8 oz) | SpO2 97% | BMI 32.83 kg/m Intake/Output Summary (Last 24 hours) at 05/26/2020 0626 Last data filed at 05/26/2020 0525 Gross per 24 hour Intake 200 ml Output 2350 ml Net -2150 ml Physical Exam Constitutional: He is oriented to person, place, and time. He appears well- developed and well-nourished. No distress. HENT: Head: Normocephalic and atraumatic. Eyes: Pupils are equal, round, and reactive to light. Conjunctivae and EOM are normal. Neck: Normal range of motion. Neck supple. Cardiovascular: Normal rate, regular rhythm and normal heart sounds. Pulmonary/Chest: Effort normal and breath sounds normal. No respiratory distress. He has no wheezes. Abdominal: Soft. Bowel sounds are normal. He exhibits no distension. There is no abdominal tenderness. Genitourinary: Genitourinary Comments: No prostatic tenderness Musculoskeletal: Normal range of motion. General: No edema. Neurological: He is alert and oriented to person, place, and time. Skin: Skin is warm and dry. He is not diaphoretic. Labs and Radiology: Reviewed. Pertinent labs: CBC Recent Labs 05/22/20 0503 05/23/205 05/24/20 0513 WBC 3.96* 4.92 4.44 RBC 3.34* 3.51* 3.13* PLT 162 189 206 HGB 9.5* 10.0* 8.9* HCT 29.3* 30.3* 27.2* BMP Recent Labs 05/22/20 0503 05/23/20 0445 05/24/20 0513 NA 133* 135 139 K 4.0 4.1 3.7 CA 8.2* 8.8 8.6 CL 105 106 109* BUN 8 10 11 CREAT 0.84 0.77 0.70 GLU 92 129* 116* TCO2 22* 22* 24 Assessment and Plan Venu Lange is a 80 year old male, admitted for: Sepsis with SOFA 2/2 UTI, OTHER- E. 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 Patient currently hemodynamically stable. Will advise patient to follow-up with urology outpatient to discuss possible reevaluation of BPH and possible reasons for recurrent UTI. Discussed case with ID, given less likely prostate involvement but with poor susceptibility options for po abx, recommend 14 day total therapy of carbapenem (EOT 06/04/20), recommend PICC and ertapenem. - continue meropenem - c/w home tamsulosin - PICC line - Care mgmt: outpatient IV therapy - CBC Mild Intermittent Asthma exacerbation Acute Hypoxic respiratory failure requiring supplemental O2 Stable pulmonary nodules on CTPE Respiratory exam benign today, now stable on room air, will continue prednisone burst - duonebs QIDPRN - IS Q30min -Stress dose steroids, continue Cortef TID (day 10/17 of steroid burst), discontinue in am - c/w home zafirlukast Hypotension from sepsis, resolved Hemodynamically stable as of right now, will continue to monitor. - follow-up VS Hyponatremia Adrenal insufficiency? hyponatremia resolved, hypotension resolved; currently stable and low concern for adrenal crisis; able to follow-up with PCP to discuss possible endocrine referral. -cortef 50 Q8H daily for mineralocorticoid activity (Day (09/17) of steroid burst), discontinue in am - can consider abdominal imaging and follow-up with Endocrinology on discharge - BMP Chronic anemia, other type- with unspecified etiology His Hgb have gently downtrended since admission given copious lab draws during initial few hospital days, but looking back this has been a chronic issue. He has denied GI or urologic blood loss. MCV WNL which suggests this is not due to Iron deficiency. Will recommend follow-up with PCP for discussionof colonoscopy and work-up out patient. - CBC am Disposition: Pending prior authorization approval for IV abx outpatient Lines: PIV Fluids: NS 100cc/hr Antibiotics: meropenem DVT prophylaxis: SQH Stress ulcer prophylaxis: not indicated Diet: cardiac Prior Living: home Prior Mobility: full Code Status: Full Patient case was reviewed and discussed with Scar Cyr MD. Manasa Finley MD Department Of Family Medicine, PGY-2 HOSPITAL COURSE: Patient is an 80 year-old male admitted to the MICU initially for acute hypoxic respiratory failure and acute cystitis 2/2 ESBL with hemodynamic instability. He was stabilized with aggressive fluid resuscitation and NC supplemental O2 and started on empiric Merrem for ESBL. He was transferred to the floor where he was weaned from NC O2 and continued on Merrem treatments for duration of hospital stay with repeat blood and urine cultures negative for growth. Patient will require 14 days total IV abx, pending prior auth approval prior to discharge. COLLECTOR Associated attestation - Scar Cyr MD - 05/26/2020 9:33 PM CSTI personally examined the patient on 05/26/[address] Finley's resident note as written . I actively participated in the decision-making process. Please see the resident's note for additional details.Sia Gonzalez, RD - 05/25/2020 3:24 PM CST MEDICAL NUTRITION THERAPY-Progress Note Present on Admission: Hypotension Acute cystitis without hematuria Asthma Hyponatremia Colonization with drug-resistant bacteria BPH with obstruction/lower urinary tract symptoms Medications: Current Facility-Administered Medications: guaiFENesin 100 mg/5 mL solution 100 mg, 100 mg, Oral, Q4H, Abdulaziz Toro MD, 100 mg at 05/25/20 1020 ipratropium-albuteroL (DUONEB) 0.5 mg-3 mg(2.5 mg base)/3 mL nebulizer solution 3 mL, 3 mL, Inhalation, QID, Abdulaziz Toro MD, 3 mL at 05/25/20 1112 sodium chloride 7% (HYPER-LILA) nebulizer solution 4 mL, 4 mL, Inhalation, DAILY, Abdulaziz Toro MD, 4 mL at 05/25/20 0732 hydrocortisone sod succ (CORTEF) 50 mg in NaCl 0.9% (NS) piggyback, 50 mg, IV Piggyback, Q8H, Bharat Schaffer MD, 50 mg at 05/25/20 1403 NaCl 0.9% (NS) IV infusion 1,000 mL, 1,000 mL, IV Infusion, CONTINUOUS, Abdulaziz Toro MD, Last Rate: 100 mL/hr at 05/24/202043, 1,000 mL at 05/24/202043 acetaminophen (TYLENOL) tablet 650 mg, 650 mg, Oral, Q6HPRN, Dyan Nolasco MD, 650 mg at 05/24/201525 heparin (porcine) injection 5,000 Units, 5,000 Units, Subcutaneous, Q12H, Dyan Nolasco MD, 5,000Units at 05/25/20 1020 meropenem (MERREM) 500 mg in NaCl 0.9% (NS) 100 mL MINI-BAG, 500 mg, IV Piggyback, Q6H ABX, Dyan Nolasco MD, 500 mg at 05/25/20 1020 tamsulosin (FLOMAX) capsule 0.4 mg, 0.4 mg, Oral, DAILY, Dyan Nolasco MD, 0.4 mg at 05/25/20 1020 zafirlukast (ACCOLATE) tablet 20 mg, 20 mg, Oral, BIDAC, Dyan Nolasco MD, 20 mg at 05/25/20 1020 Lab and Medical Test Results: No results found for this or any previous visit (from the past 24 hour(s)). Intake/Output Summary (Last 24 hours) at 05/25/2020 1524 Last data filed at 05/25/2020 0517 Gross per 24 hour Intake 200 ml Output 1275 ml Net -1075 ml Weight History: Wt Readings from Last 10 Encounters: 05/25/20 81.4 kg (179 lb 8 oz) 05/14/20 78.4 kg (172 lb 14.4 oz) 04/11/20 79.5 kg (175 lb 3.2 oz) 08/30/19 76.5 kg (168 lb 11.2 oz) 08/25/19 76.6 kg (168 lb 14 oz) 08/12/19 79.1 kg (174 lb 6.4 oz) 08/03/19 78.5 kg (173 lb) 08/01/19 77.7 kg (171 lb 3.2 oz) 07/21/19 79.9 kg (176 lb 3.2 oz) 07/11/19 80.5 kg (177 lb 6.4 oz) Current Wt: 81.4 kg/ 179 lb 8 oz. BMI: Body mass index is 32.83 kg/m. (Overweight) IBW for Ht: 57 kg +/- 5.7 kg %IBW: 142% Current Dietary Order(s): Cardiac (2 gm Sodium, Low Fat, Low Cholesterol) Diet; Texture: Regular Nutrition/Additional History: 80 year-old male seen for nutrition follow up. Patient endorses his appetite has improved and is eating better. He states he is eating more than 50%. Denies N/V/D. He states he is a little constipated and last BM was a little hard in consistency. Patient and RD discussed drinking adequate amount of water as patient mentioned he does not drink much water. Will continue to follow. Estimated Daily Nutritional Needs: Calories: 5620-6751 kcal/day = 22-25 kcal/kg current wt = 30-35 kcal/kg IBW Protein: 20 % of kcal need/day = 85-100 g/day = 1-1.2 g/kg current wt = 1.4-1.7 g/kg IBW Fluid: 1 mL/kcal/day or per MD; adjust per acute needs Nutrition Interventions: 1.Recommend to continue with current diet 2. Monitor PO intake and appetite 3. Monitor weight 4. Monitor lab values Goal(s): 1. Patient will complete 50-75 % of provided nutrition 2. Patient will remain at stable weight during this admission Nutrition Monitoring and Evaluation: A registered dietitian will f/u as indicated to report nutrition related information and to revise the recommended nutrition intervention(s). Please call with questions or concerns, thank-you. Anticipated d/c needs: Continue as recommended Sia Gonzalez MS,RDN,LD Clinical Dietitian Office: [phone] Chuck Kaufman PT - 05/25/2020 3:12 PM CST05/25/2020 3:12 PM Physical therapy note: Attempted to see the patient however other services in the room at this time. Will follow up at a later time as schedule permits. Thank you. Chuck Nick PT, DPT Verna Jean Baptiste OTA - 05/25/2020 11:03 AM CSTOCCUPATIONAL THERAPY NOTE: Discharge Recommendations: Therapy Needs and Potential:- Patient would benefit from continued skilled occupational therapy services to address: Decline in basic activities of daily living and Decline in instrumental activities of daily living - Patient demonstrates good potential to improve and meet therapy goals with further skilled occupational therapy services. - Patient appears motivated to improve their B/IADLs and return to their previous level of function. - Patient demonstrates ability to tolerate at least 30-60 minutes of active participation in occupational therapy. - Patient able to follow commands: 1-step Yes, Multi-step Yes, Inconsistencies Yes Challenges to Home Transition:- Requires physical assistance for BADLS - Requires physical assistance for IADLS Equipment Recommendations:Bedside commode and Shower chair Precautions: WB: NA General: PPE Utilized: Gloves, Gown and Surgical mask, Contact and Fall Bracing: N/A S: Patient agreeable to participate in occupational therapy. Patient eager to get out of bed and walk. PAIN Patient did not report pain this session. O: Patient found semireclining in bed. Patient seen this date for the following: ADL Training Grooming: Modified independent standing at sink with RW UB Dressing: Modified independent LB Dressing: SBA/Setup Toilet Transfer: Modified independent Toileting Hygiene: SBA/Setup. Cues to ensure thorough hygiene Patient educated about the following adaptive equipment: Bedside commode, Shower chair . Educated patient that he may need BSC for nighttime use at home to reduce fall risk. Patient educated about fall prevention and safety awareness. Patient educated about the following: Adaptive equipment , ADL training, Fall prevention, Generalstrengthening and Safety awareness. Handout issued, No. WALLS observed and analyzed patient's body mechanics thru out session, especially during transitional movements and ADL mobility and offered recommendations to improve techniques to reduce patient's fall risk and increase patient's overall safety during ADLs. Therapeutic Exercise/Procedure Patient seen for Towel/dowel and General strengthening : Patient performed Trunk flexion/extension/rotation, Shoulder flexion/extension, Shoulder abduction/adduction and Elbow flexion/extension, Patient completed 2 sets of 12 reps, Patient required tactile and/or verbal cueing to perform exercises with correct technique Patient/caregiver returns demonstration x 12 repetitions as follows: Tactile and verbal cues provided for correct technique. Patient/caregiver verbalized understanding to all discussed. Patient left sitting upright in bedside chair with call wade in reach. Resting comfortably with all needs met. A: Patient exhibited Good participation in therapy and responded well to treatment this session. Patient is progressing toward goal(s) 1, 2, 3 and 4. Poor endurance remain(s) a limiting factor. P: Daily living activities and Therapeutic exercises to maximize patient's safety and independence with BADLs. KAVITA Thacker Supervising OTR: Nadine Patel Total Timed Treatment Codes: 46 Min Total Treatment Time: 46 Min bdulaziz Toro MD - 05/25/2020 6:58 AM CST FAMILY MEDICINE Progress Note Date of Service: 05/25/2020 Admission Date & Time: 05/21/2020 12:38 PM Admitting Provider: Dr Griffin PCP: Broderick Mills Chief Complaint: Shoulder Pain, admitted for uroseptic symptoms HPI Venu Lange is a 80 year old male with PMHx of has a past medical history of Asthma, BPH (benign prostatic hyperplasia), Complicated UTI (urinary tract infection) (12/02/2018), and Foot pain, left (03/07/2015). Patient is doing well this AM without complaints. ROS negative for nausea, vomiting, fevers, chills.Denies hematuria or dysuria. Denies cough or congestion, using IS. NC at 1L. No complaints this AM. REVIEW OF SYSTEMS: General: (-) change in weight, (-) fevers Cardiac: (-) CP, (-) palpitations Respiratory: (-) SOB, (-)cough GI: (-) nausea, (-) vomiting : (-) dysuria, (-) hematuria Musculoskeletal: (-) weakness PHYSICAL EXAMINATION BP 132/61 (BP Location: Left arm, Patient Position: Supine) | Pulse 53 | Temp 36.6 C (97.9 F) (Oral) | Resp 18 | Ht 1.575 m (5' 2") | Wt 81.4 kg (179 lb 8 oz) | SpO2 95% | BMI 32.83 kg/m General: NAD Neuro: A&O x 3 (person, place, time) HEENT: EOMI, MMM, no pharyngeal edema Cardiac: RRR, normal S1 and S2, 2+ radial pulses Respiratory: LCTAB, no wheezing or crackles this AM Gastrointestinal: +BS x 4, NT/ND, Extremities: no pedal edema Skin: no rashes LABS: No new labs today. Blood Culture 05/22: negative for growth at 24h Urine Culture 05/22: Negative for growth Urine Culture 05/21: Urine Culture >100,000 CFU/mL Escherichia coli Resulting Agency: Susceptibility Escherichia coli SUSCEPTIBILITY TESTING (Preliminary) Amoxacillin/Clavulanic acid 16 Intermediate Ampicillin >=32 Resistant Ampicillin/Sulbactam >=32 Resistant Cefazolin >=64 Resistant Ceftriaxone >=64 Resistant Ciprofloxacin >=4 Resistant Ertapenem <=0.5 Susceptible Gentamicin <=1 Susceptible Imipenem <=0.25 Susceptible Levofloxacin >=8 Resistant Nitrofurantoin 64 Intermediate Trimethoprim/Sulfamethoxazole >=320 Resistant ASSESSMENT/PLAN Sepsis with SOFA 2/2 UTI, OTHER- E. 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 Patient currently hemodynamically stable. Will advise patient to follow-up with urology outpatient to discuss possible reevaluation of BPH and possible reasons for recurrent UTI. - continue meropenem (day 4/5 of complete therapy) - c/w home tamsulosin Mild Intermittent Asthma exacerbation Acute Hypoxic respiratory failure requiring supplemental O2 Stable pulmonary nodules on CTPE Respiratory exam benign today, now stable on room air, will continue prednisone burst - duonebs QIDPRN - IS Q30min - Stress dose steroids, continue Cortef TID (day 4/5 of steroid burst) - c/w home zafirlukast Hypotension from sepsis, resolved Hemodynamically stable as of right now, will continue to monitor. - follow-up VS Hyponatremia Adrenal insufficiency? hyponatremia resolved, hypotension resolved; currently stable and low concern for adrenal crisis; able to follow-up with PCP to discuss possible endocrine referral. - cortef 50 Q8H daily for mineralocorticoid activity (Day (09/17) of steroid burst) - can consider abdominal imaging and follow-up with Endocrinology on discharge Chronic anemia, other type- with unspecified etiology His Hgb have gently downtrended since admission given copious lab draws during initial few hospital days, but looking back this has been a chronic issue. He has denied GI or urologic blood loss. MCV WNL which suggests this is not due to Iron deficiency. Will recommend follow-up with PCP for discussionof colonoscopy and work-up out patient. Prophylaxis: DVT: heparin Stress Ulcer: no indication for prophylaxis/famotidine/pantoprazole Dispo: Pending Improvement clinically and culture results, possible discharge to home on Thursday Code Status: CPR Discussed with Dr Elias Toro MD COLLECTOR Associated attestation - Abdulaziz Griffin II, MD - 05/26/2020 1:57 AM CSTI personally examined the patient on 05/25/2020 and agree with 's resident note as written. I actively participated in the decision-making process. Please see the resident's note for additional details. Abdulaziz Griffin MD; Translator [facility] Hospital[facility] Finley MD - 05/25/2020 4:15 AM BILL COLLECTOR FAMILY MEDICINE NIGHT FLOAT NOTE Date and Time: 05/25/2020 04:15 Patient ID: Venu Lange is a 80 year old male admitted on 05/21/2020 Primary Problem: Acute cystitis without hematuria Subjective: Pt has no complaints overnight. Overnight Events: - None Objective: Temp: [35.6 C (96 F)-36.8 C (98.2 F)] Pulse: [51-84] Resp: [16-20] BP: (108-147)/(48-72) MAP (mmHg): [64-89] Intake/Output Summary (Last 24 hours) at 05/25/2020 0415 Last data filed at 05/25/2020 0405 Gross per 24 hour Intake 1823 ml Output 2400 ml Net -577 ml BLOOD CULTURE SCREEN Collected 05/22/2020 @2228 Blood Culture-Aerobic No growth No growth at 48 hours P Blood Culture-Anaerobic No growth No growth at 48 hours P Assessment and Plan for the Next 12 Hours: - Possible discharge - Monitor vitals - Continue management per day team. - All else: continue management per day team. Disposition: possible discharge Manasa Finley MD Department Of Family Medicine, PGY-2 be, Chuck T, PT - 05/24/2020 12:53 PM BILL COLLECTOR Physical Therapy Progress Note: Discharge Recommendations: Therapy Needs and Potential: Patient would benefit from continued physical therapy services to address: decline in bed mobility decline in transfers decline in gait and/or balance Patient demonstrates good potential to improve and meet therapy goals with further physical therapy services. Patient appears motivated to improve their functional mobility and return to their previous levelof function. Challenges to Home Transition: increased risk of falls Equipment recommendations: rolling walker PAIN: denies pain PRECAUTIONS: Weight Bearing Precaution: NA General Precautions: PPE used:Gloves, Gown and Surgical mask, General, Fall, IV, contact isolation Bracing/Cast present or required:N/A S: Patient agreeable to working with PT. O: Patient met Semi reclined in bed. Patient seen for the following: patient is on room air checkedspo2: 95% Bed mobility: Supine-sit: patient provided with min assist with verbal cues. scooting in sitting: patient is mod independent with verbal cues. Transfers: Sit to stand: CGA using Rolling Walker with verbal cues for hand placement and technique Stand to sit: CGA using Rolling Walker Gait: Assisted patient with ambulation as follows: ~50 feet using Rolling Walker and CGA. With verbal cues for postural correction and gait pattern. Patient provided with verbal cues to keep the walker close by Patient presents with shortness of breath. Checked spo2: 95% on room air, Patient presents with decreased estelita Therapeutic exercise: instructed patient in the following: ankle pumps, heel slides After session, patient Up in chair and call wade provided. RN notified of patient status A: Patient tolerated session well. Patient progressing toward goals #1, #2, #3. P: PT will - progress with therapy to increase strenght, endurance and balance . Total Timed Tx Codes in Minutes: 15 Min Total Treatment Time in Minutes: 15 Min Chuck San. ESTELLE Nick, DPT Abdulaziz Wong MD - 05/24/2020 6:58 AM CST FAMILY MEDICINE Progress Note Date of Service: 05/24/2020 Admission Date & Time: 05/21/2020 12:38 PM Admitting Provider: Dr Griffin PCP: Broderick Mills Chief Complaint: Shoulder Pain, admitted for uroseptic symptoms HPI Venu Lange is a 80 year old male with PMHx of has a past medical history of Asthma, BPH (benign prostatic hyperplasia), Complicated UTI (urinary tract infection) (12/02/2018), and Foot pain, left (03/07/2015). Patient is doing well this AM without complaints. ROS negative for nausea, vomiting, fevers, chills.Denies hematuria or dysuria. Denies cough or congestion, using IS. NC at 1L. No complaints this AM. PAST MEDICAL HISTORY Past Medical History: Diagnosis Date Asthma BPH (benign prostatic hyperplasia) Complicated UTI (urinary tract infection) 12/02/2018 Foot pain, left 03/07/2015 FAMILY MEDICAL HISTORY: Family History Problem Relation Age of Onset Cancer Father lung SURGICAL HISTORY Past Surgical History: Procedure Laterality Date COLONOSCOPY N/A 06/24/2018 Surgeon: Moe Salazar DO; Location: [facility] Location CYSTOLITHOTRIPSY N/A 08/25/2019 Surgeon: Brennan [...] Medina MD; Location: [facility] [place] SOCIAL HISTORY Social History Socioeconomic History Marital [...] file Gets together: Not on file Attends congregation service: Not on file Active member of [...] file Social History Narrative Not on file ALLERGIES No Known Allergies CURRENT MEDICATIONS: Current Facility-Administered Medications Medication Dose Route Frequency Last Rate Last Admin hydrocortisone sod succ (CORTEF) 50 mg in NaCl 0.9% (NS) piggyback 50 mg IV Piggyback Q8H 50 mg at 05/24/20 0513 NaCl 0.9% (NS) IV infusion 1,000 mL 1,000 mL IV Infusion CONTINUOUS 100 mL/hr at 05/23/202113 1,000 mL at 05/23/202113 acetaminophen (TYLENOL) tablet 650 mg 650 mg Oral Q6HPRN 650 mg at 05/23/20 0431 heparin (porcine) injection 5,000 Units 5,000 Units Subcutaneous Q12H 5,000 Units at 113 ipratropium-albuteroL (DUONEB) 0.5 mg-3 mg(2.5 mg base)/3 mL nebulizer solution 3 mL 3 mL Inhalation QID 3 mL at 05/23/20 1955 ipratropium-albuteroL (DUONEB) 0.5 mg-3 mg(2.5 mg base)/3 mL nebulizer solution 3 mL 3 mL Inhalation QIDPRN 3 mL at 05/23/20 0501 meropenem (MERREM) 500 mg in NaCl 0.9% (NS) 100 mL MINI-BAG 500 mg IV Piggyback Q6H ABX 500 mg at 05/24/20 0548 tamsulosin (FLOMAX) capsule 0.4 mg 0.4 mg Oral DAILY 0.4 mg at 05/23/20 0849 zafirlukast (ACCOLATE) tablet 20 mg 20 mg Oral BIDAC 20 mg at 05/23/20 1734 REVIEW OF SYSTEMS: General: (-) change in weight, (-) fevers, (-) fatigue Cardiac: (-) CP, (-) palpitations Respiratory: (-) SOB, (-)cough GI: (-) nausea, (-) vomiting, (-) diarrhea, (-) constipation : (-) dysuria, (-) hematuria Musculoskeletal: (-) weakness PHYSICAL EXAMINATION BP (!) 141/69 (BP Location: Left arm, Patient Position: Supine) | Pulse 58 | Temp 36.4 C (97.6 F) (Oral) | Resp 18 | Ht 1.575 m (5' 2") | Wt 81.5 kg (179 lb 9.6 oz) | SpO2 98% | BMI 32.85 kg/m General: NAD Neuro: A&O x 3 (person, place, time) HEENT: EOMI, MMM, no pharyngeal edema Cardiac: RRR, normal S1 and S2, 2+ radial pulses Respiratory: LCTAB, no wheezing or crackles Gastrointestinal: +BS x 4, NT/ND, Extremities: no pedal edema Skin: no rashes LABS: 05/24/2020 05:13 WBC x10^3 4.44 RBC x10^6 3.13 (L) HGB 8.9 (L) HCT 27.2 (L) MCV 86.9 MCH 28.4 MCHC 32.7 RDW-SD 46.0 RDW-CV 14.5 PLT x10^3 206 MPV 11.5 NRBC /100 WBC 0.0 NRBC x10^3 <0.01 GRAN MAT (NEUT) % 84.2 IMM GRAN % 0.50 LYMPH% 11.0 MONO % 4.3 EOS % 0.0 BASO % 0.0 GRAN MAT x10^3(ANC) 3.74 IMM GRAN x10^3 <0.03 LYMPH x10^3 0.49 (L) MONO x10^3 0.19 (L) EOS x10^3 <0.03 (L) BASO x10^3 <0.03 NA 139 K 3.7 CL 109 (H) CO2 TOTAL 24 AGAP 6 BUN 11 GLUCOSE 116 (H) CREATININE 0.70 eGFR CALCULATION (non ) 108.5 eGFR CALCULATION () 131.5 TOTAL BILI 0.3 CALCIUM 8.6 T PROTEIN 5.9 (L) ALBUMIN 3.1 (L) ALK PHOS 48 ALTv 8 AST(SGOT) 21 Blood Culture: negative for growth at 24h Urine Culture: Ecoli pending sensitivities ASSESSMENT/PLAN Acute UTI - unknown pathogen Hemodynamic instability 2/2 to UTI- resolved 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 Will follow-up urine culture results for susceptibility. - continue meropenem (day 3 of complete therapy, he received on dose near midnight on 05/21) - de-escalate once culture susceptibilities result; or can de-escalate to zosyn based on prior susceptibilities - c/w home tamsulosin Mild Intermittent Asthma exacerbation Acute Hypoxic respiratory failure requiring supplemental O2 Stable pulmonary nodules on CTPE Respiratory exam stable today, on 1L NC, will discontinue pending VS and clinical stability. - duonebs QIDPRN - IS Q30min - Stress dose steroids, continue Cortef TID (day 09/17 of steroid burst) - c/w home zafirlukast Hypotension from sepsis, resolved Hemodynamically stable as of right now, will continue to monitor. - follow-up VS Hyponatremia Adrenal insufficiency? hyponatremia resolved, hypotension resolved; currently stable and low concern for adrenal crisis; able to follow-up with PCP to discuss possible endocrine referral. - cortef 50 Q8H daily for mineralocorticoid activity (Day (09/17) of steroid burst) - can consider abdominal imaging and follow-up with Endocrinology on discharge Prophylaxis: DVT: heparin Stress Ulcer: no indication for prophylaxis/famotidine/pantoprazole Dispo: Pending Improvement clinically and culture results, possible discharge to home on Thursday Code Status: CPR Discussed with Dr Elias Toro MD COLLECTOR Associated attestation - Abdulaziz Griffin II, MD - 05/24/2020 9:45 PM CSTI personally examined the patient on 05/24/2020 and agree with 's resident note as written. I actively participated in the decision-making process. Please see the resident's note for additional details. Abdulaziz Griffin MD; Translator [facility] Finley MD - 05/24/2020 4:24 AM BILL COLLECTOR FAMILY MEDICINE NIGHT FLOAT NOTE Date and Time: 05/24/2020 04:24 Patient ID: Venu Lange is a 80 year old male admitted on 05/21/2020 Primary Problem: Acute cystitis without hematuria Subjective: Pt has difficulty falling asleep. Overnight Events: - None Objective: Temp: [36.2 C (97.2 F)-36.9 C (98.4 F)] Pulse: [64-96] Resp: [18-20] BP: (109-150)/(65-76) MAP (mmHg): [86-88] Intake/Output Summary (Last 24 hours) at 05/24/2020 0424 Last data filed at 05/24/2020 0008 Gross per 24 hour Intake 100 ml Output 1500 ml Net -1400 ml Assessment and Plan for the Next 12 Hours: - F/u UCx - Monitor vitals - Continue management per day team. - All else: continue management per day team. Disposition: pending clinical improvement Manasa Finley MD Department Of Family Medicine, PGY-2 bdulaziz Toro MD - 05/23/2020 5:44 PM CST Urine Culture >100,000 CFU/mL Escherichia coli Susceptibility to follow. Will await susceptibilities. Abdulaziz Toro MD 05/23/2020 5:44 PM bdulaziz Toro MD - 05/23/2020 9:36 AM BILL COLLECTOR FAMILY MEDICINE Progress Note Date of Service: 05/23/2020 Admission Date & Time: 05/21/2020 12:38 PM Admitting Provider: Dr Griffin PCP: Broderick Mills Chief Complaint: Shoulder Pain, admitted for uroseptic symptoms HPI Venu Lange is a 80 year old male with PMHx of has a past medical history of Asthma, BPH (benign prostatic hyperplasia), Complicated UTI (urinary tract infection) (12/02/2018), and Foot pain, left (03/07/2015). Patient is doing well this AM without complaints. ROS negative for nausea, vomiting, fevers, chills.Denies hematuria or dysuria. Denies cough or congestion, using IS. NC at 1L. No complaints this AM. PAST MEDICAL HISTORY Past Medical History: Diagnosis Date Asthma BPH (benign prostatic hyperplasia) Complicated UTI (urinary tract infection) 12/02/2018 Foot pain, left 03/07/2015 FAMILY MEDICAL HISTORY: Family History Problem Relation Age of Onset Cancer Father lung SURGICAL HISTORY Past Surgical History: Procedure Laterality Date COLONOSCOPY N/A 06/24/2018 Surgeon: Moe Salazar DO; Location: [facility] Location CYSTOLITHOTRIPSY N/A 08/25/2019 Surgeon: Brennan [...] Medina MD; Location: [facility] [place] SOCIAL HISTORY Social History Socioeconomic History Marital [...] file Gets together: Not on file Attends congregation service: Not on file Active member of [...] file Social History Narrative Not on file ALLERGIES No Known Allergies CURRENT MEDICATIONS: Current Facility-Administered Medications Medication Dose Route Frequency Last Rate Last Admin hydrocortisone sod succ (CORTEF) 50 mg in NaCl 0.9% (NS) piggyback 50 mg IV Piggyback Q8H 50 mg at 05/23/20 0529 NaCl 0.9% (NS) IV infusion 1,000 mL 1,000 mL IV Infusion CONTINUOUS 100 mL/hr at 05/23/20 0849 1,000 mL at 05/23/20 0849 acetaminophen (TYLENOL) tablet 650 mg 650 mg Oral Q6HPRN 650 mg at 05/23/20 0431 heparin (porcine) injection 5,000 Units 5,000 Units Subcutaneous Q12H 5,000 Units at 05/23/200849 ipratropium-albuteroL (DUONEB) 0.5 mg-3 mg(2.5 mg base)/3 mL nebulizer solution 3 mL 3 mL Inhalation QID 3 mL at 05/23/20 0819 ipratropium-albuteroL (DUONEB) 0.5 mg-3 mg(2.5 mg base)/3 mL nebulizer solution 3 mL 3 mL Inhalation QIDPRN 3 mL at 05/23/20 0501 meropenem (MERREM) 500 mg in NaCl 0.9% (NS) 100 mL MINI-BAG 500 mg IV Piggyback Q6H ABX 500 mg at 05/23/20 0846 tamsulosin (FLOMAX) capsule 0.4 mg 0.4 mg Oral DAILY 0.4 mg at 05/23/20 0849 zafirlukast (ACCOLATE) tablet 20 mg 20 mg Oral BIDAC 20 mg at 05/23/20 0849 REVIEW OF SYSTEMS: General: (-) change in weight, (-) fevers, (-) fatigue Cardiac: (-) CP, (-) palpitations Respiratory: (-) SOB, (-)cough GI: (-) nausea, (-) vomiting, (-) diarrhea, (-) constipation : (-) dysuria, (-) hematuria Musculoskeletal: (-) weakness PHYSICAL EXAMINATION BP 109/66 | Pulse 77 | Temp 36.7 C (98.1 F) (Oral) | Resp 20 | Ht 1.575 m (5' 2") | Wt 79.5kg (175 lb 4.3 oz) | SpO2 100% | BMI 32.06 kg/m General: NAD Neuro: A&O x 3 (person, place, time) HEENT: EOMI, MMM, no pharyngeal edema Cardiac: RRR, normal S1 and S2, 2+ radial pulses Respiratory: LCTAB, no wheezing or crackles Gastrointestinal: +BS x 4, NT/ND, Extremities: no pedal edema Skin: no rashes LABS: Results for MARCELLO LANGEDANII BIRCH ( ) as of 05/23/2020 09:32 05/22/2020 22:41 05/23/2020 04:45 WBC x10^3 4.92 RBC x10^6 3.51 (L) HGB 10.0 (L) HCT 30.3 (L) MCV 86.3 MCH 28.5 MCHC 33.0 RDW-SD 43.4 RDW-CV 14.0 PLT x10^3 189 MPV 11.5 NRBC /100 WBC 0.0 NRBC x10^3 <0.01 GRAN MAT (NEUT) % 88.2 IMM GRAN % 0.40 LYMPH% 7.9 MONO % 3.3 EOS % 0.2 BASO % 0.0 GRAN MAT x10^3(ANC) 4.34 IMM GRAN x10^3 <0.03 LYMPH x10^3 0.39 (L) MONO x10^3 0.16 (L) EOS x10^3 <0.03 (L) BASO x10^3 <0.03 NA 135 K 4.1 CL 106 CO2 TOTAL 22 (L) AGAP 7 BUN 10 GLUCOSE 129 (H) CREATININE 0.77 eGFR CALCULATION (non ) 97.2 eGFR CALCULATION () 117.8 TOTAL BILI 0.4 CALCIUM 8.8 T PROTEIN 6.7 ALBUMIN 3.4 (L) ALK PHOS 56 ALTv 9 AST(SGOT) 24 COLOR Yellow APPEARANCE Clear SP GRAVITY 1.014 PH 5.0 PROTEIN Negative GLU U QUAL Normal KETONES Negative BILIRUBIN Negative BLOOD Negative UROBILIN 2.0 mg/dL (A) NITRITE Negative LEUK NEMO 25/uL (A) RBC/HPF <1 WBC/HPF 1 BACTERIA Negative MUCOUS Slight (A) Blood Culture: Pending Urine Culture: Pending ASSESSMENT/PLAN Acute UTI - unknown pathogen Hemodynamic instability 2/2 to UTI- resolved 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 Will follow-up urine culture results for susceptibility. - continue meropenem (day 3/5) - de-escalate once culture susceptibilities result; or can de-escalate to zosyn based on prior susceptibilities - c/w home tamsulosin Mild Intermittent Asthma exacerbation Acute Hypoxic respiratory failure requiring supplemental O2 Stable pulmonary nodules on CTPE Respiratory exam stable today, on 1L NC, will discontinue pending VS and clinical stability. - duonebs QIDPRN - IS Q30min - Stress dose steroids, continue Cortef TID (day 35) - c/w home zafirlukast Hypotension from sepsis, resolved Hemodynamically stable as of right now, will continue to monitor. - follow-up VS Hyponatremia Adrenal insufficiency? Wiill continue Cortef for course of treatment but will consider changing to Prednisone for completion of burst, will reevaluate pending culture results and disposition. - cortef 50 Q8H daily for mineralocorticoid activity (Day (08/17)) - can consider abdominal imaging and follow-up with Endocrinology on discharge Prophylaxis: DVT: heparin Stress Ulcer: no indication for prophylaxis/famotidine/pantoprazole Dispo: Pending Improvement clinically and culture results, possible discharge to home on Thursday Code Status: CPR Discussed with Dr Elias Toro MD COLLECTOR Associated attestation - Abdulaziz Griffin II, MD - 05/23/2020 9:52 PM CSTI personally examined the patient on 05/23/2020 and agree with 's resident note as written.I actively participated in the decision-making process. Please see the resident's note for additional details. Abdulaziz Griffin MD; Translator [facility] MD - 05/23/2020 4:18 AM BILL COLLECTOR FAMILY MEDICINE NIGHT FLOAT NOTE Date and Time: 05/23/2020 04:18 Patient ID: Venu Lange is a 80 year old male admitted on 05/21/2020 Primary Problem: Acute cystitis without hematuria Subjective: Pt has no complaints overnight. Overnight Events: - None Objective: Temp: [35.7 C (96.2 F)-37.6 C (99.7 F)] Heart Rate (monitor): [66-87] Pulse: [61-90] Resp: [11-22] BP: (92-132)/(37-90) MAP (mmHg): [56-95] Intake/Output Summary (Last 24 hours) at 05/23/2020 0418 Last data filed at 05/22/2020 2241 Gross per 24 hour Intake 1540 ml Output 2725 ml Net -1185 ml Assessment and Plan for the Next 12 Hours: - F/u BCx - F/u Ucx - c/w duonebs - Monitor vitals - Continue management per day team. - All else: continue management per day team. Disposition: pending clinical improvement Manasa Finley MD Department Of Family Medicine, PGY-2 Abdulaziz Wong MD - 05/22/2020 5:31 PM CST FAMILY MEDICINE H&P/Transfer Acceptance Note Date of Service: 05/22/2020 Admission Date & Time: 05/21/2020 12:38 PM Admitting Provider: Dr Griffin PCP: Broderick Mills Chief Complaint: Shoulder Pain HPI Venu Lange is a 80 year old male with PMHx of has a past medical history of Asthma, BPH (benign prostatic hyperplasia), Complicated UTI (urinary tract infection) (12/02/2018), and Foot pain, left (03/07/2015). Patient is an 80 year-old male with hospital course as detailed below who was admitted to MICU for severe UTI with hemodynamic insufficiency, which resolved with IVF resuscitation and antibiotics. Upontransfer to floor he is alert and oriented. He has no complaints at this time. He denies fevers or chills, denies nausea or vomiting. He is on 2L NC but denies dyspnea, cough, or congestion. For his UTI he was started on Merrem, today is day 2. No urine culture was taken upon admission though UA was positive for LE and Nitrites. He has a history of Asthma and was treated concurrently for possible exacerbation. Given that he was hypotensive with hyponatremia and history of sodium wasting and low AM Cortisol, he was started on Cortef (Stress dosed steroids) for possible adrenal insufficiency. No history of endocrinology evaluation. Hospital Course from Dr Schaffer from MICU 05/22/2020: 80 y/o M with PMH HTN, HLD, ESBL E coli UTI, tobacco abuse, BPH s/p TURP presents with sepsis from UTI. Fluid resuscitated and empiric antibiotics started with hemodynamic improvement. Steroids startedfor asthma exacerbation as well as possibly adrenal dysfunction. PAST MEDICAL HISTORY Past Medical History: Diagnosis Date Asthma BPH (benign prostatic hyperplasia) Complicated UTI (urinary tract infection) 12/02/2018 Foot pain, left 03/07/2015 FAMILY MEDICAL HISTORY: Family History Problem Relation Age of Onset Cancer Father lung SURGICAL HISTORY Past Surgical History: Procedure Laterality Date COLONOSCOPY N/A 06/24/2018 Surgeon: Moe [facility] DO; Location: [facility] Location CYSTOLITHOTRIPSY N/A 08/25/2019 Surgeon: Brennan Medina MD; Location: [facility] EXPLORATORY LAPAROTOMY HERNIA REPAIR LAPAROSCOPIC ROBOTIC ASSISTED INGUINAL HERNIORRHAPHY Left 06/29/2019 Surgeon: Silverio Collier MD; [facility] LAPAROSCOPIC ROBOTIC ASSISTED VENTRAL HERNIORRHAPHY N/A 06/29/2019 Surgeon: Silverio Collier MD; [facility] TRANSURETHRAL PROSTATE RESECTION N/A 08/25/2019 Surgeon: Brennan Medina MD; [facility] SOCIAL HISTORY Social History Socioeconomic History Marital [...] file Gets together: Not on file Attends congregation service: Not on file Active member of [...] file Social History Narrative Not on file ALLERGIES No Known Allergies CURRENT MEDICATIONS: Current Facility-Administered Medications Medication Dose Route Frequency Last Rate Last Admin hydrocortisone sod succ (CORTEF) 50 mg in NaCl 0.9% (NS) piggyback 50 mg IV Piggyback Q8H acetaminophen (TYLENOL) tablet 650 mg 650 mg Oral Q6HPRN 650 mg at 05/22/20 0932 dextrose 50 % in water (D50W) injection 25 mL 25 mL Slow IV Push PRN glucagon (GLUCAGEN DIAGNOSTIC KIT) injection 1 mg 1 mg Intramuscular PRN heparin (porcine) injection 5,000 Units 5,000 Units Subcutaneous Q12H 5,000 Units at ipratropium-albuteroL (DUONEB) 0.5 mg-3 mg(2.5 mg base)/3 mL nebulizer solution 3 mL 3 mL Inhalation QID 3 mL at 05/22/20 1631 ipratropium-albuteroL (DUONEB) 0.5 mg-3 mg(2.5 mg base)/3 mL nebulizer solution 3 mL 3 mL Inhalation QIDPRN meropenem (MERREM) 500 mg in NaCl 0.9% (NS) 100 mL MINI-BAG 500 mg IV Piggyback Q6H ABX 500 mg at 05/22/20 1200 tamsulosin (FLOMAX) capsule 0.4 mg 0.4 mg Oral DAILY 0.4 mg at 05/22/20 0802 zafirlukast (ACCOLATE) tablet 20 mg 20 mg Oral BIDAC 20 mg at 05/22/20 0932 REVIEW OF SYSTEMS: General: (-) change in weight, (-) fevers, (-) fatigue Cardiac: (-) CP, (-) palpitations Respiratory: (-) SOB, (-)cough GI: (-) nausea, (-) vomiting, (-) diarrhea, (-) constipation : (-) dysuria, (-) hematuria Musculoskeletal: (-) weakness PHYSICAL EXAMINATION BP 129/74 (BP Location: Left arm, Patient Position: Sitting) | Pulse 84 | Temp 35.7 C (96.2 F)(Oral) | Resp 18 | Ht 1.575 m (5' 2") | Wt 79.5 kg (175 lb 4.3 oz) | SpO2 96% | BMI 32.06 kg/m General: NAD Neuro: A&O x 3 (person, place, time) HEENT: EOMI, MMM, no pharyngeal edema Cardiac: RRR, normal S1 and S2, 2+ radial pulses Respiratory: LCTAB, no wheezing or crackles Gastrointestinal: +BS x 4, NT/ND, Extremities: no pedal edema Skin: no rashes LABS: CBC WBC x10^3 (/uL) Date Value 03/01/2013 5.8 WBC (10*3/L) Date Value 05/22/2020 3.96 (L) RBC x10^6 (/uL) Date Value 03/01/2013 4.70 RBC (10*6/L) Date Value 05/22/2020 3.34 (L) PLT x10^3 (/uL) Date Value 03/01/2013 164 PLT (10*3/L) Date Value 05/22/2020 162 HGB Date Value 05/22/2020 9.5 g/dL (L) 03/01/2013 13.9 G/DL HCT (%) Date Value 05/22/2020 29.3 (L) 03/01/2013 42.5 BMP NA Date Value 05/22/2020 133 mmol/L (L) 03/01/2013 139 MMOL/L K Date Value 05/22/2020 4.0 mmol/L 03/01/2013 4.1 MMOL/L CALCIUM Date Value 05/22/2020 8.2 mg/dL (L) 03/01/2013 9.5 MG/DL CL Date Value 05/22/2020 105 mmol/L 03/01/2013 100 MMOL/L BUN Date Value 05/22/2020 8 mg/dL 03/01/2013 16 MG/DL CREATININE Date Value 05/22/2020 0.84 mg/dL 03/01/2013 0.90 MG/DL GLUCOSE Date Value 05/22/2020 92 mg/dL 03/01/2013 104 MG/DL CO2 TOTAL Date Value 05/22/2020 22 mmol/L (L) 03/01/2013 29 MMOL/L PROTEIN (no units) Date Value 05/21/2020 Negative 03/01/2013 NEGATIVE PH (no units) Date Value 05/21/2020 7.0 03/01/2013 6.5 GLU U QUAL (no units) Date Value 05/21/2020 Normal 03/01/2013 NORMAL KETONES (no units) Date Value 05/21/2020 Negative 03/01/2013 NEGATIVE BILIRUBIN (no units) Date Value 05/21/2020 Negative 03/01/2013 NEGATIVE BLOOD (no units) Date Value 03/01/2013 NEGATIVE No results found for: UUROBILIN LEUK NEMO (no units) Date Value 05/21/2020 250/uL (A) 03/01/2013 75/uL (A) NITRITE (no units) Date Value 05/21/2020 Positive (A) 03/01/2013 NEGATIVE SP GRAVITY (no units) Date Value 05/21/2020 1.014 03/01/2013 1.014 RADIOLOGY: Impression: 1. No evidence of pulmonary embolus. 2. No pulmonary mass or consolidation. No pleural effusion. Stable small bilateral pulmonary nodules measuring up to 7 mm in size. 3. Coronary artery atherosclerosis. 4. 3.3 cm partially visualized hypodense left renal lesion, possibly a cyst. Further evaluation with CT or MRI without and with contrast within 6-12 months is suggested. 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 Will repeat UA at this time as well as urine culture. Patient is alert and oriented and in no acute distress. Will continue tomonitor VS will await urine studies and will follow-up results. Will not alter antibiotics overnightbut will consider possible change to Zosyn given previous result in March. - continue meropenem (day 2/5) - de-escalate once culture susceptibilities result; or can de-escalate to zosyn based on prior susceptibilities - c/w home tamsulosin Asthma exacerbation Stable pulmonary nodules on CTPE Patient was started on Cortef for possible adrenal insufficiency, however, there is low clinical evidence for this apart from one lab result this year and a note from nephrology. Will continue Cortef tonight as dose is equivalent to steroid burst from prednisone, but will reassess for change to prednisone in AM. On NC now, will trial discontinuation to RA in AM. - duonebs QID + PRN - Stress dose steroids for 4 days at least, continue Cortef TID - c/w home zafirlukast Hypotension from sepsis, resolved Hemodynamically stable as of right now, will continue to monitor overnight. - follow-up VS Hyponatremia Adrenal insufficiency? This was explored by MICU team, it's very possible that this is a possibility and will recommend to PCP to consider endocrinology consultation upon discharge. Will continue steroid treatment for now. - may explain why patient is hyponatremic and hypotensive - previous urine studies show sodium wasting - cortef 50 Q8H daily for mineralocorticoid activity - can consider abdominal imaging on discharge Prophylaxis: DVT: heparin Stress Ulcer: no indication for prophylaxis/famotidine/pantoprazole Dispo: Pending Improvement clinically and culture results, possible discharge to home in 1-2 days Code Status: CPR Dr Griffin notified of patient's Transfer. Abdulaziz Toro MD COLLECTOR Associated attestation - Abdulaziz Griffin II, MD - 05/23/2020 10:42 PM CSTI was informed of the patients transfer on 05/22/2020 and agree with 's resident note as written. I actively participated in the decision-making process. Please see the resident's note for additional details. Abdulaziz Griffin MD; [facility]ator [facility] [place] grossman MD - 05/22/2020 12:50 PM BILL COLLECTOR MICU Progress Note Date of Service: 05/22/2020 12:51 Reason for ICU admission: sepsis ICU Day: 2 Intubation Day: n/a Code Status: Full Last 24 hour events (major events): Transferred to ICU Hypotension resolved with aggressive fluid resuscitation Subjective: Patient without acute complaints. Lines (with dates): PIV 05/21/2020, 20G left antecubital Delgado: n/a Intake/Output: Intake/Output Summary (Last 24 hours) at 05/22/2020 1251 Last data filed at 05/22/2020 0800 Gross per 24 hour Intake 850 ml Output 2700 ml Net -1850 ml Physical Exam: Temp: [37 C (98.6 F)-38.1 C (100.6 F)] Heart Rate (monitor): [62-94] Pulse: [61-97] Resp: [15-22] BP: (80-143)/(37-77) MAP (mmHg): [56-94] Constitutional: alert and oriented; no apparent distress HEENT: PERRLA Resp: clear to auscultation bilaterally Cardio: S1, S2 normal; no murmurs, rubs or gallops, regular rate and rhythm GI: soft; non-tender; non-distended; normoactive bowel sounds MSK: no clubbing, cyanosis, or edema, R shoulder with pain on ROM Integ: no rashes Neuro: no focal deficits Labs (pertinent only)/Imaging: Xr Chest 1 Vw Result Date: 05/21/2020 Impression: No lung consolidation. Scattered left lung nodules better evaluated by recent CT. Us Retroperitoneal Limited Result Date: 05/22/2020 Suboptimal visualization of the right kidney. 1. Multiple cystic areas in the renal pelvises. Correlating with multiple prior abdominal CTs, these likely represent parapelvic cysts, rather than hydronephrosis. 2. Otherwise, unremarkable renal ultrasound. Preliminary Report Dictated by Resident: Miranda Garcia. I, Bharat Najera MD., have reviewed this study and agree with the above report. Ct Chest Pulmonary Angiogram Result Date: 05/21/2020 Impression: 1. No evidence of pulmonary embolus. 2. No pulmonary mass or consolidation. No pleural effusion. Stable small bilateral pulmonary nodules measuring up to 7 mm in size. 3. Coronary artery atherosclerosis. 4. 3.3 cm partially visualized hypodense left renal lesion, possibly a cyst. Further e valuation with CT or MRI without and with contrast within 6-12 months is suggested. RL: [id number] AFC: [id number] End of Report Xr Shoulder 2+ Vw Right Result Date: 05/21/2020 Impression: 1. No acute osseous abnormalities. Location Code: 2831 Microbiology: Blood cx: pending Urine cx: pending Assessment/Plan: Venu Lange is a 80 year old male admitted with hypotension from sepsis presumably 2/2 UTI Neuro No acute issues Resp Asthma exacerbation Stable pulmonary nodules on CTPE Treating patient for asthma exacerbation. Satting well on RA. 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 - currently on empiric meropenem - de-escalate once culture susceptibilities result; or can de-escalate to zosyn based on prior susceptibilities - c/w home tamsulosin Endo Hyponatremia Adrenal insufficiency? - may explain why patient is hyponatremic and hypotensive - previous urine studies show sodium wasting - cortef 50 Q8H daily for mineralocorticoid activity - can consider abdominal imaging -> no apparent lesions in adrenals in CT on 07/11/2019; however maylin am was low on 03/16/2020 as well as this admission - abdominal imaging would be able to follow up on known renal lesions as well - consider endocrinology consultation if concerned for adrenal insufficiency (ACTH stimulating test?) Other DVT prophylaxis: heparin PPI: no current indication Dispo: floor Prognosis: fair Bharat Schaffer MD Internal Medicine PGY2 [facility] Team Pager [phone] Hospital Course: 80 y/o M with PMH HTN, HLD, ESBL E coli UTI, tobacco abuse, BPH s/p TURP presents with sepsis from UTI. Fluid resuscitated and empiric antibiotics started with hemodynamic improvement. Steroids startedfor asthma exacerbation as well as possibly adrenal dysfunction. Dana Galindo LMSW - 05/22/2020 9:33 AM CSTCare Management Social Functional Assessment Patient Name: Venu Lange Age: [age] year old Sex: male Patient's Previous Admission Date at [facility]: 07/11/2019 LEADERSHIP PROGRAM INTERN spoke with family to complete SFA. Role of Care Management explained. Initial LEADERSHIP PROGRAM INTERN screening and initial discharge plan established. LEADERSHIP PROGRAM INTERN anticipates patient to discharge to prior living situation and to be provided information on after care, medication management, and follow-ups prior to discharge. No discharge barriers identified. Patient resides with his daughter, Lillian, in [place] and uses a cane or walker as needed. Patient has good support from his children. Daughters will provide transportation home. Current diagnosis and co-morbidities: SHOULDER PAIN Readmission Questions: Was patient discharged from any acute care hospital within the last 30 days: No Social Functional Assessment: Primary language spoken/preferred: Thai Mental Status: Alert & Oriented to Person,Place & Time Information given by: Child Name and phone number of person giving information: Greta Lange-daughter [phone] Patient's support system: Child Name and number of support system: Greta Lange-daughter [phone]; Lillian Coles-daughter [phone] Primary Surgical Attendant: Self MPOA: No Living Arrangement: Home Address of living arrangement : [address] [place] [id number] Persons living in home: Self;Child Names & numbers of persons living in home: Lillian Coles-daughter [phone] Barriers to returning home: None Baseline functional status- ambulation: Independent(uses a cane due to knee arthritis) Functional status-baseline personal care: Independent Baseline functional status- driving: Independent Baseline functional status- grocery shopping: Independent Functional status-baseline housekeeping: Independent Functional status-baseline meal prep: Independent Current functional status same as prior: Yes Do you have a PCP?: Yes Name of PCP: Dr. Broderick Mills [facility] Agency: No Provider Services: No DME Company: No Equipment: Cane;Walker Hemodialysis: No Community resources utilized: None Funding Resources: Medicare Replacement;Supplement/Secondary Medicare Replacement name and information: [facility] Prescription coverage plan: Medicare Part D;Medicaid-3 slots Pharmacy where meds are filled: Other Other pharmacy: [facility] [address] [place] [address] Anticipated services prior to disharge: Continue Medical Eval Expected mode of discharge transportation: Same as support system Additional info required for discharge planning: Pending medical evaluation;Pending P/T O/T recommendation Recommended discharge plan: Home Any issues or concerns with obtaining/affording your medications at home: no. Are you or your support system able to pick pulling machine operator medications at discharge: yes. Describe: Daughters will pick pulling machine operator. SFA Complete: Social Functional Assessment complete: Yes Alcohol Use Screening (AUDIT-C) How often do you have a drink containing alcohol?: Never SCORE: 0 Role of Care Management explained. Dana Kerns LMSW Machine Joiner Cementer Care Management-Art Professor Dyan Guerrero MD - 05/21/2020 11:01 PM CSTWife in [place]: Shaka Carlton [phone]. Does not speak Uruguayan. Permission granted to speak with daughter Lillian. documented in this encounter H&P Notes Dyan Nolasco MD - 05/21/2020 9:32 PM CST Medicine Intensive Care History and Physical / Transfer Note Date of Service: 05/21/2020 21:32 ICU day: Intubation Day: CHIEF COMPLAINT: shoulder pain, hypotension, UTI History of Present Illness Venu Lange is a 80 year old male HTN, HLD, ESBL E coli UTI (07/11/2019 also with abdominal wall seroma), smoking (40 pack-year), BPH s/p TURP - bladder hernia s/p robotic herniorrhapthy - and bladder calculi s/p cystolitholapaxy, recurrent symptomatic hyponatremia, inguinal/ventral hernia s/p robotic repair, presenting to [place] ER with R shoulder pain x 1 day, transferred to [facility] MICU withhypotension likely 2/2 UTI. Per EMS/technical data analyst, he presented to [place] ER at 2 pm 05/21 with shoulder pain and head pain - but denies dizziness, burning with urination (although per ED note did have dysuria); felt "hot" at home but unsure if had fever. Also complained of SOB from asthma for which he has been taking an i nhaler 2x per day with a pill twice daily (Zafirlukast?). Denies recent vomiting (and per ED note has had poor PO intake), but states he last vomited 8 days ago. Per chart was seen by GI for n/v thought to be 2/2 excessive albuterol inhaler use, appeared to have resolved and endoscopy deferred. Denies fall, previous shoulder injury, chest pain, previous heart problems. Lives at home with family.States he only takes asthma medication and prostate medication (per daughter, tamsulosin, Zafirlukast, inhaler). At [place] ER, patient was noted to have positive UA. R shoulder XR negative - AC joint likely 2/2chronic repetitive trauma or prior surgery. CTPE was negative for PE, mass, consolidation, pleuraleffusion; had stable small b/l pulm nodules up to 7 mm, coronary artery athlerosclerosis, 3.3 cm L renal lesion (possibly cyst, f/u 6-[address] or MRI). Na 129, lactic acid 0.87. Low cortisol noted 1.2 04/11/2020. Free T4 0.68 low, TSH 1.59 wnl. Negative COVID. Was noted to have fever 100.2 at OSHand given Tylenol, CTX, and 3 L IVF for presumed UTI. Was to be discharged but noted to be hypotensive and sent to [facility] MICU. Per EMS, en route, SBP 80s, but patient otherwise asymptomatic and denied d izziness. Permission granted to speak with daughter Lillian. States he is with in [place], but cannot remember phone number. PAST MEDICAL HISTORY Past Medical History: Diagnosis Date Asthma BPH (benign prostatic hyperplasia) Complicated UTI (urinary tract infection) 12/02/2018 Foot pain, left 03/07/2015 PAST SURGICAL HISTORY Past Surgical History: Procedure Laterality Date COLONOSCOPY N/A 06/24/2018 Surgeon: Moe Salazar DO; Location: [facility] Location CYSTOLITHOTRIPSY N/A 08/25/2019 Surgeon: Brennan Medina MD; [facility] EXPLORATORY LAPAROTOMY HERNIA REPAIR LAPAROSCOPIC ROBOTIC ASSISTED INGUINAL HERNIORRHAPHY Left 06/29/2019 Surgeon: Silverio Collier MD; Location: [facility] LAPAROSCOPIC ROBOTIC ASSISTED VENTRAL HERNIORRHAPHY N/A 06/29/2019 Surgeon: Silverio Collier MD; Location: [facility] TRANSURETHRAL PROSTATE RESECTION N/A 08/25/2019 Surgeon: Brennan Medina MD; [facility] FAMILY HISTORY Family History Problem Relation Age of Onset Cancer Father lung SOCIAL HISTORY Social History Tobacco Use Smoking status: Former Smoker Smokeless tobacco: Never Used Substance Use Topics Alcohol use: No Alcohol/week: 0.0 standard drinks Comment: rare Drug use: No Social History Social History Narrative Not on file ALLERGIES No Known Allergies REVIEW OF SYSTEMS (-)=Negative,(+)=Positive General: (+) fever Skin: negative HEENT: (+) headache Neck: negative Heme: negative Resp: (+) shortness of breath, (+) dyspnea on exertion Cardio: (-) chest pain GI: (+) nausea, (+) vomiting : (+) dysuria Endo: negative Neuro: negative Back: negative VITALY: R shoulder pain Psych: negative PHYSICAL EXAMINATION Vitals: 05/21/20 1730 05/21/20 1900 05/21/20 1915 05/21/20 1930 BP: 96/61 97/61 102/72 99/71 Pulse: 97 70 77 69 Resp: Temp: TempSrc: SpO2: 100% 95% 92% 95% Weight: Constitutional: alert and oriented x 3 (person, place, date/time and situation); no apparent distress HEENT: pupils equal, round, reactive to light Neck: supple Resp: wheezes Cardio: regular rate and rhythm GI: soft; non-tender; non-distended; normoactive bowel sounds : B descended testes, no masses, normal phallus Rectal: not examined Extremities: R shoulder reduced ROM passive and active, pain-limited MSK: 1+ edema at ankles Integ: no rashes Neuro: cranial nerves II through XII grossly intact; sensation grossly intact; muscle strength 5 outof 5 in all four extremities Labs (pertinent only)/Imaging: reviewed Xr Chest 1 Vw Result Date: 05/21/2020 Impression: No lung consolidation. Scattered left lung nodules better evaluated by recent CT. Ct Chest Pulmonary Angiogram Result Date: 05/21/2020 Impression: 1. No evidence of pulmonary embolus. 2. No pulmonary mass or consolidation. No pleural effusion. Stable small bilateral pulmonary nodules measuring up to 7 mm in size. 3. Coronary artery atherosclerosis. 4. 3.3 cm partially visualized hypodense left renal lesion, possibly a cyst. Further e valuation with CT or MRI without and with contrast within 6-12 months is suggested. Xr Shoulder 2+ Vw Right Result Date: 05/21/2020 Impression: 1. No acute osseous abnormalities. Microbiology: 03/2020 U Cx: ESBL E coli, susceptible to ertapenem, zosyn (not ceftriaxone) Chart Review 05/14/2020 GI Office Visit for Nausea HISTORY: HPI: Venu Lange is a 80 year old male with [...] of breath nausea and vomiting (external to [facility] system) and was noted to be using [...] - COLONIC MUCOSA WITH NO PATHOLOGIC CHANGE Nausea and Emesis, resolved Resolved, appeared to [...] time for which they are in agreement 04/11/2020 - Nephrology Venu Lange is a 80 year old male with PMHx (listed below) that includes BPH, recurrent UTIsand hyponatremia. Mr. Lange reports having longstanding obstructive urinary symptoms including [...] abated. Patient has 40 pack year history. 70M with history of asthma, BPH, recurrent [...] Recurrent UTI: - Urine Culture and Sensitivity Assessment/Plan: Venu Lange is a 80 year old male admitted with hypotension secondary to UTI, likely ESBL E Coli Neuro A&Ox3, no acute issues - monitor Resp Asthma exacerbation Stable pulmonary nodules on CTPE Was markedly breathless taking albuterol BID and an oral medication BID (presumably home zafirlukastper chart). Will treat for asthma exacerbation. Satting well on RA. - duonebs QID + PRN - prednisone 40 mg PO daily x 4 days - c/w home zafirlukast - peak flow - incentive spirometry Cardiovascular Hypotension 2/2 urosepsis and/or hypovolemia, improved Hx ESBL E Coli UTI Was given 3L fluid at OSH (sepsis dose) and ceftriaxone, but per chart has history of recent ESBL E coli resistant to ceftriaxone. Switched to zoysn. Limbs feel cool but EKG showed normal sinus. Febrile at OSH, 100.2F on admission. Patient has extensive urologic history as below. Hypotension resol guillermo with an additional L IVF. - merrem - 1 L fluid - intake/output - f/u BCx, UA, Ucx - strict intake and output R shoulder pain No acute fractures seen on XR - AC joint likely 2/2 chronic repetitive trauma and/or surgery. Trendtroponin to rule out possible cardiac etiology causing atypical chest pain. EKG showed normal sinusrhythm, L axis deviation, HR 76. - Tylenol PRN - EKG - trend troponin FEN/GI Nausea/vomiting Has not had in 8 days, had some decreased PO intake prior to hospitalization Stress ulcer prophylaxis: none Nutrition: cardiac diet - dietary ID UTI Hx ESBL E coli UTI - as above Renal Hx ESBL E coli UTI Hx hyponatemia, symptomatic 3.3 cm L renal lesion, possibly cyst Low AM Cortisol Recent nephrology admission showed euvolemic hyponatermia concern for tea/toast, adrenal dysfunction, SIAD (malignancy - but CTPE neative for mass or consolidation), thyroid. Check for adrenal insufficiency as cause of hypotension. TSH within normal limits but Free T4 slightly low. - f/u AM cortisol - f/u CT or MRI w and w/o contrast in 6-12 mo (renal lesion) - abx as above - US kidney (check for pyelo / hydronephrosis given hx of BPH, cyst given CTPE imaging) Endo Concern for adrenal insufficiency, as above. A1c 5.6 03/2020. - as above Other BPH s/p TURP Bladder hernia s/p herniopathy Bladder stones s/p cystolithopraxy Lower urinary tract symptoms - c/w tamsulosin (Flomax) - abx as above DVT prophylaxis: heparin Lines/Catheters: 05/21 R PIV 20G 05/21 L PIV 20G Dispo: possible TTF in AM Prognosis: Guarded Code Status: Full Dyan Nolasco MD Internal Medicine PGY-3 [facility] Team COLLECTOR Associated attestation - Bryce Dodge MD - 05/22/2020 8:34 AM CSTI saw and examined this pt and case discussed with Dr. Nolasco on rounds this morning and I agree with the presentation, assessment, and plan from 05/22/2020. I have also reviewed the H&P by Dr. Nolasco and I agree with the history, physical examination, assessment and plan from the 12/7/20 admission. Venu Lange is a 80 year old male admitted with Severe Sepsis due to #2- hypotension resolved with aggressive IVF Uti- h/o ESBL e coli Hyponatremia, hypoalb, PLAN: F/u cultures C/w empiric antimicrobials Ok to ttfdocumented in this encounter Procedure Notes Bassem Liu RN - 05/28/2020 5:45 PM CSTVascular Access Services Date of Service: 05/28/20 Procedure performed by: Bassem Doran RN, [facility] Patient location: [facility] Indication/Diagnosis: intravenous access and rat exterminator antibiotics Consent: indications/complications discussed; written consent obtained from patient Education provided to the patient, including pros and cons of PICC insertion. Questions encouraged and answered accordingly. Time Out was Performed According to Checklist: yes Co-signer: PARISH Horvath Any breaches/deviations from checklist noted: no Sterile technique was used : A cap and mask were donned, hand hygiene was performed and sterile gownand gloves were donned. The skin was prepped with 2% chlorhexidine and the solution was allowed to dry. A full body fenestrated drape was placed over the patient without contaminating the drape during placement. Anesthesia: local: 1% lidocaine Ultrasound utilized: yes [place] Location used: yes 3CG Tip Location System used: yes Sterile dressing: yes Narrative: Patient was prepped using chlorhexidine and draped utilizing max-barrier precautions. A single-lumenBard PICC line was introduced with the Modified- Seldinger technique into the right basilic vein in one attempt(s). Guide wire was threaded without difficulty. The micro-introducer was then placed over the guide wire, the guide wire was removed, and then the catheter was inserted through the micro-introducer. The micro-introducer was then peeled away and the PICC was secured using sutures. Good flow was noted from the port(s) and the catheter flushed easily. Blood loss was minimal. Trimmed length: 38 cm. Exposed catheter: 0 cm. Baseline Arm Circumference: 28 cm. Complications: none Chest x-ray: ordered and pending Tip Confirmed and released using 3CG Tip Location System: no REF#: [id number] Lot #: [id number] Exp Date: 10/12/20 COLLECTOR documented in this encounter Consult Notes Chuck Nick PT - 05/24/2020 12:53 PM CSTAssociated Order(s): CONSULT ADULT PHYSICAL [id number]/24/2020 12:53 PM Physical therapy note: Duplicate consult. Thank you. Chuck Nick PT, DPT adine Patel OT - 05/23/2020 9:14 AM CSTAssociated Order(s): CONSULT ADULT OCCUPATIONAL THERAPYDuplicate Consult. Chuck Kaufman PT - 05/23/2020 8:56 AM CSTAssociated Order(s): CONSULT ADULT PHYSICAL [id number]/9/2020 8:56 AM Physical therapy note: Physical therapy consult received and chart reviewed however patient is evaluated on 05/22/20. Please notes for details. Thank you. Chuck Nick PT, DPT Chuck Kaufman PT - 05/22/2020 11:57 AM CSTAssociated Order(s): CONSULT ADULT PHYSICAL THERAPY Patient agreeable to working with physical therapy. Patient met sitting in the recliner. Vitals: HR: 74 bpm, Spo2:94% RR: 22 bpm, BP: 97/58 MAP: 69. technical data analyst used ID # [id number] PHYSICAL THERAPY EVALUATION Consult received, chart reviewed and evaluation complete this date. Patient is referred to PT for evaluation and treatment. Patient is a 80 year old male who presents to hospital for SHOULDER PAIN . Discharge Recommendations: Therapy Needs and Potential: Patient would benefit from continued physical therapy services to address: decline in bed mobility decline in transfers decline in gait and/or balance decreased strength decreased endurance Patient demonstrates good potential to improve and meet therapy goals with further physical therapy services. Patient appears motivated to improve their functional mobility and return to their previous levelof function. Challenges to Home Transition: increased risk of falls decreased caregiver availability decreased safety awareness Equipment recommendations: to be decided as patient able to tolerate further therapy Current Functional Status and/or Treatment:Functional mobility training, Transfer training and Gait training Bed Mobility: Sit to supine: patient provided with mod assist with verbal cues. scooting in supine: patient provided with max assist x 2 with verbal cues. . Transfers: Sit to stand: Moderate assist using Rolling Walker with verbal cues for hand placement and technique Stand to sit: Minimal assist using Rolling Walker with verbal cues for hand placement and technique Ambulation: Assisted patient with ambulation as follows: 3 steps to the chair min assist with verbal cues for gait pattern. feet using Rolling Walker Therapeutic exercise: instructed patient in the following: ankle pumps, heel slides, hip abduction/adduction After session, patient Semi reclined in bed. Call button provided. Patient vitals at the end of session HR: 73 bpm, Spo2: 95%, RR: 19 bpm PLAN OF CARE: At least 2 times per week, once or twice a day (while in hospital) per patient's tolerance and medical needs. See below for complete details. Admit Date: 05/21/2020 Hospital Diagnosis:SHOULDER PAIN PT Diagnosis: Difficulty walking and Weakness Weight Bearing Precaution: WBAT General Precautions: PPE used:Gloves and Surgical mask, General, Fall,IV icu monitor lines , Bracing/Cast present or required:knee brace on the Rt LE PMH: Past Medical History: Diagnosis Date Asthma BPH (benign prostatic hyperplasia) Complicated UTI (urinary tract infection) 12/02/2018 Foot pain, left 03/07/2015 PSH: Past Surgical History: Procedure Laterality Date COLONOSCOPY N/A 06/24/2018 Surgeon: Moe [facility]azar DO; Location: [facility] Location CYSTOLITHOTRIPSY N/A 08/25/2019 Surgeon: Brennan [...] Medina MD; Location: [facility] [place] Prior Living Situation: per patient he lives with his daughter DME: Single Point Cane Prior level of Mobility: community ambulation Subjective: patient states that he was ambulating with std cane Patient/Family Goals: to get better Patient/Family verbalizes understanding of condition: Yes PAIN: Patient c/o pain however did not rate pain COMMUNICATION Primary Language: Uruguayan Able to Verbalize needs: Yes Vision:good; no issues reported Hearing:good; no issues reported ORIENTATION/COGNITION: Oriented to: person, place, date/time and situation Awake: Yes Alert: Yes Dizzy: No Follows Commands: Yes 1-Step Yes Multi-Step Yes Inconsistent: No NEUROLOGICAL Light Touch: within functional limits bilateral LE, Tone: normal BALANCE: Sitting: Static: Good Dynamic: Fair+ Standing: Static: Fair+ Dynamic: Fair RANGE OF MOTION: within functional limits bilateral LE STRENGTH: 3+/5 (F+), bilateral LE ENDURANCE: Fair, Room air SKIN INTEGRITY: defer to nursing notes PROBLEM LIST: Decline in bed mobility, Decline in gait, Decline in transfers, Difficulty with stairs, Decreased strength, Decreased endurance and Decreased balance ASSESSMENT: Patient is a 80 year old male seen secondary to the above listed diagnosis. Patient would benefit from continued PT to address the above listed deficits to maximize independence and safety with functional mobility. Rehabilitation Potential: fair Goals: The following goals are to maximize independence and safety with functional mobility to eventually return to prior living situation and prior functional status. Upon discharge, patient and/or family will demonstrate the followin. Supine-sit: Modified independent 2. Sit to stand: Modified independent using Rolling Walker Stand to sit: Modified independent using Rolling Walker 3. Modified independent with ambulation, Feet: 300 using least assistive device. 4. Demonstrate or verbalize understanding of home exercise program in order to continue with their rehab on their own. Treatment Plan: Gait training, Therapeutic exercise, Transfer training, Balance training, Bed mobility training, Equipment needs assessment and Safety education, patient/caregiver education PATIENT EDUCATION: Patient provided with preferred teaching of verbal information on role of PT, plan of care. Shows readiness to learn. Verbal instruction teaching provided. Individualverbalizes understanding of teaching provided. Total Time Tx Codes in Minutes: 15 min Total Treatment Time in Minutes: 30 min Chuck San. ESTELLE Nick, DPT Nadine Lincoln OT - 05/22/2020 10:49 AM CSTAssociated Order(s): CONSULT ADULT OCCUPATIONAL THERAPY OT GENERAL EVALUATION Consult received via [employer], EMR reviewed and evaluation completed 05/22/20. Patient referred to occupational therapy for evaluation and treatment secondary to shoulder pain, hypotension, UTI. Patient agreeable to participate in occupational therapy. Discharge Recommendations: Therapy Needs and Potential:- Patient would benefit from continued skilled occupational therapy services to address: Decline in basic activities of daily living and Decline in instrumental activities of daily living - Patient demonstrates good potential to improve and meet therapy goals with further skilled occupational therapy services. - Patient appears motivated to improve their B/IADLs and return to their previous level of function. - Patient demonstrates ability to tolerate at least 30-60 minutes of active participation in occupational therapy. - Patient able to follow commands: 1-step Yes, Multi-step Yes, Inconsistencies Yes Challenges to Home Transition:- Requires physical assistance for BADLS - Requires physical assistance for IADLS Equipment Recommendations:Bedside commode and Shower chair PLAN OF CARE: At least 2x/week Precautions: Weight bearing status: NA General: Fall Bracing: N/A Current Occupational Performance and/or Treatment: Feeding: SBA/Setup Grooming: SBA/Setup UB Dressing: Minimal assist LB Dressing: Dependent Toilet Transfer: CGA Toileting Hygiene: SBA/Setup Functional Mobility: Bed mobility to EOB with SBA, sit to stand and ambulates to bedside chair in room with CGA and RW, stand to sit in chair with CGA. Patient/caregiver educated on: ADL training, Role of OT and Safety awareness Patient left reclining in bedside chair with call wade in reach. Nursing notified. Please, see full evaluation below for more detail. OT EVALUATION: 80 year old male Admit date: 05/21/2020 Date of onset: 05/21/2020 Admit Diagnosis: SHOULDER PAIN OT Diagnosis: Impaired BADL independence and Impaired IADL independence PMH: Past Medical History: Diagnosis Date Asthma BPH (benign prostatic hyperplasia) Complicated UTI (urinary tract infection) 12/02/2018 Foot pain, left 03/07/2015 PSH: Past Surgical History: Procedure Laterality Date COLONOSCOPY N/A 06/24/2018 Surgeon: Moe Salazar DO; Location: [facility] CYSTOLITHOTRIPSY N/A 08/25/2019 Surgeon: Brennan Medina MD; Location: [facility] EXPLORATORY LAPAROTOMY HERNIA REPAIR LAPAROSCOPIC ROBOTIC ASSISTED INGUINAL HERNIORRHAPHY Left 06/29/2019 Surgeon: Silverio Collier MD; Location[facility] LAPAROSCOPIC ROBOTIC ASSISTED VENTRAL HERNIORRHAPHY N/A 06/29/2019 Surgeon: Silverio Collier MD; Location: [facility] TRANSURETHRAL PROSTATE RESECTION N/A 08/25/2019 Surgeon: Brennan Medina MD; Location: [facility] PAIN: Before assessment: 0/10 After assessment: 0/10 Location: diffuse/generalized Pain Management: Patient denies need for pain meds OCCUPATIONAL ROLES/HOME ENVIRONMENT: Home environment: Single story home and Lives with his family. Bathroom access: Yes Bathroom setup: Shower Occupation(s): Retired Function prior to admission: Household ambulation, Community ambulation, Independent with BADLs and Independent with IADLs Equipment prior to admission: patient states "I have a stick" PERFORMANCE SKILLS/FACTORS: UE Muscle Tone: bilateral WNL UE ROM: bilateral AROM WFL UE Strength: KACY UE WFL Hand dominance: bilateral Dexterity/Coordination: bilateral Fine motor skills Intact Endurance - Sitting: Fair Standing: Fair Sitting Balance - Static: Fair Dynamic: Fair Standing: Balance - Static Fair Dynamic: Fair Dizziness: No Skin Integrity: No breakdown noted Sensation: bilateral Intact to light touch Oral Motor: WFL Communication: Able to verbalize needs Yes Other: N/A Vision: WFL Yes Other: N/A Hearing: good; no issues reported COGNITION: Orientation: person, place, date/time and situation Follows Commands: 1-step Yes Multi-step Yes Inconsistencies No Safety Awareness/Judgment: Fair, Requires frequent cueing and Impulsive PROBLEM LIST: Decreased independence with ADL and Decreased strength/endurance for functional activity REHAB POTENTIAL/PROGNOSIS: good PATIENT/FAMILY GOALS: To go home TREATMENT/INTERVENTION PLAN: Patient/Caregivier Education, Equipment recommendations, Daily living activities and Therapeutic exercises GOAL(S): By discharge, patient will increase independence in daily living skills as follows: 1 Patient will perform 3 in 1 BSC transfer with SBA/Setup. 2 Patient will complete grooming tasks with SBA/Setup while standing at the sink. 3 Patient will increase endurance for functional activity as evidenced by ability to sustain 20-30 minutes of active participation. 4 Patient/caregiver will verbalize/demonstrate understanding/proficiency in the following home programs: Adaptive equipment , ADL training, Fall prevention, General strengthening, Role of OT and Safetyawareness PATIENT-FAMILY TEACHING Patient provided with preferred teaching of verbal information on ADL training, Role of OT and Safety awareness. Shows readiness to learn. Verbal instruction teaching provided. Individual is able to read and verbalizes understanding of teaching provided. Mahesh Patel OTR, MOT Total Timed Treatment Codes: 15 Min Total Treatment Time: 25 Min Patient Complexity Level Moderate - An occupational therapy evaluation of moderate complexity was completed using the above tests and measures. The following information was obtained: An occupational profile and medical and therapy history, including an expanded review of medical and/or therapy records and additional review of physical, cognitive, or psychosocial history related to current functional performance, Various standardized and non-standardized assessments were used to identify at least 3-5 performance deficits related to physical, cognitive, or psychosocial skills that result in activity limitations and/or participation restrictions and Clinical decision making of moderate analytic complexity, which includes an analysis of the occupational profile, analysis of data from detailed assessment(s), and consideration of several treatment options. Patient may present with comorbidities thataffect occupational performance. Minimal to moderate modification of tasks or assistance (e.g., physical or verbal) with assessment(s) is necessary to enable patient to complete evaluation component. Sia Cortez RD - 05/22/2020 10:09 AM BILL COLLECTOR Associated Order(s): CONSULT PS FOOD AND NUTRITION - ADULT Medical Nutrition Therapy- Consult Note: Reason For Consultation: Physician consult: Routine sponsorship coordinator for positive initial nutrition screen of 3 due to weight loss, disease severity and age > 70 year-old. Malnutrition Assessment: Nutritional Diagnosis: None SGA Rating: At Risk CHIEF COMPLAINT: shoulder pain, hypotension, UTI History of Present Illness: Per H&P, Venu Lange is a 80 year old male HTN, HLD, ESBL E coli UTI (07/11/2019 also with abdominal wall seroma), smoking (40 pack-year), BPH s/p TURP - bladder hernia s/p robotic herniorrhapthy - and bladder calculi s/p cystolitholapaxy, recurrent symptomatic hyponatremia, inguinal/ventral hernia s/p robotic repair, presenting to [facility] ER with R shoulder pain x 1 day, transferred to [facility] with hypotension likely 2/2 UTI. PMH/PSH: Past Medical History: Diagnosis Date Asthma BPH (benign prostatic hyperplasia) Complicated UTI (urinary tract infection) 12/02/2018 Foot pain, left 03/07/2015 Past Surgical History: Procedure Laterality Date COLONOSCOPY N/A 06/24/2018 Surgeon: Moe Salazar DO; Location[facility] CYSTOLITHOTRIPSY N/A 08/25/2019 Surgeon: Brennan Medina MD; Location[facility] EXPLORATORY LAPAROTOMY HERNIA REPAIR LAPAROSCOPIC ROBOTIC ASSISTED INGUINAL HERNIORRHAPHY Left 06/29/2019 Surgeon: Silverio Collier MD; Location: [facility] LAPAROSCOPIC ROBOTIC ASSISTED VENTRAL HERNIORRHAPHY N/A 06/29/2019 Surgeon: Silverio Collier MD; Location[facility] TRANSURETHRAL PROSTATE RESECTION N/A 08/25/2019 Surgeon: Brennan Medina MD; Location[facility] PSH noted. GI and Nutrition Related Findings: Symptoms: Nausea and Vomiting Difficulty: N/A GI tract alteration: N/A Alternative means of nutrition: N/A General: Edema Medications: I have reviewed the medications currently ordered in the EMR located under the medications andMAR tabs. Current medications include: Current Facility-Administered Medications: hydrocortisone sod succ (CORTEF) 50 mg in NaCl 0.9% (NS) piggyback, 50 mg, IV Piggyback, Q8H, Bharat Schaffer MD, 50 mg at 05/22/202101 NaCl 0.9% (NS) IV infusion 1,000 mL, 1,000 mL, IV Infusion, CONTINUOUS, Abdulaziz Toro MD, Last Rate: 100 mL/hr at 05/22/202212, 1,000 mL at 05/22/202212 acetaminophen (TYLENOL) tablet 650 mg, 650 mg, Oral, Q6HPRN, Dyan Nolasco MD, 650 mg at heparin (porcine) injection 5,000 Units, 5,000 Units, Subcutaneous, Q12H, Dyan Nolasco MD, 5,000Units at 05/22/202101 ipratropium-albuteroL (DUONEB) 0.5 mg-3 mg(2.5 mg base)/3 mL nebulizer solution 3 mL, 3 mL, Inhalation, QID, Dyan Nolasco MD, 3 mL at 05/22/201911 ipratropium-albuteroL (DUONEB) 0.5 mg-3 mg(2.5 mg base)/3 mL nebulizer solution 3 mL, 3 mL, Inhalation, QIDPRN, Dyan Nolasco MD meropenem (MERREM) 500 mg in NaCl 0.9% (NS) 100 mL MINI-BAG, 500 mg, IV Piggyback, Q6H ABX, Dyan Nolasco MD, 500 mg at 05/22/20 182 tamsulosin (FLOMAX) capsule 0.4 mg, 0.4 mg, Oral, DAILY, Dyan Nolasco MD, 0.4 mg at 05/22/20 08 zafirlukast (ACCOLATE) tablet 20 mg, 20 mg, Oral, BIDAC, Dyan Nolasco MD, 20 mg at 05/22/20 182 Lab and Medical Test Results: NA Date Value 05/22/2020 133 mmol/L (L) 03/01/2013 139 MMOL/L K Date Value 05/22/2020 4.0 mmol/L 03/01/2013 4.1 MMOL/L CALCIUM Date Value 05/22/2020 8.2 mg/dL (L) 03/01/2013 9.5 MG/DL CL Date Value 05/22/2020 105 mmol/L 03/01/2013 100 MMOL/L BUN Date Value 05/22/2020 8 mg/dL 03/01/2013 16 MG/DL CREATININE Date Value 05/22/2020 0.84 mg/dL 03/01/2013 0.90 MG/DL GLUCOSE Date Value 05/22/2020 92 mg/dL 03/01/2013 104 MG/DL CO2 TOTAL Date Value 05/22/2020 22 mmol/L (L) 03/01/2013 29 MMOL/L ALBUMIN (g/dL) Date Value 05/22/2020 3.0 (L) T PROTEIN (g/dL) Date Value 05/22/2020 6.1 (L) TOTAL BILI (mg/dL) Date Value 05/22/2020 0.6 BILI UNCON (mg/dL) Date Value 05/21/2020 0.6 BILI CONJ (mg/dL) Date Value 05/21/2020 0.0 ALT(SGPT) (U/L) Date Value 12/08/2018 18 ALTv (U/L) Date Value 05/22/2020 8 AST(SGOT) (U/L) Date Value 05/22/2020 26 ALK PHOS (U/L) Date Value 05/22/2020 45 Corrected Calcium: 9 mg/dL (WNL) Nutrition Assessment: Age: [age] year old Sex: male Ht: 157.5cm / 5'2" Ht Readings from Last 3 Encounters: 05/21/20 1.575 m (5' 2") 05/14/20 1.575 m (5' 2") 04/11/20 1.727 m (5' 8") Current Wt: 79.5 kg/ 175 lb 4.3 oz. BMI: Body mass index is 32.06 kg/m. (Overweight) IBW for Ht: 57 kg +/- 5.7 kg %IBW: 139% Weight History: Wt Readings from Last 10 Encounters: 05/22/20 79.5 kg (175 lb 4.3 oz) 05/14/20 78.4 kg (172 lb 14.4 oz) 04/11/20 79.5 kg (175 lb 3.2 oz) 08/30/19 76.5 kg (168 lb 11.2 oz) 08/25/19 76.6 kg (168 lb 14 oz) 08/12/19 79.1 kg (174 lb 6.4 oz) 08/03/19 78.5 kg (173 lb) 08/01/19 77.7 kg (171 lb 3.2 oz) 07/21/19 79.9 kg (176 lb 3.2 oz) 07/11/19 80.5 kg (177 lb 6.4 oz) Inflammatory Markers: N/A Current Dietary Order(s): Cardiac (2 gm Sodium, Low Fat, Low Cholesterol) Diet; Texture: Regular EMR documented food allergies/intolerance/cultural preferences: No Known Allergies Nutrition & Diet History: Spoke to daughter during assessment. Patient sleeping at the time of the visit and, per daughter he has been very fatigued and somnolent and does not verbalized much. Per daughter, patient was eating normally about 5 days ago. However about 4-5 days ago, he started with nausea and vomiting. Per daughter, he will still try to eat as usual despite of the nausea/vomiting but sometimes he will have to pause and wait to complete his meals after nausea has gone away. Per daughter, he eats 3 meals per day and 2 snacks ( cookies and/or fruits). Daughter is unsure about his UBW. Per daughter she has not noticed weight loss, rather weight gain. Per daughter, he has not shown problems with chewing or swallowing. Will continue to follow, when patient is more alert. Estimated Daily Nutritional Needs: Calories: [id number] kcal/day = 22-25 kcal/kg current wt = 30-35 kcal/kg IBW Protein: 20 % of kcal need/day = 85-100 g/day = 1-1.2 g/kg current wt = 1.4-1.7 g/kg IBW Fluid: 1 mL/kcal/day or per MD; adjust per acute needs Nutrition Diagnosis: Inadequate energy intake related to poor appetite 2/2 nausea and vomiting as evidenced by diet history. Nutrition Plan of Care: Intervention(s): 1.Recommend to continue with current diet 2. Monitor PO intake and appetite 3.Monitor weight 4. Monitor lab values Goal(s): 1. Patient will complete 50-75 % of provided nutrition 2. Patient will remain at stable weight during this admission D/C Plannin. Undetermined at this time, until further assessment. Nutrition Monitoring and Evaluation: A registered dietitian will f/u as indicated to report nutrition related information and to revise the recommended nutrition intervention(s); please call with questions or concerns, thank-you. Sia Gonzalez MS, RDN,LD Clinical Dietitian RD Office: [phone] COLLECTOR documented in this encounter ED Notes Lefty Blanchard RN - 05/21/2020 12:39 PM CSTPatient c/o right shoulder and neck pain that started this morning. Patient does have a temp of 100.2 at triage. Cristy White FNP - 05/21/2020 12:36 PM CST EMERGENCY DEPARTMENT ENCOUNTER [facility] Patient Name: Venu Lange Date of : 1940 80 year old Exam Room:TX4/TX4 Primary Care Physician: [facility] Patient Escorted by: Self [9] Mode of Arrival: EMS - [facility] ([place]) [43] EMS Treatment Prior to ED Arrival: n/a Chief Complaint Chief Complaint Patient presents with Shoulder Pain HPI Patient is an 80 year old male presents due to right shoulder pain. Patient reported waking up with right shoulder pain. Daughter reported pain worsened as the day went by. Patient also reports dysuriax 2 days. Appears lethargic and slow in responding to questions. Alert and oriented x 4. Denies fall, or previous injury. Patient was febrile in ED. History provided by: Relative insulator technician used: No Shoulder Pain Location: Right shoulder Quality: Sharp Severity: Severe Onset quality: Gradual Timing: Constant Progression: Worsening Chronicity: New Associated symptoms: fever Associated symptoms: no abdominal pain, no diarrhea, no nausea and no vomiting Fever: Timing: Constant Max temp SILVER SERVICE WAITER: 100.1 Temp source: Oral Progression: Unchanged Fever Associated symptoms: dysuria Associated symptoms: no chills, no diarrhea, no nausea and no vomiting Past Medical History / Immunizations Past Medical History: Diagnosis Date Asthma BPH (benign prostatic hyperplasia) Complicated UTI (urinary tract infection) 12/02/2018 Foot pain, left 03/07/2015 Tetanus received in last 5 years: Unable to assess Childhood immunizations: Up-to-date Past Surgical History Past Surgical History: Procedure Laterality Date COLONOSCOPY N/A 06/24/2018 Surgeon: Moe Salazar DO; Location: [facility] Location CYSTOLITHOTRIPSY N/A 08/25/2019 Surgeon: Brennan [...] Medina MD; Location: [facility] OR Location Allergies No Known Allergies Social History Tobacco Use Former Smoker. Smokeless Tobacco: Never used smokeless tobacco. Alcohol Use No. Comments: rare Drug Use No. Review of Systems Review of Systems Constitutional: Positive for fever. Negative for activity change, appetite change and chills. HENT: Negative. Eyes: Negative. Respiratory: Negative. Cardiovascular: Negative. Gastrointestinal: Negative for abdominal distention, abdominal pain, anal bleeding, blood in stool, constipation, diarrhea, nausea, rectal pain and vomiting. Genitourinary: Positive for dysuria. Negative for bladder incontinence, frequency, hematuria, flank pain, decreased urine volume and difficulty urinating. Musculoskeletal: Positive for arthralgias. Skin: Negative. Neurological: Negative for weakness. Endocrine: Endocrine negative Physical Exam BP 92/68 | Pulse 62 | Temp 37 C (98.6 F) (Oral) | Resp 19 | Wt 81.6 kg (180 lb) | SpO2 96%| BMI 32.92 kg/m Physical Exam Vitals signs and nursing note reviewed. Constitutional: Appearance: He is well-developed. Eyes: Pupils: Pupils are equal, round, and reactive to light. Neck: Musculoskeletal: Normal range of motion. Cardiovascular: Rate and Rhythm: Normal rate. Heart sounds: Normal heart sounds. Pulmonary: Effort: Pulmonary effort is normal. No respiratory distress. Breath sounds: No wheezing. Abdominal: General: There is no distension. Palpations: There is no mass. Tenderness: There is no abdominal tenderness. There is no guarding or rebound. Musculoskeletal: Right shoulder: He exhibits decreased range of motion, tenderness, pain and decreased strength. He exhibits no bony tenderness. Skin: General: Skin is warm and dry. Neurological: Mental Status: He is alert and oriented to person, place, and time. Labs Recent Results (from the past 24 hour(s)) CBC WITH DIFF Collection Time: 05/21/20 1:34 PM Result Value Ref Range WBC 3.83 (L) 4.20 - 10.70 10*3/L RBC 3.79 (L) 4.26 - 5.52 10*6/L HGB 10.7 (L) 12.2 - 16.4 g/dL HCT 32.6 (L) 38.4 - 49.3 % MCV 86.0 81.7 - 95.6 fL MCH 28.2 26.1 - 32.7 pg MCHC 32.8 31.2 - 35.0 g/dL RDW-SD 43.2 38.5 - 51.6 fL RDW-CV 13.8 12.1 - 15.4 % PLT 170 150 - 328 10*3/L MPV 10.6 9.8 - 13.0 fL NRBC/100 WBC 0.0 0.0 - 10.0 /100 WBCs NRBC x10^3 <0.01 10*3/L GRAN MAT (NEUT) % 60.3 % IMM GRAN % 0.30 % LYMPH % 25.1 % MONO % 10.4 % EOS % 3.4 % BASO % 0.5 % GRAN MAT x10^3(ANC) 2.31 1.99 - 6.95 10*3/uL IMM GRAN x10^3 <0.03 0.00 - 0.06 10*3/uL LYMPH x10^3 0.96 (L) 1.09 - 3.23 10*3/uL MONO x10^3 0.40 0.36 - 1.02 10*3/uL EOS x10^3 0.13 0.06 - 0.53 10*3/uL BASO x10^3 <0.03 0.01 - 0.09 10*3/uL COMP. METABOLIC PANEL (51749) Collection Time: 05/21/20 1:34 PM Result Value Ref Range NA 129 (L) 135 - 145 mmol/L K 4.5 3.5 - 5.0 mmol/L CL 95 (L) 98 - 108 mmol/L CO2 TOTAL 29 23 - 31 mmol/L AGAP 5 2 - 16 BUN 10 7 - 23 mg/dL GLUCOSE 101 70 - 110 mg/dL CREATININE 0.89 0.60 - 1.25 mg/dL TOTAL BILI 0.9 0.1 - 1.1 mg/dL CALCIUM 9.2 8.6 - 10.6 mg/dL T PROTEIN 6.8 6.3 - 8.2 g/dL ALBUMIN 3.8 3.5 - 5.0 g/dL ALK PHOS 42 34 - 122 U/L ALTv 9 5 - 50 U/L AST(SGOT) 38 13 - 40 U/L eGFR Calculation (Non-) 82.2 mL/min/1.73m2 eGFR Calculation () 99.7 mL/min/1.73m2 THYROID STIMULATING HORMONE Collection Time: 05/21/20 1:34 PM Result Value Ref Range TSH 1.59 0.45 - 4.70 mIU/L FREE T4 Collection Time: 05/21/20 1:34 PM Result Value Ref Range FREE T4 0.68 (L) 0.78 - 2.20 ng/dL: TROPONIN I Collection Time: 05/21/20 1:34 PM Result Value Ref Range TROPONIN I <0.012 <=0.034 ng/mL Lactic Acid Whole Blood Collection Time: 05/21/20 1:53 PM Result Value Ref Range LACTIC ACID 0.87 mmol/L URINALYSIS Collection Time: 05/21/20 2:02 PM Result Value Ref Range APPEARANCE Clear Clear COLOR Yellow Yellow PH 7.0 4.8 - 8.0 SP GRAVITY 1.014 1.003 - 1.030 GLU U QUAL Normal Normal BLOOD Negative Negative KETONES Negative Negative PROTEIN Negative Negative UROBILIN 2.0 mg/dL (A) Normal BILIRUBIN Negative Negative NITRITE Positive (A) Negative LEUK NEMO 250/uL (A) Negative RBC/HPF <1 0 - 3 HPF WBC/HPF 55 (H) 0 - 5 HPF BACTERIA Few (A) Negative MUCOUS Slight (A) Negative LPF SQ EPITH 1 HPF COVID-19 (ID NOW RAPID TESTING) Collection Time: 05/21/20 2:02 PM Specimen: NASOPHARYNGEAL SWAB Result Value Ref Range SARS-CoV-2 Rapid ID NOW Not Detected Not Detected Imaging Hospital Encounter on 05/21/20 XR SHOULDER 2+ VW RIGHT Narrative Clinical indication: right shoulder pain Study: Right shoulder 2 views. Comparison: None. Ordering Physician: CRISTY CULLEN Findings: 2 views of the ulnar demonstrate normal alignment and mineralization. There is no fracture. No destructive lesion is seen. The soft tissues are unremarkable. The AC joint is likely due to chronic repetitive trauma or prior surgery. Impression Impression: 1. No acute osseous abnormalities. Location Code: 2831 CHEST 1 VW Narrative Exam: XR CHEST 1 VW 05/21/2020 1:31 PM Clinical History: cough Comparison: Radiograph of 06/30/2019 Technique: frontal view of the chest Findings: Interval improvement of left mid lung zone atelectasis. Crowding of bronchovascular marking in the left lower lobe suggestive of atelectasis. No consolidation. Scattered lung nodules left upper lung zone, better evaluated by recent CT. No pleural effusion. No pneumothorax. The cardiomediastinal silhouette appears stable. No acute osseous abnormality. Impression Impression: No lung consolidation. Scattered left lung nodules better evaluated by recent CT. Orders and Treatments Orders Placed This Encounter Procedures XR CHEST 1 VW XR SHOULDER 2+ VW RIGHT CBC WITH DIFF COMP. METABOLIC PANEL (91285) CORONAVIRUS COVID-19 TESTING URINALYSIS BLOOD CULTURE SCREEN BLOOD CULTURE SCREEN Lactic Acid Whole Blood COVID-19 (ID NOW RAPID TESTING) THYROID STIMULATING HORMONE FREE T4 URINE CULTURE TROPONIN I LAB ONLY COVID INTERPRETATION Orders Placed This Encounter Medications acetaminophen (TYLENOL) tablet 1,000 mg traMADoL (ULTRAM) tablet 50 mg NaCl 0.9% (NS) bolus infusion 1,000 mL cefTRIAXone (ROCEPHIN) 1,000 mg in NaCl 0.9% (NS) 50 mL MINI-BAG cefdinir 300 mg capsule traMADoL 50 mg tablet ondansetron (ZOFRAN (PF)) injection 4 mg NaCl 0.9% (NS) bolus infusion 2,000 mL Procedures Procedures Notes ED Course as of May 21 1708 Mon May 21, 2020 1658 Discussed patient's presenting symptoms, labs and images with Dr Dodge, ICU. She accepted patient for transfer to ICU. Transfer required due to bed shortage on this campus. [FI] 1633 Patient is hypotensive. Will admit patient for further medical management [FI] 1552 Labs reviewed. Patient has UTI. Will initiate treatment in ED with Ceftriaxone [FI] 1552 XR CHEST 1 VW [FI] 1552 2 views of the ulnar demonstrate normal alignment and mineralization. There is no fracture. No destructive lesion is seen. The soft tissues are unremarkable. The AC joint is likely due to chronic repetitive trauma or prior surgery. XR SHOULDER 2+ VW RIGHT [FI] ED Course User Index [FI] Cristy Cullen, PARKING LOT ATTENDANT Diagnosis ICD-10-CM ICD-9-CM 1. Fever in adult R50.9 780.60 2. Acute pain of right shoulder M25.511 719.41 3. Acute UTI N39.0 599.0 4. Other specified hypotension I95.89 458.8 Disposition & Follow Up ED Disposition None Patient's Medications START taking these medications CEFDINIR 300 MG CAPSULE Take 1 capsule by mouth 2 (two) times daily for 7 days. TRAMADOL 50 MG TABLET Take 1 tablet by mouth every 6 (six) hours as needed for Pain (scale 7-10). Indications: acute pain CONTINUE taking these medications which have NOT CHANGED ACETAMINOPHEN 325 MG TABLET Take 2 tablets by mouth every 6 (six) hours. ALBUTEROL 2.5 MG /3 ML (0.083 %) NEBULIZER SOLUTION USE 3 ML IN NEBULIZER EVERY 4 HOURS NEEDED FOR WHEEZING OR SHORTNESS OF BREATH AMOXICILLIN-POT CLAVULANATE 500 MG (AUGMENTIN) 500-125 MG TABLET Take 1 tablet by mouth 2 (two) times daily. DOCUSATE 100 MG CAPSULE Take 1 capsule by mouth daily. DOXYCYCLINE 100 MG EC TABLET Take 1 tablet by mouth 2 (two) times daily. GABAPENTIN 300 MG CAPSULE Take 1 capsule by mouth at bedtime. IBUPROFEN 600 MG TABLET Take 1 tablet by mouth every 8 (eight) hours as needed for Pain (scale 4-6). METHOCARBAMOL 500 MG TABLET Take 1 tablet by mouth every 6 (six) hours as needed (Muscle pain). NITROFURANTOIN&NIT. MACROCRYST 100 MG CAPSULE Take 1 capsule by mouth 2 (two) times daily. ONDANSETRON (ZOFRAN ODT) 4 MG DISINTEGRATING TABLET Take 1 tablet by mouth every 8 (eight) hoursas needed for Nausea and Vomiting (N/V). ONDANSETRON 4 MG TABLET Take 1 tablet by mouth every 8 (eight) hours as needed for Nausea and Vomiting (N/V). TAMSULOSIN 0.4 MG 24 HR CAPSULE Take 1 capsule by mouth once daily TRAZODONE 100 MG TABLET Take 1 tablet by mouth at bedtime as needed for Insomnia. VENTOLIN HFA 90 MCG/ACTUATION INHALER INHALE 2 PUFFS BY MOUTH EVERY 6 HOURS NEEDED FOR WHEEZING OR SHORTNESS OF BREATH ZAFIRLUKAST 20 MG TABLET TAKE 1 TABLET BY MOUTH TWICE DAILY BEFORE BREAKFAST AND BEFORE SUPPER START taking Modified Medications as Prescribed No medications on file STOP taking these medications No medications on file MDM Coding COLLECTOR Associated attestation - Bill Harvey DO - 05/22/2020 6:55 PM CSTI was available for consultation at all times during the patient encounter. However, I did not see or evaluate the patient unless otherwise noted. Signature is for administrative purposes and not an endorsement of care provided.documented in this encounter Miscellaneous Notes Care Plan - Danielle Berrios RN - 05/30/2020 2:36 PM BILL COLLECTOR Problem: Cardiac Output - Decreased Goal: Cardiac output within specified parameters Outcome: Adequate for discharge Goal: Absence of signs and symptoms of decreased cardiac output Outcome: Adequate for discharge Problem: Infection Risk Goal: Absence of infection Outcome: Adequate for discharge Problem: Pain Goal: Control of pain at or below patient's documented comfort goal Outcome: Adequate for discharge Goal: Reduction in pain sensation Outcome: Adequate for discharge Problem: Falls, Risk of Goal: Absence of falls Outcome: Adequate for discharge Problem: Infection Risk Goal: Absence of infection Outcome: Adequate for discharge Problem: Respiratory Function - Impaired Goal: Able to cough effectively Outcome: Adequate for discharge Goal: Adequate oxygenation Outcome: Adequate for discharge Goal: Adequate work of breathing Outcome: Adequate for discharge Goal: Patent airway Outcome: Adequate for discharge Problem: Discharge Planning Goal: Absence of venous thromboembolism Outcome: Adequate for discharge Goal: Adequate for discharge Outcome: Adequate for discharge Goal: Effective communication Outcome: Adequate for discharge are Plan - Stephanie Hilliard RN - 05/30/2020 2:41 AM BILL COLLECTOR Problem: Cardiac Output - Decreased Goal: Cardiac output within specified parameters Outcome: Progressing as expected Goal: Absence of signs and symptoms of decreased cardiac output Outcome: Progressing as expected Problem: Infection Risk Goal: Absence of infection Outcome: Progressing as expected Problem: Infection Risk Goal: Absence of infection Outcome: Progressing as expected Problem: Infection Risk Goal: Absence of infection Outcome: Progressing as expected Problem: Pain Goal: Control of pain at or below patient's documented comfort goal Outcome: Progressing as expected Goal: Reduction in pain sensation Outcome: Progressing as expected are Plan - Maura Pate RN - 05/29/2020 9:08 AM BILL COLLECTOR Problem: Cardiac Output - Decreased Goal: Cardiac output within specified parameters Outcome: Progressing as expected Goal: Absence of signs and symptoms of decreased cardiac output Outcome: Progressing as expected Problem: Infection Risk Goal: Absence of infection Outcome: Progressing as expected Problem: Pain Goal: Control of pain at or below patient's documented comfort goal Outcome: Progressing as expected Goal: Reduction in pain sensation Outcome: Progressing as expected Problem: Falls, Risk of Goal: Absence of falls Outcome: Progressing as expected Problem: Infection Risk Goal: Absence of infection Outcome: Progressing as expected Problem: Respiratory Function - Impaired Goal: Able to cough effectively Outcome: Progressing as expected Goal: Adequate oxygenation Outcome: Progressing as expected Goal: Adequate work of breathing Outcome: Progressing as expected Goal: Patent airway Outcome: Progressing as expected Problem: Discharge Planning Goal: Absence of venous thromboembolism Outcome: Progressing as expected Goal: Adequate for discharge Outcome: Progressing as expected Goal: Effective communication Outcome: Progressing as expected are Vero - Stephanie Hilliard RN - 05/29/2020 2:10 AM BILL COLLECTOR Problem: Cardiac Output - Decreased Goal: Cardiac output within specified parameters Outcome: Progressing as expected Goal: Absence of signs and symptoms of decreased cardiac output Outcome: Progressing as expected Problem: Infection Risk Goal: Absence of infection Outcome: Progressing as expected Problem: Infection Risk Goal: Absence of infection Outcome: Progressing as expected Problem: Pain Goal: Control of pain at or below patient's documented comfort goal Outcome: Progressing as expected are Plan - Petey Akbar RN - 05/28/2020 10:00 AM BILL COLLECTOR Problem: Cardiac Output - Decreased Goal: Cardiac output within specified parameters Outcome: Progressing as expected Goal: Absence of signs and symptoms of decreased cardiac output Outcome: Progressing as expected Problem: Infection Risk Goal: Absence of infection Outcome: Progressing as expected Problem: Infection Risk Goal: Absence of infection Outcome: Progressing as expected Problem: Pain Goal: Control of pain at or below patient's documented comfort goal Outcome: Progressing as expected Goal: Reduction in pain sensation Outcome: Progressing as expected Problem: Falls, Risk of Goal: Absence of falls Outcome: Progressing as expected Problem: Respiratory Function - Impaired Goal: Able to cough effectively Outcome: Progressing as expected Goal: Adequate oxygenation Outcome: Progressing as expected Goal: Adequate work of breathing Outcome: Progressing as expected Goal: Patent airway Outcome: Progressing as expected Problem: Discharge Planning Goal: Absence of venous thromboembolism Outcome: Progressing as expected Goal: Adequate for discharge Outcome: Progressing as expected Goal: Effective communication Outcome: Progressing as expected are Sia Jalloh RN - 05/26/2020 10:33 AM BILL COLLECTOR Problem: Cardiac Output - Decreased Goal: Cardiac output within specified parameters Outcome: Progressing as expected Goal: Absence of signs and symptoms of decreased cardiac output Outcome: Progressing as expected Problem: Infection Risk Goal: Absence of infection Outcome: Progressing as expected Problem: Pain Goal: Control of pain at or below patient's documented comfort goal Outcome: Progressing as expected Goal: Reduction in pain sensation Outcome: Progressing as expected Problem: Falls, Risk of Goal: Absence of falls Outcome: Progressing as expected Problem: Infection Risk Goal: Absence of infection Outcome: Progressing as expected Problem: Respiratory Function - Impaired Goal: Able to cough effectively Outcome: Progressing as expected Goal: Adequate oxygenation Outcome: Progressing as expected Goal: Adequate work of breathing Outcome: Progressing as expected Goal: Patent airway Outcome: Progressing as expected Problem: Discharge Planning Goal: Absence of venous thromboembolism Outcome: Progressing as expected Goal: Adequate for discharge Outcome: Progressing as expected Goal: Effective communication Outcome: Progressing as expected are Stephanie Warren RN - 05/26/2020 1:40 AM BILL COLLECTOR Problem: Cardiac Output - Decreased Goal: Cardiac output within specified parameters Outcome: Progressing as expected Goal: Absence of signs and symptoms of decreased cardiac output Outcome: Progressing as expected Problem: Infection Risk Goal: Absence of infection Outcome: Progressing as expected Problem: Infection Risk Goal: Absence of infection Outcome: Progressing as expected Problem: Pain Goal: Control of pain at or below patient's documented comfort goal Outcome: Progressing as expected Goal: Reduction in pain sensation Outcome: Progressing as expected are Gisselle Chavez RN - 05/25/2020 1:56 PM BILL COLLECTOR Problem: Cardiac Output - Decreased Goal: Cardiac output within specified parameters Outcome: Progressing as expected Goal: Absence of signs and symptoms of decreased cardiac output Outcome: Progressing as expected Problem: Infection Risk Goal: Absence of infection Outcome: Progressing as expected Problem: Pain Goal: Control of pain at or below patient's documented comfort goal Outcome: Progressing as expected Goal: Reduction in pain sensation Outcome: Progressing as expected Problem: Falls, Risk of Goal: Absence of falls Outcome: Progressing as expected Problem: Infection Risk Goal: Absence of infection Outcome: Progressing as expected Problem: Respiratory Function - Impaired Goal: Able to cough effectively Outcome: Progressing as expected Goal: Adequate oxygenation Outcome: Progressing as expected Goal: Adequate work of breathing Outcome: Progressing as expected Goal: Patent airway Outcome: Progressing as expected Problem: Discharge Planning Goal: Absence of venous thromboembolism Outcome: Progressing as expected Goal: Adequate for discharge Outcome: Progressing as expected Goal: Effective communication Outcome: Progressing as expected are Stephanie Warren RN - 05/25/2020 1:31 AM BILL COLLECTOR Problem: Cardiac Output - Decreased Goal: Cardiac output within specified parameters Outcome: Progressing as expected Goal: Absence of signs and symptoms of decreased cardiac output Outcome: Progressing as expected Problem: Infection Risk Goal: Absence of infection Outcome: Progressing as expected Problem: Pain Goal: Control of pain at or below patient's documented comfort goal Outcome: Progressing as expected Goal: Reduction in pain sensation Outcome: Progressing as expected are Gisselle Chavez RN - 05/24/2020 10:05 AM BILL COLLECTOR Problem: Cardiac Output - Decreased Goal: Cardiac output within specified parameters Outcome: Progressing as expected Goal: Absence of signs and symptoms of decreased cardiac output Outcome: Progressing as expected Problem: Infection Risk Goal: Absence of infection Outcome: Progressing as expected Problem: Pain Goal: Control of pain at or below patient's documented comfort goal Outcome: Progressing as expected Goal: Reduction in pain sensation Outcome: Progressing as expected Problem: Falls, Risk of Goal: Absence of falls Outcome: Progressing as expected Problem: Infection Risk Goal: Absence of infection Outcome: Progressing as expected Problem: Respiratory Function - Impaired Goal: Able to cough effectively Outcome: Progressing as expected Goal: Adequate oxygenation Outcome: Progressing as expected Goal: Adequate work of breathing Outcome: Progressing as expected Goal: Patent airway Outcome: Progressing as expected Problem: Discharge Planning Goal: Absence of venous thromboembolism Outcome: Progressing as expected Goal: Adequate for discharge Outcome: Progressing as expected Goal: Effective communication Outcome: Progressing as expected are Plan - Stephanie Hilliard RN - 05/23/2020 2:23 AM BILL COLLECTOR Problem: Cardiac Output - Decreased Goal: Cardiac output within specified parameters Outcome: Progressing as expected Goal: Absence of signs and symptoms of decreased cardiac output Outcome: Progressing as expected Problem: Infection Risk Goal: Absence of infection Outcome: Progressing as expected Problem: Pain Goal: Control of pain at or below patient's documented comfort goal Outcome: Progressing as expected Goal: Reduction in pain sensation Outcome: Progressing as expected Problem: Falls, Risk of Goal: Absence of falls Outcome: Progressing as expected Problem: Infection Risk Goal: Absence of infection Outcome: Progressing as expected Problem: Respiratory Function - Impaired Goal: Able to cough effectively Outcome: Progressing as expected Goal: Adequate oxygenation Outcome: Progressing as expected Goal: Adequate work of breathing Outcome: Progressing as expected Goal: Patent airway Outcome: Progressing as expected Problem: Discharge Planning Goal: Absence of venous thromboembolism Outcome: Progressing as expected Goal: Adequate for discharge Outcome: Progressing as expected Goal: Effective communication Outcome: Progressing as expected COLLECTOR Nursing Note - Richard Burger RN - 05/22/2020 7:05 AM CSTReport received from off going RN and care assumed. Pt assessment per previous charting. Pt was alert and was able to participate in cares. Pt was hemodynamically stable. Pt was respiratory stable. Pt tolerated PO pills and fluids. Pt's pain issues were controlled and pt sustained no falls this shift.Report given to Jody LUGO who then assumes care. Richard Burger, BOBBIN/CFRN [facility] [phone] (c) are Plan - Richard Burger RN - 05/22/2020 4:55 AM BILL COLLECTOR Problem: Cardiac Output - Decreased Goal: Cardiac output within specified parameters Outcome: Progressing as expected Goal: Absence of signs and symptoms of decreased cardiac output Outcome: Progressing as expected Problem: Infection Risk Goal: Absence of infection Outcome: Progressing as expected D Nurse Note - Meli Jenkins RN - 05/21/2020 7:47 PM CSTPatient [facility], Acute pain of right shoulder, Acute UTI. Patient agrees to transfer/admit plan and verbalized understanding of plan of care, family aware of plan Patient awake alert, oriented, resp reg unlabored, skin w/d PIV patent, no s/s infiltration noted, No adverse reaction to medications given while in ED. Report given to [facility] EMS personnel D Nurse Note - Meli Jenkins RN - 05/21/2020 7:28 PM CSTReport given to [address] D Nurse Note - Meli Jenkins RN - 05/21/2020 7:21 PM BILL COLLECTOR Updated patients family on status. D Nurse Note - Mary Sheikh PCT - 05/21/2020 6:52 PM CSTSpoke with Lon[facility], [facility] E[facility] 1 hour D Nurse Note - Lefty Blanchard RN - 05/21/2020 3:19 PM CSTPatients daughter Jacob Field, password is Darius. documented in this encounter Plan of Treatment Date Type Specialty Care Team Description 06/04/2020 Office Visit Family Medicine Broderick Mills MD [address] [place], [place] [id number] [phone] 10/03/2020 Booking Manager Visit Phlebotomy Rosa, [facility] 10/10/2020 Office Visit Nephrology Acosta Oscar MD [address] [place] [address] [phone] Name Type Priority Associated Diagnoses Order S chedule CORONAVIRUS COVID-19 LAB Routine Fever in adult ONCE for 1 Occurrences TESTING starting 2019 until 05/21/2020 TOTAL IRON BINDING LAB Add-on ONCE for 1 Occurrences CAPACITY starting 2019 until 05/26/2020 Health Maintenance Due Date Last Done Comments [...] of this encounter Implants Implanted Type Area Fisher Quahog Device Shelf Model / Identifier Expiration Date Ser ial / Lot Prolene Soft Polypylene Mesh [id number] Ethicon Ref#[id number] - Sna MESH Abdomen Ethicon 04/14/2024 [id number] / Implanted: Qty: 1 on 06/29/2019 by Silverio Collier MD at [facility] NA / [id number] Description:Ventral hernia repair Progrip Laparoscopic Self-Fixating Mesh, 15cm X 10cm, Covidi en - Sna MESH Abdomen COVIDIEN 12/12/2021 [id number] / Implanted: Qty: 1 on 06/29/2019 by Silverio Collier MD at [facility] NA / [id number] Description:Inguinal hernia mesh documented as of this encounter Procedures Procedure Name Priority Date/Time Associated Comments Diagnosis XR CHEST 1 VW Routine 05/28/2020 6:30 Colonization with Resul ts for this PM BILL COLLECTOR drug-resistant procedure are in bacteria the results section. CBC WITH DIFF Routine 05/27/2020 5:36 Results fo r this AM BILL COLLECTOR procedure are i n the results section. BASIC METABOLIC PANEL Routine 05/27/2020 5:36 Re sults for this (NA, K, CL, CO2, AM BILL COLLECTOR procedure a re in GLUCOSE, BUN, the results CREATININE, CA) section. CBC WITH DIFF Routine 05/24/2020 5:13 Results fo r this AM BILL COLLECTOR procedure are i n the results section. COMP. METABOLIC PANEL Routine 05/24/2020 5:13 Re sults for this ([id number]) AM BILL COLLECTOR procedure are i n the results section. FOLATE Add-on 05/24/2020 5:13 Results for this AM BILL COLLECTOR procedure are i n the results section. VITAMIN B12, LEVEL Add-on 05/24/2020 5:13 Resul ts for this AM BILL COLLECTOR procedure are i n the results section. IRON Add-on 05/24/2020 5:13 Results for this AM BILL COLLECTOR procedure are i n the results section. FERRITIN SERUM Add-on 05/24/2020 5:13 Results f or this AM BILL COLLECTOR procedure are i n the results section. CBC WITH DIFF Routine 05/23/2020 4:45 Results fo r this AM BILL COLLECTOR procedure are i n the results section. COMP. METABOLIC PANEL Routine 05/23/2020 4:45 Re sults for this ([id number]) AM BILL COLLECTOR procedure are i n the results section. URINE CULTURE Routine 05/22/2020 10:41 Results fo r this PM BILL COLLECTOR procedure are i n the results section. URINALYSIS Routine 05/22/2020 10:41 Results for this PM BILL COLLECTOR procedure are i n the results section. BLOOD CULTURE SCREEN Routine 05/22/2020 10:28 Res ults for this PM BILL COLLECTOR procedure are i n the results section. BLOOD CULTURE SCREEN Routine 05/22/2020 10:27 Res ults for this PM BILL COLLECTOR procedure are i n the results section. AC PANEL 20 + LACTIC MARI 05/22/2020 2:55 Res ults for this ACID PM BILL COLLECTOR procedure are i n the results section. US RETROPERITONEAL Routine 05/22/2020 6:26 Hypotension, Resul ts for this LIMITED AM BILL COLLECTOR unspecified procedure are i n hypotension type the results section. CBC WITH DIFF MARI 05/22/2020 5:03 Results fo r this AM BILL COLLECTOR procedure are i n the results section. COMP. METABOLIC PANEL MARI 05/22/2020 5:03 Re sults for this ([id number]) AM BILL COLLECTOR procedure are i n the results section. TROPONIN I MARI 05/22/2020 5:03 Results for this AM BILL COLLECTOR procedure are i n the results section. CORTISOL AM MARI 05/22/2020 5:03 Results for this AM BILL COLLECTOR procedure are i n the results section. MRSA / MSSA SCREEN BY MARI 05/21/2020 10:21 Re sults for this PCR, NARES PM BILL COLLECTOR procedure are i n the results section. LACTIC ACID WHOLE STAT 05/21/2020 10:21 Result s for this BLOOD PM BILL COLLECTOR procedure are i n the results section. ACTIVATED PARTIAL STAT 05/21/2020 10:21 Result s for this THRMPLAS CITLALY PM BILL COLLECTOR procedure are i n the results section. PROTHROMBIN TIME / INR STAT 05/21/2020 10:21 R esults for this PM BILL COLLECTOR procedure are i n the results section. CBC WITH DIFF STAT 05/21/2020 10:21 Results fo r this PM BILL COLLECTOR procedure are i n the results section. BASIC METABOLIC PANEL STAT 05/21/2020 10:21 Re sults for this (NA, K, CL, CO2, PM BILL COLLECTOR procedure a re in GLUCOSE, BUN, the results CREATININE, CA) section. HEPATIC FUNCTION PANEL STAT 05/21/2020 10:21 R esults for this ([id number]) PM BILL COLLECTOR procedure are i n (ALB,T.PRO,BILI the results T,BU/BC,ALT,AST,ALK section. PHOS) TROPONIN I MARI 05/21/2020 10:21 Results for this PM BILL COLLECTOR procedure are i n the results section. MAGNESIUM STAT 05/21/2020 10:21 Results for this PM BILL COLLECTOR procedure are i n the results section. HB ECG ROUTINE & Routine 05/21/2020 9:57 Hypotension, RHYTHM STRIP PM BILL COLLECTOR unspecified hypotension type CT CHEST PULMONARY STAT 05/21/2020 6:01 Other specified Re sults for this ANGIOGRAM PM BILL COLLECTOR hypotension procedure are i n the results section. XR SHOULDER 2+ VW STAT 05/21/2020 3:18 Fever in adult Resu lts for this RIGHT PM BILL COLLECTOR procedure are i n the results section. URINE CULTURE STAT 05/21/2020 2:52 Fever in adult Results for this PM BILL COLLECTOR procedure are i n the results section. LAB ONLY COVID Routine 05/21/2020 2:02 Fever in adult Results for this INTERPRETATION PM BILL COLLECTOR procedure are in the results section. COVID-19 (ID NOW RAPID STAT 05/21/2020 2:02 Fever in adult Results for this TESTING) PM BILL COLLECTOR procedure are i n the results section. URINALYSIS STAT 05/21/2020 2:02 Fever in adult Results f or this PM BILL COLLECTOR procedure are i n the results section. BLOOD CULTURE SCREEN STAT 05/21/2020 2:02 Fever in adult R esults for this PM BILL COLLECTOR procedure are i n the results section. BLOOD CULTURE SCREEN STAT 05/21/2020 2:02 Fever in adult R esults for this PM BILL COLLECTOR procedure are i n the results section. LACTIC ACID WHOLE STAT 05/21/2020 1:53 Fever in adult Resu lts for this BLOOD PM BILL COLLECTOR procedure are i n the results section. XR CHEST 1 VW STAT 05/21/2020 1:43 Fever in adult Results for this PM BILL COLLECTOR procedure are i n the results section. CBC WITH DIFF STAT 05/21/2020 1:34 Fever in adult Results for this PM BILL COLLECTOR procedure are i n the results section. COMP. METABOLIC PANEL STAT 05/21/2020 1:34 Fever in adult Results for this ([id number]) PM BILL COLLECTOR procedure are i n the results section. THYROID STIMULATING STAT Add-On 05/21/2020 1:34 Fever in adult Re sults for this HORMONE PM BILL COLLECTOR procedure are i n the results section. FREE T4 STAT Add-On 05/21/2020 1:34 Fever in adult Results f or this PM BILL COLLECTOR procedure are i n the results section. TROPONIN I STAT Add-On 05/21/2020 1:34 Fever in adult Results f or this PM BILL COLLECTOR procedure are i n the results section. EMERGENCY SERVICES Routine 05/21/2020 12:01 AGREEMENTS AND AM BILL COLLECTOR AUTHORIZATIONS EMERGENCY DEPARTMENT Routine 05/21/2020 12:01 DOCUMENTS AM BILL COLLECTOR documented in this encounter Results XR CHEST 1 VW (05/28/2020 6:30 PM BILL COLLECTOR) Specimen Impressions Performed At Impression: PACS/VR/DOSE The tip of the right upper extremity PIC C line is at the cavoatrial junction. Narrative Performed At This result has an attachment that is no t available. Exam: XR CHEST 1 VW PACS/VR/DOSE Clinical History: picc line clearance Comparison: May 21, 2020 Findings: Single frontal view of the chest is compared to the pr ior study. The cardiac mediastinal silhouette is within normal limits for size. There is no evidence of an acute infiltrate, pleural effusion, pneumothorax. Trachea is in midline. Interval placement of a right upper ext remity PICC line with its tip at the cavoatrial junction. Bones and upper ab domen are unchanged. Procedure Note [facility], Radiant Results Inft User - 2019 7:15 PM BILL COLLECTOR Exam: XR CHEST 1 VW Clinical History: picc line clearance Comparison: May 21, 2020 Findings: Single frontal view of the chest is comp ared to the prior study. The cardiac mediastinal silhouette is within normal limits for size. There is no evidence of an acute infiltrate, pleu ral effusion, pneumothorax. Trachea is in midline. Interval placement of a r ight upper extremity PICC line with its tip at the cavoatrial junction. Bone s and upper abdomen are unchanged. IMPRESSION Impression: The tip of the right upper extremity PIC C line is at the cavoatrial junction. Performing Organization Address City/State/Zipcode Phone Number PACS/VR/DOSE BASIC METABOLIC PANEL (NA, K, CL, CO2, GLUCOSE, BUN, CREATININE, CA) (05/27/2020 5:36 AM BILL COLLECTOR) NA 139 135 - 145 [facility] mmol/L SERVICES K 3.1 (L) 3.5 - 5.0 [facility] mmol/L SERVICES CL 106 98 - 108 mmol/L [facility] SERVICES CO2 TOTAL 28 23 - 31 mmol/L [facility] AGAP 5 2 - 16 [facility] BUN 15 7 - 23 mg/dL [facility] GLUCOSE 114 (H) 70 - 110 mg/dL [facility] CREATININE 0.58 (L) 0.60 - 1.25 [facility] mg/dL SERVICES CALCIUM 8.4 (L) 8.6 - 10.6 [facility] mg/dL SERVICES eGFR Calculation 134.8 mL/min/1.73m2 [facility] (Non- SERVICES [place]) eGFR Calculation 163.4 mL/min/1.73m2 [facility] () SERVICES [...] . Performing Organization Address City/State/Zipcode Phone Number [facility] CLIA: [id number] [place] [address] [place] [address] CBC WITH DIFF (05/27/2020 5:36 AM BILL COLLECTOR) Pathologist Sig nature WBC 3.91 (L) 4.20 - 10.70 [facility] 10*3/L SERVICES RBC 3.43 (L) 4.26 - 5.52 [facility] 10*6/L SERVICES HGB 10.0 (L) 12.2 - 16.4 [facility] g/dL SERVICES HCT 29.3 (L) 38.4 - 49.3 % [facility] MCV 85.4 81.7 - 95.6 fL [facility] MCH 29.2 26.1 - 32.7 pg [facility] MCHC 34.1 31.2 - 35.0 [facility] g/dL SERVICES RDW-SD 43.6 38.5 - 51.6 fL [facility] RDW-CV 13.9 12.1 - 15.4 % [facility] PLT 279 150 - 328 [facility] 10*3/L SERVICES MPV 10.8 9.8 - 13.0 fL [facility] NRBC/100 WBC 0.0 0.0 - 10.0 /100 [facility] WBCs SERVICES NRBC x10^3 <0.01 10*3/L [facility] GRAN MAT (NEUT) % 66.7 % [facility] IMM GRAN % 3.30 % [facility] LYMPH % 24.8 % [facility] MONO % 4.9 % [facility] EOS % 0.0 % [facility] BASO % 0.3 % [facility] GRAN MAT x10^3(ANC) 2.61 1.99 - 6.95 [facility] 10*3/uL SERVICES IMM GRAN x10^3 0.13 (H) 0.00 - 0.06 [facility] 10*3/uL SERVICES LYMPH x10^3 0.97 (L) 1.09 - 3.23 [facility] 10*3/uL SERVICES MONO x10^3 0.19 (L) 0.36 - 1.02 [facility] 10*3/uL SERVICES EOS x10^3 <0.03 (L) 0.06 - 0.53 [facility] 10*3/uL SERVICES BASO x10^3 <0.03 0.01 - 0.09 [facility] 10*3/uL SERVICES Specimen Blood - ARM, LEFT Performing Organization Address City/[facility] Phone Number [facility] CLIA: [id number] [place] [address] [place] [address] FOLATE (05/24/2020 5:13 AM BILL COLLECTOR) Pathologist Sig nature FOLATE SER 8.1 3.0 - 20.0 ng/mL [facility] Specimen Blood - ARM, LEFT Performing Organization Address [facility] Phone Number [facility] [facility] CLIA: [id number] [place] [address] [place] [address] VITAMIN B12, LEVEL (05/24/2020 5:13 AM BILL COLLECTOR) Pathologist Sig nature VIT B12 711 240 - 930 pg/mL [facility] Specimen Blood - ARM, LEFT Narrative Performed At Biotin has been reported to cause a positive bias, int erpret [facility] results relative to patient's use of biotin. Performing Organization Address City/[facility] Phone Number [facility] CLIA: [id number] [place] [address] [place] [address] FERRITIN SERUM (05/24/2020 5:13 AM BILL COLLECTOR) Pathologist Sig nature FERRITIN 125.0 18.0 - 464.0 ng/mL [facility] Specimen Blood - ARM, LEFT Narrative Performed At Biotin has been reported to cause a negative bias, int erpret [facility] results relative to patient's use of biotin. Performing Organization Address City/[facility] Centercode Phone Number [facility] CLIA: [id number] [place] [address] [place] [address] IRON (05/24/2020 5:13 AM BILL COLLECTOR) Pathologist Sig nature IRON 94 50 - 160 ug/dL [facility] Specimen Blood - ARM, LEFT Performing Organization Address City/State/Zipcode Phone Number [facility] CLIA: [id number] [place] [address] [place] [address] CBC WITH DIFF (05/24/2020 5:13 AM BILL COLLECTOR) Pathologist Sig nature WBC 4.44 4.20 - 10.70 [facility] 10*3/L SERVICES RBC 3.13 (L) 4.26 - 5.52 [facility] 10*6/L SERVICES HGB 8.9 (L) 12.2 - 16.4 [facility] g/dL SERVICES HCT 27.2 (L) 38.4 - 49.3 % [facility] MCV 86.9 81.7 - 95.6 fL [facility] MCH 28.4 26.1 - 32.7 pg [facility] MCHC 32.7 31.2 - 35.0 [facility] g/dL SERVICES RDW-SD 46.0 38.5 - 51.6 fL [facility] RDW-CV 14.5 12.1 - 15.4 % [facility] PLT 206 150 - 328 [facility] 10*3/L SERVICES MPV 11.5 9.8 - 13.0 fL [facility] NRBC/100 WBC 0.0 0.0 - 10.0 /100 [facility] WBCs SERVICES NRBC x10^3 <0.01 10*3/L [facility] GRAN MAT (NEUT) % 84.2 % [facility] IMM GRAN % 0.50 % [facility] LYMPH % 11.0 % [facility] MONO % 4.3 % [facility] EOS % 0.0 % [facility] BASO % 0.0 % [facility] GRAN MAT x10^3(ANC) 3.74 1.99 - 6.95 [facility] 10*3/uL SERVICES IMM GRAN x10^3 <0.03 0.00 - 0.06 [facility] 10*3/uL SERVICES LYMPH x10^3 0.49 (L) 1.09 - 3.23 [facility] 10*3/uL SERVICES MONO x10^3 0.19 (L) 0.36 - 1.02 [facility] 10*3/uL SERVICES EOS x10^3 <0.03 (L) 0.06 - 0.53 [facility] 10*3/uL SERVICES BASO x10^3 <0.03 0.01 - 0.09 [facility] 10*3/uL SERVICES Specimen Blood - ARM, LEFT Performing Organization Address City/State/Zipcode Phone Number [facility] CLIA: [id number] [place] [address] [place] [address] COMP. METABOLIC PANEL (08125) (05/24/2020 5:13 AM BILL COLLECTOR) Pathologist [facility] [place] NA 139 135 - 145 [facility] mmol/L SERVICES K 3.7 3.5 - 5.0 [facility] mmol/L SERVICES CL 109 (H) 98 - 108 mmol/L [facility] CO2 TOTAL 24 23 - 31 mmol/L [facility] AGAP 6 2 - 16 [facility] BUN 11 7 - 23 mg/dL [facility] GLUCOSE 116 (H) 70 - 110 mg/dL [facility] CREATININE 0.70 0.60 - 1.25 [facility] mg/dL SERVICES TOTAL BILI 0.3 0.1 - 1.1 mg/dL [facility] CALCIUM 8.6 8.6 - 10.6 [facility] mg/dL SERVICES T PROTEIN 5.9 (L) 6.3 - 8.2 g/dL [facility] ALBUMIN 3.1 (L) 3.5 - 5.0 g/dL [facility] ALK PHOS 48 34 - 122 U/L [facility] ALTv 8 5 - 50 U/L [facility] AST(SGOT) 21 13 - 40 U/L [facility] eGFR Calculation 108.5 mL/min/1.73m2 [facility] (Non- SERVICES [place]) eGFR Calculation 131.5 mL/min/1.73m2 [facility] () SERVICES [...] Number [facility] CLIA: [id number] [place] [address] [place] [address] CBC WITH DIFF (05/23/2020 4:45 AM BILL COLLECTOR) Pathologist Sig nature WBC 4.92 4.20 - 10.70 [facility] 10*3/L SERVICES RBC 3.51 (L) 4.26 - 5.52 [facility] 10*6/L SERVICES HGB 10.0 (L) 12.2 - 16.4 [facility] g/dL SERVICES HCT 30.3 (L) 38.4 - 49.3 % [facility] MCV 86.3 81.7 - 95.6 fL [facility] MCH 28.5 26.1 - 32.7 pg [facility] MCHC 33.0 31.2 - 35.0 [facility] g/dL SERVICES RDW-SD 43.4 38.5 - 51.6 fL [facility] RDW-CV 14.0 12.1 - 15.4 % [facility] PLT 189 150 - 328 [facility] 10*3/L SERVICES MPV 11.5 9.8 - 13.0 fL [facility] NRBC/100 WBC 0.0 0.0 - 10.0 /100 [facility] WBCs SERVICES NRBC x10^3 <0.01 10*3/L [facility] GRAN MAT (NEUT) % 88.2 % [facility] IMM GRAN % 0.40 % [facility] LYMPH % 7.9 % [facility] MONO % 3.3 % [facility] EOS % 0.2 % [facility] BASO % 0.0 % [facility] GRAN MAT x10^3(ANC) 4.34 1.99 - 6.95 [facility] 10*3/uL SERVICES IMM GRAN x10^3 <0.03 0.00 - 0.06 [facility] 10*3/uL SERVICES LYMPH x10^3 0.39 (L) 1.09 - 3.23 [facility] 10*3/uL SERVICES MONO x10^3 0.16 (L) 0.36 - 1.02 [facility] 10*3/uL SERVICES EOS x10^3 <0.03 (L) 0.06 - 0.53 [facility] 10*3/uL SERVICES BASO x10^3 <0.03 0.01 - 0.09 [facility] 10*3/uL SERVICES Specimen Blood - ARM, LEFT Performing Organization Address City/State/Zipcode Phone Number [facility] CLIA: [id number] [place] [address] [place] [address] COMP. METABOLIC PANEL (40055) (05/23/2020 4:45 AM BILL COLLECTOR) Pathologist Sig nature NA 135 135 - 145 [facility] mmol/L SERVICES K 4.1 3.5 - 5.0 [facility] mmol/L SERVICES CL 106 98 - 108 mmol/L [facility] CO2 TOTAL 22 (L) 23 - 31 mmol/L [facility] AGAP 7 2 - 16 [facility] BUN 10 7 - 23 mg/dL [facility] GLUCOSE 129 (H) 70 - 110 mg/dL [facility] CREATININE 0.77 0.60 - 1.25 [facility] mg/dL SERVICES TOTAL BILI 0.4 0.1 - 1.1 mg/dL [facility] CALCIUM 8.8 8.6 - 10.6 [facility] mg/dL SERVICES T PROTEIN 6.7 6.3 - 8.2 g/dL [facility] ALBUMIN 3.4 (L) 3.5 - 5.0 g/dL [facility] ALK PHOS 56 34 - 122 U/L [facility] ALTv 9 5 - 50 U/L [facility] AST(SGOT) 24 13 - 40 U/L [facility] eGFR Calculation 97.2 mL/min/1.73m2 [facility] (Non- SERVICES [place]) eGFR Calculation 117.8 mL/min/1.73m2 [facility] [...] in imaging tests) . Performing Organization Address City/[facility]ode Phone Number [facility] CLIA: [id number] [place], [place] [address] [place] [address] URINE CULTURE (05/22/2020 10:41 PM BILL COLLECTOR) [facility] Sig nature URINE CULTURE No aerobic growth [facility] (< 1000 CFU/mL) SERVICES Specimen Urine - URINE, CLEAN CATCH Performing Organization Address [facility]/Zipcode Phone Number [facility] CLIA: [id number] [place] [address] [place] [address] URINALYSIS (05/22/2020 10:41 PM BILL COLLECTOR) Pathologist Sig nature APPEARANCE Clear Clear [facility] COLOR Yellow Yellow [facility] PH 5.0 4.8 - 8.0 [facility] SP GRAVITY 1.014 1.003 - 1.030 [facility] GLU U QUAL Normal Normal [facility] BLOOD Negative Negative [facility] KETONES Negative Negative [facility] PROTEIN Negative Negative [facility] UROBILIN 2.0 mg/dL (A) Normal [facility] BILIRUBIN Negative Negative [facility] NITRITE Negative Negative [facility] LEUK NEMO 25/uL (A) Negative [facility] RBC/HPF <1 0 - 3 HPF [facility] WBC/HPF 1 0 - 5 HPF [facility] BACTERIA Negative Negative [facility] MUCOUS Slight (A) Negative LPF [facility] Specimen Urine - URINE, CLEAN CATCH Performing Organization Address [facility] Centercode Phone Number [facility] CLIA: [id number] [place] [address] [place] [address] BLOOD CULTURE SCREEN (05/22/2020 10:28 PM BILL COLLECTOR) Blood No organisms isolated No growth [facility] Culture-Aerobic Comment: SERVICES Previous preliminary verifie d result was Culture In Progress on 05/23/2020 at 0301 BILL COLLECTOR Previous preliminary verifie d result was No growth at 24 hours on 05/24/2020 at 0001 BILL COLLECTOR Previous preliminary verifie d result was No growth at 48 hours on 05/25/2020 at 0001 BILL COLLECTOR Previous preliminary verifie d result was No growth at 72 hours on 05/26/2020 at 0001 BILL COLLECTOR Blood No organisms isolated No growth [facility] Culture-Anaerobic Comment: SERVICES Previous preliminary verifie d result was Culture In Progress on 05/23/2020 at 0301 BILL COLLECTOR Previous preliminary verifie d result was No growth at 24 hours on 05/24/2020 at 0001 BILL COLLECTOR Previous preliminary verifie d result was No growth at 48 hours on 05/25/2020 at 0001 BILL COLLECTOR Previous preliminary verifie d result was No growth at 72 hours on 05/26/2020 at 0001 BILL COLLECTOR Specimen Blood - ARM, LEFT Performing Organization Address [facility]ercotn Phone Number [facility] CLIA: [id number] [place] [address] [phone] [address] [facility] BLOOD CULTURE SCREEN (05/22/2020 10:27 PM BILL COLLECTOR) Blood No organisms isolated No growth [facility] Culture-Aerobic Comment: SERVICES Previous preliminary verifie d result was Culture In Progress on 05/23/2020 at 0301 BILL COLLECTOR Previous preliminary verifie d result was No growth at 24 hours on 05/24/2020 at 0001 BILL COLLECTOR Previous preliminary verifie d result was No growth at 48 hours on 05/25/2020 at 0001 BILL COLLECTOR Previous preliminary verifie d result was No growth at 72 hours on 05/26/2020 at 0001 BILL COLLECTOR Blood No organisms isolated No growth [facility] Culture-Anaerobic Comment: SERVICES Previous preliminary verifie d result was Culture In Progress on 05/23/2020 at 0301 BILL COLLECTOR Previous preliminary verifie d result was No growth at 24 hours on 05/24/2020 at 0001 BILL COLLECTOR Previous preliminary verifie d result was No growth at 48 hours on 05/25/2020 at 0001 BILL COLLECTOR Previous preliminary verifie d result was No growth at 72 hours on 05/26/2020 at 0001 BILL COLLECTOR Specimen Blood - ARM, RIGHT Performing Organization Address City/State/Zipcode Phone Number [facility] CLIA: [id number] [place] [address] [place] [address] AC PANEL 20 + LACTIC ACID (05/22/2020 2:55 PM BILL COLLECTOR) [facility] PH 7.39 7.35 - 7.45 [facility] PCO2 42 35 - 45 mmHg [facility] PO2 70 (L) 80 - 100 mmHg [facility] HCO3 25 22 - 26 mEq/L [facility] BE -0.5 -3.0 - 3.0 mEq/L [facility] THB 11.2 (L) 13.5 - 18.0 g/dL [facility] %O2HB 94.3 94.0 - 99.0 % [facility] %COHB ART 0.3 0.0 - 1.5 % [facility] %METHB ART 0.1 (L) 0.4 - 1.5 % [facility] VOL%O2 ART 14.9 (L) 15.0 - 23.0 % [facility] NA 135 135 - 145 mmol/L [facility] K+ 3.6 3.5 - 5.0 mmol/L [facility] AC CA IONZ 4.80 4.50 - 5.30 mg/dL [facility] SERVICE S GLUCOSE 175 (H) 70 - 110 mg/dL [facility] LACTIC ACID 0.92 mmol/L [facility] Specimen Blood - ARTERIAL Performing Organization Address City/State/Zipcode Phone Number [facility] CLIA: [id number] [place] [address] [place] [address] US RETROPERITONEAL LIMITED (05/22/2020 6:26 AM BILL COLLECTOR) Specimen Impressions Performed At PACS/VR/DOSE Suboptimal visualization of the right ki dney. 1. Multiple cystic areas in the renal pelvises. Gill elating with multiple prior abdominal CTs, these likely represent parapelvic cysts, rather than hydronephrosis. 2. Otherwise, unremarkable renal ultra sound. Preliminary Report Dictated by Resident: Janie Garcia. I, Bharat Najera MD., have reviewed this st udy and agree with the above report. Narrative Performed At EXAM: US RETROPERITONEAL LIMITED PACS/VR/DOSE HISTORY: 80 years-old Male with UTI, mandy ck for pyelonephritis. TECHNIQUE: Ultrasound of kidneys and uri nary bladder was performed with grayscale and selected color Doppler maritza ging. Director Physical images were obtained for the record. COMPARISON: None. FINDINGS: Suboptimal visualization of the right kidney due to ov erlying rib shadows. KIDNEYS: RIGHT: Size: 11.5 x 6.5 x 6.5 cm. Parenchyma: Normal renal cortical echoge nicity and thickness. Multiple parapelvic and cortical/exophytic cystic structures, m easuring up to 3.4 cm in the mid pole. Collecting System: Multiple cystic areas within the renal pelvis. LEFT: Size: 12.6 x 6.6 x 4.5 cm. Parenchyma:Normal renal cortical echogen icity and thickness. Multiple parapelvic and cortical/exophytic cystic structures, most of which measuring less than 2 cm. Collecting System: Multiple cystic areas within the renal pelvis. . URINARY BLADDER: The urinary bladder is mildly distended, unremarkable. Procedure Note [facility], Radiant Results Inft User - 2019 11:09 AM BILL COLLECTOR EXAM: US RETROPERITONEAL LIMITED HISTORY: 80 years-old Male with UTI, mandy ck for pyelonephritis. TECHNIQUE: Ultrasound of kidneys and uri nary bladder was performed with grayscale and selected color Doppler maritza ging. Director Physical images were obtained for the record. COMPARISON: None. FINDINGS: Suboptimal visualization of the right ki dney due to overlying rib shadows. KIDNEYS: RIGHT: Size: 11.5 x 6.5 x 6.5 cm. Parenchyma: Normal renal cortical echoge nicity and thickness. Multiple parapelvic and cortical/exophytic cystic structures, measuring up to 3.4 cm in the mid pole. Collecting System: Multiple cystic areas within the renal pelvis. LEFT: Size: 12.6 x 6.6 x 4.5 cm. Parenchyma:Normal renal cortical echogen icity and thickness. Multiple parapelvic and cortical/exophytic cystic structures, most of which measuring less than 2 cm. Collecting System: Multiple cystic areas within the renal pelvis. . URINARY BLADDER: The urinary bladder is mildly distended, unremarkable. IMPRESSION Suboptimal visualization of the right ki dney. 1. Multiple cystic areas in the renal p elvises. Correlating with multiple prior abdominal CTs, these likely repres ent parapelvic cysts, rather than hydronephrosis. 2. Otherwise, unremarkable renal ultras ound. Preliminary Report Dictated by Resident: Janie Garcia. Zane, Bharat Najera MD., have rev iewed this study and agree with the above report. Performing Organization Address City/State/Zipcode Phone Number PACS/VR/DOSE CBC WITH DIFF (05/22/2020 5:03 AM BILL COLLECTOR) Pathologist Sig nature WBC 3.96 (L) 4.20 - 10.70 [facility] 10*3/L SERVICES RBC 3.34 (L) 4.26 - 5.52 [facility] 10*6/L SERVICES HGB 9.5 (L) 12.2 - 16.4 [facility] g/dL SERVICES HCT 29.3 (L) 38.4 - 49.3 % [facility] MCV 87.7 81.7 - 95.6 fL [facility] MCH 28.4 26.1 - 32.7 pg [facility] MCHC 32.4 31.2 - 35.0 [facility] g/dL SERVICES RDW-SD 44.8 38.5 - 51.6 fL [facility] RDW-CV 14.0 12.1 - 15.4 % [facility] PLT 162 150 - 328 [facility] 10*3/L SERVICES MPV 11.0 9.8 - 13.0 fL [facility] NRBC/100 WBC 0.0 0.0 - 10.0 /100 [facility] WBCs SERVICES NRBC x10^3 <0.01 10*3/L [facility] GRAN MAT (NEUT) % 67.0 % [facility] IMM GRAN % 0.30 % [facility] LYMPH % 19.7 % [facility] MONO % 10.9 % [facility] EOS % 1.8 % [facility] BASO % 0.3 % [facility] GRAN MAT x10^3(ANC) 2.66 1.99 - 6.95 [facility] 10*3/uL SERVICES IMM GRAN x10^3 <0.03 0.00 - 0.06 [facility] 10*3/uL SERVICES LYMPH x10^3 0.78 (L) 1.09 - 3.23 [facility] 10*3/uL SERVICES MONO x10^3 0.43 0.36 - 1.02 [facility] 10*3/uL SERVICES EOS x10^3 0.07 0.06 - 0.53 [facility] 10*3/uL SERVICES BASO x10^3 <0.03 0.01 - 0.09 [facility] 10*3/uL SERVICES Specimen Blood - ARM, LEFT Performing Organization Address City/State/Zipcode Phone Number [facility] CLIA: [id number] [place] [address] [place] [address] TROPONIN I (05/22/2020 5:03 AM BILL COLLECTOR) Pathologist Sig nature TROPONIN I 0.010 <=0.034 ng/mL [facility] Specimen Blood - ARM, LEFT Narrative Performed At Equal or Less than 0.034 ng/ml---Normal [facility] Note: Cardiac troponin begins to rise 3-4 hours after the onset of ischemia. Repeat in 4-6 hours if the sample w as drawn within 3-4 hours of the onset of the symptom and found normal. Between 0.035 and 0.120 ng/mL--- Borderline. Questiona ble myocardial injury or necrosis Note: Serial measurement may be necessary to confirm o r exclude the diagnosis of myocardial injury or necrosis ; Clinical correlation (symptoms, EKGs, imaging studies, and others) required; Repeat in 4-6 hours if clinically indicated. Equal or Higher than 0.121 ng/mL---Abnormal. Myocardia l Injury or Necrosis Likely Biotin has been reported to cause a negative bias, int erpret results relative to patient's use of biotin. Performing Organization Address City/State/Zipcode Phone Number [facility] CLIA: [id number] [place] [address] [place] [address] CORTISOL AM (05/22/2020 5:03 AM BILL COLLECTOR) Pathologist Sig nature MAYLIN AM 2.5 (L) 4.5 - 23.0 ug/dL [facility] Specimen Blood - ARM, LEFT Narrative Performed At Biotin has been reported to cause a positive bias, int erpret [facility] results relative to patient's use of biotin. Performing Organization Address City/State/Zipcode Phone Number [facility] CLIA: [id number] [place] [address] [place] [address] COMP. METABOLIC PANEL (73090) (05/22/2020 5:03 AM BILL COLLECTOR) Pathologist Sig nature NA 133 (L) 135 - 145 [facility] mmol/L SERVICES K 4.0 3.5 - 5.0 [facility] mmol/L SERVICES CL 105 98 - 108 mmol/L [facility] CO2 TOTAL 22 (L) 23 - 31 mmol/L [facility] AGAP 6 2 - 16 [facility] BUN 8 7 - 23 mg/dL [facility] GLUCOSE 92 70 - 110 mg/dL [facility] CREATININE 0.84 0.60 - 1.25 [facility] mg/dL SERVICES TOTAL BILI 0.6 0.1 - 1.1 mg/dL [facility] CALCIUM 8.2 (L) 8.6 - 10.6 [facility] mg/dL SERVICES T PROTEIN 6.1 (L) 6.3 - 8.2 g/dL [facility] ALBUMIN 3.0 (L) 3.5 - 5.0 g/dL [facility] ALK PHOS 45 34 - 122 U/L [facility] ALTv 8 5 - 50 U/L [facility] AST(SGOT) 26 13 - 40 U/L [facility] eGFR Calculation 87.9 mL/min/1.73m2 [facility] (Non- SERVICES [place]) eGFR Calculation 106.6 mL/min/1.73m2 [facility] () SERVICES [...] in imaging tests) . Performing Organization Address City/[facility] Phone Number [facility] CLIA: [id number] [place] [address] [place] [address] Lactic Acid Whole Blood (05/21/2020 10:21 PM BILL COLLECTOR) Pathologist Sig nature LACTIC ACID 1.02 mmol/L [facility] Specimen Blood - VENOUS Performing Organization Address [facility] Phone Number [facility] CLIA: [id number] [place] [address] [place] [address] TROPONIN I (05/21/2020 10:21 PM BILL COLLECTOR) Pathologist Sig nature TROPONIN I 0.003 <=0.034 ng/mL [facility] Specimen Blood - ARM, LEFT Narrative Performed At Equal or Less than 0.034 ng/ml---Normal [facility] Note: Cardiac troponin begins to rise 3-4 hours after the onset of ischemia. Repeat in 4-6 hours if the sample w as drawn within 3-4 hours of the onset of the symptom and found normal. Between 0.035 and 0.120 ng/mL--- Borderline. Questiona ble myocardial injury or necrosis Note: Serial measurement may be necessary to confirm o r exclude the diagnosis of myocardial injury or necrosis ; Clinical correlation (symptoms, EKGs, imaging studies, and others) required; Repeat in 4-6 hours if clinically indicated. Equal or Higher than 0.121 ng/mL---Abnormal. Myocardia l Injury or Necrosis Likely Biotin has been reported to cause a negative bias, int erpret results relative to patient's use of biotin. Performing Organization Address City/[facility] Phone Number [facility] CLIA: [id number] [place] [address] [place] [address] Hepatic Function Panel (ALB, T.PRO, BILI T, BU/BC, ALT, AST, ALK, PHOS) (05/21/2020 10:21 PM BILL COLLECTOR) Pathologist Sig [employer] TOTAL BILI 0.6 0.1 - 1.1 mg/dL [facility] BILI UNCON 0.6 0.1 - 1.1 mg/dL [facility] BILI CONJ 0.0 0.0 - 0.3 mg/dL [facility] T PROTEIN 6.5 6.3 - 8.2 g/dL [facility] ALBUMIN 3.3 (L) 3.5 - 5.0 g/dL [facility] ALK PHOS 52 34 - 122 U/L [facility] ALTv 8 5 - 50 U/L [facility] AST(SGOT) 24 13 - 40 U/L [facility] Specimen Blood - ARM, LEFT Performing Organization Address [facility] Phone Number [facility] CLIA: [id number] [place] [address] [place] [address] Magnesium Serum (05/21/2020 10:21 PM BILL COLLECTOR) Pathologist [facility] [employer] MAGNESIUM 1.5 (L) 1.7 - 2.4 mg/dL [facility] Specimen Blood - ARM, LEFT Performing Organization Address [facility] Phone Number [facility] CLIA: [id number] [place] [address] [place] [address] Basic Metabolic Panel (NA, K, CL, CO2, Glucose, BUN, Creatinine, CA) (05/21/2020 10:21 PM BILL COLLECTOR) Pathologist Sig nature NA 132 (L) 135 - 145 [facility] mmol/L SERVICES K 4.2 3.5 - 5.0 [facility] mmol/L SERVICES CL 102 98 - 108 mmol/L [facility] CO2 TOTAL 26 23 - 31 mmol/L [facility] AGAP 4 2 - 16 [facility] BUN 8 7 - 23 mg/dL [facility] GLUCOSE 99 70 - 110 mg/dL [facility] CREATININE 0.88 0.60 - 1.25 [facility] mg/dL SERVICES CALCIUM 8.3 (L) 8.6 - 10.6 [facility] mg/dL SERVICES eGFR Calculation 83.3 mL/min/1.73m2 [facility] (Non- SERVICES [place]) eGFR Calculation 101.0 mL/min/1.73m2 [facility] () SERVICES Specimen Blood - ARM, LEFT Narrative Performed At Association of Glomerular Filtration Rate (GFR) and St aging [facility] of Kidney Disease* + + +------- ------ + | GFR (mL/min/1.73 m2) | With Kidney Damage | Wi sonyaout Kidney Damage + + +------- ------ + [...] Number [facility] CLIA: [id number] [place], [place] [address] [address] [place] [address] Prothrombin Time / INR (05/21/2020 10:21 PM BILL COLLECTOR) PROTIME PATIENT 12.3 10.1 - 12.6 [facility] Seconds SERVICES INR 1.1Comment: Normal [facility] INR <1.1; Warfarin SERVICES Therapeutic range 2.0 to 3.0 or 2.5 to 3.5, depending upon the indications. Specimen Blood - ARM, LEFT Performing Organization Address City/State/Zipcode Phone Number [facility] CLIA: [id number] [place] [address] [phone] [address] [facility] aPTT (05/21/2020 10:21 PM BILL COLLECTOR) Pathologist [facility] APTT Patient 32 26 - 36 Seconds [facility] Specimen Blood - ARM, LEFT Performing Organization Address City/[facility]/Zipcode Phone Number [facility] CLIA: [id number] [place] [address] [phone] 301 [facility] CBC with Differential (05/21/2020 10:21 PM BILL COLLECTOR) Pathologist [facility] WBC 4.60 4.20 - 10.70 [facility] 10*3/L SERVICES RBC 3.64 (L) 4.26 - 5.52 [facility] 10*6/L SERVICES HGB 10.5 (L) 12.2 - 16.4 [facility] g/dL SERVICES HCT 32.1 (L) 38.4 - 49.3 % [facility] MCV 88.2 81.7 - 95.6 fL [facility] MCH 28.8 26.1 - 32.7 pg [facility] MCHC 32.7 31.2 - 35.0 [facility] g/dL SERVICES RDW-SD 44.9 38.5 - 51.6 fL [facility] RDW-CV 13.9 12.1 - 15.4 % [facility] PLT 164 150 - 328 [facility] 10*3/L SERVICES MPV 11.5 9.8 - 13.0 fL [facility] NRBC/100 WBC 0.0 0.0 - 10.0 /100 [facility] WBCs SERVICES NRBC x10^3 <0.01 10*3/L [facility] GRAN MAT (NEUT) % 58.2 % [facility] IMM GRAN % 0.20 % [facility] LYMPH % 27.0 % [facility] MONO % 12.0 % [facility] EOS % 2.2 % [facility] BASO % 0.4 % [facility] GRAN MAT x10^3(ANC) 2.68 1.99 - 6.95 [facility] 10*3/uL SERVICES IMM GRAN x10^3 <0.03 0.00 - 0.06 [facility] 10*3/uL SERVICES LYMPH x10^3 1.24 1.09 - 3.23 [facility] 10*3/uL SERVICES MONO x10^3 0.55 0.36 - 1.02 [facility] 10*3/uL SERVICES EOS x10^3 0.10 0.06 - 0.53 [facility] 10*3/uL SERVICES BASO x10^3 <0.03 0.01 - 0.09 [facility] 10*3/uL SERVICES Specimen Blood - ARM, LEFT Performing Organization Address City/State/Zipcode Phone Number [facility] CLIA: [id number] [place] [address] [place] [address] MRSA / MSSA Screen by PCR, Nares (05/21/2020 10:21 PM BILL COLLECTOR) Pathologist Sig nature MRSA Screen by PCR, Negative Negative [facility] Nares SERVICES MSSA Screen by PCR, Negative Negative [facility] Nares SERVICES MRSA/MSSA Positive? No No [facility] Specimen Swab - NARES, BOTH SIDES Performing Organization Address City/State/Zipcode Phone Number [facility] CLIA: [id number] [place] [address] [place] [address] CT CHEST PULMONARY ANGIOGRAM (05/21/2020 6:01 PM BILL COLLECTOR) Specimen Impressions Performed At Impression: PACS/VR/DOSE 1. No evidence of pulmonary embolus. 2. No pulmonary mass or consolidation. No pleural ef fusion. Stable small bilateral pulmonary nodules measuring up to 7 mm in size. 3. Coronary artery atherosclerosis. 4. 3.3 cm partially visualized hypodense left renal lesion, possibly a cyst. Further evaluation with CT or MRI without and with contrast within 6-12 months is suggested. RL: [id number] AFC: [id number] End of Report 7 :05 PM Narrative Performed At This result has an attachment that is no t available. Exam: CT Angiography Chest With Contrast, 05/21/2020 5:15 PM. PACS/VR/DOSE Ordering Physician: CRISTY CULLEN. History: Short of breath. Technique: CT angiography chest was performed with int ravenous contrast. 3D MIP images were rendered. CT was performed accordin g to ALARA (As Low As Reasonably Achievable). Comparison: None. Findings: There is no evidence of pulmonary embolus. Central pul monary arteries are normal in caliber. There is no pleural effusion. Stable 3 mm right upper lobe subpleural nodule is seen image 72 series 4. Stable 7 mm right up per lobe subpleural nodule is seen image 152 series 4. Linear right basila r and upper lobe opacities represent either linear scar or subsegmental atelectasis. Stable 5 mm left upper lobe nodule is seen image 40. Stable l eft lower lobe 6 mm nodule is seen image 174. Stable left lower lobe subpl eural nodule is seen in the superior segment in image 88. There is no paren chymal consolidation or pulmonary mass. Central airways are patent. There i s diffuse bronchial wall thickening. Heart size is normal. There is coronary artery calcifi cation. There is no pericardial effusion. Thoracic aorta is tortuous. Thor acic aorta is normal in caliber and demonstrates mild calcified plaque. Gre at vessels demonstrate mild calcified plaque proximally. There is no mediastinal, hilar, or axillary adenopathy. 3.3 cm hypodense lesion is seen in the left kidney, pa rtially visualized. There are degenerative changes of the spine. Procedure Note [facility], Radiant Results Inft User - 2019 7:07 PM BILL COLLECTOR Exam: CT Angiography Chest With Contrast, 05/21/2020 5:15 PM. Ordering Physician: CRISTY CULLEN. History: Short of breath. Technique: CT angiography chest was perf ormed with intravenous contrast. 3D MIP images were rendered. CT was perf ormed according to ALARA (As Low As Reasonably Achievable). Comparison: None. Findings: There is no evidence of pulmonary embolu s. Central pulmonary arteries are normal in caliber. There is no pleural effusion. Stable 3 m m right upper lobe subpleural nodule is seen image 72 series 4. Stable 7 mm right upper lobe subpleural nodule is seen image 152 series 4. Linea r right basilar and upper lobe opacities represent either linear scar o r subsegmental atelectasis. Stable 5 mm left upper lobe nodule is seen imag e 40. Stable left lower lobe 6 mm nodule is seen image 174. Stable left lo wer lobe subpleural nodule is seen in the superior segment in image 88. The re is no parenchymal consolidation or pulmonary mass. Central airways are p atent. There is diffuse bronchial wall thickening. Heart size is normal. There is coronary artery calcification. There is no pericardial effusion. Thoracic aorta is tortuous. Thoracic aorta is normal in caliber and demonstrates mild calcifi ed plaque. Great vessels demonstrate mild calcified plaque proxim ally. There is no mediastinal, hilar, or axillary adenopathy. 3.3 cm hypodense lesion is seen in the l eft kidney, partially visualized. There are degenerative changes of the sp ine. IMPRESSION Impression: 1. No evidence of pulmonary embolus. 2. No pulmonary mass or consolidation. No pleural effusion. Stable small bilateral pulmonary nodules measuring up to 7 mm in size. 3. Coronary artery atherosclerosis. 4. 3.3 cm partially visualized hypodense left renal lesion, possibly a cyst. Further evaluation with CT or MRI without and with contrast within 6-12 months is suggested. RL: [id number] AFC: [id number] End of Report Performing Organization Address City/State/Zipcode Phone Number PACS/VR/DOSE XR SHOULDER 2+ VW RIGHT (05/21/2020 3:18 PM BILL COLLECTOR) Specimen Impressions Performed At Impression: PACS/VR/DOSE 1. No acute osseous abnormalities. Location Code: 2831 3 :40 PM Narrative Performed At Clinical indication: right shoulder pain PACS/VR/DOSE Study: Right shoulder 2 views. Comparison: None. Ordering Physician: CRISTY CULLEN Findings: 2 views of the ulnar demonstrate normal alignment and mineralization. There is no fracture. No destructive lesion is seen. The soft tissues are unremarkable. The AC joint is likely due to chronic repetitive trauma or prior surgery. Procedure Note [facility], Radiant Results Inft User - 2019 3:41 PM BILL COLLECTOR Clinical indication: right shoulder pain Study: Right shoulder 2 views. Comparison: None. Ordering Physician: CRISTY CULLEN Findings: 2 views of the ulnar demonstrate normal alignment and mineralization. There is no fracture. No destructive le derrick is seen. The soft tissues are unremarkable. The AC joint is likely due to chronic repetitive trauma or prior surgery. IMPRESSION Impression: 1. No acute osseous abnormalities. Location Code: 2831 Performing Organization Address City/State/Zipcode Phone Number PACS/VR/DOSE URINE CULTURE (05/21/2020 2:52 PM BILL COLLECTOR) URINE CULTURE >100,000 CFU/mL [facility] Escherichia coli SERVICES Specimen Urine - URINE, CLEAN CATCH Organism Antibiotic Method Susceptibility Escherichia coli Amoxacillin/Clavulanic SUSCEPTIBILITY TESTING 1 6: Intermediate acid Escherichia coli Ampicillin SUSCEPTIBILITY TESTING >=32: Re sistant Escherichia coli Ampicillin/Sulbactam SUSCEPTIBILITY TESTING >=3 2: Resistant Escherichia coli Cefazolin SUSCEPTIBILITY TESTING >=64: Re sistant Escherichia coli Ceftriaxone SUSCEPTIBILITY TESTING >=64: Re sistant Escherichia coli Ciprofloxacin SUSCEPTIBILITY TESTING >=4: Res istant Escherichia coli Ertapenem SUSCEPTIBILITY TESTING <=0.5: S usceptible Escherichia coli Gentamicin SUSCEPTIBILITY TESTING <=1: Yanira ceptible Escherichia coli Imipenem SUSCEPTIBILITY TESTING <=0.25: Susceptible Escherichia coli Levofloxacin SUSCEPTIBILITY TESTING >=8: Res istant Escherichia coli Nitrofurantoin SUSCEPTIBILITY TESTING 64: Inte rmediate Escherichia coli Piperacillin/Tazobactam SUSCEPTIBILITY TESTING Susceptible Escherichia coli Trimethoprim/Sulfamethoxa SUSCEPTIBILITY TESTIN G >=320: Resistant zole Comment: Susceptibility test results indicate anthony t this organism may produce an extended- spectrum beta-lactamase and therefore may be clinically resistant to therapy with Penicillins, Cephalosporins, and Aztreonam. Nitrofurantoin is not recommended for us e in treating pyelonephritis or systemic disease. Performing Organization Address City/State/Zipcode Phone Number [facility] CLIA: [id number] [place] [address] [place] [address] LAB ONLY COVID INTERPRETATION (05/21/2020 2:02 PM BILL COLLECTOR) COVID DMT Interpretation/Recommendations: [facility] Interpretation SERVICES Molecular NAAT Tests for Active Infection with the ENID S-CoV-2 Virus: This result indicates that t he patient has tested negative on one occasion for the SARS-CoV-2 virus that causes COVID-19 illness. This most likely indicates that the patient does not have an active infe ction with the SARS-CoV-2 vi vignesh. However, infection is not completely ruled out as the false negative rate for molecular NAAT testing using a nasopharyngeal sample can be up to 30%, mostly dependent on the timing of sample collect ion in relation to illness onset and any deficiencies in sampling techniques. If the patient continues to have persistent or worsening symptoms concerning for COVID-19 illnes s, a repeat NAAT test (PCR, Rapid ID Now, etc.) should be performed, at which time the SARS-CoV-2 virus - if present - may have reached a detectable viral load (usually peaking by the end of the first week of symptoms). Tests for IgM and/or IgG Antibodies to SARS-CoV-2 Viru s: Testing for IgM and IgG anti bodies 1-3 weeks after illness onset will indicate whether the patient has produced antibodies to the virus. At this time, it is not known if the production of antibodies - s pecifically IgG antibodies - indicates whether the patient is immune to future infections with the SARS-CoV-2 virus. Interpretation Result Comments: These interpretation comment s are based upon aggregate COVID-19 test results pooled from [facility]. They apply to the following tests offered at [facility] and assume the acceptable specimen type(s) were used: A. Tests for the Identification of SARS-CoV-2 RNA (Mol ecular NAAT Tests): - SARS-CoV-2 PCR assays including Monroe Aptima, Monroe Fusion, Quinones RealTime, and Senzari Xpert Xpress. - SARS-CoV-2 Rapid ID NOW by the ID NOW as say. B. Tests for the Identification of SARS-CoV-2 Antibodi es: - Chemiluminesce nt immunoassays including Access SARS-CoV-2 IgM (DXI 600), VITROS Mshe-BNQG-RqO-2 IgG (Vitros 5600 and Vitros 3600), and Quinones SARS-CoV-2 IgG (BEAD FILLER I System). These interpretations are au topopulated into [facility] based on computerized algorithms matching an interpretation code to the patient's set of test results, and a clinical pathologist evaluates the comments for accuracy. However, thes e comments do not consider testing a patient may have had outside of the [facility] system. If results for COVID-19 infection continue to be negative in the context of a suspected viral respiratory illness, i t is possible the patient may have an infection with another respiratory virus. Influenza testing and a respiratory pathogen panel if clinically indicated may be beneficial i n this setting. If there con tinues to be a high degree of clinical suspicion for COVID-19 illness despite multiple negative tests on nasopharyngeal specimens, then it may be necessary to test the patien t for the SARS-CoV-2 virus u sing lower respiratory tract samples (such as sputum, bronchoalveolar lavage fluid (BAL), tracheal aspirate, etc.). COVID Results SARS-CoV-2 Rapid ID NOW (no units) [facility] Date Value SERVICES 05/21/2020 Not Detected Specimen Swab - NASOPHARYNGEAL SWAB Performing Organization Address City/State/Zipcode Phone Number [facility] CLIA: [id number] [place] [address] [place] [address] COVID-19 (ID NOW RAPID TESTING) (05/21/2020 2:02 PM BILL COLLECTOR) SARS-CoV-2 Rapid ID Not Detected Not Detected [facility] Specimen Swab - NASOPHARYNGEAL SWAB Narrative Performed At [place] NOW COVID-19 Assay is an isothermal nucleic [facility] acid amplification test intended for the qualitative detection of nucleic acid from SARS-CoV-2 viral RNA in nasopharyngeal ([employer] SALES [employer]SULTANT) specimens. It is used under Emergency Use Authorization (EUA) by FDA. The limit of detection (LOD) of the assay is 125 Genome Equivalents/mL. A positive result is indicative of the presence of SARS-CoV-2 RNA. Clinical correlation with patient history and other diagnostic information is necessary to determine patient infection status. A negative (Not Detected) result does not preclude SARS-CoV-2 infection. In patients with clinical symptoms and other tests that are consistent with SARS-CoV-2 infection, negative results should be treated as presumptive negative and a new specimen should be tested with alternative PCR molecular test. Invalid: Please collect a new specimen for repeat patient testing if clinically indicated. Performing Organization Address City/State/[facility] Phone Number [facility] CLIA: [id number] [place] [address] LAB[address] BLOOD CULTURE SCREEN (05/21/2020 2:02 PM BILL COLLECTOR) Blood No organisms isolated No growth [facility] Culture-Aerobic Comment: HOSPITAL Previous preliminary verifie d result was Culture In Progress on 05/21/2020 at 1801 BILL COLLECTOR LABORATORY Previous preliminary verifie d result was No growth at 24 hours on 05/22/2020 at 1501 BILL COLLECTOR Previous preliminary verifie d result was No growth at 48 hours on 05/23/2020 at 1501 BILL COLLECTOR Previous preliminary verifie d result was No growth at 72 hours on 05/24/2020 at 1501 BILL COLLECTOR Blood No organisms isolated No growth [facility] Culture-Anaerobic Comment: HOSPITAL Previous preliminary verifie d result was Culture In Progress on 05/21/2020 at 1801 BILL COLLECTOR LABORATORY Previous preliminary verifie d result was No growth at 24 hours on 05/22/2020 at 1501 BILL COLLECTOR Previous preliminary verifie d result was No growth at 48 hours on 05/23/2020 at 1501 BILL COLLECTOR Previous preliminary verifie d result was No growth at 72 hours on 05/24/2020 at 1501 BILL COLLECTOR Specimen Blood - VENOUS Performing Organization Address [facility] Phone Number [facility] CLIA: [id number] [place] [address] LABORATORY [address] [facility] BLOOD CULTURE SCREEN (05/21/2020 2:02 PM BILL COLLECTOR) Blood No organisms isolated No growth [facility] Culture-Aerobic Comment: HOSPITAL Previous preliminary verifie d result was Culture In Progress on 05/21/2020 at 1801 BILL COLLECTOR LABORATORY Previous preliminary verifie d result was No growth at 24 hours on 05/22/2020 at 1501 BILL COLLECTOR Previous preliminary verifie d result was No growth at 48 hours on 05/23/2020 at 1501 BILL COLLECTOR Previous preliminary verifie d result was No growth at 72 hours on 05/24/2020 at 1501 BILL COLLECTOR Blood No organisms isolated No growth [facility] Culture-Anaerobic Comment: HOSPITAL Previous preliminary verifie d result was Culture In Progress on 05/21/2020 at 1801 BILL COLLECTOR LABORATORY Previous preliminary verifie d result was No growth at 24 hours on 05/22/2020 at 1501 BILL COLLECTOR Previous preliminary verifie d result was No growth at 48 hours on 05/23/2020 at 1501 BILL COLLECTOR Previous preliminary verifie d result was No growth at 72 hours on 05/24/2020 at 1501 BILL COLLECTOR Specimen Blood - VENOUS Performing Organization Address [facility] Phone Number [facility] CLIA: [id number] [place], [place] [address] LABORATORY [address] URINALYSIS (05/21/2020 2:02 PM BILL COLLECTOR) Pathologist Sig nature APPEARANCE Clear Clear [facility] COLOR Yellow Yellow [facility] PH 7.0 4.8 - 8.0 [facility] SP GRAVITY 1.014 1.003 - 1.030 [facility] GLU U QUAL Normal Normal [facility] BLOOD Negative Negative [facility] KETONES Negative Negative [facility] PROTEIN Negative Negative [facility] UROBILIN 2.0 mg/dL (A) Normal [facility] BILIRUBIN Negative Negative [facility] NITRITE Positive (A) Negative [facility] LEUK NEMO 250/uL (A) Negative [facility] RBC/HPF <1 0 - 3 HPF [facility] WBC/HPF 55 (H) 0 - 5 HPF [facility] BACTERIA Few (A) Negative [facility] MUCOUS Slight (A) Negative LPF [facility] SQ EPITH 1 HPF [facility] Specimen Urine - URINE, CLEAN CATCH Performing Organization Address [facility] Phone Number [facility] CLIA: [id number] [place] [address] Lactic Acid Whole Blood (05/21/2020 1:53 PM BILL COLLECTOR) Pathologist Sig nature LACTIC ACID 0.87 mmol/L [facility] Specimen Blood - VENOUS Performing Organization Address [facility] Phone Number [facility] CLIA: [id number] [place] [address] XR CHEST 1 VW (05/21/2020 1:43 PM BILL COLLECTOR) Specimen Impressions Performed At Impression: No lung consolidation. Scatt ered left lung nodules better PACS/VR/DOSE evaluated by recent CT. Narrative Performed At This result has an attachment that is no t available. Exam: XR CHEST 1 VW 05/21/2020 1:31 PM PACS/VR/DOSE Clinical History: cough Comparison: Radiograph of 06/30/2019 Technique: frontal view of the chest Findings: Interval improvement of left mid lung zone atelectasi s. Crowding of bronchovascular marking in the left lower lobe suggest cristino of atelectasis. No consolidation. Scattered lung nodules left upper claudette ng zone, better evaluated by recent CT. No pleural effusion. No pneu mothorax. The cardiomediastinal silhouette appears stable. No acute osseous abnormality. Procedure Note [facility], Radiant Results Inft User - 2019 2:20 PM BILL COLLECTOR Exam: XR CHEST 1 VW 05/21/2020 1:31 PM Clinical History: cough Comparison: Radiograph of 06/30/2019 Technique: frontal view of the chest Findings: Interval improvement of left mid lung z one atelectasis. Crowding of bronchovascular marking in the left lowe r lobe suggestive of atelectasis. No consolidation. Scattered lung nodules left upper lung zone, better evaluated by recent CT. No pleural effus ion. No pneumothorax. The cardiomediastinal silhouette appears stable. No acute osseous abnormality. IMPRESSION Impression: No lung consolidation. Scatt ered left lung nodules better evaluated by recent CT. Performing Organization Address City/State/Zipcode Phone Number PACS/VR/DOSE TROPONIN I (05/21/2020 1:34 PM BILL COLLECTOR) Pathologist Sig nature TROPONIN I <0.012 <=0.034 ng/mL [facility] Specimen Blood - VENOUS Narrative Performed At Equal or Less than 0.034 ng/ml---Normal [facility] Note: Cardiac troponin begins to rise 3-4 hours after the onset of ischemia. Repeat in 4-6 hours if the sample was drawn within 3-4 hours of the onset of the symptom and found normal. Between 0.035 and 0.120 ng/mL--- Borderline. Questionable myocardial injury or necros is Note: Serial measurement may be necessary to confirm or exclude the diagnosis of myocardial injury or necrosis; Clinical correlation (symptoms, EKGs, imaging studies, and others) required; Repeat in 4-6 hours if clinically indicated. Equal or Higher than 0.121 ng/mL---Abnormal. Myocardial Injury or Necrosis Likely Biotin has been reported to cause a negative bias, interpret results relative to patient's use of biotin. Performing Organization Address [facility] Phone Number [facility] CLIA: [id number] [place] [address] FREE T4 (05/21/2020 1:34 PM BILL COLLECTOR) Pathologist Sig nature FREE T4 0.68 (L) 0.78 - 2.20 ng/dL: [facility] Specimen Blood - VENOUS Performing Organization Address [facility] Phone Number [facility] CLIA: [id number] [place] [address] THYROID STIMULATING HORMONE (05/21/2020 1:34 PM BILL COLLECTOR) Pathologist Sig nature TSH 1.59 0.45 - 4.70 mIU/L [facility] Specimen Blood - VENOUS Performing Organization Address [facility] Phone Number [facility] CLIA: [id number] [place] [address] COMP. METABOLIC PANEL ([id number]) (05/21/2020 1:34 PM BILL COLLECTOR) Pathologist Sig nature NA 129 (L) 135 - 145 [facility] mmol/L [facility] K 4.5 3.5 - 5.0 [facility] mmol/L [facility] CL 95 (L) 98 - 108 mmol/L [facility] CO2 TOTAL 29 23 - 31 mmol/L [facility] AGAP 5 2 - 16 [facility] BUN 10 7 - 23 mg/dL [facility] GLUCOSE 101 70 - 110 mg/dL [facility] CREATININE 0.89 0.60 - 1.25 [facility] mg/dL [facility] TOTAL BILI 0.9 0.1 - 1.1 mg/dL [facility] CALCIUM 9.2 8.6 - 10.6 [facility] mg/dL [facility] T PROTEIN 6.8 6.3 - 8.2 g/dL [facility] ALBUMIN 3.8 3.5 - 5.0 g/dL [facility] ALK PHOS 42 34 - 122 U/L [facility] ALTv 9 5 - 50 U/L [facility] AST(SGOT) 38 13 - 40 U/L [facility] eGFR Calculation 82.2 mL/min/1.73m2 [facility] [place]) eGFR Calculation 99.7 mL/min/1.73m2 [facility] () [facility] Specimen Blood - VENOUS Narrative Performed At [facility] of Glomerular Filtration Rate (GFR) [facility] and Staging of Kidney Disease* + + +- + | GFR (mL/min/1.73 m2) | With Kidney Damage | Without Kidney Damage + + +- + | >90 | Stage one | Normal + + +- + | 60-89 | Stage two | Decreased GFR + + +- + | 30-59 | Stage three | Stage three + + +- + | 15-29 | Stage four | Stage four + + +- + | <15 (or dialysis) | Stage five | Stage five + + +- + *Each stage assumes the associated GFR [...] tests). Performing Organization Address City/State/Zipcode Phone Number [facility] CLIA: [id number] [place] [address] CBC WITH DIFF (05/21/2020 1:34 PM BILL COLLECTOR) Pathologist Sig nature WBC 3.83 (L) 4.20 - 10.70 [facility] 10*3/L [facility] RBC 3.79 (L) 4.26 - 5.52 [facility] 10*6/L [facility] HGB 10.7 (L) 12.2 - 16.4 [facility] g/dL HOSPITAL LABORATORY HCT 32.6 (L) 38.4 - 49.3 % [facility] MCV 86.0 81.7 - 95.6 fL [facility] MCH 28.2 26.1 - 32.7 pg [facility] MCHC 32.8 31.2 - 35.0 [facility] g/dL [facility] RDW-SD 43.2 38.5 - 51.6 fL [facility] RDW-CV 13.8 12.1 - 15.4 % [facility] PLT 170 150 - 328 [facility] 10*3/L [facility] MPV 10.6 9.8 - 13.0 fL [facility] NRBC/100 WBC 0.0 0.0 - 10.0 /100 [facility] WBCs [facility] NRBC x10^3 <0.01 10*3/L [facility] GRAN MAT (NEUT) % 60.3 % [facility] IMM GRAN % 0.30 % [facility] LYMPH % 25.1 % [facility] MONO % 10.4 % [facility] EOS % 3.4 % [facility] BASO % 0.5 % [facility] GRAN MAT x10^3(ANC) 2.31 1.99 - 6.95 [facility] 10*3/uL [facility] IMM GRAN x10^3 <0.03 0.00 - 0.06 [facility] 10*3/uL [facility] LYMPH x10^3 0.96 (L) 1.09 - 3.23 [facility] 10*3/uL [facility] MONO x10^3 0.40 0.36 - 1.02 [facility] 10*3/uL [facility] EOS x10^3 0.13 0.06 - 0.53 [facility] 10*3/uL [facility] BASO x10^3 <0.03 0.01 - 0.09 [facility] 10*3/uL [facility] Specimen Blood - VENOUS Performing Organization Address City/State/Zipcode Phone Number [facility] CLIA: [id number] [place] [address] documented in this encounter Visit Diagnoses Diagnosis Sepsis secondary to UTI - Primary Urinary tract infection, site not specif ied Fever in adult Acute pain of right shoulder Acute UTI Urinary tract infection, site not specif ied Other specified hypotension Hypotension, unspecified hypotension typ e Mild intermittent asthma without complic ation Unspecified asthma Colonization with drug-resistant bacteri a Carrier or suspected carrier of other sp ecified bacterial diseases Acute cystitis without hematuria Acute cystitis Asthma Unspecified asthma Hyponatremia Hyposmolality and/or hyponatremia 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) Acute respiratory failure with hypoxia Acute respiratory failure Chronic anemia Anemia, unspecified documented in this encounter Administered Medications Medication Order MAR Action Action Date Dose Rate Site acetaminophen (TYLENOL) tablet Given 05/24/2020 3:25 PM BILL COLLECTOR 650 mg 650 mg 650 mg, Oral, Q6HPRN, Starting 05/21/20 at 2246, Until Discontinued, Routine, Pain (scale 1-3), Pain (scale 4-6) Given 05/23/2020 4:31 AM BILL COLLECTOR 650 mg Given 05/22/2020 9:32 AM BILL COLLECTOR 650 mg ertapenem (INVANZ) 1,000 mg in NaCl 0.9% Given 05/30/2020 12 :26 PM BILL COLLECTOR 1,000 mg (NS) 50 mL MINI-BAG 1,000 mg, IV Piggyback, Q24H ABX, First dose on Thu05/30/20 at 1100, Until Discontinued, 50 mL, Reason for Anti-Infective: Documented Infection, Documented Infection Site: Urine, Duration of Therapy: 14 days, Restricted use approved by: Documented ESBL infection or colonization guaiFENesin 100 mg/5 mL solution 100 mg Given 05/30/2020 12:26 PM BILL COLLECTOR 100 mg 100 mg, Oral, Q4H, First dose on Thu05/24/20 at 0815, Until Discontinued, Routine Given 05/30/2020 9:38 AM BILL COLLECTOR 100 mg Given 05/30/2020 3:55 AM BILL COLLECTOR 100 mg heparin (porcine) injection Given 05/30/2020 9:38 AM BILL COLLECTOR 5,000 Units Abdomen-SC 5,000 Units 5,000 Units, Subcutaneous, Q12H, First dose on Thu05/22/20 at 0800, Until Discontinued, Routine Given 05/29/2020 8:10 PM BILL COLLECTOR 5,000 Units Abdo men-SC Given 05/29/2020 8:47 AM BILL COLLECTOR 5,000 Units Abdo men-SC ipratropium-albuteroL (DUONEB) 0.5 mg-3 mg(2.5 Given 1 07/31/2019 11:40 AM BILL COLLECTOR 3 mL mg base)/3 mL nebulizer solution 3 mL 3 mL, Inhalation, QID, First dose (after last modification) on Alisha 05/24/20 at 1200, Until Discontinued, Routine Given 05/30/2020 8:41 AM BILL COLLECTOR 3 mL Given 05/29/2020 8:51 PM BILL COLLECTOR 3 mL KCL (KLOR-CON M20) tablet 40 mEq Given 05/30/2020 9:38 AM BILL COLLECTOR 40 mEq 40 mEq, Oral, DAILY, First dose on Thu05/27/20 at 0900, Until Discontinued, Routine Given 05/29/2020 8:46 AM BILL COLLECTOR 40 mEq Given 05/28/2020 9:47 AM BILL COLLECTOR 40 mEq NaCl 0.9% (NS) injection 10 mL 10 mL, Slow IV Push, PRN, Starting 05/26/20 at 112 2, Until Discontinued, Routine, line runner sodium chloride 7% (HYPER-LILA) nebulizer Given 05/30/2020 8:41 AM BILL COLLECTOR 4 mL solution 4 mL 4 mL, Inhalation, DAILY, First dose on Alisha 05/24/20 at 0900, Until Discontinued, Routine Given 05/29/2020 8:23 AM BILL COLLECTOR 4 mL Given 05/28/2020 8:02 AM BILL COLLECTOR 4 mL tamsulosin (FLOMAX) capsule 0.4 mg Given 05/30/2020 9:38 AM BILL COLLECTOR 0.4 mg 0.4 mg, Oral, DAILY, First dose on Thu05/22/20 at 0900, Until Discontinued, Routine Given 05/29/2020 8:46 AM BILL COLLECTOR 0.4 mg Given 05/28/2020 9:47 AM BILL COLLECTOR 0.4 mg zafirlukast (ACCOLATE) tablet 20 mg Given 05/30/2020 9:38 AM BILL COLLECTOR 20 mg 20 mg, Oral, BIDAC, First dose on Thu05/22/20 at 0730, Until Discontinued, Routine, body team member approving Restricted medication: BRYCE DODGE Given 05/29/2020 5:15 PM BILL COLLECTOR 20 mg Given 05/29/2020 8:46 AM BILL COLLECTOR 20 mg Medication Order MAR Action Action Date Dose Rate Site acetaminophen (TYLENOL) tablet Given 05/21/2020 1:25 PM BILL COLLECTOR 1,0 00 mg 1,000 mg 1,000 mg, Oral, ONCE, 1 dose, Thu05/21/20 at 1430, MARI cefTRIAXone (ROCEPHIN) 1,000 mg in NaCl Given 05/21/2020 4:04 P M BILL COLLECTOR 1,000 mg 0.9% (NS) 50 mL MINI-BAG 1,000 mg, IV Piggyback, ONCE, 1 dose, Thu05/21/20 at 1700, 50 mL, Reason for Anti-Infective: Documented Infection, Documented Infection Site: Urine, Duration of Therapy: 7 days hydrocortisone sod succ (CORTEF) 50 mg in Given 05/27/2020 3:19 PM BILL COLLECTOR 50 mg NaCl 0.9% (NS) piggyback 50 mg, IV Piggyback, Q8H, First dose on Thu05/22/20 at 2200, Until Discontinued, 50 mL Given 05/27/2020 5:53 AM BILL COLLECTOR 50 mg Given 05/26/2020 10:14 PM BILL COLLECTOR 50 mg iohexol (OMNIPAQUE 350 BULK-100 mL) Given 05/21/2020 5:57 PM CS T 100 mL injection 100 mL 100 mL, Intravenous, ONCE, 1 dose, Thu05/21/20 at 1815, Routine ipratropium-albuteroL (DUONEB) 0.5 mg-3 mg(2.5 Given 1 07/25/2019 7:22 AM BILL COLLECTOR 3 mL mg base)/3 mL nebulizer solution 3 mL 3 mL, Inhalation, QID, First dose on Thu05/22/20 at 0800, Until Discontinued, Routine Given 05/23/2020 7:55 PM BILL COLLECTOR 3 mL Given 05/23/2020 4:01 PM BILL COLLECTOR 3 mL ipratropium-albuteroL (DUONEB) 0.5 mg-3 mg(2.5 Given 1 07/24/2019 5:01 AM BILL COLLECTOR 3 mL mg base)/3 mL nebulizer solution 3 mL 3 mL, Inhalation, QIDPRN, Starting Thu05/21/20 at 2216, Until Alisha 05/24/20 at 0806, Routine, Wheezing, Shortness of Breath, Bronchospasm, Chest tightness KCL (POTASSIUM CHLORIDE) 40 mEq in NaCl 0.9% Given 8:13 AM BILL COLLECTOR 40 mEq (NS) piggyback 40 mEq, IV Piggyback, ONCE, 1 dose, 05/27/20 at 0815, 250 mL KCL (POTASSIUM CHLORIDE) 40 mEq in NaCl 0.9% Given 10:11 AM BILL COLLECTOR 40 mEq (NS) piggyback 40 mEq, IV Piggyback, ONCE, 1 dose, Thu05/28/20 at 0800, 100 mL lactated ringers IV infusion New Bag 05/21/2020 10:48 PM BILL COLLECTOR 1,000 mL 100 mL/hr 1,000 mL at 100 mL/hr, 1,000 mL, IV Infusion, ONCE, 1 dose, Thu05/21/20 at 2200, STAT lidocaine 1% (PF) (XYLOCAINE) Given 05/28/2020 5:30 PM BILL COLLECTOR 5 mL Right Arm injection 5 mL 5 mL, Subcutaneous, ONCE, 1 dose, 05/26/20 at 1130, Routine magnesium sulfate in water 4 gram/50 mL (8 %) New Bag 4:16 AM BILL COLLECTOR 4 g IV Piggyback 4 g 4 g, IV Piggyback, ONCE, 1 dose, Thu05/22/20 at 0515, Routine meropenem (MERREM) 500 mg in NaCl 0.9% (NS) Given 05/15 9:38 AM BILL COLLECTOR 500 mg 100 mL MINI-BAG 500 mg, IV Piggyback, Administer over 60 Minutes, Q6H ABX, First dose on Thu05/22/20 at 0000, Until Discontinued, MARI, Restricted use approved by: [address], Reason for Anti-Infective: Empiric Therapy for Suspected Infection, Empiric Therapy Site: Urine, Duration of therapy: 7 days Given 05/30/2020 3:55 AM BILL COLLECTOR 500 mg Given 05/29/2020 8:10 PM BILL COLLECTOR 500 mg NaCl 0.9% (NS) bolus infusion New Bag 05/21/2020 2:51 PM BILL COLLECTOR 1,000 mL 999 mL/hr 1,000 mL at 999 mL/hr, 1,000 mL, IV Piggyback, ONCE, 1 dose, Thu05/21/20 at 1530, STAT NaCl 0.9% (NS) bolus infusion New Bag 05/21/2020 4:54 PM BILL COLLECTOR 2,000 mL 999 mL/hr 2,000 mL at 999 mL/hr, 2,000 mL, IV Piggyback, ONCE, 1 dose, Thu05/21/20 at 1800, STAT NaCl 0.9% (NS) IV infusion 1,000 New Bag 05/26/2020 6:[address] 1,000 mL 100 mL/hr mL at 100 mL/hr, IV Infusion, CONTINUOUS, Starting Thu05/22/20 at 2230, Until Thu05/28/20 at 0709, Routine New Bag 05/25/2020 9:21 PM BILL COLLECTOR 1,000 mL 100 mL/hr New Bag 05/24/2020 8:44 PM BILL COLLECTOR 1,000 mL 100 mL/hr ondansetron (ZOFRAN (PF)) injection 4 mg Given 05/21/2020 4:15 PM BILL COLLECTOR 4 mg 4 mg, Slow IV Push, ONCE, 1 dose, Thu05/21/20 at 1715, MARI predniSONE (DELTASONE) tablet 40 mg Given 05/22/2020 8:02 AM BILL COLLECTOR 40 mg 40 mg, Oral, DAILY, 4 doses, First dose (after last modification) on Thu05/22/20 at 0900, Last dose on Thu05/25/20 at 0900, Routine predniSONE (ORASONE) tablet 1 mg Given 05/21/2020 11:23 PM BILL COLLECTOR 1 mg 1 mg, Oral, DAILY, 5 doses, First dose on Thu05/21/20 at 2230, Last dose on Thu05/25/20 at 0900, Routine ramelteon (ROZEREM) tablet 8 mg Given 05/24/2020 1:14 AM BILL COLLECTOR 8 mg 8 mg, Oral, ONCE, 1 dose, Alisha 05/24/20 at 0215, Routine traMADoL (ULTRAM) tablet 50 mg Given 05/21/2020 1:35 PM BILL COLLECTOR 50 mg 50 mg, Oral, ONCE, 1 dose, Thu05/21/20 at 1430, Routine documented in this encounter Additional Health Concerns Infection Onset Date Last Indicated Resolved Time Contact - ESBL 02/07/2019 02/07/2019 COVID-19 Rule Out 05/21/2020 05/21/2020 05/21/2020 2: 33 PM BILL COLLECTOR documented as of this encounter Insurance Payer Benefit Plan / Subscriber ID Effective Phone Address T ype Group Dates [facility] [id number] 2019-Pres Medica re HEALTHCARE - HEALTHCARE ent Adv HM O MANAGED DUAL COMPLETE MEDICARE HMO TMHP MEDICAID OF [id number] 2016-Pre [phone] Med[place] caid [place] sent [phone] [place] [address] (Home) [place] [address] documented as of this encounter
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
[2020-07-12 10:57] LABS: Absolute Lymphocytes (CBC) 1.6 K/uL (0.7-4.9); Basophils % 0.7 % (0-1.3); Hematocrit 31.3 % (39.6-49.0); Lymphocytes % 31.3 % (15.3-44.8); MPV 7.1 fL (7.6-11.3); RBC Red Blood Cell Count 3.76 M/uL (4.33-5.43)
[2020-07-12] MEDS ORDERED: FENTANYL CITR 100 MCG/2 ML ONE (11:05)
[2020-07-12 11:15] LABS: ALT/SGPT 28 U/L (12-78); AST/SGOT 49 U/L (15-37); Albumin 2.6 g/dL (3.4-5.0); Alkaline Phosphatase 77 U/L (45-117); BUN Blood Urea Nitrogen 8 mg/dL (7-18); Bicarbonate 27 mmol/L (21-32); Bilirubin Direct 0.1 mg/dL (0-0.2); Bilirubin Total 0.3 mg/dL (0.2-1.0); Glucose Level 64 mg/dL (74-106); Lipase 153 U/L (73-393); Potassium 4.5 mmol/L (3.5-5.1); Protein, Total 6.2 g/dL (6.4-8.2); Sodium Level 122 mmol/L (136-145)
[2020-07-12 12:19] LABS: Blood Morphology Comment NOT SEEN (NOT SEEN); Platelet Estimate ADEQ; White Blood Cell Scan OK (OK)
--- NOTE | 2020-07-12 12:53 | ER ---
Nurse's Notes [facility] Name: Venu Coy Age: 80 yrs Sex: Male : 1940 Arrival Date: 07/12/2020 Time: 09:19 Bed 16 Private MD: Diagnosis: Hypo-osmolality and hyponatremia;Weakness-General Presentation: 07/12 09:59 Chief complaint: Daughter reports right hip pain. Pt's daughter reports generalized aa5 weakness x 1 week ago, states "he almost fell 1 week ago but my mom was able to catch him". Pt's daughter states "his sodium goes low and he gets confused". Coronavirus screen: At this time, the client does not indicate any symptoms associated with coronavirus-19. Ebola Screen: Patient negative for fever greater than or equal to 101.5 degrees Fahrenheit, and additional compatible Ebola Virus Disease symptoms. Initial Sepsis Screen: Does the patient meet any 2 criteria? No. Patient's initial sepsis screen is negative. Does the patient have a suspected source of infection? No. Patient's initial sepsis screen is negative. Risk Assessment: Do you want to hurt yourself or someone else? Patient reports no desire to harm self or others. Onset of symptoms was June 2020. 09:59 Acuity: PAIGE 3 aa5 09:59 Method Of Arrival: Wheelchair aa5 Triage Assessment: 14:00 General: Behavior is calm. GI: Abdomen is non-distended. iw Historical: - Allergies: 10:01 No Known Allergies; aa5 - PMHx: 10:01 Asthma; Hernia; hyponatremia; aa5 - PSHx: 10:01 Hernia repair; aa5 - Immunization history:: Adult Immunizations unknown. - Social history:: Smoking status: Patient denies any tobacco usage or history of. Screenin:00 Abuse screen: Denies threats or abuse. Denies injuries from another. Nutritional iw screening: No deficits noted. Tuberculosis screening: No symptoms or risk factors identified. Fall Risk None identified. Assessment: 12:30 General: Appears in no apparent distress. Pain: Complains of pain in pelvis, right hip iw and left hip. Neuro: Level of Consciousness is awake, alert, obeys commands, Oriented to person, place, time, situation, Moves all extremities. Neuro: Reports dizziness, weakness. Cardiovascular: Patient's skin is warm and dry. Respiratory: Airway is patent Respiratory effort is even, unlabored, Respiratory pattern is regular, symmetrical. GI: Abdomen is flat, non-distended. Derm: Skin is intact, is healthy with good turgor. Musculoskeletal: Range of motion: intact in all extremities. 13:30 Reassessment: Patient appears in no apparent distress at this time. Patient and/or iw family updated on plan of care and expected duration. Pain level reassessed. 20:54 Reassessment: Patient and/or family updated on plan of care and expected duration. Pain ll2 level reassessed. report given to [place]. Vital Signs: 09:59 BP 132 / 87; Pulse 68; Resp 18 S; Temp 97.6(TE); Pulse Ox 99% on R/A; aa5 15:00 BP 104 / 90; Pulse 61; Resp 16; Temp 98.2; Pulse Ox 97% on R/A; iw ED Course: 09:19 Patient arrived in ED. ag5 09:58 Arm band placed on. aa5 10:01 Triage completed. aa5 10:07 James Stockton PA is PHCP. cp 10:07 Dagoberto Lazaro MD is Attending Physician. cp 10:33 Francoise Velásquez, PARISH is Primary Nurse. iw 11:37 XRAY Hip RIGHT 2 view In Process Unspecified. EDMS 11:37 XRAY Knee LEFT 3 view In Process Unspecified. EDMS 11:39 XRAY Knee RIGHT 3 view In Process Unspecified. EDMS 12:00 Patient has correct armband on for positive identification. iw 12:00 Inserted saline lock: 22 gauge in right antecubital area, using aseptic technique. iw 12:52 Brennan Patel is Hospitalizing Provider. cp 12:58 CT Head Brain wo Cont In Process Unspecified. EDMS 12:58 CT Pelvis wo Cont In Process Unspecified. EDMS 14:09 XRAY Chest (1 view) In Process Unspecified. EDMS 15:00 No provider procedures requiring assistance completed. Patient admitted, IV remains in iw place. Administered Medications: 10:56 Drug: fentaNYL (PF) 25 mcg Route: IVP; Site: right antecubital; rb3 15:07 Follow up: Response: No adverse reaction iw 14:00 Drug: NS 0.9% 250 ml Route: IV; Rate: bolus; Site: right antecubital; 16:25 Drug: morphine 2 mg Route: IVP; Site: right antecubital; Outcome: 12:53 Decision to Hospitalize by Provider. cp 15:00 Admitted to ER Hold. Please see [facility] for further documentation. iw 15:00 Condition: good 15:00 Discharge instructions given to patient, family, Instructed on the need for admit. 20:55 Patient left the ED. ll2 Signatures: Dispatcher [employer] EDMS Francoise Velásquez RN RN Georgia Andrade RN RN aa5 James Stockton PA PA Dulce Alberto Terrence Walls [facility] Katharina Camejo RN PARISH 2 Edith Reaves RN RN rb3 Corrections: (The following items were deleted from the chart) 14:13 14:00 CORONAVIRUS drawn and sent. [facility] EDPA 18:30 12:30 General: Appears in no apparent distress. [facility]
--- NOTE | 2020-07-12 12:53 | EDPHYS ---
Physician Documentation [facility] Name: Venu Coy Age: 80 yrs Sex: Male : 1940 Arrival Date: 07/12/2020 Time: 09:19 Bed 16 Private MD: ED Physician Dagoberto Lazaro HPI: 07/12 10:25 This 80 yrs old Male presents to ER via Wheelchair with complaints of Knee cp Pain, Hip Pain, Nausea. 10:25 The patient's problem is reported as weakness, that is generalized. Onset: The cp symptoms/episode began/occurred 1 week(s) ago. 10:25 Duration: The episode is continuous. Associated signs and symptoms: Pertinent cp positives: right hip pain and bilateral knee pain, Pertinent negatives: abdominal pain, agitation, chest pain, confusion, diarrhea, numbness, vomiting. Severity of symptoms: in the emergency department the symptoms are unchanged despite home interventions. Patient's baseline: Neuro: alert and fully oriented, Motor: no deficits, Ambulation: walks without assistance, Speech: normal, The patient has a previous history of hyponatremia. Historical: - Allergies: 10:01 No Known Allergies; aa5 - PMHx: 10:01 Asthma; Hernia; hyponatremia; aa5 - PSHx: 10:01 Hernia repair; aa5 - Immunization history:: Adult Immunizations unknown. - Social history:: Smoking status: Patient denies any tobacco usage or history of. ROS: 10:30 Constitutional: Positive for poor PO intake, Negative for body aches, chills, fever. cp 10:30 Eyes: Negative for injury, pain, redness, and discharge. cp 10:30 ENT: Negative for ear pain, sore throat, difficulty swallowing, difficulty handling secretions. 10:30 Cardiovascular: Negative for chest pain, edema, palpitations. 10:30 Respiratory: Negative for cough, shortness of breath, wheezing. 10:30 Abdomen/GI: Negative for abdominal pain, vomiting, diarrhea, constipation, black/tarry stool, rectal bleeding. 10:30 MS/extremity: Positive for pain, of the right hip and right knee and left knee, Negative for injury or acute deformity, decreased range of motion, paresthesias. 10:30 Skin: Negative for rash. 10:30 Neuro: Positive for weakness, Negative for altered mental status, dizziness, headache, numbness, syncope. 10:30 All other systems are negative. Exam: 10:40 Constitutional: The patient appears in no acute distress, alert, awake, cp non-diaphoretic, non-toxic, well developed, well nourished, uncomfortable. 10:40 Head/Face: Normocephalic, atraumatic. cp 10:40 Eyes: Pupils: equal, round, and reactive to light and accomodation, Conjunctiva: normal, no exudate, no injection, Sclera: no appreciated abnormality, Lids and lashes: appear normal, bilaterally. 10:40 ENT: External ear(s): are unremarkable, Nose: is normal, Mouth: Lips: moist, Oral mucosa: moist, Posterior pharynx: Airway: no evidence of obstruction, patent. 10:40 Neck: ROM/movement: is normal, is supple, without pain, no range of motions limitations, Lymph nodes: no appreciated lymphadenopathy. 10:40 Chest/axilla: Inspection: normal, Palpation: is normal, no crepitus, no tenderness. 10:40 Cardiovascular: Rate: normal, Rhythm: regular, Edema: is not appreciated, JVD: is not appreciated. 10:40 Respiratory: the patient does not display signs of respiratory distress, Respirations: normal, no use of accessory muscles, no retractions, labored breathing, is not present, Breath sounds: are clear throughout, no decreased breath sounds, no stridor, no wheezing. 10:40 Abdomen/GI: Inspection: abdomen appears normal, Palpation: abdomen is soft and non-tender, in all quadrants. 10:40 Back: pain, is absent, ROM is normal. 10:40 Skin: no rash present. 10:40 Neuro: Orientation: no acute changes, per family, Mentation: able to follow commands, Cerebellar function: is grossly normal, Motor: moves all fours, general weakness with no focal deficits, Sensation: no obvious gross deficits. 10:40 Musculoskeletal/extremity: Extremities: grossly normal except: noted in the right hip cp and right knee and left knee: pain, tenderness, There is no evidence of decreased ROM, deformity. 12:45 Radiologist reports: no acute findings cp 15:20 ECG was reviewed by the Attending Physician. cp Vital Signs: 09:59 BP 132 / 87; Pulse 68; Resp 18 S; Temp 97.6(TE); Pulse Ox 99% on R/A; aa5 15:00 BP 104 / 90; Pulse 61; Resp 16; Temp 98.2; Pulse Ox 97% on R/A; iw MDM: 10:08 Patient medically screened. cp 11:00 Differential diagnosis: CVA, metabolic disorder, drug effects, dehydration, hip cp fracture, knee fracture. 12:51 Physician consultation: Brennan Patel was called at 12:51, was contacted at 12:51, regarding admission, to the telemetry unit. patient's condition. 12:55 Data reviewed: vital signs, nurses notes, lab test result(s), EKG, radiologic studies, cp CT scan, plain films. 12:55 Test interpretation: by ED physician or midlevel provider: ECG, plain radiologic cp studies. Counseling: I had a detailed discussion with the patient and/or guardian regarding: the historical points, exam findings, and any diagnostic results supporting the discharge/admit diagnosis, lab results, radiology results, the need for further work-up and treatment in the hospital. Response to treatment: the patient's symptoms have mildly improved after treatment. 07/12 10:19 Order name: Basic Metabolic Panel; Complete Time: 11:36 cp 07/12 11:36 Interpretation: Normal except: NA 122; CL 89; GLUC 64. cp 07/12 10:19 Order name: CBC with Diff; Complete Time: 12:47 07/12 11:37 Interpretation: Normal except: RBC 3.76; HGB 10.4; HCT 31.3; MPV 7.1; EOSINOPHIL % 9.1. cp 07/12 10:19 Order name: Hepatic Function; Complete Time: 11:36 cp 07/12 10:19 Order name: Lipase; Complete Time: 11:36 cp 07/12 10:19 Order name: Urine Microscopic Only; Complete Time: 14:16 cp 07/12 12:19 Order name: CBC Smear Scan; Complete Time: 12:47 EDTN 07/12 12:39 Order name: Troponin I cp 07/12 12:39 Order name: CK 07/12 12:51 Order name: Lactate 07/12 12:51 Order name: Procalcitonin 07/12 12:51 Order name: Blood Culture Adult (2) 07/12 12:52 Order name: Lactate EDTN 07/12 13:25 Order name: COVID-19 : Document "Date of Symptom Onset" if Symptomatic. 07/12 10:19 Order name: XRAY Hip RIGHT 2 view; Complete Time: 14:16 07/12 14:16 Interpretation: Report reviewed. 07/12 10:19 Order name: IV Saline Lock; Complete Time: 14:00 07/12 10:19 Order name: XRAY Knee LEFT 3 view; Complete Time: 14:16 07/12 14:17 Interpretation: Report reviewed. 07/12 10:19 Order name: XRAY Knee RIGHT 3 view; Complete Time: 14:16 07/12 14:17 Interpretation: Report reviewed. 07/12 12:39 Order name: EKG; Complete Time: 12:40 07/12 12:39 Order name: CT Head Brain wo Cont; Complete Time: 14:16 07/12 14:17 Interpretation: Report reviewed. 07/12 12:49 Order name: CT Pelvis wo Cont; Complete Time: 14:16 07/12 14:18 Interpretation: Report reviewed. 07/12 12:51 Order name: XRAY Chest (1 view); Complete Time: 14:16 07/12 14:18 Interpretation: Report reviewed. 07/12 13:43 Order name: Urine Dipstick--Ancillary (enter results); Complete Time: 14:16 [facility] 07/12 14:48 Order name: Diet Heart Healthy; Complete Time: 14:48 07/12 14:56 Order name: SARS-COV-2 RT PCR [facility] 07/12 16:54 Order name: Basic Metabolic Panel [facility] 07/12 17:17 Order name: Osmolality, Serum [facility] 07/12 10:19 Order name: Labs collected and sent; Complete Time: 14:00 07/12 10:19 Order name: Urine Dipstick-Ancillary (obtain specimen); Complete Time: 16:29 07/12 12:39 Order name: EKG - Nurse/Tech; Complete Time: 16:28 cp EC:20 Rate is 64 beats/min. Rhythm is regular. PA interval is prolonged at 208 msec. QRS cp interval is normal. QT interval is normal. T waves are Flattened in lead aVL. Interpreted by me. Reviewed by me. Administered Medications: 10:56 Drug: fentaNYL (PF) 25 mcg Route: IVP; Site: right antecubital; rb3 15:07 Follow up: Response: No adverse reaction iw 14:00 Drug: NS 0.9% 250 ml Route: IV; Rate: bolus; Site: right antecubital; iw 16:25 Drug: morphine 2 mg Route: IVP; Site: right antecubital; iw Disposition: 07/13 06:53 Co-signature as Attending Physician, Dagoberto Lazaro MD I agree with the assessment and kdr plan of care. Disposition: 07/12/20 12:53 Hospitalization ordered by Brennan Patel for Inpatient Admission. Preliminary diagnosis are Hypo-osmolality and hyponatremia, Weakness - General. - Bed requested for Telemetry/MedSurg (Inpatient). - Status is Inpatient Admission. ll2 - Condition is Stable. - Problem is new. - Symptoms have improved. Signatures: Dispatcher [employer] EDTN Elissa Garland RN RN Dagoberto Lazaro MD MD [facility] Francoise Velásquez RN RN Georgia Andrade RN RN aa5 James Stockton PA PA cp Katharina Camejo RN RN ll2 Edith Reaves, RN RN rb3 Corrections: (The following items were deleted from the chart) 07/12 14:13 13:26 CORONAVIRUS ordered. [facility] EDTN 14:47 11:41 Delgado ordered. cp iw 16:45 12:53 Hospitalization Ordered by Brennan Patel for Inpatient Admission. Preliminary iw diagnosis is Hypo-osmolality and hyponatremia; Weakness - General. Bed requested for Telemetry/MedSurg (Inpatient). Status is Inpatient Admission. Condition is Stable. Problem is new. Symptoms have improved. cp 20:38 16:45 07/12/2020 12:53 Hospitalization Ordered by Brennan Patel for Inpatient dw Admission. Preliminary diagnosis is Hypo-osmolality and hyponatremia; Weakness - General. Bed requested for [facility] ER HOLD. Status is Inpatient Admission. Condition is Stable. Problem is new. Symptoms have improved. iw 20:55 20:38 07/12/2020 12:53 Hospitalization Ordered by Brennan Patel for Inpatient ll2 Admission. Preliminary diagnosis is Hypo-osmolality and hyponatremia; Weakness - General. Bed requested for Telemetry/MedSurg (Inpatient). Status is Inpatient Admission. Condition is Stable. Problem is new. Symptoms have improved. dw
--- NOTE | 2020-07-12 13:09 | RAD REPORT ---
EXAM DESCRIPTION: CT - Head Brain Wo Cont - 07/12/2020 12:58 pm CLINICAL HISTORY: WEAKNESS Headache, drowsiness COMPARISON: Head Brain Wo Cont dated 07/25/2019; Brain Wo Cont dated 07/26/2019 TECHNIQUE: All CT scans are performed using dose optimization technique as appropriate and may inclu de automated exposure control or mA/KV adjustment according to patient size. FINDINGS: No intracranial hemorrhage, hydrocephalus or extra-axial fluid collection.Mild generalized brain atrophy is seen.No areas of brain edema or evidence of midline shift. Sella turcica appears en larged, similar prior study. The paranasal sinuses and mastoids are clear. The calvarium is intact. IMPRESSION: No acute intracranial abnormality. 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
--- NOTE | 2020-07-12 13:15 | RAD REPORT ---
EXAM DESCRIPTION: RAD - Knee Right 3 View - 07/12/2020 11:39 am CLINICAL HISTORY: Right knee pain FINDINGS: No fracture or dislocation is seen. Marked osteoarthritis medial compartment consisting joint space narrowing and osteophytes. Mild later al subluxation of the tibia on the femur. Moderate osteoarthritis lateral compartment. Bones are osteoporotic
--- NOTE | 2020-07-12 13:16 | RAD REPORT ---
EXAM DESCRIPTION: RAD - Knee Left 3 View - 07/12/2020 11:37 am CLINICAL HISTORY: Left knee pain FINDINGS: No fracture or dislocation is seen. Mild to moderate narrowing lateral compartment with subchondral sclerosis. Small joint effusion. Bone s are osteoporotic. Calcification along the medial compartment likely chronic
--- NOTE | 2020-07-12 13:31 | RAD REPORT ---
EXAM DESCRIPTION: CT - Pelvis Wo Cont - 07/12/2020 12:58 pm CLINICAL HISTORY: right hip pain Fall, trauma, hip pain COMPARISON: Hip Right 2 View dated 07/12/2020; Stone Protocol dated 08/31/2019 TECHNIQUE: All CT scans are performed using dose optimization technique as appropriate and may inclu de automated exposure control or mA/KV adjustment according to patient size. FINDINGS: Moderate lumbar degenerative changes are present. No evidence of acute fracture or dislocation. No AVN pattern. No pelvic fracture. Sacroiliac joints a re symmetric. Metallic foreign body is seen in the posterior right ischiorectal fat. Moderate fat containing inguinal hernias bilaterally. The anterior aspect of the urinary bladder is t hickened and demonstrates mild surrounding fat stranding. Sigmoid diverticulosis is present without diverticulitis. IMPRESSION: No fracture or dislocation the hip or bony pelvis is seen. Moderate lower lumbar degener ative changes are evident. Urinary bladder wall thickening is seen anteriorly mild surrounding fat stranding. Advise clinical co rrelation for the possibility infection in this region.
--- NOTE | 2020-07-12 13:42 | RAD REPORT ---
EXAM DESCRIPTION: RAD - Hip Right 2 View - 07/12/2020 11:37 am CLINICAL HISTORY: Right hip pain FINDINGS: No fracture or dislocation is seen. Bones are osteoporotic. Mild joint space narrowing with subchondral sclerosis
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
[2020-07-12 13:48] LABS: Urine Blood NEGATIVE (NEG); Urine Glucose NEGATIVE (NEG); Urine Protein NEGATIVE (NEG); Urine Specific Gravity 1.025 (1.005-1.030); Urine pH 6.5 (5.0-7.0)
[2020-07-12 13:49] LABS: Urine Bacteria <20 /HPF (NONE SEEN); Urine RBC <5 /HPF (NONE SEEN)
[2020-07-12] MEDS ORDERED: NA CHLORIDE 0.9% 250 ML ONE (14:00)
--- NOTE | 2020-07-12 14:14 | RAD REPORT ---
EXAM DESCRIPTION: RAD - Chest Single View - 07/12/2020 2:09 pm CLINICAL HISTORY: general weakness Chest pain. COMPARISON: Chest Single View dated 04/28/2020; Chest Single View dated 08/31/2019; Chest Single View dated 07/25/2019; Chest Single View dated 07/10/2019 FINDINGS: Portable technique limits examination quality. The lungs are grossly clear. The heart is normal in size. No displaced fractures.Mildly tortuous thor acic aorta. IMPRESSION: No acute intrathoracic process suspected.
[2020-07-12 14:23] LABS: Troponin I 0.02 ng/mL (0.0-0.045)
[2020-07-12] MEDS ORDERED: ONDANSETRON 4 MG/2 ML VIAL IV PRN (14:52)
[2020-07-12] MEDS: NA CHLORIDE 0.9% 1,000 ML IV SCH (14:52)
[2020-07-12] MEDS ORDERED: MORPHINE 2 MG/ML SYR IV PRN (15:27)
[2020-07-12] MEDS ORDERED: MORPHINE 2 MG/ML SYR ONE (16:34)
[2020-07-12] MEDS ORDERED: ONDANSETRON 4 MG/2 ML VIAL ONE (16:34)
[2020-07-12] MEDS ORDERED: NA CHLORIDE 0.9% 1,000 ML ONE (16:42)
[2020-07-12 16:54] LABS: BUN Blood Urea Nitrogen 8 mg/dL (7-18); Bicarbonate 26 mmol/L (21-32); Glucose Level 78 mg/dL (74-106); Potassium 4.8 mmol/L (3.5-5.1); Sodium Level 124 mmol/L (136-145)
[2020-07-12 21:48] VITALS: BMI 29.2
[2020-07-12] MEDS: HYDROCORTISONE SUC 100 MG INJ IV SCH (22:41)
[2020-07-12 23:20] LABS: Urine Appearance CLEAR; Urine Bilirubin NEGATIVE (NEG); Urine Blood NEGATIVE (NEG); Urine Color YELLOW; Urine Glucose NEGATIVE (NEG); Urine Protein NEGATIVE (NEG); Urine Specific Gravity <=1.005 (1.005-1.030); Urine Urobilinogen 0.2 mg/dL (0.2-1.0); Urine pH 7.5 (5.0-7.0)
[2020-07-12 23:22] LABS: Urine Microscopic Reflex NO UMIC
[2020-07-13 00:14] LABS: UR CREAT < 13.0 mg/dL (20-370); UR PROTEIN < 5 mg/dL (<11.9); Urine Protein/Creatinine Ratio ND ratio (<0.15)
[2020-07-13] MEDS: TAMSULOSIN 0.4 MG SR CAP PO SCH ×2 (01:52→10:14)
[2020-07-13] MEDS: NA CHLORIDE 0.9% 1,000 ML IV SCH (01:55)
[2020-07-13 04:25] LABS: Absolute Lymphocytes (CBC) 0.7 K/uL (0.7-4.9); Basophils % 0.4 % (0-1.3); Lymphocytes % 11.1 % (15.3-44.8); MPV 7.7 fL (7.6-11.3); RBC Red Blood Cell Count 4.18 M/uL (4.33-5.43)
[2020-07-13 04:46] LABS: Albumin 2.9 g/dL (3.4-5.0); BUN Blood Urea Nitrogen 7 mg/dL (7-18); Bicarbonate 24 mmol/L (21-32); Glucose Level 101 mg/dL (74-106); HDL Cholesterol 32 mg/dL (40-60); LDL Cholesterol, Calculated 155 (<130); Magnesium 2.1 mg/dL (1.8-2.4); Phosphorus 4.1 mg/dL (2.5-4.9); Potassium 4.6 mmol/L (3.5-5.1); Sodium Level 130 mmol/L (136-145); Uric Acid 5.2 mg/dL (3.5-7.2)
[2020-07-13 06:31] LABS: Blood Morphology Comment NOT SEEN (NOT SEEN); Platelet Estimate ADEQ
--- NOTE | 2020-07-13 07:54 | EKG ---
Test Date: 2020-07-12 Test Time: 15:13:47 Supervisor Order Takers: ZUNILDA MEASUREMENT RESULTS: Intervals: Rate: 71 OR: 206 QRSD: 86 QT: 416 QTc: 452 [place]: P: 49 OR: 206 QRS: -65 T: 19 INTERPRETIVE STATEMENTS: Sinus rhythm with occasional and consecutive premature ventricular complexes and fusion complexes Left axis deviation Nonspecific ST abnormality Abnormal ECG Compared to ECG 04/28/2020 14:24:12 Fusion complex(es) now present Ventricular premature complex(es) now present Left-axis deviation now present ST (T wave) deviation now present Left anterior fascicular block no longer present Electronically Signed On 07-13-20 07:49:49 SUPERVISOR FILM PROCESSING by Angel Blanca
[2020-07-13] MEDS ORDERED: PNEUMOCOCCAL VACCINE 0.5 ML IMVAC ONE (08:00)
[2020-07-13] MEDS ORDERED: INFLUENZA VACCINE (for 3y+) 0.5 ML DOSE IMVAC ONE (08:00)
[2020-07-13] MEDS: HYDROCORTISONE SUC 100 MG INJ IV SCH (09:00)
[2020-07-13] MEDS ORDERED: ENOXAPARIN 40 MG/0.4 ML SQ SCH (09:00)
[2020-07-13] MEDS: SODIUM CHLORIDE 1 GM TAB PO SCH ×2 (10:14→15:14)
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
[2020-07-13] MEDS ORDERED: NA CHLORIDE 0.9% 1,000 ML IV SCH (10:58)
--- NOTE | 2020-07-13 11:06 | EKG ---
Test Date: 2020-07-12 Test Time: 15:14:12 Software Installation Engineer: ZUNILDA MEASUREMENT RESULTS: Intervals: Rate: 64 TN: 208 QRSD: 86 QT: 422 QTc: 435 [place]: P: 33 TN: 208 QRS: -61 T: 22 INTERPRETIVE STATEMENTS: Normal sinus rhythm Left axis deviation Septal infarct, age undetermined Abnormal ECG Compared to ECG 07/12/2020 15:13:47 Myocardial infarct finding now present Fusion complex(es) no longer present Ventricular premature complex(es) no longer present ST (T wave) deviation no longer present Electronically Signed On 07-13-20 11:05:05 DIRECT CARE SPECIALIST by Angel Blanca
--- NOTE | 2020-07-13 13:05 | P.DS ---
Admission Date: 07/12/20 Discharge Date: 07/13/20 Disposition: [place] HOME/HOME HEALTH CARE Discharge Condition: FAIR Reason for Admission: Generalized weakness - Problems (1) Hyponatremia Current Visit: No Status: Resolved (2) Chronic anemia Current Visit: Yes Status: Acute (3) Weakness Current Visit: No Status: Acute (4) BPH (benign prostatic hyperplasia) Current Visit: No Status: Chronic Qualifiers: Lower urinary tract symptom presence: symptoms present Lower urinary tract symptom detail: urinary frequency Qualified Code(s): N40.1 - Benign prostatic hyperplasia with lower urinary tract symptoms; R35.0 - Frequency of micturition Brief History of Present Illness: 80-year-old gentleman with a history of asthma, recurrent hospitalization for hyponatremia was brought to the emergency department due to 1 week history of generalized weakness, poor oral intake and decreased activity. Patient reports intermittent diarrhea. He denied any polyuria or increased urinary frequency. He denied any cough. He denied any shortness of breath. Blood work done in the emergency department demonstrated hyponatremia with a sodium level of 122. Urinalysis is pending. Glucose level of 64. Chest x-rays is pending. Patient was complaining of left knee pain. X-ray done report osteoporosis, subchondral sclerosis, no acute fracture or dislocation. Patient is admitted for further management. Hospital Course: Patient admitted to the medical floor and treated with IV normal saline and free water restriction. 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 Patient seen and evaluated by nephrology who prescribed Florinef, oral prednisone and sodium tablets. Patient and daughter I informed he will need to follow up with an reel fed printer to continue managing the recurrent hyponatremia. He was seen and evaluated by physical therapy. He ambulated with a walker. His sodium level improved to 130. Patient will be discharged with home health. He will follow with nephrology within 1 week. Vital Signs/Physical Exam: Temp Pulse Resp BP Pulse Ox 98.1 F 79 19 108/58 L 95 07/13/20 08:00 07/13/20 08:00 07/13/20 08:00 07/13/20 08:00 07/13/20 08:00 General: Alert, In no apparent distress, Oriented x3 HEENT: Mucous membr. moist/pink Respiratory: Clear to auscultation bilaterally, Normal air movement Cardiovascular: No edema, Regular rate/rhythm, Normal S1 S2 Gastrointestinal: Normal bowel sounds, Soft and benign, Non-distended Musculoskeletal: No swelling, No tenderness Integumentary: No rashes Neurological: Other (No focal motor deficit.) Laboratory Data at Discharge: WBC 6.30 K/uL (4.3-10.9) D 07/13/20 03:52 Hgb 11.3 g/dL (13.6-17.9) L 07/13/20 03:52 Hct 35.0 % (39.6-49.0) L 07/13/20 03:52 Plt Count 378 K/uL (152-406) 07/13/20 03:52 Sodium Cancelled 07/13/20 14:52 Potassium Cancelled 07/13/20 14:52 BUN Cancelled 07/13/20 14:52 Creatinine Cancelled 07/13/20 14:52 Glucose Cancelled 07/13/20 14:52 Uric Acid 5.2 mg/dL (3.5-7.2) D 07/13/20 03:52 Phosphorus 4.1 mg/dL (2.5-4.9) 07/13/20 03:52 Magnesium 2.1 mg/dL (1.8-2.4) 07/13/20 03:52 Total Bilirubin 0.3 mg/dL (0.2-1.0) 07/12/20 10:44 AST 49 U/L (15-37) H 07/12/20 10:44 ALT 28 U/L (12-78) 07/12/20 10:44 Alkaline Phosphatase 77 U/L (45-117) 07/12/20 10:44 Troponin I 0.02 ng/mL (0.0-0.045) 07/12/20 13:50 Triglycerides 168 mg/dL (<150) H 07/13/20 03:52 Cholesterol 221 mg/dL (<200) H 07/13/20 03:52 HDL Cholesterol 32 mg/dL (40-60) L 07/13/20 03:52 Cholesterol/HDL Ratio 6.91 07/13/20 03:52 Lipase 153 U/L (73-393) 07/12/20 10:44 Home Medications: Tamsulosin [Flomax*] 1 cap PO DAILY 12/11/18 Zafirlukast 20 mg PO BID 6AM 6PM 06/29/19 Fludrocortisone [Florinef *] 0.1 mg PO DAILY #30 tab 07/13/20 Sodium Chloride Tab [Sodium Chloride*] 1 gm PO TID #90 tab 07/13/20 predniSONE [Prednisone*] 5 mg PO BEDTIME #30 tab 07/13/20 New Medications: Fludrocortisone [Florinef *] 0.1 mg PO DAILY #30 tab predniSONE [Prednisone*] 5 mg PO BEDTIME #30 tab Sodium Chloride Tab [Sodium Chloride*] 1 gm PO TID #90 tab Diet: Regular Activity: Fall precautions Followup: Unknown,U [Primary Care Provider] - 1-2 Weeks Kel Morales MD [ACTIVE - CAN ADMIT] - 1 Week
[2020-07-13 14:36] VITALS: O2SAT 97
[2020-07-13 15:15] LABS: Potassium 4.6 mmol/L (3.5-5.1)
[2020-07-13 17:16] VITALS: BP 100/56; TEMP 97.2
[2020-07-13] MEDS ORDERED: predniSONE 5 MG TAB PO SCH (21:00)
[2020-07-14] MEDS ORDERED: predniSONE 10 MG TAB PO SCH (09:00)
[2020-07-14] MEDS ORDERED: FLUDROCORTISONE 0.1 MG TAB PO SCH (09:00)
== END 2020-07-13 16:33 | disposition home health service (06) ==
LOC: ER 09:18 → ERHOLD 13:34 → INTOOBSV 13:34 → 2ND 21:19
PROVIDERS: ADMIT Internal Medicine; ATTEND Internal Medicine
DX: E87.1 Hypo-osmolality and hyponatremia (principal); E27.40 Unspecified adrenocortical insufficiency; R53.1 Weakness; D64.9 Anemia, unspecified; N40.1 Benign prostatic hyperplasia with lower urinary tract symptoms; R35.0 Frequency of micturition; J44.9 Chronic obstructive pulmonary disease, unspecified; J45.20 Mild intermittent asthma, uncomplicated; I10 Essential (primary) hypertension; M25.562 Pain in left knee; M81.0 Age-related osteoporosis without current pathological fracture; R19.7 Diarrhea, unspecified; K40.90 Unilateral inguinal hernia, without obstruction or gangrene, not specified as recurrent; K43.9 Ventral hernia without obstruction or gangrene; Z20.822 Contact with and (suspected) exposure to COVID-19; Z82.3 Family history of stroke; Z80.0 Family history of malignant neoplasm of digestive organs
CPT/HCPCS: 93005 ×2; 87040 ×2; 85025 ×2; 80048 ×3; 36415; 83735; 82550; 84132; 84300; 80061; 80076; 84550; 83605; 80069; 84443; 82570; 84484; 83690; 83930 ×2; 84156; 70450; 72192; 71045; 73502; 73562 ×2; 97116; 97161; 97530; 94760 ×3; 96375; 96374; 99285; U0003; J1650; J3010; J2270 ×2; J7050; J7030 ×3; J1720 ×2; J2405; 81003; 81015; G0378